=== PATIENT | male | born 1955 | race Caucasian/White ===

== ENCOUNTER 2020-05-05 07:15 | Outpatient (REF) | payer BC, SELFPAY | END 2020-05-05 07:16 | disposition home or self-care (01) | LOC: HO.LAB 07:15 | PROVIDERS: PCP Internal Medicine Medical Oncology; Visit Provider Internal Medicine | DX: Z20.828 Contact with and (suspected) exposure to other viral communicable diseases (principal) | CPT/HCPCS: C9803; U0003 ==

== ENCOUNTER 2020-05-25 10:23 | Outpatient (REF) | payer BC, SELFPAY | END 2020-05-25 10:24 | disposition home or self-care (01) | LOC: HO.LAB 10:23 | PROVIDERS: Visit Provider Internal Medicine | DX: Z20.828 Contact with and (suspected) exposure to other viral communicable diseases (principal) | CPT/HCPCS: C9803; U0003 ==

== ENCOUNTER 2020-08-26 08:15 | Day surgery (SDC) | payer BC, SELFPAY ==
[2020-08-19 14:25] VITALS: BMI 37.1
--- NOTE | 2020-08-25 07:52 | P.CONAN_ITS ---
Documented by User: Salome Bell 08/25/20 07:53 HPI - Anesthesia Eval Consult details Narrative: 65yo M for Colonoscopy [facility] Past Medical History Medical History Lab test negative for COVID-19 virus Personal history of COVID-19 Surgical History Surgical History H/O colonoscopy Hx of eye surgery Hx of oral surgery Hx of vasectomy Social History Social History Alcohol intake: current Alcohol intake frequency: 0-2 drinks per day Smoking Status: Never smoker Use of substances other than those prescribed or required for medical reasons: No Advance Directives Information Provided: No Meds Allergies Allergy/AdvReac Type Severity Reaction Status Date / Time No Known Allergies Allergy Verified 08/26/20 09:07 Home Medications Medication Instructions Recorded Confirmed Last Taken Type No Known Home Meds 08/19/20 08/19/20 Unknown History Exam Exam Date and Time: August 25, 2020 0752 Height,Weight and Vital Signs: Height 5 ft 4.25 in Weight 98.883 kg Assessment and Plan Assessment Anesthesia Assessment: Chart Reviewed Documented by User: Ramya Haro 08/26/20 09:23 [facility] Past Medical History Medical History Lab test negative for COVID-19 virus Personal history of COVID-19 Family History Family history of problems with anesthesia: No Surgical History Surgical History H/O colonoscopy Hx of eye surgery Hx of oral surgery Hx of vasectomy History of Problems with Anesthesia: No Social History Social History Alcohol intake: current Alcohol intake frequency: 0-2 drinks per day Smoking Status: Never smoker Use of substances other than those prescribed or required for medical reasons: No Advance Directives Information Provided: No Meds Allergies Allergy/AdvReac Type Severity Reaction Status Date / Time No Known Allergies Allergy Verified 08/26/20 09:07 Home Medications Medication Instructions Recorded Confirmed Last Taken Type No Known Home Meds 08/19/20 08/19/20 Unknown History Exam Height,Weight and Vital Signs: Vital Signs Temp Pulse Resp BP Pulse Ox 08/26/20 09:13 97.8 F 65 18 146/68 H 97 Narrative Narrative: Scab top lip Airway Mallampati Class: II TM Dist: >3cm Neck ROM: Full Partial: Lower Heart: RRR Lungs: CTAB Assessment and Plan Assessment Anesthesia Assessment: Anesthesia Plan Discussed and Chart Reviewed Final Anesthetic Review NPO: Yes ASA Class: II Final Preanesthetic Review: No Changes in Pt Med Stat, Meds/Allgs Chart Reviewed, Consent Obtained/Reviewed and Anes Risks/Benef Reviewed Patient Risk: Low Procedure Risk: Low Assessment/Block/Sedation in SS: Assess/Block/Sedation-SS Anesthetic Plan Anesthetic Plan: MAC: Disposition: Standard PACU
[2020-08-26 09:13] VITALS: BP 146/68; PULSE 65; RESP 18; TEMP 36.6; O2SAT 97
[2020-08-26] MEDS: Lactated Ringers 1,000 ML 100 ML IVCONT (09:24)
[2020-08-26 10:26] VITALS: BP 105/54; PULSE 56; RESP 20; TEMP 36.9; O2SAT 98
--- NOTE | 2020-08-26 10:28 | PM.OP ---
Brief Operative Note Date of Service: 08/26/20 Pre-op diagnosis: Screening Post-op diagnosis: other (Colon polyp) Procedure: Colonoscopy to the cecum and TI with biopsy and removal of polyp Surgeon: Kevin Curry Anesthesia: MAC Estimated blood loss (mL): 3.0 Pathology: other (A. Ascending colon polyp) Condition: stable Disposition: PACU
[2020-08-26 10:41] VITALS: BP 114/55; PULSE 60; RESP 20; TEMP 37; O2SAT 96
--- NOTE | 2020-08-26 11:57 | OP_ITS ---
SURGEON: Kevin Curry MD INDICATIONS: The patient presents for evaluation of a personal history of tubular adenoma of the colon. Full consent has been obtained from him for this, including risks of bleeding and perforation. PREOPERATIVE DIAGNOSIS: POSTOPERATIVE DIAGNOSIS: PROCEDURE PERFORMED: Colonoscopy to cecum and terminal ileum with biopsy and removal of polyp. ESTIMATED BLOOD LOSS: COMPLICATIONS: ANESTHESIA: Monitored anesthesia care. ASSISTANTS: SPECIMENS: PREOPERATIVE DIAGNOSES: Colorectal cancer screening and personal history of tubular adenoma of the colon. POSTOPERATIVE DIAGNOSES: Colorectal cancer screening and personal history of tubular adenoma of the colon, small colon polyp, sigmoid diverticulosis, and small internal hemorrhoids. DESCRIPTION OF PROCEDURE: The patient was placed in the left lateral decubitus position. The digital rectal exam revealed no abnormalities. The Olympus video pediatric colonoscope was entered into the rectum and advanced easily to the cecum. Once in the cecum, I did identify normal-appearing cecal pouch with appendiceal orifice and a normal-appearing ileocecal valve. The terminal ileum was cannulated and appeared normal. The scope was withdrawn back in the colon. The entire cecum and ileocecal valve appeared normal. The scope was slowly withdrawn assessing all mucosal surfaces carefully. Preparation was excellent. In the ascending colon, was a flat approximately 4 mm polyp, which was biopsied and completely removed with cold biopsy forceps. I did not visualize any other polyps, colitis, nor angiodysplasia. There was a mild amount of sigmoid diverticulosis. In the rectum, scope was retroflexed visualizing small internal hemorrhoids, but no other pathology. The rectal mucosa appeared normal. The scope was straightened out and withdrawn from the patient. He tolerated the procedure well and was returned to the recovery area in stable condition. IMPRESSION: 1. Small colon polyp, status post biopsy and removal. 2. Mild sigmoid diverticulosis. 3. Small internal hemorrhoids. PLAN: The results of the biopsies will be checked. I would recommend a repeat colonoscopy in 5 years for further screening. MD LINDY Mendoza/MABELL / [id number]
== END 2020-08-26 11:36 | disposition home or self-care (01) ==
PROVIDERS: PCP Internal Medicine Medical Oncology; Visit Provider Internal Medicine
PROC: 0DJD8ZZ Inspection of Lower Intestinal Tract, Via Natural or Artificial Opening Endoscopic (ICD-10-PCS; CPT 45378; principal; 2020-08-26 09:40)
DX: Z12.11 Encounter for screening for malignant neoplasm of colon (principal); Z86.010 Personal history of colon polyps; D12.2 Benign neoplasm of ascending colon; K57.30 Diverticulosis of large intestine without perforation or abscess without bleeding; K64.8 Other hemorrhoids; Z86.16 Personal history of COVID-19
CPT/HCPCS: 45380; 88305

== ENCOUNTER 2020-08-30 10:51 | Outpatient (REF) | payer BC, SELFPAY ==
[2020-08-30 14:14] LABS: MANUAL DIFF FLAG NO
[2020-08-30 14:34] LABS: Basophils Percent Auto 0.4 % (0-2); Eosinophils Absolute Auto 0.1 X10*3/uL (0.0-0.4); Eosinophils Percent Auto 1.6 % (0-4); Hematocrit 43.4 % (42-52); Hemoglobin 14.9 g/dl (14.0-18.0); Imm Gran Abs Auto 0.01 X10*3/uL (0.00-0.03); Imm Gran Pct Auto 0.1 % (0.0-0.4); Lymphocytes Absolute Auto 2.7 X10*3/uL (1.2-4.9); Lymphocytes Percent Auto 31.5 % (20-40); Mean Corpuscular HGB Conc 34.3 g/dl (31.0-36.0); Mean Corpuscular Hemoglobin 29.8 pg (27.0-33.0); Mean Corpuscular Volume 86.8 fL (80-98); Mean Platelet Volume 9.4 fL (9.4-12.4); Monocytes Absolute Auto 0.6 X10*3/uL (0.1-1.2); Neutrophils Absolute Auto 5.1 X10*3/uL (2.0-8.3); Neutrophils Percent Auto 59.4 % (45-73); Platelet Count 369 X10*3/uL (160-400); Red Cell Distribution Width 14.1 % (11.0-16.0); White Blood Count 8.6 X10*3/uL (4.8-10.8)
[2020-08-30 14:42] LABS: Estimated Average Glucose 111 mg/dL; Hemoglobin A1c % 5.5 %
[2020-08-30 14:45] LABS: Alanine Aminotransferase 31 U/L (0-40); Albumin Level 4.4 g/dL (3.5-5.0); Alkaline Phosphatase 100 U/L (39-117); Anion Gap 13 (12-20); Aspartate Amino Transferase 29 U/L (5-37); Bilirubin Total 0.8 mg/dL (0.0-1.0); Blood Urea Nitrogen 14 mg/dL (9-16); Carbon Dioxide 30 mmol/L (22-29); Chloride 104 mmol/L (96-108); Cholesterol 178 mg/dL; Estimated Glomerular Filt Rate > 60; Glucose Fasting 91 mg/dL (60-99); HDL Cholesterol 48 mg/dL; LDL Cholesterol Calculated 115 mg/dl; Potassium 4.5 mmol/L (3.3-5.1); Sodium 142 mmol/L (135-145); Total Protein 7.5 g/dL (6.5-8.0); Triglycerides 75 mg/dL
== END 2020-08-30 10:52 | disposition home or self-care (01) ==
LOC: HO.10HDL 10:51
PROVIDERS: Visit Provider Internal Medicine Medical Oncology
DX: M17.0 Bilateral primary osteoarthritis of knee (principal); E66.9 Obesity, unspecified
CPT/HCPCS: 36415; 80053; 80061; 83036; 85025

== ENCOUNTER 2021-06-06 11:40 | Outpatient (REF) | payer MEDICARE, SELFPAY ==
--- NOTE | ~2021-06-06 | XR_ITS ---
EXAMINATION: XR ELBOW, RIGHT CLINICAL INFORMATION: Elbow pain COMPARISON: None TECHNIQUE: AP, lateral, and oblique views of the right elbow. FINDINGS: The bones and soft tissues are normal. No fracture or joint effusion. Alignment is anatomic. Joint spaces are maintained. Mild calcific tendinopathy. XR/XR elbow RT 2V IMPRESSION: Mild calcific tendinopathy.
--- NOTE | ~2021-06-06 | XR_ITS ---
EXAMINATION: XR SHOULDER, RIGHT CLINICAL INFORMATION: Right shoulder pain COMPARISON: None TECHNIQUE: AP external rotation, Grashey, scapular Y, and axillary views of the right shoulder. FINDINGS: There is mild acromioclavicular osteoarthritis. Glenohumeral joint is well preserved. No fracture. Alignment is anatomic. Soft tissues are normal with no abnormal calcifications. XR/XR shoulder RT min 2V IMPRESSION: Mild acromioclavicular joint arthritis.
--- NOTE | ~2021-06-06 | XR_ITS ---
EXAMINATION: XR WRIST, RIGHT CLINICAL INFORMATION: Right wrist pain COMPARISON: None TECHNIQUE: PA, lateral, and oblique views of the right wrist. FINDINGS: The bones and soft tissues are normal. No fracture. Alignment is anatomic with normal joint spaces. No erosions or abnormal soft tissue calcifications. XR/XR wrist RT min 3V IMPRESSION: Normal right wrist.
== END 2021-06-06 11:41 | disposition home or self-care (01) ==
LOC: HO.XRAY 11:40
PROVIDERS: Visit Provider Internal Medicine Medical Oncology
DX: M79.601 Pain in right arm (principal); M25.511 Pain in right shoulder; M25.531 Pain in right wrist; M25.521 Pain in right elbow
CPT/HCPCS: 73030; 73070; 73110

== ENCOUNTER 2022-01-31 08:41 | Outpatient (REF) | payer MEDICARE, SELFPAY ==
[2022-01-31 10:19] LABS: MANUAL DIFF FLAG NO
[2022-01-31 10:26] LABS: Basophils Absolute Auto 0.1 X10*3/uL (0.0-0.2); Basophils Percent Auto 0.5 % (0-2); Eosinophils Absolute Auto 0.3 X10*3/uL (0.0-0.4); Eosinophils Percent Auto 2.9 % (0-4); Hematocrit 41.7 % (42.0-52.0); Hemoglobin 14.2 g/dl (14.0-18.0); Imm Gran Abs Auto 0.04 X10*3/uL (0.00-0.03); Imm Gran Pct Auto 0.4 % (0.0-0.4); Lymphocytes Absolute Auto 3.1 X10*3/uL (1.2-4.9); Lymphocytes Percent Auto 31.1 % (20-40); Mean Corpuscular HGB Conc 34.1 g/dl (31.0-36.0); Mean Corpuscular Hemoglobin 29.3 pg (27.0-33.0); Monocytes Absolute Auto 0.7 X10*3/uL (0.1-1.2); Monocytes Percent Auto 6.6 % (2-11); Neutrophils Absolute Auto 5.8 x10*3/uL (2.0-8.3); Neutrophils Percent Auto 58.5 % (45-73); Platelet Count 326 X10*3/uL (160-400); Red Blood Count 4.85 X10*6/uL (4.60-5.80); Red Cell Distribution Width 13.4 % (11.0-16.0); White Blood Count 9.9 X10*3/uL (4.8-10.8)
[2022-01-31 10:40] LABS: Alanine Aminotransferase 37 U/L (0-40); Albumin Level 4.1 g/dL (3.5-5.0); Alkaline Phosphatase 107 U/L (39-117); Anion Gap 13 (12-20); Aspartate Amino Transferase 41 U/L (5-37); Bilirubin Total 0.6 mg/dL (0.0-1.0); Blood Urea Nitrogen 11 mg/dL (9-16); Carbon Dioxide 31 mmol/L (22-29); Chloride 101 mmol/L (96-108); Cholesterol 167 mg/dL; Estimated Glomerular Filt Rate > 60; Glucose Fasting 103 mg/dL (60-99); HDL Cholesterol 40 mg/dL; LDL Cholesterol Calculated 106 mg/dl; Potassium 4.2 mmol/L (3.3-5.1); Sodium 141 mmol/L (135-145); Total Protein 6.9 g/dL (6.5-8.0); Triglycerides 105 mg/dL
[2022-01-31 11:01] LABS: Prostate Specific Antigen 0.49 ng/mL (<0.05-4.0)
== END 2022-01-31 08:42 | disposition home or self-care (01) ==
LOC: HO.10HDL 08:41
PROVIDERS: Visit Provider Internal Medicine Medical Oncology
DX: Z12.5 Encounter for screening for malignant neoplasm of prostate (principal); E66.9 Obesity, unspecified; M17.0 Bilateral primary osteoarthritis of knee
CPT/HCPCS: 36415; 80053; 80061; 84153; 85025

== ENCOUNTER 2022-02-08 09:09 | Outpatient (REF) | payer MEDICARE, SELFPAY ==
[2022-02-13 17:06] LABS: Testosterone, Total 239 ng/dL (250-1100)
== END 2022-02-08 09:10 | disposition home or self-care (01) ==
LOC: HO.10HDL 09:09
PROVIDERS: Visit Provider Internal Medicine Medical Oncology
DX: Z00.00 Encounter for general adult medical examination without abnormal findings (principal)
CPT/HCPCS: 36415; 84403

== ENCOUNTER 2022-03-30 16:26 | Outpatient (REF) | payer MEDICARE, SELFPAY ==
--- NOTE | ~2022-03-30 | XR_ITS ---
EXAMINATION: XR CHEST CLINICAL INFORMATION: Cough COMPARISON: None TECHNIQUE: 2 views of the chest were obtained. FINDINGS: No significant abnormality is noted involving the heart, lungs, mediastinum, bony thorax or soft tissues. Degenerative changes of the spine. XR/XR chest 2V IMPRESSION: Unremarkable examination.
== END 2022-03-30 16:27 | disposition home or self-care (01) ==
LOC: HO.XRAY 16:26
PROVIDERS: PCP Internal Medicine Medical Oncology; Visit Provider Internal Medicine Medical Oncology
DX: R05.9 Cough, unspecified (principal)
CPT/HCPCS: 71046

== ENCOUNTER 2022-07-20 07:33 | Outpatient (REF) | payer MEDICARE, SELFPAY ==
[2022-07-20 10:34] LABS: MANUAL DIFF FLAG NO
[2022-07-20 10:45] LABS: Basophils Absolute Auto 0.1 X10*3/uL (0.0-0.2); Basophils Percent Auto 0.7 % (0-2); Eosinophils Absolute Auto 0.3 X10*3/uL (0.0-0.4); Eosinophils Percent Auto 3.6 % (0-4); Hematocrit 43.9 % (42.0-52.0); Hemoglobin 14.4 g/dl (14.0-18.0); Imm Gran Abs Auto 0.03 X10*3/uL (0.00-0.03); Imm Gran Pct Auto 0.3 % (0.0-0.4); Lymphocytes Absolute Auto 2.9 X10*3/uL (1.2-4.9); Lymphocytes Percent Auto 32.4 % (20-40); Mean Corpuscular HGB Conc 32.8 g/dl (31.0-36.0); Mean Corpuscular Volume 88.3 fL (80.0-98.0); Mean Platelet Volume 9.6 fL (9.4-12.4); Monocytes Absolute Auto 0.6 X10*3/uL (0.1-1.2); Monocytes Percent Auto 6.6 % (2-11); Neutrophils Percent Auto 56.4 % (45-73); Platelet Count 300 X10*3/uL (160-400); Red Blood Count 4.97 X10*6/uL (4.60-5.80); Red Cell Distribution Width 13.8 % (11.0-16.0); White Blood Count 8.9 X10*3/uL (4.8-10.8)
[2022-07-20 11:11] LABS: Alanine Aminotransferase 37 U/L (0-40); Albumin Level 3.8 g/dL (3.5-5.0); Alkaline Phosphatase 120 U/L (39-117); Anion Gap 10 (12-20); Aspartate Amino Transferase 41 U/L (5-37); Bilirubin Total 0.8 mg/dL (0.0-1.0); Blood Urea Nitrogen 17 mg/dL (9-16); Calcium 8.8 mg/dL (8.4-10.2); Carbon Dioxide 31 mmol/L (22-29); Chloride 106 mmol/L (96-108); Estimated Glomerular Filt Rate > 60; Glucose Random 109 mg/dL (60-115); Potassium 4.2 mmol/L (3.3-5.1); Sodium 143 mmol/L (135-145); Total Protein 6.6 g/dL (6.5-8.0)
[2022-07-26 16:29] LABS: Testosterone, Total 234 ng/dL (250-1100)
== END 2022-07-20 07:34 | disposition home or self-care (01) ==
LOC: HO.10HDL 07:33
PROVIDERS: Visit Provider Internal Medicine Medical Oncology
DX: M17.0 Bilateral primary osteoarthritis of knee (principal); R79.89 Other specified abnormal findings of blood chemistry
CPT/HCPCS: 36415; 80053; 84403; 85025

== ENCOUNTER → 2022-09-19 13:57 | Outpatient (BNVA) | payer MEDICARE, SELFPAY | PROVIDERS: PCP Internal Medicine Medical Oncology; Visit Provider Nurse Practitioner Family | DX: E29.1 Testicular hypofunction (principal); N52.9 Male erectile dysfunction, unspecified | CPT/HCPCS: 99202 ==

== ENCOUNTER 2022-09-21 08:13 | Outpatient (REF) | payer MEDICARE, SELFPAY ==
[2022-09-29 15:18] LABS: Testosterone, Total 218 ng/dL (250-1100)
== END 2022-09-21 08:14 | disposition home or self-care (01) ==
LOC: HO.10HDL 08:13
PROVIDERS: Visit Provider Nurse Practitioner Family
DX: E29.1 Testicular hypofunction (principal); N52.9 Male erectile dysfunction, unspecified
CPT/HCPCS: 36415; 84402; 84403

== ENCOUNTER 2022-12-27 08:00 | Outpatient (REF) | payer MEDICARE, SELFPAY ==
[2023-01-03 16:48] LABS: Testosterone, Free 63.2 pg/mL (35.0-155.0); Testosterone, Total 363 ng/dL (250-1100)
== END 2022-12-27 08:01 | disposition home or self-care (01) ==
LOC: HO.10HDL 08:00
PROVIDERS: Visit Provider Nurse Practitioner Family
DX: E29.1 Testicular hypofunction (principal); N52.9 Male erectile dysfunction, unspecified
CPT/HCPCS: 36415; 84402; 84403

== ENCOUNTER 2023-01-02 08:34 | Outpatient (AMB) | payer MEDICARE, SELFPAY ==
--- NOTE | 2023-01-02 08:35 | MHC.OFFVIS ---
Intake Intake Visit Reasons: follow up/labs(set) Intake Note: Patient presents for follow up visit low testosterone/labs (total testosterone 218) Urology Medications: tadalafil Blood Thinner: none Sales Trainer Required: No Accompanied by: Self / Same As Patient Allergies No Known Allergies Allergy (Verified 01/02/23 10:07) Medication List - Last Reconciled 01/02/23 by HOLLY Radford tadalafil (Cialis) 5 mg PO DAILY 90 days HPI HPI Comments History of Present Illness Details Silvio is a pleasant 67-year-old male patient of Dr. Goel. He has a past medical history of obesity, osteoarthritis, and tubular adenoma. He presents to the office today for a follow up of his hypogonadism. Recent testosterone results reviewed with the patient today. When asked patient reports noting increase in mood and energy. He also reports feeling low-dose 5 mg Cialis daily to be working for his erections. Testosterone lab values are as follows. Patient otherwise denies any urinary issues or concerns at this time. When asked he denies any issues with urination. He denies urinary urgency, urinary frequency, incontinence, nocturia, hematuria, dysuria, foul smelling urine, changes to urinary stream, flank pain, fever, and or chills. He is happy with his current voiding parameters. Discussed at length importance of lifestyle modifications with diet, exercise, an adequate sleep. He otherwise denies any issues or concerns at this time. In office urinalysis results reviewed with the patient today. He discusses his recent road trip with his girlfriend to the [facility]. He discusses being able to visit his mother and son. Total Testosterone: 02/15--239 07/19-- 234 09/16--218 01/16--pending PSA: 02/15--0.5 At this time labs are pending. Patient will continue with low-dose Cialis as he reports this to be working well for him. Discussed calling patient with lab values once resulted. Patient otherwise offers no issues or concerns at this time. [facility] Medical History Decreased vision Diminished libido Lab test negative for COVID-19 virus Left medial tibial plateau fracture Morbid obesity Osteoarthritis Otitis Personal history of COVID-19 Tubular adenoma Surgical History H/O colonoscopy Hx of eye surgery Hx of oral surgery Hx of vasectomy Social History Alcohol intake: current Alcohol intake frequency: 0-2 drinks per day Review of Systems Const All systems reviewed & are unremarkable except as noted in HPI and below Reports no additional complaints Eyes Reports no additional complaints ENT Reports no additional complaints Card Reports no additional complaints Resp Reports no additional complaints GI Reports no additional complaints Reports as per HPI Musc Details: Patient reports torn left calf muscle while hiking few years ago, torn right bicep tendon, and right ulnar compression. He also reports arthritis of both knees. Neuro Reports no additional complaints Psych Reports no additional complaints Endo Reports no additional complaints Reymundo/Lymph Reports no additional complaints Aller/Immun Reports no additional complaints Physical Exam Const General: cooperative, comfortable, no acute distress, well developed, alert and awake Nutritional Appearance: overweight Orientation/consciousness: patient oriented x3 Limitations: no limitations HEENT Head: Yes normal to inspection, Yes normocephalic and Yes atraumatic Ears: hearing grossly normal bilaterally Eyes General: appearance normal, both eyes and all related structures Neck Neck: Yes normal visual inspection and Yes trachea midline Chest Chest palpation & inspection: normal inspection of the chest Resp Effort & Inspection: normal respiratory effort and able to speak in complete sentences Cardio Rate: regular rate GI Inspection: Yes normal to inspection General: Yes no CVA tenderness Back/Spine/Pelvis Back: no CVA tenderness Skin General skin exam: no rashes or lesions noted Neuro General: patient oriented x3 Extrem General: Yes normal to inspection Psych Appearance: grossly normal and well kempt Mental Status: mental status grossly normal Speech and movement: Normal speech and movement present and Clear speech present Affect: normal affect Attitude: cooperative Thought process: Normal thought process present Thought content: Normal thought content present Insight: Fair insight present (Psych) Judgement: Fair judgement present (Psych) Results AMB Urinalysis, Automated UA Leukoctes 0 Bola/uL Last Edit by Montse Sharma on 01/02/23 09:02 UA Nitrite Last Edit by Montse Sharma on 01/02/23 09:02 UA Urobilinogen 0.2 mg/dL Last Edit by Montse Sharma on 01/02/23 09:02 UA Protein 15 mg/dL Last Edit by Montse Naidudenisa on 01/02/23 09:02 UA pH 6.0 Last Edit by Montse Elysiadenisa on 01/02/23 09:02 UA Blood 10 Samuel/uL Last Edit by Montse Elysiadenisa on 01/02/23 09:02 UA Specific [place] 1.025 Last Edit by Anandalorena Elysiadenisa on 01/02/23 09:02 UA Ketone Negative Last Edit by Anandalorena Elysiadenisa on 01/02/23 09:02 UA Bilirubin 0 mg/dL Last Edit by Montse Elysiadenisa on 01/02/23 09:02 UA Glucose 0 mg/dL Last Edit by Montse Elysiadenisa on 01/02/23 09:02 Results Reviewed Results Reviewed: Laboratory Last Values Urine pH (Auto) 6.0 01/02/23 08:36 Specific [place] (Auto) 1.025 01/02/23 08:36 Urine Protein (Auto) 15 mg/dL 01/02/23 08:36 Glucose (UA)(Auto) 0 mg/dL 01/02/23 08:36 Urine Ketones (Auto) Negative 01/02/23 08:36 Urine Blood (Auto) 10 Samuel/uL 01/02/23 08:36 Urine Bilirubin (Auto) 0 mg/dL 01/02/23 08:36 Urine Urobilinogen (Auto) 0.2 mg/dL 01/02/23 08:36 Leukocyte Esterase (Auto) 0 Bola/uL 01/02/23 08:36 Assessment & Plan Assessment & Plan (1) Erectile dysfunction: Code(s): N52.9 - Male erectile dysfunction, unspecified (2) Hypogonadism in male: Code(s): E29.1 - Testicular hypofunction Plan In office urinalysis results reviewed with the patient today Testosterone lab values reviewed most recent continues to be pending. Will continue with low-dose 5 mg of Cialis daily as discussed and prescribed; refill provided Will call patient once labs are resulted However, at this time patient reporting significant improvement in mood and libido with 5 mg of low-dose Cialis and would like to continue Patient reports to be happy with current voiding parameters. Follow up in 6 months with labs if not sooner with any issues, concerns, and or questions. Orders: Orders Testosterone, Free/Total 6 Months E29.1 - Testicular hypofunction, N52.9 - Male erectile dysfunction, unspecified AMB Urinalysis Automated Today Z13.9 - Encounter for screening, unspecified Prostate Specific Antigen 6 Months Z12.5 - Encounter for screening for malignant neoplasm of prostate Medications: Refilled tadalafil (Cialis) [facility] DR33 [id number] 5 mg PO DAILY 90 tabs 0RF 90 days Patient Instructions: The patient had an opportunity to ask questions regarding the treatment plan. All questions were answered. Physical exam, labs, and imaging were discussed and reviewed in detail. As well as risks, benefits, and discussion of treatment choices. No major barriers to understanding were identified. The patient expressed understanding and agreement with the above treatment plan. The patient was made aware they should contact our office by phone for worsening of their current condition, the appearance of new symptoms, or with any questions or concerns. Compliance is encouraged with any medications and follow up testing that is ordered. It is a privilege to be allowed the opportunity to participate in? your urological care.? Again, if you have any questions or concerns If you have any questions or concerns please do not hesitate to contact me. The office is [phone]. This note is constructed using voice recognition software. While every effort has been made to ensure accuracy protective services case worker errors may have been included. Yours sincerely, HOLLY Radford Coding Level of Care Code Est Pt Level 3 (34154) Diagnoses Erectile dysfunction N52.9 Hypogonadism in male E29.1
== END 2023-01-02 09:15 | disposition home or self-care (01) ==
PROVIDERS: Visit Provider Nurse Practitioner Family
DX: N52.9 Male erectile dysfunction, unspecified (principal); E29.1 Testicular hypofunction
CPT/HCPCS: 99213

== ENCOUNTER 2023-01-02 08:34 | Outpatient (REF) | payer MEDICARE, SELFPAY ==
[2023-01-02 16:53] LABS: Urine Cytology See Pathology rpt
== END 2023-01-02 08:35 | disposition home or self-care (01) ==
LOC: HO.LNP 08:34
PROVIDERS: Visit Provider Nurse Practitioner Family
DX: E29.1 Testicular hypofunction (principal); N52.9 Male erectile dysfunction, unspecified; Z79.899 Other long term (current) drug therapy
CPT/HCPCS: 88112; 99212

== ENCOUNTER 2023-05-03 08:35 | Outpatient (REF) | payer MEDICARE, SELFPAY ==
[2023-05-03 10:33] LABS: MANUAL DIFF FLAG NO
[2023-05-03 10:50] LABS: Basophils Percent Auto 0.3 % (0-2); Eosinophils Percent Auto 0.2 % (0-4); Hematocrit 42.3 % (42.0-52.0); Imm Gran Abs Auto 0.33 X10*3/uL (0.00-0.03); Imm Gran Pct Auto 2.2 % (0.0-0.4); Lymphocytes Absolute Auto 3.7 X10*3/uL (1.2-4.9); Lymphocytes Percent Auto 25.2 % (20-40); Mean Corpuscular HGB Conc 33.1 g/dl (31.0-36.0); Mean Corpuscular Hemoglobin 29.6 pg (27.0-33.0); Mean Corpuscular Volume 89.4 fL (80.0-98.0); Mean Platelet Volume 8.9 fL (9.4-12.4); Monocytes Absolute Auto 0.9 X10*3/uL (0.1-1.2); Monocytes Percent Auto 5.8 % (2-11); Neutrophils Absolute Auto 9.8 x10*3/uL (2.0-8.3); Neutrophils Percent Auto 66.3 % (45-73); Platelet Count 359 X10*3/uL (160-400); Red Blood Count 4.73 X10*6/uL (4.60-5.80); Red Cell Distribution Width 14.2 % (11.0-16.0); White Blood Count 14.8 X10*3/uL (4.8-10.8)
[2023-05-03 11:03] LABS: Alanine Aminotransferase 27 U/L (0-40); Albumin Level 3.7 g/dL (3.5-5.0); Alkaline Phosphatase 103 U/L (39-117); Anion Gap 11 (12-20); Aspartate Amino Transferase 25 U/L (5-37); Bilirubin Total 0.6 mg/dL (0.0-1.0); Blood Urea Nitrogen 15 mg/dL (9-16); Calcium 8.8 mg/dL (8.4-10.2); Carbon Dioxide 31 mmol/L (22-29); Chloride 105 mmol/L (96-108); Cholesterol 169 mg/dL (<200); Estimated Glomerular Filt Rate > 60; Glucose Fasting 91 mg/dL (60-99); HDL Cholesterol 63 mg/dL (>40); LDL Cholesterol Calculated 94 mg/dL (<100); Potassium 3.8 mmol/L (3.3-5.1); Sodium 143 mmol/L (135-145); Total Protein 6.6 g/dL (6.5-8.0); Triglycerides 61 mg/dL (<150)
[2023-05-03 11:19] LABS: Prostate Specific Antigen 0.43 ng/mL (<0.05-4.0)
[2023-05-07 18:35] LABS: Testosterone, Total 242 ng/dL (250-1100)
== END 2023-05-03 08:36 | disposition home or self-care (01) ==
LOC: HO.10HDL 08:35
PROVIDERS: Visit Provider Internal Medicine Medical Oncology
DX: Z12.5 Encounter for screening for malignant neoplasm of prostate (principal); E66.01 Morbid (severe) obesity due to excess calories; E34.9 Endocrine disorder, unspecified
CPT/HCPCS: 36415; 80053; 80061; 84153; 84403; 85025

== ENCOUNTER 2023-07-03 09:06 | Outpatient (REF) | payer MEDICARE, SELFPAY ==
[2023-07-03 10:40] LABS: Prostate Specific Antigen 0.58 ng/mL (<0.05-4.0)
[2023-07-07 16:43] LABS: Testosterone, Total 223 ng/dL (250-1100)
== END 2023-07-03 09:07 | disposition home or self-care (01) ==
LOC: HO.LAB 09:06
PROVIDERS: PCP Internal Medicine Medical Oncology; Visit Provider Nurse Practitioner Family
DX: Z12.5 Encounter for screening for malignant neoplasm of prostate (principal); N52.9 Male erectile dysfunction, unspecified; E29.1 Testicular hypofunction
CPT/HCPCS: 36415; 84153; 84402; 84403

== ENCOUNTER 2023-07-05 09:26 | Outpatient (AMB) | payer MEDICARE, SELFPAY ==
--- NOTE | 2023-07-05 09:31 | MHC.OFFVIS ---
Intake Intake Visit Reasons: 6 mo follow up/ Labs Intake Note: Patient is Present for Follow Up labs/Med Review Urology Medication: Tadalafil Antibiotic Allergies: None Blood Thinners: None Patient is requesting refill on Tadalafil Allergies No Known Allergies Allergy (Verified 07/05/23 10:11) Medication List - Last Reconciled 07/05/23 by TRACY Radford-JAMES tadalafil (Cialis) 5 mg PO DAILY 90 days HPI HPI Comments History of Present Illness Details Silvio is a pleasant 68-year-old male patient of Dr. Goel. He has a past medical history of obesity, osteoarthritis, and tubular adenoma. He presents to the office today for a follow up of his hypogonadism. It appears testosterone lab values are pending as these were just drawn 2 days ago. Discussed importance of having labs done approximately 2 weeks prior to appointment. Previous testosterone labs reviewed and trended as noted below. In discussion with the patient today he reports he had been feeling increase in mood and energy however ran out of medication approximately 1 month ago and feels he has also been under a lot of stress. He also reports feeling low-dose 5 mg Cialis daily to be working for his erections. He reports noting to be getting more sleep and feels this has been helpful as well. Patient otherwise denies any urinary issues or concerns at this time. When asked he denies any issues with urination. He denies urinary urgency, urinary frequency, incontinence, nocturia, hematuria, dysuria, foul smelling urine, changes to urinary stream, flank pain, fever, and or chills. He is happy with his current voiding parameters. Discussed at length importance of lifestyle modifications with diet, exercise, an adequate sleep. He otherwise denies any issues or concerns at this time. In office urinalysis results reviewed with the patient today. Total Testosterone: 02/15--239 07/19-- 234 09/16--218 01/16--363 05/18--242 07/20--pending PSA: 02/15--0.5, 05/18--0.4 At this time labs are pending. Patient will continue with low-dose Cialis as he reports this to be working well for him. Discussed calling patient with lab values once resulted. Patient otherwise offers no issues or concerns at this time. PFSH Medical History Diminished libido Left medial tibial plateau fracture Osteoarthritis Otitis Tubular adenoma Decreased vision Morbid obesity Lab test negative for COVID-19 virus Personal history of COVID-19 Surgical History Hx of vasectomy Hx of eye surgery Hx of oral surgery H/O colonoscopy Social History Alcohol intake: current Alcohol intake frequency: 0-2 drinks per day Review of Systems Const All systems reviewed & are unremarkable except as noted in HPI and below Reports no additional complaints Eyes Reports no additional complaints ENT Reports no additional complaints Card Reports no additional complaints Resp Reports no additional complaints GI Reports no additional complaints Reports as per HPI Musc Details: Patient reports torn left calf muscle while hiking few years ago, torn right bicep tendon, and right ulnar compression. He also reports arthritis of both knees. Neuro Reports no additional complaints Psych Reports no additional complaints Endo Reports no additional complaints Reymundo/Lymph Reports no additional complaints Aller/Immun Reports no additional complaints Physical Exam Const General: cooperative, healthy appearing, comfortable, no acute distress, well developed, alert and awake Nutritional Appearance: overweight Orientation/consciousness: patient oriented x3 Limitations: no limitations HEENT Head: Yes normal to inspection, Yes normocephalic and Yes atraumatic Ears: hearing grossly normal bilaterally Eyes General: appearance normal, both eyes and all related structures Neck Neck: Yes normal visual inspection and Yes trachea midline Chest Chest palpation & inspection: normal inspection of the chest Resp Effort & Inspection: normal respiratory effort and able to speak in complete sentences Cardio Rate: regular rate GI Inspection: Yes normal to inspection General: Yes no CVA tenderness Back/Spine/Pelvis Back: no CVA tenderness Skin General skin exam: no rashes or lesions noted Neuro General: patient oriented x3 Extrem General: Yes normal to inspection Psych Appearance: grossly normal and well kempt Mental Status: mental status grossly normal Speech and movement: Normal speech and movement present and Clear speech present Affect: normal affect Attitude: cooperative Thought process: Normal thought process present Thought content: Normal thought content present Insight: Fair insight present (Psych) Judgement: Fair judgement present (Psych) Results AMB Urinalysis, Automated UA Leukoctes 0 Bola/uL Last Edit by Tracy Sandoval, RMA on 07/05/23 09:42 UA Nitrite Negative Last Edit by Tracy Sandoval, RMA on 07/05/23 09:42 UA Urobilinogen 0.2 mg/dL Last Edit by Tracy Sandoval, RMA on 07/05/23 09:42 UA Protein 0 mg/dL Last Edit by Tracy Sandoval, RMA on 07/05/23 09:42 UA pH 5.5 Last Edit by Tracy Sandoval, RMA on 07/05/23 09:42 UA Blood 0 Samuel/uL Last Edit by Tracy Sandoval, RMA on 07/05/23 09:42 UA Specific [place] 1.020 Last Edit by Tracy Sandoval, A on 07/05/23 09:42 UA Ketone Negative Last Edit by Tracy Sandoval, RMA on 07/05/23 09:42 UA Bilirubin 0 mg/dL Last Edit by Tracy Sandoval, RMA on 07/05/23 09:42 UA Glucose 0 mg/dL Last Edit by Tracy Sandoval, RMA on 07/05/23 09:42 Results Reviewed Results Reviewed: Laboratory Last Values Urine pH (Auto) 5.5 07/05/23 09:39 Specific [place] (Auto) 1.020 07/05/23 09:39 Urine Protein (Auto) 0 mg/dL 07/05/23 09:39 Glucose (UA)(Auto) 0 mg/dL 07/05/23 09:39 Urine Ketones (Auto) Negative 07/05/23 09:39 Urine Blood (Auto) 0 Samuel/uL 07/05/23 09:39 Urine Nitrite (Auto) Negative 07/05/23 09:39 Urine Bilirubin (Auto) 0 mg/dL 07/05/23 09:39 Urine Urobilinogen (Auto) 0.2 mg/dL 07/05/23 09:39 Leukocyte Esterase (Auto) 0 Bola/uL 07/05/23 09:39 Assessment & Plan Assessment & Plan (1) Erectile dysfunction: Code(s): N52.9 - Male erectile dysfunction, unspecified (2) Hypogonadism in male: Code(s): E29.1 - Testicular hypofunction Plan In office urinalysis results reviewed with the patient today Testosterone lab values reviewed most recent continues to be pending. Will continue with low-dose 5 mg of Cialis daily as discussed and prescribed; refill provided Will call patient once labs are resulted. However, at this time patient reporting improvement in mood and libido with 5 mg of low-dose Cialis and would like to continue Patient reports to be happy with current voiding parameters. Follow up in 3 months with labs if not sooner with any issues, concerns, and or questions. Orders: Orders AMB Urinalysis Automated Today Z13.9 - Encounter for screening, unspecified Medications: Refilled tadalafil (Cialis) [facility] DR33 [id number] 5 mg PO DAILY 90 days 90 tabs 1RF Patient Instructions: The patient had an opportunity to ask questions regarding the treatment plan. All questions were answered. Physical exam, labs, and imaging were discussed and reviewed in detail. As well as risks, benefits, and discussion of treatment choices. No major barriers to understanding were identified. The patient expressed understanding and agreement with the above treatment plan. The patient was made aware they should contact our office by phone for worsening of their current condition, the appearance of new symptoms, or with any questions or concerns. Compliance is encouraged with any medications and follow up testing that is ordered. It is a privilege to be allowed the opportunity to participate in? your urological care.? Again, if you have any questions or concerns If you have any questions or concerns please do not hesitate to contact me. The office is [phone]. This note is constructed using voice recognition software. While every effort has been made to ensure accuracy pneumatic system conveyor operator errors may have been included. Yours sincerely, HOLLY Radford Coding Level of Care Code Est Pt Level 3 (01607) Diagnoses Erectile dysfunction N52.9 Hypogonadism in male E29.1
== END 2023-07-05 10:00 | disposition home or self-care (01) ==
PROVIDERS: PCP Internal Medicine Medical Oncology; Visit Provider Nurse Practitioner Family
DX: N52.9 Male erectile dysfunction, unspecified (principal); E29.1 Testicular hypofunction; Z13.9 Encounter for screening, unspecified
CPT/HCPCS: 99213

== ENCOUNTER → 2023-07-05 09:26 | Outpatient (BNVA) | payer MEDICARE, SELFPAY | PROVIDERS: PCP Internal Medicine Medical Oncology; Visit Provider Nurse Practitioner Family | DX: N52.9 Male erectile dysfunction, unspecified (principal); E29.1 Testicular hypofunction | CPT/HCPCS: 81003; 99212 ==

== ENCOUNTER 2023-08-01 10:15 | Outpatient (REF) | payer MEDICARE, SELFPAY ==
[2023-08-01 11:38] LABS: MANUAL DIFF FLAG NO
[2023-08-01 11:46] LABS: Basophils Absolute Auto 0.1 X10*3/uL (0.0-0.2); Basophils Percent Auto 0.5 % (0-2); Eosinophils Absolute Auto 0.2 X10*3/uL (0.0-0.4); Eosinophils Percent Auto 1.9 % (0-4); Hematocrit 43.7 % (42.0-52.0); Hemoglobin 14.3 g/dl (14.0-18.0); Imm Gran Abs Auto 0.08 X10*3/uL (0.00-0.03); Imm Gran Pct Auto 0.8 % (0.0-0.4); Lymphocytes Absolute Auto 2.6 X10*3/uL (1.2-4.9); Lymphocytes Percent Auto 25.4 % (20-40); Mean Corpuscular HGB Conc 32.7 g/dl (31.0-36.0); Mean Corpuscular Hemoglobin 29.9 pg (27.0-33.0); Mean Corpuscular Volume 91.4 fL (80.0-98.0); Mean Platelet Volume 9.1 fL (9.4-12.4); Monocytes Absolute Auto 0.6 X10*3/uL (0.1-1.2); Monocytes Percent Auto 5.9 % (2-11); Neutrophils Absolute Auto 6.7 x10*3/uL (2.0-8.3); Neutrophils Percent Auto 65.5 % (45-73); Platelet Count 297 X10*3/uL (160-400); Red Blood Count 4.78 X10*6/uL (4.60-5.80); Red Cell Distribution Width 13.9 % (11.0-16.0); White Blood Count 10.3 X10*3/uL (4.8-10.8)
[2023-08-01 11:57] LABS: Alanine Aminotransferase 29 U/L (0-40); Alkaline Phosphatase 104 U/L (39-117); Anion Gap 8 (12-20); Aspartate Amino Transferase 30 U/L (5-37); Bilirubin Total 0.6 mg/dL (0.0-1.0); Blood Urea Nitrogen 14 mg/dL (9-16); Calcium 9.3 mg/dL (8.4-10.2); Carbon Dioxide 34 mmol/L (22-29); Chloride 103 mmol/L (96-108); Cholesterol 169 mg/dL (<200); Estimated Glomerular Filt Rate > 60; Glucose Fasting 100 mg/dL (60-99); HDL Cholesterol 51 mg/dL (>40); LDL Cholesterol Calculated 104 mg/dL (<100); Potassium 4.3 mmol/L (3.3-5.1); Sodium 141 mmol/L (135-145); Triglycerides 70 mg/dL (<150)
[2023-08-07 13:03] LABS: Testosterone, Total 306 ng/dL (250-1100)
== END 2023-08-01 10:16 | disposition home or self-care (01) ==
LOC: HO.10HDL 10:15
PROVIDERS: Visit Provider Internal Medicine Medical Oncology
DX: E66.01 Morbid (severe) obesity due to excess calories (principal); E34.9 Endocrine disorder, unspecified
CPT/HCPCS: 36415; 80053; 80061; 84403; 85025

== ENCOUNTER → 2023-08-29 08:58 | Outpatient (REF) | payer MEDICARE, SELFPAY ==
--- NOTE | 2023-08-29 09:02 | CA_ITS ---
Acquisition Time: 2023-08-29 09:11:46 Total Exercise Time: 00:09:14 Test Indications: SOB Medications: ALBUTEROL Protocol: LINK Max HR: 131 BPM 86% of Pred: 152 BPM Max BP: 160/080 mmHG Max Work Load: 10.4 METS Exercise stress test exercise 9 min 14 sec of Link protocol achieving 86% MPHR, with moderate SOB without chest discomfort, with isolated PVC and ventricular cuplet, with normotensive response to exericse, without EKG chnages, Test reviewed with Dr Seaman Referred By: Kevin Goel Overread By: Anitha Wolf
== END ==
LOC: HO.CARD 08:58
PROVIDERS: PCP Internal Medicine Medical Oncology; Visit Provider Internal Medicine Medical Oncology
DX: R06.02 Shortness of breath (principal); I10 Essential (primary) hypertension; M17.0 Bilateral primary osteoarthritis of knee
CPT/HCPCS: 93017

== ENCOUNTER → 2023-08-29 09:02 | Outpatient (BNV) | payer MEDICARE, SELFPAY | PROVIDERS: PCP Internal Medicine Medical Oncology; Visit Provider Nurse Practitioner | DX: R06.02 Shortness of breath (principal); I49.3 Ventricular premature depolarization | CPT/HCPCS: 93016; 93018 ==

== ENCOUNTER 2023-10-04 09:49 | Outpatient (AMB) | payer MEDICARE, SELFPAY ==
--- NOTE | 2023-10-04 09:58 | A.OFFVIS_ITS ---
Intake Visit Reasons: 3m/testo Intake Note: Patient is Present for Follow Up labs Urology Medication: Tadalafil Antibiotic Allergies: None Blood Thinners: None Screw Machine Tender Required: No Accompanied by: Self / Same As Patient Allergies No Known Allergies Allergy (Verified 07/05/23 10:11) Medication List - Last Reconciled 10/05/23 by HOLLY Radford tadalafil (Cialis) 5 mg PO DAILY 90 days HPI Comments Details: Silvio is a pleasant 68-year-old male patient of Dr. Goel. He has a past medical history of obesity, osteoarthritis, and tubular adenoma. He presents to the office today for a follow up of his hypogonadism and erectile dysfunction. In discussion with the patient today reports to be doing and feeling well. He reports noting morning erections over the last 2 months. He reports compliance with 5 mg of Cialis daily. Recent testosterone results reviewed with the patient today as noted and trended below. He reports erections are adequate for penetration. He currently denies any bothersome urinary issues or concerns. He reports feeling increase in mood and energy. Patient otherwise denies any urinary issues or concerns at this time. When asked he denies any issues with urination. He denies urinary urgency, urinary frequency, incontinence, nocturia, hematuria, dysuria, foul smelling urine, changes to urinary stream, flank pain, fever, and or chills. He is happy with his current voiding parameters. Discussed at length importance of lifestyle modifications with diet, exercise, an adequate sleep. He otherwise denies any issues or concerns at this time. In office urinalysis results reviewed with the patient today. Patient otherwise offers no issues or concerns at this time. Total Testosterone: 02/15 239, 07/19 234, 09/16 218, 01/16 363, 05/18 242 07/20 223, 08/17 306 Free testosterone: 07/20 41.0 PSA: 02/15 0.5, 05/18 0.4, 07/20 0.6 PFSH Medical History Diminished libido Left medial tibial plateau fracture Osteoarthritis Otitis Tubular adenoma Decreased vision Morbid obesity Lab test negative for COVID-19 virus Personal history of COVID-19 Surgical History Hx of vasectomy Hx of eye surgery Hx of oral surgery H/O colonoscopy Social History Alcohol intake: current Alcohol intake frequency: 0-2 drinks per day Review of Systems Const All systems reviewed & are unremarkable except as noted in HPI and below Reports no additional complaints Eyes Reports no additional complaints ENT Reports no additional complaints Card Reports no additional complaints Resp Reports no additional complaints GI Reports no additional complaints Reports as per HPI Musc Details: Patient reports torn left calf muscle while hiking few years ago, torn right bicep tendon, and right ulnar compression. He also reports arthritis of both knees. Neuro Reports no additional complaints Psych Reports no additional complaints Endo Reports no additional complaints Reymundo/Lymph Reports no additional complaints Aller/Immun Reports no additional complaints Physical Exam Const General: cooperative, healthy appearing, comfortable, no acute distress, well developed, alert and awake Nutritional Appearance: overweight Orientation/consciousness: patient oriented x3 Limitations: no limitations HEENT Head: Yes normal to inspection, Yes normocephalic and Yes atraumatic Ears: hearing grossly normal bilaterally Eyes General: appearance normal, both eyes and all related structures Neck Neck: Yes normal visual inspection and Yes trachea midline Chest Chest palpation & inspection: normal inspection of the chest Resp Effort & Inspection: normal respiratory effort and able to speak in complete sentences Cardio Rate: regular rate GI Inspection: Yes normal to inspection General: Yes no CVA tenderness Back/Spine/Pelvis Back: no CVA tenderness Skin General skin exam: no rashes or lesions noted Neuro General: patient oriented x3 Extrem General: Yes normal to inspection Psych Appearance: grossly normal and well kempt Mental Status: mental status grossly normal Speech and movement: Normal speech and movement present and Clear speech present Affect: normal affect Attitude: cooperative Thought process: Normal thought process present Thought content: Normal thought content present Insight: Fair insight present (Psych) Judgement: Fair judgement present (Psych) Results AMB Urinalysis, Automated UA Leukoctes 0 Bola/uL Last Edit by Montse Sharma on 10/04/23 10:10 UA Nitrite Negative Last Edit by Montse hSarma on 10/04/23 10:10 UA Urobilinogen 0.2 mg/dL Last Edit by Montse Sharma on 10/04/23 10:10 UA Protein 15 mg/dL Last Edit by Montse Sharma on 10/04/23 10:10 UA pH 6.0 Last Edit by Montse Naidudenisa on 10/04/23 10:10 UA Blood 10 Samuel/uL Last Edit by Anandaholliebetzaida Naidudenisa on 10/04/23 10:10 UA Specific [place] 1.030 Last Edit by Anandalorena Elysiadenisa on 10/04/23 10:10 UA Ketone Negative Last Edit by Montse Naidudenisa on 10/04/23 10:10 UA Bilirubin 0 mg/dL Last Edit by Montse Naidudenisa on 10/04/23 10:10 UA Glucose 0 mg/dL Last Edit by Montse Elysiadenisa on 10/04/23 10:10 Results Reviewed Results Reviewed: Laboratory Last Values Urine pH (Auto) 6.0 10/04/23 10:02 Specific [place] (Auto) 1.030 10/04/23 10:02 Urine Protein (Auto) 15 mg/dL 10/04/23 10:02 Glucose (UA)(Auto) 0 mg/dL 10/04/23 10:02 Urine Ketones (Auto) Negative 10/04/23 10:02 Urine Blood (Auto) 10 Samuel/uL 10/04/23 10:02 Urine Nitrite (Auto) Negative 10/04/23 10:02 Urine Bilirubin (Auto) 0 mg/dL 10/04/23 10:02 Urine Urobilinogen (Auto) 0.2 mg/dL 10/04/23 10:02 Leukocyte Esterase (Auto) 0 Bola/uL 10/04/23 10:02 Assessment & Plan Assessment & Plan (1) Hypogonadism in male: Code(s): E29.1 - Testicular hypofunction Category: Medical (2) Erectile dysfunction: Code(s): N52.9 - Male erectile dysfunction, unspecified Category: Medical Plan In office urinalysis results reviewed with the patient today. Recent labs reviewed with the patient today; as noted and trended above. Will continue with low-dose 5 mg of Cialis daily as discussed and prescribed; refill provided Patient reports to be happy with current voiding parameters. He currently denies any bothersome urinary issues or concerns. Follow up in 4 months with labs if not sooner with any issues, concerns, and or questions. Orders: Orders AMB Urinalysis Automated 10/04/23 Z13.9 - Encounter for screening, unspecified Testosterone, Free/Total 4 Months E29.1 - Testicular hypofunction, N52.9 - Male erectile dysfunction, unspecified Medications: Refilled tadalafil (Cialis) [facility] DR33 [id number] 5 mg PO DAILY 90 tabs 3RF 90 days Patient Instructions: The patient had an opportunity to ask questions regarding the treatment plan. All questions were answered. Physical exam, labs, and imaging were discussed and reviewed in detail. As well as risks, benefits, and discussion of treatment choices. No major barriers to understanding were identified. The patient expressed understanding and agreement with the above treatment plan. The patient was made aware they should contact our office by phone for worsening of their current condition, the appearance of new symptoms, or with any questions or concerns. Compliance is encouraged with any medications and follow up testing that is ordered. It is a privilege to be allowed the opportunity to participate in? your urological care.? Again, if you have any questions or concerns If you have any questions or concerns please do not hesitate to contact me. The office is [phone]. This note is constructed using voice recognition software. While every effort has been made to ensure accuracy machining department supervisor errors may have been included. Yours sincerely, HOLLY Radford Coding Level of Care Code Est Pt Level 3 (36800) Diagnoses Hypogonadism in male E29.1 Erectile dysfunction N52.9
== END 2023-10-04 10:29 | disposition home or self-care (01) ==
PROVIDERS: PCP Internal Medicine Medical Oncology; Visit Provider Nurse Practitioner Family
DX: E29.1 Testicular hypofunction (principal); N52.9 Male erectile dysfunction, unspecified
CPT/HCPCS: 99213

== ENCOUNTER → 2023-10-04 09:49 | Outpatient (BNVA) | payer MEDICARE, SELFPAY | PROVIDERS: PCP Internal Medicine Medical Oncology; Visit Provider Nurse Practitioner Family | DX: E29.1 Testicular hypofunction (principal); N52.9 Male erectile dysfunction, unspecified; Z79.899 Other long term (current) drug therapy | CPT/HCPCS: 81003; 99212 ==

== ENCOUNTER 2023-11-07 11:26 | Outpatient (REF) | payer MEDICARE, SELFPAY ==
--- NOTE | ~2023-11-07 | XR_ITS ---
EXAMINATION: XR CHEST CLINICAL INFORMATION: Chronic cough. COMPARISON: Chest radiograph dated 03/30/2022. TECHNIQUE: 2 views of the chest were obtained. FINDINGS: The cardiac silhouette is normal in size. There is no consolidation within either lung. The pleural spaces are clear. There is no pneumothorax. No acute osseous abnormality. XR/XR chest 2V IMPRESSION: No acute cardiopulmonary disease. Stable appearance of the heart and lungs.
== END 2023-11-07 11:27 | disposition home or self-care (01) ==
LOC: HO.XRAY 11:26
PROVIDERS: PCP Internal Medicine Medical Oncology; Visit Provider Internal Medicine Medical Oncology
DX: R05.3 Chronic cough (principal)
CPT/HCPCS: 71046

== ENCOUNTER 2023-11-19 09:19 | Outpatient (AMB) | payer MEDICARE, SELFPAY ==
--- NOTE | 2023-11-19 08:14 | A.OFFVIS_ITS ---
Vital Signs 11/19/23 09:23 Height 5 ft 4.25 in Weight 245 lb BMI 41.7 BP 132/56 L Blood Pressure Location Lt brachial Position Sitting Pulse 55 Pulse Source Pulse Oximeter Pulse Oximetry (%) 95 Oxygen Delivery Method Room Air Intake Visit Reasons: chronic cough Allergies No Known Allergies Allergy (Verified 11/19/23 09:26) HPI HPI chronic cough: Details: Silvio is a pleasant 68 year old male, never smoker, with underlying HTN. He was referred by PCP for pulmonary evaluation for chronic cough. He reports dry cough developed in March as well as dyspnea on moderate exertion. He denies chest tightness or wheezing. He was trialed on albuterol and cough suppressants with minimal effect. CXR 11/07/23 unremarkable. He denies any prior history of asthma. He denies any occupational exposures. He denies any symptoms of GERD. He denies any seasonal allergies. He denies any pets at home. He does note some post nasal drip, however mild. He denies any pertinent family history, however referral notes grandmother dx with lung cancer. [facility] [place] Medical History Diminished libido Left medial tibial plateau fracture Osteoarthritis Otitis Tubular adenoma Decreased vision Morbid obesity Lab test negative for COVID-19 virus Personal history of COVID-19 Surgical History Hx of vasectomy Hx of eye surgery Hx of oral surgery H/O colonoscopy Social History (Updated 11/19/23 @ 09:26 by Mary Polk [facility]) Alcohol intake: current Alcohol intake frequency: 0-2 drinks per day Patient Tobacco Use Status: Never used Tobacco Review of Systems Const Denies chills, Denies excessive sweating, Denies fever(s), Denies headache(s) and Denies night sweats Eyes Denies dry eyes, Denies irritation and Denies itchy eyes ENT Reports Normal hearing present, Denies headache(s), Denies nasal congestion, Denies nasal discharge, Denies post nasal drip and Denies sore throat Card Denies chest pain, Denies chest pain at rest, Denies chest pain with activity, Denies claudication, Denies leg edema, Denies dyspnea, Reports dyspnea on exertion, Denies orthopnea and Denies paroxysmal nocturnal dyspnea Resp Denies chest congestion, Reports cough, Denies excessive phlegm production, Denies pain on inspiration, Denies pain with cough, Denies dyspnea, Reports dyspnea on exertion, Denies stridor and Denies wheezing Musc Denies myalgias Neuro Reports Normal hearing present and Denies headache(s) Endo Denies excessive sweating Reymundo/Lymph Denies lymphadenopathy Aller/Immun Denies itchy eyes, Denies seasonal rhinorrhea and Denies wheezing Physical Exam Vital Signs: Last Vital Signs Pulse 55 11/19/23 09:23 BP 132/56 L 11/19/23 09:23 Pulse Ox 95 11/19/23 09:23 Oxygen Delivery Method Room Air 11/19/23 09:23 BMI result Body Mass Index 41.7 Const General: cooperative, healthy appearing, comfortable, no acute distress, well developed and alert Orientation/consciousness: patient oriented x3 Limitations: no limitations HEENT Head: Yes normal to inspection, Yes normocephalic and Yes atraumatic Ears: hearing grossly normal bilaterally and external ears normal Eyes General: appearance normal, both eyes and all related structures Eyelids: Yes eyelids normal Sclerae: sclerae normal EOM: EOMs intact bilaterally Neck Neck: Yes normal visual inspection and Yes no lymphadenopathy Lymphatic: no lymphadenopathy noted Chest Chest palpation & inspection: normal inspection of the chest Resp Effort & Inspection: normal respiratory effort, able to speak in complete sentences, no audible wheezes, no cough, no stridor, not tachypneic, no tripod positioning and no use of accessory muscles Auscultation: clear to auscultation bilaterally Cardio Jugular venous distension: no JVD Rate: regular rate Rhythm: regular rhythm Skin Other: warm, dry General skin exam: no rashes or lesions noted Neuro General: patient oriented x3 Cranial nerves: Yes Normal hearing present Cognition (Neuro): normal cognition Gait exam (Neuro): Normal gait present Extrem General: Yes normal to inspection, Yes capillary refill normal, Yes no clubbing, cyanosis or edema and Yes no pedal edema Psych Appearance: grossly normal and well kempt Speech and movement: Normal speech and movement present and Clear speech present Affect: normal affect Attitude: cooperative Thought process: Normal thought process present Thought content: Normal thought content present Insight: Good insight present (Psych) Judgement: Good judgement present (Psych) Assessment & Plan Assessment & Plan (1) Chronic cough: Code(s): R05.3 - Chronic cough Category: Medical Plan Silvio presents for pulmonary evaluation for chronic cough and dyspnea on exertion. Recent CXR unremarkable. Denies any symptoms of GERD at this time and reports PND minimal. Will send for PFT and chest CT to thoroughly evaluate. Will also empirically trial ICS. All questions were answered and patient is in agre ement of plan. Will follow up to review results and response to inhaler. Orders: Orders CT chest wo IV con Today R05.3 - Chronic cough PFT pulmonary function test Today R05.3 - Chronic cough Medications: New fluticasone propionate 110 mcg/actuation administer with spacer 2 puffs inhalation BID 12 grams 3RF Coding Level of Care Code New Pt Level 3 (59937) Diagnoses Chronic cough R05.3
[2023-11-19 09:23] VITALS: BP 132/56; PULSE 55; O2SAT 95; BMI 41.7
== END 2023-11-19 09:46 | disposition home or self-care (01) ==
PROVIDERS: PCP Internal Medicine Medical Oncology; Referring Provider Internal Medicine Medical Oncology; Visit Provider Nurse Practitioner Family
DX: R05.3 Chronic cough (principal)
CPT/HCPCS: 99203

== ENCOUNTER → 2023-11-19 09:19 | Outpatient (BNVA) | payer MEDICARE, SELFPAY | PROVIDERS: PCP Internal Medicine Medical Oncology; Referring Provider Internal Medicine Medical Oncology; Visit Provider Nurse Practitioner Family | DX: R05.3 Chronic cough (principal) | CPT/HCPCS: 99202 ==

== ENCOUNTER 2024-01-15 09:52 | Outpatient (REF) | payer MEDICARE, SELFPAY ==
[2024-01-20 22:09] LABS: Testosterone, Free 24.2 pg/mL (35.0-155.0); Testosterone, Total 205 ng/dL (250-1100)
== END 2024-01-15 09:53 | disposition home or self-care (01) ==
LOC: HO.10HDL 09:52
PROVIDERS: Visit Provider Nurse Practitioner Family
DX: E29.1 Testicular hypofunction (principal); N52.9 Male erectile dysfunction, unspecified
CPT/HCPCS: 36415; 84402; 84403

== ENCOUNTER 2024-01-17 07:24 | Outpatient (REF) | payer MEDICARE, SELFPAY ==
--- NOTE | ~2024-01-17 | CT_ITS ---
EXAMINATION: CT CHEST WITHOUT CONTRAST CLINICAL INFORMATION: Chronic cough. COMPARISON: Chest film dated 11/07/2023. TECHNIQUE: Multidetector volumetric CT imaging of the chest was done. Axial MIP volume rendering provided. Sagittal and coronal reformatted images were obtained. This CT examination was performed using dose optimization techniques as appropriate, variously including the following: *Automated exposure control *Adjustment of mA and/or kV according to patient size (this includes techniques or standardized protocols for targeted exams where dose is matched to indication/reason for exam; i.e. extremities or head) *Use of iterative reconstruction technique DLP: 291 mGy-cm FINDINGS: The thoracic inlet within normal limits. The axillary regions are unremarkable. Partially visualized upper abdominal structures within normal limits. Mild coronary calcium is noted. Centrally there is no evidence for bulky adenopathy. This is a noncontrast study but the hilar regions do not appear pathologically enlarged. Imaging of the lung herring. Right lung: No significant infiltrate or effusion. 5 mm nodule on image 391 of series 7. 2 mm nodule on image 164. 3 mm nodule on image 381. Left lung: No significant infiltrate or effusion. Mild atelectasis or scarring in the lingula. Some mild bronchial thickening throughout the lungs. Review of the bone windows does not demonstrate suspicion for bony lesion. CT/CT chest wo IV con IMPRESSION: No infiltrate or effusion. Some mild scarring or atelectasis in the lingula. Underlying lung parenchymal architecture is showing some mild bronchial thickening but otherwise within normal limits. Some scattered nodularity noted largest of which measures 5 mm which may be associated with the major fissure on the right. Attention at follow-up. Fleischner criteria provides guidelines for follow-up Electronically signed by: Carson Cade MD 02/06/2024 01:15 PM EDT
== END 2024-01-17 07:25 | disposition home or self-care (01) ==
LOC: HO.CT 07:24
PROVIDERS: PCP Internal Medicine Medical Oncology; Visit Provider Nurse Practitioner Family
DX: R05.3 Chronic cough (principal)
CPT/HCPCS: 71250

== ENCOUNTER 2024-02-04 10:40 | Outpatient (AMB) | payer MEDICARE, SELFPAY ==
--- NOTE | 2024-02-04 11:14 | MHC.OFFVIS ---
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 Goel. He has a past medical history of obesity, osteoarthritis, and tubular adenoma. He presents to the office today for a follow up of his hypogonadism and erectile dysfunction. In discussion with the patient today reports to be doing and feeling well. He reports noting morning erections over the last 2 months. He reports compliance with 5 mg of Cialis daily Recent testosterone results reviewed with the patient today as noted and trended below. He reports erections are adequate for penetration. He currently denies any bothersome urinary issues or concerns. He reports feeling increase in mood and energy. Patient otherwise denies any urinary issues or concerns at this time. When asked he denies any issues with urination. He denies urinary urgency, urinary frequency, incontinence, nocturia, hematuria, dysuria, foul smelling urine, changes to urinary stream, flank pain, fever, and or chills. He is happy with his current voiding parameters. Discussed at length importance of lifestyle modifications with diet, exercise, an adequate sleep. He otherwise denies any issues or concerns at this time. In office urinalysis results reviewed with the patient today. Discussed decrease in testosterone levels. In further treatment options of hypogonadism. He would like to continue with low-dose Cialis as he does feel this has been helpful. Patient otherwise offers no issues or concerns at this time. Total Testosterone: 02/15 239, 07/19 234, 09/16 218, 01/16 363, 05/18 242 07/20 223, 08/17 306, 01/17 205 Free testosterone: 07/20 41.0, 01/17 24.2 PSA: 02/15 0.5, 05/18 0.4, 07/20 0.6 PFSH Medical History Diminished libido Left medial tibial plateau fracture Osteoarthritis Otitis Tubular adenoma Decreased vision Morbid obesity Lab test negative for COVID-19 virus Personal history of COVID-19 Surgical History Hx of vasectomy Hx of eye surgery Hx of oral surgery H/O colonoscopy Social History Alcohol intake: current Alcohol intake frequency: 0-2 drinks per day Patient Tobacco Use Status: Never used Tobacco Review of Systems Const All systems reviewed & are unremarkable except as noted in HPI and below Reports no additional complaints Eyes Reports no additional complaints ENT Reports no additional complaints Card Reports no additional complaints Resp Reports no additional complaints GI Reports no additional complaints Reports as per HPI Musc Details: Patient reports torn left calf muscle while hiking few years ago, torn right bicep tendon, and right ulnar compression. He also reports arthritis of both knees. Neuro Reports no additional complaints Psych Reports no additional complaints Endo Reports no additional complaints Reymundo/Lymph Reports no additional complaints Aller/Immun Reports no additional complaints Physical Exam Const General: cooperative, healthy appearing, comfortable, no acute distress, well developed, alert and awake Nutritional Appearance: overweight Orientation/consciousness: patient oriented x3 Limitations: no limitations HEENT Head: Yes normal to inspection, Yes normocephalic and Yes atraumatic Ears: hearing grossly normal bilaterally Eyes General: appearance normal, both eyes and all related structures Neck Neck: Yes normal visual inspection and Yes trachea midline Chest Chest palpation & inspection: normal inspection of the chest Resp Effort & Inspection: normal respiratory effort and able to speak in complete sentences Cardio Rate: regular rate GI Inspection: Yes normal to inspection General: Yes no CVA tenderness Back/Spine/Pelvis Back: no CVA tenderness Skin General skin exam: no rashes or lesions noted Neuro General: patient oriented x3 Extrem General: Yes normal to inspection Psych Appearance: grossly normal and well kempt Mental Status: mental status grossly normal Speech and movement: Normal speech and movement present and Clear speech present Affect: normal affect Attitude: cooperative Thought process: Normal thought process present Thought content: Normal thought content present Insight: Fair insight present (Psych) Judgement: Fair judgement present (Psych) Results AMB Urinalysis, Automated UA Leukoctes 0 Bola/uL Last Edit by Montse Sharma on 02/04/24 12:05 UA Nitrite Last Edit by Montse Sharma on 02/04/24 12:05 UA Urobilinogen 0.2 mg/dL Last Edit by Montse Sharma on 02/04/24 12:05 UA Protein 0 mg/dL Last Edit by YouEyebetzaida [facility] on 02/04/24 12:05 UA pH 5.5 Last Edit by LyfeSystemslorena Sharma on 02/04/24 12:05 UA Blood 25 Samuel/uL Last Edit by Alere Analyticsdenisa on 02/04/24 12:05 UA Specific [place] 1.025 Last Edit by YouEyebetzaida [facility] on 02/04/24 12:05 UA Ketone Last Edit by YouEyebetzaida [facility] on 02/04/24 12:05 UA Bilirubin 0 mg/dL Last Edit by Alere Analyticsdenisa on 02/04/24 12:05 UA Glucose 0 mg/dL Last Edit by YouEyebetzaida [facility] on 02/04/24 12:05 Results Reviewed Results Reviewed: Laboratory Last Values Urine pH (Auto) 5.5 02/04/24 12:04 Specific [place] (Auto) 1.025 02/04/24 12:04 Urine Protein (Auto) 0 mg/dL 02/04/24 12:04 Glucose (UA)(Auto) 0 mg/dL 02/04/24 12:04 Urine Blood (Auto) 25 Samuel/uL 02/04/24 12:04 Urine Bilirubin (Auto) 0 mg/dL 02/04/24 12:04 Urine Urobilinogen (Auto) 0.2 mg/dL 02/04/24 12:04 Leukocyte Esterase (Auto) 0 Bola/uL 02/04/24 12:04 Assessment & Plan Assessment & Plan (1) Hypogonadism in male: Code(s): E29.1 - Testicular hypofunction Category: Medical (2) Erectile dysfunction: Code(s): N52.9 - Male erectile dysfunction, unspecified Category: Medical Plan In office urinalysis results reviewed with the patient today. Recent labs reviewed with the patient today; as noted and trended above. Discussed decreased in testosterone levels despite compliance with 5 mg of Cialis. We discussed at length further treatment options for hypogonadism; risks and benefits of these interventions. Will continue with low-dose 5 mg of Cialis daily as discussed Patient reports to be happy with current voiding parameters. He currently denies any bothersome urinary issues or concerns. Will obtain testosterone free and total in 3 months Follow up in 3 months with labs if not sooner with any issues, concerns, and or questions. Orders: Orders AMB Urinalysis Automated Today Z13.9 - Encounter for screening, unspecified Testosterone, Free/Total 3 Months E29.1 - Testicular hypofunction Patient Instructions: The patient had an opportunity to ask questions regarding the treatment plan. All questions were answered. Physical exam, labs, and imaging were discussed and reviewed in detail. As well as risks, benefits, and discussion of treatment choices. No major barriers to understanding were identified. The patient expressed understanding and agreement with the above treatment plan. The patient was made aware they should contact our office by phone for worsening of their current condition, the appearance of new symptoms, or with any questions or concerns. Compliance is encouraged with any medications and follow up testing that is ordered. It is a privilege to be allowed the opportunity to participate in? your urological care.? Again, if you have any questions or concerns If you have any questions or concerns please do not hesitate to contact me. The office is [phone]. This note is constructed using voice recognition software. While every effort has been made to ensure accuracy drill setup operator errors may have been included. Yours sincerely, HOLLY Radford Coding Level of Care Code Est Pt Level 3 (22606) Complex EM visit Add On G2211 Diagnoses Hypogonadism in male E29.1 Erectile dysfunction N52.9
== END 2024-02-04 11:33 | disposition home or self-care (01) ==
PROVIDERS: PCP Internal Medicine Medical Oncology; Visit Provider Nurse Practitioner Family
DX: E29.1 Testicular hypofunction (principal); N52.9 Male erectile dysfunction, unspecified; Z13.9 Encounter for screening, unspecified
CPT/HCPCS: 99213; G2211

== ENCOUNTER → 2024-02-04 10:40 | Outpatient (BNVA) | payer MEDICARE, SELFPAY | PROVIDERS: PCP Internal Medicine Medical Oncology; Visit Provider Nurse Practitioner Family | DX: E29.1 Testicular hypofunction (principal); N52.9 Male erectile dysfunction, unspecified | CPT/HCPCS: 81003; 99212 ==

== ENCOUNTER 2024-02-05 10:13 | Outpatient (AMB) | payer MEDICARE, SELFPAY ==
--- NOTE | 2024-02-05 10:15 | MHC.OFFVIS ---
Vital Signs 02/05/24 10:20 Height 5 ft 4.25 in Weight 244 lb 2 oz BMI 41.6 BP 140/52 H Blood Pressure Location Rt brachial Position Sitting Pulse 47 L Pulse Source Pulse Oximeter Pulse Oximetry (%) 96 Oxygen Delivery Method Room Air Intake Visit Reasons: Cough/CT Follow Up Allergies No Known Allergies Allergy (Verified 02/05/24 10:23) HPI HPI Cough/CT Follow Up: Details: Silvio is a pleasant 68 year old male, never smoker, with underlying HTN. He reports dry cough developed in March as well as dyspnea on moderate exertion. At the last visit, he was trialed on Flovent however symptoms persist. CXR 11/07/23 unremarkable. Today presents to review chest CT results. [facility], [facility] Medical History Diminished libido Left medial tibial plateau fracture Osteoarthritis Otitis Tubular adenoma Decreased vision Morbid obesity Lab test negative for COVID-19 virus Personal history of COVID-19 Surgical History Hx of vasectomy Hx of eye surgery Hx of oral surgery H/O colonoscopy Social History Alcohol intake: current Alcohol intake frequency: 0-2 drinks per day Patient Tobacco Use Status: Never used Tobacco Review of Systems Const Denies chills, Denies excessive sweating, Denies fever(s), Denies headache(s) and Denies night sweats Eyes Denies dry eyes, Denies irritation and Denies itchy eyes ENT Reports Normal hearing present, Denies headache(s), Denies nasal congestion, Denies nasal discharge, Denies post nasal drip and Denies sore throat Card Denies chest pain, Denies chest pain at rest, Denies chest pain with activity, Denies claudication, Denies leg edema, Denies dyspnea, Reports dyspnea on exertion, Denies orthopnea and Denies paroxysmal nocturnal dyspnea Resp Denies chest congestion, Reports cough, Denies excessive phlegm production, Denies pain on inspiration, Denies pain with cough, Denies dyspnea, Reports dyspnea on exertion, Denies stridor and Denies wheezing Musc Denies myalgias Neuro Reports Normal hearing present and Denies headache(s) Endo Denies excessive sweating Reymundo/Lymph Denies lymphadenopathy Aller/Immun Denies itchy eyes, Denies seasonal rhinorrhea and Denies wheezing Physical Exam Vital Signs: Last Vital Signs Pulse 47 L 02/05/24 10:20 BP 140/52 H 02/05/24 10:20 Pulse Ox 96 02/05/24 10:20 Oxygen Delivery Method Room Air 02/05/24 10:20 BMI result Body Mass Index 41.6 Const General: cooperative, healthy appearing, comfortable, no acute distress, well developed and alert Orientation/consciousness: patient oriented x3 Limitations: no limitations HEENT Head: Yes normal to inspection, Yes normocephalic and Yes atraumatic Ears: hearing grossly normal bilaterally and external ears normal Eyes General: appearance normal, both eyes and all related structures Eyelids: Yes eyelids normal Sclerae: sclerae normal EOM: EOMs intact bilaterally Neck Neck: Yes normal visual inspection and Yes no lymphadenopathy Lymphatic: no lymphadenopathy noted Chest Chest palpation & inspection: normal inspection of the chest Resp Effort & Inspection: normal respiratory effort, able to speak in complete sentences, no audible wheezes, no cough, no stridor, not tachypneic, no tripod positioning and no use of accessory muscles Auscultation: clear to auscultation bilaterally Cardio Jugular venous distension: no JVD Rate: regular rate Rhythm: regular rhythm Skin Other: warm, dry General skin exam: no rashes or lesions noted Neuro General: patient oriented x3 Cranial nerves: Yes Normal hearing present Cognition (Neuro): normal cognition Gait exam (Neuro): Normal gait present Extrem General: Yes normal to inspection, Yes capillary refill normal, Yes no clubbing, cyanosis or edema and Yes no pedal edema Psych Appearance: grossly normal and well kempt Speech and movement: Normal speech and movement present and Clear speech present Affect: normal affect Attitude: cooperative Thought process: Normal thought process present Thought content: Normal thought content present Insight: Good insight present (Psych) Judgement: Good judgement present (Psych) Results Reviewed Results Reviewed: Silvio Vasquez??He/Him/His??68??M??1955 ? Allergy/Adv: No Known Allergies (More??) Close Chest CT (Signed) Carson Cade - 01/17/24 Chest X-Ray (Signed) Brian Onofre Jr - 11/07/23 Chest X-Ray (Signed) Rebecca Juarez - 03/30/22 Wrist X-Ray (Signed) Juli Beyer - 06/06/21 Shoulder X-Ray (Signed) Juli Beyer - 06/06/21 Elbow X-Ray (Signed) Juli Beyer - 06/06/21 Launch?Image [address] [address] [address] Scan Report Signed Patient: Silvio Vasquez MR#: [id number] : 1955 Acct:[id number] Age/Sex: 68 / M ADM Date: 01/17/24 Loc: HO.CT Attending Dr: Vicky Charlton NP Ordering Physician: Vicky Charlton NP Date of Service: 01/17/24 Procedure(s): CT chest wo IV con Accession Number(s): [id number] cc: Kevin Goel MD; Vicky Charlton NP~ EXAMINATION: CT CHEST WITHOUT CONTRAST CLINICAL INFORMATION: Chronic cough. COMPARISON: Chest film dated 11/07/2023. TECHNIQUE: Multidetector volumetric CT imaging of the chest was done. Axial MIP volume rendering provided. Sagittal and coronal reformatted images were obtained. This CT examination was performed using dose optimization techniques as appropriate, variously including the following: *Automated exposure control *Adjustment of mA and/or kV according to patient size (this includes techniques or standardized protocols for targeted exams where dose is matched to indication/reason for exam; i.e. extremities or head) *Use of iterative reconstruction technique DLP: 291 mGy-cm FINDINGS: The thoracic inlet within normal limits. The axillary regions are unremarkable. Partially visualized upper abdominal structures within normal limits. Mild coronary calcium is noted. Centrally there is no evidence for bulky adenopathy. This is a noncontrast study but the hilar regions do not appear pathologically enlarged. Imaging of the lung herring. Right lung: No significant infiltrate or effusion. 5 mm nodule on image 391 of series 7. 2 mm nodule on image 164. 3 mm nodule on image 381. Left lung: No significant infiltrate or effusion. Mild atelectasis or scarring in the lingula. Some mild bronchial thickening throughout the lungs. Review of the bone windows does not demonstrate suspicion for bony lesion. CT/CT chest wo IV con IMPRESSION: No infiltrate or effusion. Some mild scarring or atelectasis in the lingula. Underlying lung parenchymal architecture is showing some mild bronchial thickening but otherwise within normal limits. Some scattered nodularity noted largest of which measures 5 mm which may be associated with the major fissure on the right. Attention at follow-up. Fleischner criteria provides guidelines for follow-up Electronically signed by: Carson Cade MD 02/06/2024 01:15 PM EDT RP Dictated By: Carson Cade MD Signed By: <Electronically signed by Carson Cade MD in OV> 02/06/24 1315 DD/ 0732 TD/TT: 01/17/24 0750 Manager Intensive Care: ROSAMARIA Assessment & Plan Assessment & Plan (1) Chronic cough: Code(s): R05.3 - Chronic cough Category: Medical (2) Multiple pulmonary nodules: Code(s): R91.8 - Other nonspecific abnormal finding of lung field Category: Medical Plan Chest CT revealed multiple pulmonary nodules <5 mm. Will send for repeat chest CT in one year to assess stability. He continues to report chronic cough and dyspnea on exertion. Will switch to Arnuity to ensure compliance. Discussed importance of good oral hygiene to prevent thrush. PFT scheduled, awaiting to be performed. All questions were answered and patient is in agreement of plan. Will follow up to review results and response to inhaler. Medications: New fluticasone furoate 100 mcg/actuation (Arnuity Ellipta) 1 inh inhalation DAILY 30 ea 3RF Coding Level of Care Code Est Pt Level 3 (46807) Diagnoses Chronic cough R05.3 Multiple pulmonary nodules R91.8
[2024-02-05 10:20] VITALS: BP 140/52; PULSE 47; O2SAT 96; BMI 41.6
== END 2024-02-05 10:54 | disposition home or self-care (01) ==
PROVIDERS: PCP Internal Medicine Medical Oncology; Visit Provider Nurse Practitioner Family
DX: R05.3 Chronic cough (principal); R91.8 Other nonspecific abnormal finding of lung field
CPT/HCPCS: 99213

== ENCOUNTER → 2024-02-05 10:13 | Outpatient (BNVA) | payer MEDICARE, SELFPAY | PROVIDERS: PCP Internal Medicine Medical Oncology; Visit Provider Nurse Practitioner Family | DX: R05.3 Chronic cough (principal); R91.8 Other nonspecific abnormal finding of lung field; I10 Essential (primary) hypertension | CPT/HCPCS: 99212 ==

== ENCOUNTER 2024-03-19 10:56 | Outpatient (REF) | payer MEDICARE, SELFPAY ==
[2024-03-19 10:49] VITALS: PULSE 55; RESP 16; O2SAT 96
--- NOTE | 2024-03-19 11:04 | PFT_ITS ---
Flows: FEV1: 74 % of predicted at 1.98 L FVC: 79 % of predicted at 2.71 L FEV1/FVC: 73 % Bronchodilator response: Absent Volumes: Total lung capacity: 75 % of predicted at 4.38 L Residual volume: 81 % of predicted at 1.67 L Slow vital capacity: 72 % of predicted at 2.71 L Expiratory reserve volume: 37 % of predicted at 0.34 L Diffusion capacity: Normal Impression: Mild restrictive ventilatory defect with no bronchodilator response. Decreased expiratory reserve volume suggests extrathoracic restriction likely secondary to abdominal obesity. MTDD
== END 2024-03-19 10:57 | disposition home or self-care (01) ==
LOC: HO.RESP 10:56
PROVIDERS: PCP Internal Medicine Medical Oncology; Visit Provider Nurse Practitioner Family
DX: R05.3 Chronic cough (principal)
CPT/HCPCS: 94010; 94640; 94727; 94729

== ENCOUNTER → 2024-03-19 11:04 | Outpatient (BNV) | payer MEDICARE, SELFPAY | PROVIDERS: PCP Internal Medicine Medical Oncology; Visit Provider Internal Medicine Pulmonary Disease | DX: R05.3 Chronic cough (principal) | CPT/HCPCS: 94060; 94727; 94729 ==

== ENCOUNTER 2024-04-03 10:00 | Outpatient (AMB) | payer MEDICARE, SELFPAY ==
[2024-04-03 10:08] VITALS: BP 144/58; PULSE 52; O2SAT 96; BMI 42.3
--- NOTE | 2024-04-03 10:08 | MHC.OFFVIS ---
Vital Signs 04/03/24 10:08 Height 5 ft 4.25 in Weight 248 lb 6 oz BMI 42.3 BP 144/58 H Blood Pressure Location Lt brachial Position Sitting Pulse 52 Pulse Source Pulse Oximeter Pulse Oximetry (%) 96 Oxygen Delivery Method Room Air Intake Visit Reasons: Cough/CT Follow Up Allergies No Known Allergies Allergy (Verified 04/03/24 10:10) HPI HPI Cough/CT Follow Up: Details: Silvio is a pleasant 68 year old male, never smoker, with underlying HTN. He reports dry cough developed in March as well as dyspnea on moderate exertion. He had been doing well on Arnuity with improvements in cough and dyspnea. However over the last week he reports recurrent symptoms which he attributes to the weather changes. Today he presents to review PFT. He denies any visits to urgent care or hospitalizations related to respiratory distress since the last visit. [facility] Medical History Diminished libido Left medial tibial plateau fracture Osteoarthritis Otitis Tubular adenoma Decreased vision Morbid obesity Lab test negative for COVID-19 virus Personal history of COVID-19 Surgical History Hx of vasectomy Hx of eye surgery Hx of oral surgery H/O colonoscopy Social History Alcohol intake: current Alcohol intake frequency: 0-2 drinks per day Patient Tobacco Use Status: Never used Tobacco Review of Systems Const Denies chills, Denies excessive sweating, Denies fever(s), Denies headache(s) and Denies night sweats Eyes Denies dry eyes, Denies irritation and Denies itchy eyes ENT Reports Normal hearing present, Denies headache(s), Denies nasal congestion, Denies nasal discharge, Denies post nasal drip and Denies sore throat Card Denies chest pain, Denies chest pain at rest, Denies chest pain with activity, Denies claudication, Denies leg edema, Denies dyspnea, Reports dyspnea on exertion, Denies orthopnea and Denies paroxysmal nocturnal dyspnea Resp Denies chest congestion, Reports cough, Denies excessive phlegm production, Denies pain on inspiration, Denies pain with cough, Denies dyspnea, Reports dyspnea on exertion, Denies stridor and Denies wheezing Musc Denies myalgias Neuro Reports Normal hearing present and Denies headache(s) Endo Denies excessive sweating Reymundo/Lymph Denies lymphadenopathy Aller/Immun Denies itchy eyes, Denies seasonal rhinorrhea and Denies wheezing Physical Exam Vital Signs: Last Vital Signs Pulse 52 04/03/24 10:08 BP 144/58 H 04/03/24 10:08 Pulse Ox 96 04/03/24 10:08 Oxygen Delivery Method Room Air 04/03/24 10:08 BMI result Body Mass Index 42.3 Const General: cooperative, healthy appearing, comfortable, no acute distress, well developed and alert Orientation/consciousness: patient oriented x3 Limitations: no limitations HEENT Head: Yes normal to inspection, Yes normocephalic and Yes atraumatic Ears: hearing grossly normal bilaterally and external ears normal Eyes General: appearance normal, both eyes and all related structures Eyelids: Yes eyelids normal Sclerae: sclerae normal EOM: EOMs intact bilaterally Neck Neck: Yes normal visual inspection and Yes no lymphadenopathy Lymphatic: no lymphadenopathy noted Chest Chest palpation & inspection: normal inspection of the chest Resp Effort & Inspection: normal respiratory effort, able to speak in complete sentences, no audible wheezes, no cough, no stridor, not tachypneic, no tripod positioning and no use of accessory muscles Auscultation: clear to auscultation bilaterally Cardio Jugular venous distension: no JVD Rate: regular rate Rhythm: regular rhythm Skin Other: warm, dry General skin exam: no rashes or lesions noted Neuro General: patient oriented x3 Cranial nerves: Yes Normal hearing present Cognition (Neuro): normal cognition Gait exam (Neuro): Normal gait present Extrem General: Yes normal to inspection, Yes capillary refill normal, Yes no clubbing, cyanosis or edema and Yes no pedal edema Psych Appearance: grossly normal and well kempt Speech and movement: Normal speech and movement present and Clear speech present Affect: normal affect Attitude: cooperative Thought process: Normal thought process present Thought content: Normal thought content present Insight: Good insight present (Psych) Judgement: Good judgement present (Psych) Assessment & Plan Assessment & Plan (1) Chronic cough: Code(s): R05.3 - Chronic cough Category: Medical (2) Multiple pulmonary nodules: Code(s): R91.8 - Other nonspecific abnormal finding of lung field Category: Medical Plan Reviewed PFT which revealed mild restrictive ventilatory defect with no bronchodilator response. Decreased expiratory reserve volume suggests extrathoracic restriction likely secondary to abdominal obesity. Discussed importance of weight loss. He reports good effect with Arnuity advised to continue at this time. He reported worsening symptoms related to allergies however declined allergy testing. Recommended trialing Flonase and antihistamine. Prior Chest CT revealed multiple pulmonary nodules <5 mm. Order placed for repeat chest CT in one year to assess stability, 12/2024. All questions were answered and patient is in agreement of plan. Will follow up to review results and response to inhaler. Orders: Orders CT chest wo IV con 9 Months R91.8 - Other nonspecific abnormal finding of lung field Coding Level of Care Code Est Pt Level 4 (10233) Diagnoses Chronic cough R05.3 Multiple pulmonary nodules R91.8
== END 2024-04-03 10:30 | disposition home or self-care (01) ==
PROVIDERS: PCP Internal Medicine Medical Oncology; Visit Provider Nurse Practitioner Family
DX: R05.3 Chronic cough (principal); R91.8 Other nonspecific abnormal finding of lung field
CPT/HCPCS: 99214

== ENCOUNTER → 2024-04-03 10:00 | Outpatient (BNVA) | payer MEDICARE, SELFPAY | PROVIDERS: PCP Internal Medicine Medical Oncology; Visit Provider Nurse Practitioner Family | DX: R05.3 Chronic cough (principal); R91.8 Other nonspecific abnormal finding of lung field | CPT/HCPCS: 99212 ==

== ENCOUNTER 2024-04-15 09:22 | Outpatient (REF) | payer MEDICARE, SELFPAY ==
[2024-04-21 15:23] LABS: Testosterone, Free 35.1 pg/mL (35.0-155.0); Testosterone, Total 237 ng/dL (250-1100)
== END 2024-04-15 09:23 | disposition home or self-care (01) ==
LOC: HO.LAB 09:22
PROVIDERS: PCP Internal Medicine Medical Oncology; Visit Provider Nurse Practitioner Family
DX: E29.1 Testicular hypofunction (principal)
CPT/HCPCS: 36415; 84402; 84403

== ENCOUNTER 2024-05-01 08:43 | Outpatient (REF) | payer MEDICARE, SELFPAY ==
[2024-05-01 08:58] LABS: MANUAL DIFF FLAG NO
[2024-05-01 09:37] LABS: Basophils Percent Auto 0.3 % (0-2); Eosinophils Absolute Auto 0.2 X10*3/uL (0.0-0.4); Eosinophils Percent Auto 1.6 % (0-4); Hematocrit 44.2 % (42.0-52.0); Hemoglobin 14.6 g/dl (14.0-18.0); Imm Gran Abs Auto 0.08 X10*3/uL (0.00-0.03); Imm Gran Pct Auto 0.7 % (0.0-0.4); Lymphocytes Absolute Auto 2.5 X10*3/uL (1.2-4.9); Mean Corpuscular Hemoglobin 29.9 pg (27.0-33.0); Mean Corpuscular Volume 90.4 fL (80.0-98.0); Mean Platelet Volume 9.1 fL (9.4-12.4); Monocytes Absolute Auto 0.7 X10*3/uL (0.1-1.2); Monocytes Percent Auto 6.2 % (2-11); Neutrophils Absolute Auto 7.4 x10*3/uL (2.0-8.3); Neutrophils Percent Auto 68.2 % (45-73); Platelet Count 274 X10*3/uL (160-400); Red Blood Count 4.89 X10*6/uL (4.60-5.80); Red Cell Distribution Width 13.9 % (11.0-16.0); White Blood Count 10.9 X10*3/uL (4.8-10.8)
[2024-05-01 10:03] LABS: Alanine Aminotransferase 28 U/L (0-40); Alkaline Phosphatase 116 U/L (39-117); Anion Gap 12 (12-20); Aspartate Amino Transferase 28 U/L (5-37); Bilirubin Total 0.6 mg/dL (0.0-1.0); Blood Urea Nitrogen 16 mg/dL (9-16); Calcium 9.8 mg/dL (8.4-10.2); Carbon Dioxide 34 mmol/L (22-29); Chloride 102 mmol/L (96-108); Cholesterol 160 mg/dL (<200); Estimated Glomerular Filt Rate > 60; Glucose Fasting 101 mg/dL (60-99); HDL Cholesterol 49 mg/dL (>40); LDL Cholesterol Calculated 100 mg/dL (<100); Potassium 4.2 mmol/L (3.3-5.1); Sodium 144 mmol/L (135-145); Total Protein 7.1 g/dL (6.5-8.0); Triglycerides 57 mg/dL (<150)
[2024-05-01 10:25] LABS: Prostate Specific Antigen 0.61 ng/mL (<0.05-4.0)
[2024-05-05 12:49] LABS: Testosterone, Total 292 ng/dL (250-1100)
--- OUTSIDE RECORDS SUMMARY | 2024-05-06 05:51 | XMS_ITS ---
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 Name Role Phone Kevin Goel Primary Care Provider [phone] Allergies Allergen (clinical drug ingredient) Drug/Non Drug Allergy documented on EMR Reaction Allergy Type Onset Date Status Shellfish (FN) Shellfish-derived Products Unknown Drug Allergy Active REASON FOR VISIT Osteoarthritis both knees, Morbid obesity, Hypogonadism, Benign prostatic hypertrophy, Hypertension Medications Medication SIG (Take, Route, Frequency, Duration) Notes Start Date End Date Status Albuterol Sulfate HFA 108 (90 Base) MCG/ACT 2 puffs as needed Inhalation by inhaler every 4 hrs as needed 03/30/2022 Active Tadalafil 5 MG 1 tablet Orally Once a day Active prednisoLONE Acetate 1 % Ophthalmic Active Albuterol Sulfate HFA 108 (90 Base) MCG/ACT 2 puffs Inhalation QID prn wheezing 04/25/2023 Active Advil 200 MG 1 tablet with food o r milk as needed Orally Three times a day as needed Active tylenol 1 tab Oral as needed Active Social History Tobacco Use: Social History Observation Description Date Details (start date - stop date) Never Smoker NA - NA Sex Assigned At : Social History Observation Description Sex Assigned At Male Tobacco Use/Smoking Question Answer Notes Patient is a nonsmoker Additional Findings: Tobacco Non-User Aggressive non-smoker Vital Signs Temperature 98.6 degrees Fahrenheit 09/03/19 24 Blood pressure systolic 142 mm Hg 09/03/19 24 Blood pressure diastolic 78 mm Hg 024 Heart Rate 59 /min 09/03/2023 Height 63 in 09/03/2023 Weight 237 lbs 09/03/2023 BMI 41.98 kg/m2 09/03/2023 Encounters Encounter Location Date Provider Diagnosis Kevin Goel III, MD [address] [place] [address] [place] [address] 09/03/2023 Kevin Goel Primary osteoarthrit is of both knees M17.0 ; Morbid obesity E66.01 ; Rupture of right triceps tendon, initial encounter S46.311A ; Testosterone deficiency E34.9 ; BPH (benign prostatic hyperplasia) N40.0 ; Hypertension I10 and Chest tightness R07.89 Assessments Encounter Date Diagnosis (ICD Code) Assessment Notes Treat ment Notes Treatment Clinical Notes 09/03/2023 Primary osteoarthritis of both knees (ICD-10 - M17.0) The left knee is giving him the most trouble. He was referred to [facility] for treatment and advice .He continues to hike in the [place] daily. 09/03/2023 Morbid obesity (ICD-10 - E66.01) In the recent year. He has gaiins in weight. We have discussed diet and nutrition. We have discussed a referral to the weight loss clinic [facility], which would include bariatric surgery consultation. He is willing to do so and this referral was made. We discussed lifestyle modification in different ways of dealing with stress and illness. We made a plan to lose weight at a rate of one half of a pound per week tto a diet restricted in fat calories and sodium combined with regular activity. 09/03/2023 Rupture of right triceps tendon, initial encounter (ICD-10 - S46.311A) This injury has healed very well and is no longer painful. He reports adequate use of the right arm and good strength. 09/03/2023 Testosterone deficiency (ICD-10 - E34.9) His testosterone level is 223. No change in his therapy as needed.He will continue with urology in the injections. 09/03/2023 BPH (benign prostati c hyperplasia) (ICD-10 - N40.0) He arises from sleep once or twice a night. We have discussed lifestyle modification as a way to control nocturia. 09/03/2023 Hypertension (ICD-10 - I10) His blood pressure is slightly elevated. He is going to try to lose 1 or 2 pounds in the next 2 weeks. He may need tAdditional medication. 09/03/2023 Chest tightness (ICD-10 - R07.89) A treadmill test is negative for ischemia. He has not experienced chest tightness recently. Plan Of Treatment Medication Medication Name Sig Start Date Stop Date Notes Albuterol Sulfate HFA 108 (90 Base) MCG/ACT 2 puffs as needed Inhalation by inhaler every 4 hrs 03/30/2022 as needed Tadalafil 5 MG 1 tablet Orally Once a day prednisoLONE Acetate 1 % Ophthalmic Albuterol Sulfate HFA 108 (90 Base) MCG/ACT 2 puffs Inhalation QID prn wheezing 04/25/2023 Advil 200 MG 1 tablet with food o r milk as needed Orally Three times a day as needed tylenol 1 tab Oral as needed Next Appt Details Follow Up: 2 Months, Reason: OV Provider Name:Kevin Goel, 05/07/2024 09:15:00 AM, [address] [place] [address] [address], [place], [id number], Provider Name:Kevin Goel, 02/15/2025 02:30:00 PM, [address] [place] [address] DWA[address] MARTINEZ, [place], [id number], Progress Notes * Silvio VASQUEZ LDOB: [birth year] (68 yo M)Acc No.[id number]:09/03/2023 Progress Notes Patient:?Silvio Vasquez Roberta Provider:?Kevin Goel MD :1955???Age:68 Y???Sex:Male Kai e:09/03/2023 Address:[address] [place], [place] [id number] Subjective: * Chief Complaints: * ???Osteoarthritis both knees Morbid obesityHypogonadismBenign prostatic hypertrophyHypertension * HPI: ???COVID-19 Screening:? He returns for review of his issues. His recent treadmill stress test was negative for ischeemia. He has been walking 5 miles every day. He continues to have bilateral knee pain at the end of walking. His blood work was reviewed and it was unremarkable. He feels healthy aand well. ?Questions?Have you experienced fever, chills, cough, sore throat, shortness of breath, difficulty breathing, muscle aches, loss of taste or smell??No ?Have you been exposed to the virus within the last 10 days??No ?Have you travelled internationally in the last 10 days??No ?Have you been exposed to COVID-19 in the past??Yes * ROS:?General/Constitutional:?pain?Bilateral knee pain.?Chills?denies.?Fatigue?admits.?Fever?denies.?ENT:?Decreased hearing?denies.?Respiratory:?Cough?denies.?Cardiovascular:?Chest pain with exertion?None recently.?Dyspnea on exertion?denies.?Shortness of breath?denies.?Gastrointestinal:?Constipation?occasional.?Decreased appetite?denies.?Diarrhea?denies.?Heartburn?denies.?Nausea?denies.?Rectal bleeding?denies.?Vomiting?denies.?Hematology:?bruising?denies.?petechiae?denies.?Swollen glands?none have been noted.?Genitourinary:?Frequent urination?once a night.?Musculoskeletal:?Muscle aches?denies.?Painful joints?Both knees.?Sciatica?denies.?Weakness?denies.?Skin:?Itching?denies.?Rash?denies.?Skin lesion(s)?denies.?Neurologic:?Difficulty speaking?denies.?Dizziness?denies.?Headache?denies.?Low back pain?denies.?Psychiatric:?Depressed mood?denies.? * Medical History:? * Surgical History:?vasectomy 1993colonoscopy, [facility], Dr. Kevin Curry, tubular adenoma 2008colonoscopy, [facility], Dr. Kevin Curry, tubular adenoma 2014cataract surgery right eye 2017Colonscopy Dr. Curry 1Right triceps tendon reattachment 07/2021Ulnar nerve decompression, repair and rerouting ataract Surgery, Left eye 01/2023 * Hospitalization/Major Diagno stic Procedure:?Denies Past Hospitalization * Family History:?Father: dece ased 73 yrs, liver cancer, Alzheimer's, stroke age 52, massive ministrokes caused , diagnosed with Cancer.?Mother: alive 95 yrs, arthritis, hypertension, polio as achile. Siblings: alive, 4th brother alzheimer's dementia, prostate cancer. 3rd brother had Brain cancer..?Maternal aunt: , diagnosed with DM.?4 brother(s) . .? He has 4 living brothers, one of whom has from central nervous system lymphoma. He has a colonoscopy every 5 years. He is not aware of any family history of mental illness or substance use disorder or addiction. one brother DX alzhemiers and prostate cancer. Grandmother had lung cancer. Mother's sister had liver cancer. A b rother has diabetes, obesity and hypertension. A brother from brain cancer. A brother has early onset alzheimers and prostate cancer. * Social History:?Tobacco Use:?Tobacco Use/Smoking?Patient is a?nonsmoker ?Additional Findings: Tobacco Non-User?Aggressive non-smoker ???He was born at [place], [place]. He came to [place] at the age of 40. 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 He has 2 sons who are alive and well and one stepdaughter. One son is in the [employer] at [place], [place]. * Medications:?Takingtylenol 1 tab Oral , Notes: as neededAdvil 200 MG Tablet 1 tablet with food or milk as needed Orally Three times a day, Notes: as neededAlbuterol Sulfate HFA 108 (90 Base) MCG/ACT Aerosol Solution 2 puffs as needed Inhalation by inhaler every 4 hrs, Notes: as neededTadalafil 5 MG Tablet 1 tablet Orally Once a dayprednisoLONE Acetate 1 % Suspension Ophthalmic Albuterol Sulfate HFA 108 (90 Base) MCG/ACT Aerosol Solution 2 puffs Inhalation QID prn wheezingMedication List reviewed and reconciled with the patientTaking tylenol 1 tab Oral , Notes: as neededTaking Advil 200 MG Tablet 1 tablet with food or milk as needed Orally Three times a day, Notes: as neededTaking Albuterol Sulfate HFA 108 (90 Base) MCG/ACT Aerosol Solution 2 puffs as needed Inhalation by inhaler every 4 hrs, Notes: as neededTaking Tadalafil 5 MG Tablet 1 tablet Orally Once a dayTaking prednisoLONE Acetate 1 % Suspension Ophthalmic Taking Albuterol Sulfate HFA 108 (90 Base) MCG/ACT Aerosol Solution 2 puffs Inhalation QID prn wheezingMedication List reviewed and reconciled with the patient * Allergies:?Shellfish-derived Productsno[Allergies Verified] Objective: * Vitals:?Ht: 63, Wt:237, BMI: 41.98, BP:142/78, HR:59, Temp:98.6, Wt-k.5. * ???Past Orders: ???Lab:Testosterone, Free/To obdulio (Order Date - 07/03/2023) (Collection Date - 07/03/2023) ? Value Reference Range ?Testosterone, Total 223 A 250-1100 - ng/dL ?Testosterone, Free 41.0 3 5.0-155.0 - pg/mL Lab:Prostate Specific Antige n * Order Date 07/03/2023 05/03/2023 01/31/2022 Prostate Specific Antigen 0.58 (Ref Range: <0.05-4.0 ng/mL) 0.43 (Ref Range: <0.05-4.0 ng/mL) 0.49 (Ref Range: <0.05-4.0 ng/mL) * Lab:Complete Blood Count Aut o Diff * Order Date 08/01/2023 05/03/2023 07/20/2022 White Blood Count 10.3 (Ref Range: 4.8-10.8 X10*3/uL) 14.8?H (Ref Range: 4.8-10.8 X10*3/uL) 8.9 (Ref Range: 4.8-10.8 X10*3/uL) Red Blood Count 4.78 (Ref Range: 4.60-5.80 X10*6/uL) 4.73 (Ref Range: 4.60-5.80 X10*6/uL) 4.97 (Ref Range: 4.60-5.80 X10*6/uL) Hemoglobin 14.3 (Ref Range: 14.0-18.0 g/dl) 14.0 (Ref Range: 14.0-18.0 g/dl) 14.4 (Ref Range: 14.0-18.0 g/dl) Hematocrit 43.7 (Ref Range: 42.0-52.0 %) 42.3 (Ref Range: 42.0-52.0 %) 43.9 (Ref Range: 42.0-52.0 %) Mean Corpuscular Volume 91.4 (Ref Range: 80.0-98.0 fL) 89.4 (Ref Range: 80.0-98.0 fL) 88.3 (Ref Range: 80.0-98.0 fL) Mean Corpuscular Hemoglobin 29.9 (Ref Range: 27.0-33.0 pg) 29.6 (Ref Range: 27.0-33.0 pg) 29.0 (Ref Range: 27.0-33.0 pg) Mean Corpuscular HGB Conc 32.7 (Ref Range: 31.0-36.0 g/dl) 33.1 (Ref Range: 31.0-36.0 g/dl) 32.8 (Ref Range: 31.0-36.0 g/dl) Red Cell Distribution Width 13.9 (Ref Range: 11.0-16.0 %) 14.2 (Ref Range: 11.0-16.0 %) 13.8 (Ref Range: 11.0-16.0 %) Platelet Count 297 (Ref Range: 160-400 X10*3/uL) 359 (Ref Range: 160-400 X10*3/uL) 300 (Ref Range: 160-400 X10*3/uL) Mean Platelet Volume 9.1?L (Ref Range: 9.4-12.4 fL) 8.9?L (Ref Range: 9.4-12.4 fL) 9.6 (Ref Range: 9.4-12.4 fL) Neutrophils Percent Auto 65.5 (Ref Range: 45-73 %) 66.3 (Ref Range: 45-73 %) 56.4 (Ref Range: 45-73 %) Imm Gran Pct Auto 0.8?H (Ref Range: 0.0-0.4 %) 2.2?H (Ref Range: 0.0-0.4 %) 0.3 (Ref Range: 0.0-0.4 %) Lymphocytes Percent Auto 25.4 (Ref Range: 20-40 %) 25.2 (Ref Range: 20-40 %) 32.4 (Ref Range: 20-40 %) Monocytes Percent Auto 5.9 (Ref Range: 2-11 %) 5.8 (Ref Range: 2-11 %) 6.6 (Ref Range: 2-11 %) Eosinophils Percent Auto 1.9 (Ref Range: 0-4 %) 0.2 (Ref Range: 0-4 %) 3.6 (Ref Range: 0-4 %) Basophils Percent Auto 0.5 (Ref Range: 0-2 %) 0.3 (Ref Range: 0-2 %) 0.7 (Ref Range: 0-2 %) NRBC Pct Auto 0.0 (Ref Range: 0.0-0.2 /100WBC) 0.0 (Ref Range: 0.0-0.2 /100WBC) 0.0 (Ref Range: 0.0-0.2 /100WBC) Neutrophils Absolute Auto 6.7 (Ref Range: 2.0-8.3 x10*3/uL) 9.8?H (Ref Range: 2.0-8.3 x10*3/uL) 5.0 (Ref Range: 2.0-8.3 x10*3/uL) Imm Gran Abs Auto 0.08?H (Ref Range: 0.00-0.03 X10*3/uL) 0.33?H (Ref Range: 0.00-0.03 X10*3/uL) 0.03 (Ref Range: 0.00-0.03 X10*3/uL) Lymphocytes Absolute Auto 2.6 (Ref Range: 1.2-4.9 X10*3/uL) 3.7 (Ref Range: 1.2-4.9 X10*3/uL) 2.9 (Ref Range: 1.2-4.9 X10*3/uL) Monocytes Absolute Auto 0.6 (Ref Range: 0.1-1.2 X10*3/uL) 0.9 (Ref Range: 0.1-1.2 X10*3/uL) 0.6 (Ref Range: 0.1-1.2 X10*3/uL) Eosinophils Absolute Auto 0.2 (Ref Range: 0.0-0.4 X10*3/uL) 0.0 (Ref Range: 0.0-0.4 X10*3/uL) 0.3 (Ref Range: 0.0-0.4 X10*3/uL) Basophils Absolute Auto 0.1 (Ref Range: 0.0-0.2 X10*3/uL) 0.0 (Ref Range: 0.0-0.2 X10*3/uL) 0.1 (Ref Range: 0.0-0.2 X10*3/uL) NRBC Abs Auto 0.000 (Ref Range: 0.0-0.012 X10*3/uL) 0.000 (Ref Range: 0.0-0.012 X10*3/uL) 0.000 (Ref Range: 0.0-0.012 X10*3/uL) * Lab:Lipid Panel * Order Date 08/01/2023 05/03/2023 01/31/2022 Triglycerides 70 (Ref Range: <150 mg/dL) 61 (Ref Range: <150 mg/dL) 105 (Ref Range: mg/dL) Cholesterol 169 (Ref Range: <200 mg/dL) 169 (Ref Range: <200 mg/dL) 167 (Ref Range: mg/dL) LDL Cholesterol Calculated 104?H (Ref Range: <100 mg/dL) 94 (Ref Range: <100 mg/dL) 106 (Ref Range: mg/dl) HDL Cholesterol 51 (Ref Range: >40 mg/dL) 63 (Ref Range: >40 mg/dL) 40 (Ref Range: mg/dL) * Lab:[facility] Fast * Order Date 08/01/2023 05/03/2023 01/31/2022 Sodium 141 (Ref Range: 135-145 mmol/L) 143 (Ref Range: 135-145 mmol/L) 141 (Ref Range: 135-145 mmol/L) Bilirubin Total 0.6 (Ref Range: 0.0-1.0 mg/dL) 0.6 (Ref Range: 0.0-1.0 mg/dL) 0.6 (Ref Range: 0.0-1.0 mg/dL) Aspartate Amino Transferase 30 (Ref Range: 5-37 U/L) 25 (Ref Range: 5-37 U/L) 41?H (Ref Range: 5-37 U/L) Alanine Aminotransferase 29 (Ref Range: 0-40 U/L) 27 (Ref Range: 0-40 U/L) 37 (Ref Range: 0-40 U/L) Total Protein 7.0 (Ref Range: 6.5-8.0 g/dL) 6.6 (Ref Range: 6.5-8.0 g/dL) 6.9 (Ref Range: 6.5-8.0 g/dL) Albumin Level 4.0 (Ref Range: 3.5-5.0 g/dL) 3.7 (Ref Range: 3.5-5.0 g/dL) 4.1 (Ref Range: 3.5-5.0 g/dL) Alkaline Phosphatase 104 (Ref Range: 39-117 U/L) 103 (Ref Range: 39-117 U/L) 107 (Ref Range: 39-117 U/L) Potassium 4.3 (Ref Range: 3.3-5.1 mmol/L) 3.8 (Ref Range: 3.3-5.1 mmol/L) 4.2 (Ref Range: 3.3-5.1 mmol/L) Chloride 103 (Ref Range: 96-108 mmol/L) 105 (Ref Range: 96-108 mmol/L) 101 (Ref Range: 96-108 mmol/L) Carbon Dioxide 34?H (Ref Range: 22-29 mmol/L) 31?H (Ref Range: 22-29 mmol/L) 31?H (Ref Range: 22-29 mmol/L) Anion Gap 8?L (Ref Range: 12-20) 11?L (Ref Range: 12-20) 13 (Ref Range: 12-20) Blood Urea Nitrogen 14 (Ref Range: 9-16 mg/dL) 15 (Ref Range: 9-16 mg/dL) 11 (Ref Range: 9-16 mg/dL) Creatinine 0.86 (Ref Range: 0.5-1.4 mg/dL) 0.80 (Ref Range: 0.5-1.4 mg/dL) 1.08 (Ref Range: 0.5-1.4 mg/dL) Estimated Glomerular Filt Rate > 60 > 60 > 60 Glucose Fasting 100?H (Ref Range: 60-99 mg/dL) 91 (Ref Range: 60-99 mg/dL) 103?H (Ref Range: 60-99 mg/dL) Calcium 9.3 (Ref Range: 8.4-10.2 mg/dL) 8.8 (Ref Range: 8.4-10.2 mg/dL) 9.0 (Ref Range: 8.4-10.2 mg/dL) * Examination: ???General Examination: ?GENERAL APPEARANCE:?pleasant, well nourished, well developed, in no acute distress, calm and relaxed , morbidly obese , man.?HEAD:?atraumatic, normocephalic.?EYES:?eomi, perrla, anicteric, conjugate.?EARS:?normal.?NOSE:?septum intact.?ORAL CAVITY:?normal, unremarkable.?NECK/THYROID:?no jugular venous distention, no carotid bruit, thyroid normal.?LYMPH NODES:?no enlarged lymph nodes,spleen normal.?SKIN:?no suspicious lesions, anicteric.?HEART:?no clicks, gallops, murmurs, or rubs, regular rhythm, S1, S2 normal, no s3, or vascular bruits.?LUNGS:?clear to auscultation .?BREASTS:??no masses palpable bilaterally.?ABDOMEN:?bowel sounds normal, no ascites, no organomegaly, no mass , morbid obesity.?RECTAL EXAM:?not examined.?MUSCULOSKELETAL:?Crepitus both knees, no clubbing, cyanosis or edema.?PERIPHERAL PULSES:?normal.?NEUROLOGIC:?alert and oriented, cranial nerves 2-12 grossly intact, deep tendon reflexes 2+ symmetrical, motor strength normal upper and lower extremities, sensory exam intact.?PSYCH:?alert, oriented , cooperative with exam , cognitive function intact , speech clear , thought process logical, goal directed.? Assessment: * Assessment: 1.?Primary osteoarthritis of both knees - M17.0 (Primary), The left knee is giving him the most trouble. He was referred to [facility] for treatment and advice .He continues to hike [place] the [place] daily.?2.?Morbid obesity - E66.01, In the recent year. He has gaiins in weight. We have discussed diet and nutrition. We have discussed a referral to the weight loss clinic [facility], which would include bariatric surgery consultation. He is willing to do so and this referral was made. We discussed lifestyle modification in different ways of dealing with stress and illness. We made a plan to lose weight at a rate of one half of a pound per week tto a diet restricted in fat calories and sodium combined with regular activity.?3.?Rupture of right triceps tendon, initial encounter - S46.311A, This injury has healed very well and is no longer painful. He reports adequate use of the right arm and good strength.?4.?Testosterone deficiency - E34.9, His testosterone level is 223. No change in his therapy as needed.He will continue with urology in the injections.?5.?BPH (benign prostatic hyperplasia) - N40.0, He arises from sleep once or twice a night. We have discussed lifestyle modification as a way to control nocturia.?6.?Hypertension - I10, His blood pressure is slightly elevated. He is going to try to lose 1 or 2 pounds in the next 2 weeks. He may need tAdditional medication.?7.?Chest tightness - R07.89, A treadmill test is negative for ischemia. He has not experienced chest tightness recently.? Plan: * Treatment: 2.?Others? Continue Tadalafil Tablet, 5 MG, 1 tablet, Orally, Once a day;?Continue prednisoLONE Acetate Suspension, 1 %, Ophthalmic;?Continue Albuterol Sulfate HFA Aerosol Solution, 108 (90 Base) MCG/ACT, 2 puffs, Inhalation, QID prn wheezing.?? * Procedure Codes:? * Preventive Medicine:? ??Counseling:?Care goal follow-up plan:?Counseling for abnormal BMI given?Yes ?Above Normal BMI Follow-up?Dietary management education, guidance, and counseling, Dietary needs education, Exercise promotion: strength training, Exercise promotion: stretching, Feeding regime, Giving encouragement to exercise, Lifestyle education regarding diet, Nutrition / feeding management, Nutrition therapy, Prescribed activity/exercise education, Prescribed diet education, Prescribed dietary intake, Special diet education, Weight monitoring , Intervention, Order not done: Medical or Other reason not done * Follow Up:?2 Months (Reason: OV) * Images: * Sign off status: Completed true * Provider:?Kevin Goel MD Date:?01/2024 Generated for Ricky reis/Luis/Kristineitting on:?05/06/2024 05:51 AM EST History and Physical Notes * HPI (History of Present Illness) Category Sub-Category Detail Notes COVID-19 Screening Questions Have you expe rienced fever, chills, cough, sore throat, shortness of breath, difficulty breathing, muscle aches, loss of taste or smell?: No Have you been exposed to the virus with n the last 10 days?: No Have you travelled internationally in [facility] last 10 days?: No Have you been exposed to COVID-19 in the past?: Yes Examination Category Sub-Category Detail Notes General Examination GENERAL APPEARANCE: pleasant , well nourished, well developed, in no acute distress, calm and relaxed , morbidly obese , man HEAD: atraumatic, normocep halic EYES: eomi, perrla, anicte dora, conjugate EARS: normal NOSE: septum intact NECK/THYROID: no jugular venous di stention, no carotid bruit, thyroid normal HEART: no clicks, gallops, murmurs, or rubs, regular rhythm, S1, S2 normal, no s3, or vascular bruits LUNGS: clear to auscultatio n ABDOMEN: bowel sounds normal, no ascites, no organomegaly, no mass , morbid obesity NEUROLOGIC: alert and oriented, cranial nerves 2-12 grossly intact, deep tendon reflexes 2+ symmetrical, motor strength normal upper and lower extremities, sensory exam intact SKIN: no suspicious lesion s, anicteric PERIPHERAL PULSES: normal BREASTS: no masses palpable b ilaterally MUSCULOSKELETAL: Crepitus both knees, no clubbing, cyanosis or edema LYMPH NODES: no enlarged lymph no alessia,spleen normal RECTAL EXAM: not examined PSYCH: alert, oriented , co operative with exam , cognitive function intact , speech clear , thought process logical, goal directed ORAL CAVITY: normal, unremarkable
--- OUTSIDE RECORDS SUMMARY | 2024-05-06 05:51 | XMS_ITS ---
Author Organization Kevin Goel III, MD Address [address] [place] [address] Care Team Providers Care Ready To Wear Department Manager Name Role Phone Kevin Goel Primary Care Provider Allergies Allergen (clinical drug ingredient) Drug/Non Drug Allergy documented on EMR Reaction Allergy Type Onset Date Status Shellfish (FN) Shellfish-derived Products Unknown Drug Allergy Active Reason For Referral Reason chronic cough Diagnosis 1 Chronic cough (R05.3 ) Referral Organization Kevin Goel III, MD Referring Provider First Name Kevin Referring Provider Last Name Amando Referring Provider Speciality Internal M edicine Referred Provider THERESE HERNANDEZ Referred Provider Specialty Pulmonary [facility] General Notes Sarah Serna CMA 10/25 11:37:26 AM EDT > ref/progress note/cxr report faxed to Dr Hernandez office asking them to contact patient with appt Referral Priority Routine Referral Appointment Date 11/19/2023 REASON FOR VISIT Arthritis of both knees, Morbid obesity, Hypogonadism, Benign prosthetic hypertrophy, Hypertension,Chronic cough Medications Medication SIG (Take, Route, Frequency, Duration) Notes Start Date End Date Status Albuterol Sulfate HFA 108 (90 Base) MCG/ACT 2 puffs as needed Inhalation by inhaler every 4 hrs as needed 03/30/2022 Active prednisoLONE Acetate 1 % Ophthalmic Active Advil 200 MG 1 tablet with food o r milk as needed Orally Three times a day as needed Active tylenol 1 tab Oral as needed Active Albuterol Sulfate HFA 108 (90 Base) MCG/ACT 2 puffs Inhalation QID prn wheezing 04/25/2023 Active Tadalafil 5 MG 1 tablet Orally Once a day Active Social History Tobacco Use: Social History Observation Description Date Details (start date - stop date) Never Smoker NA - NA Sex Assigned At : Social History Observation Description Sex Assigned At Male Tobacco Use/Smoking Question Answer Notes Patient is a nonsmoker Additional Findings: Tobacco Non-User Aggressive non-smoker Problems Problem Type SNOMED Code ICD Code Onset Dates Problem Status W/U Status Risk Notes Problem [id number] Chronic cough (R05.3) Active confirmed His cough continues despite suppressive medication. His chest x-ray shows no abnormality. Current therapy was continued. If he does not improve Emanuel agreed with sending him to pulmonary. Vital Signs Temperature 98.1 degrees Fahrenheit 11/07/19 24 Blood pressure systolic 140 mm Hg 11/07/19 24 Blood pressure diastolic 75 mm Hg 024 Heart Rate 49 /min 11/07/2023 Height 63 in 11/07/2023 Weight 243 lbs 11/07/2023 BMI 43.04 kg/m2 11/07/2023 Encounters Encounter Location Date Provider Diagnosis Kevin Goel III, MD [address] [place] [address] [place] [address] 11/07/2023 Kevin Goel Primary osteoarthrit is of both knees M17.0 ; Chronic cough R05.3 ; Morbid obesity E66.01 and Hypertension I10 Assessments Encounter Date Diagnosis (ICD Code) Assessment Notes Treat ment Notes Treatment Clinical Notes 11/07/2023 Primary osteoarthritis of both knees (ICD-10 - M17.0) He was referred to [place] [facility] surgeons for treatment and advice. Arthroplasty of both knees has been recommended. The first fall take place next March. 11/07/2023 Chronic cough (ICD-1 0 - R05.3) His cough continues despite suppressive medication. His chest x-ray shows no abnormality. Current therapy was continued. If he does not improve Emanuel agreed with sending him to pulmonary. 11/07/2023 Morbid obesity (ICD-10 - E66.01) In the recent year. He has gaiins in weight. We have discussed diet and nutrition. We have discussed a referral to the weight loss clinic [facility], which would include bariatric surgery consultation. He is willing to do so and this referral was made. We discussed lifestyle modification in different ways of dealing with stress and illness. We made a plan to lose weight at a rate of one half of a pound per week tto a diet restricted in fat calories and sodium combined with regular activity. 11/07/2023 Hypertension (ICD-10 - I10) His blood pressure is slightly elevated. He is going to try to lose 1 or 2 pounds in the next 2 weeks. He may need tAdditional medication. Plan Of Treatment Medication Medication Name Sig Start Date Stop Date Notes Albuterol Sulfate HFA 108 (90 Base) MCG/ACT 2 puffs as needed Inhalation by inhaler every 4 hrs 03/30/2022 as needed prednisoLONE Acetate 1 % Ophthalmic Advil 200 MG 1 tablet with food o r milk as needed Orally Three times a day as needed tylenol 1 tab Oral as needed Albuterol Sulfate HFA 108 (90 Base) MCG/ACT 2 puffs Inhalation QID prn wheezing 04/25/2023 Tadalafil 5 MG 1 tablet Orally Once a day Pending Test Test Name Order Date XR CHEST 2 VIEW PA & LAT 11/07/2023 Referrals Referral Date Details 11/07/2023 11/07/2023, chronic cough , THERESE HERNANDEZ Next Appt Details Follow Up: 3 Months as sched uled , Reason: annual exam no tests Provider Name:Kevin Goel, 05/07/2024 09:15:00 AM, [address] [place] [address] [address], [place], [phone], Provider Name:Kevin Goel, 02/15/2025 02:30:00 PM, [address] [place] [address] [address], [place], [phone], Progress Notes * Silvio VASQUEZ LDOB: [birth year] (68 yo M)Acc No.[id number]:11/07/2023 Progress Notes Patient:?Silvio Vasquez Provider:?Kevin Goel MD :1955???Age:68 Y???Sex:Male Kai e:11/07/2023 Address:[address] [place] [address] [id number] Subjective: * Chief Complaints: * ???Arthritis of both kneesMo rbid obesityHypogonadismBenign prosthetic hypertrophyHypertensionChronic cough * HPI: ???COVID-19 Screening:?Questions?Have you experienced fever, chills, cough, sore throat, shortness of breath, difficulty breathing, muscle aches, loss of taste or smell??No ?Have you been exposed to the virus within the last 10 days??No ?Have you travelled internationally in the last 10 days??No ?Have you been exposed to COVID-19 in the past??Yes ? He returns for management of medical issues. He has been to orthopedic surgery. A total knee replacement on the right was recommended. He is going to have this done next March. Last Saturday he had a dull aching pain in the upper right thorax which lasted all day but which has resolved and not returned. No abnormality was found on today's examination. Observation will be done. He rises from sleep once or twice a night to urinate. We have discussed lifestyle modification as a way to reduce nocturia. His blood pressure was controlled today. He continues to complain of a chronic dry cough. X-rays of his chest show no abnormality. He may be referred to pulmonary if this does not resolve. * ROS:?General/Constitutional:?pain?knees, otherwise only normal aches and pains.?Chills?denies.?Fatigue?admits.?Fever?denies.?ENT:?Decreased hearing?mild.?Respiratory:?Cough?denies.?Cardiovascular:?Chest pain with exertion?denies.?Dyspnea on exertion?denies.?Shortness of breath?denies.?Gastrointestinal:?Constipation?occasional.?Decreased appetite?denies.?Diarrhea?denies.?Heartburn?denies.?Nausea?denies.?Rectal bleeding?denies.?Vomiting?denies.?Hematology:?bruising?denies.?petechiae?denies.?Swollen glands?none have been noted.?Genitourinary:?Frequent urination?once a night.?Musculoskeletal:?Muscle aches?denies.?Painful joints?Both knees right worse than left.?Sciatica?denies.?Weakness?denies.?Skin:?Itching?denies.?Rash?denies.?Skin lesion(s)?denies.?Neurologic:?Difficulty speaking?denies.?Dizziness?denies.?Headache?denies.?Low back pain?denies.?Psychiatric:?Depressed mood?denies.? * Medical History:? * Surgical History:?vasectomy 1993colonoscopy, [facility], Dr. Kevin Curry, tubular adenoma 2008colonoscopy, [facility], Dr. Kevin Curry, tubular adenoma 2015cataract surgery right eye 2018Colonscopy Dr. Curry ight triceps tendon reattachment 07/2021Ulnar nerve decompression, repair [...] Tobacco Non-User?Aggressive non-smoker ???He was born at [place], [place]. He came to [place] at the age of 40. 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 He has 2 sons who are alive and well and one stepdaughter. One son is in the [employer] at [place], [place]. * Medications:?Takingtylenol 1 tab Oral [...] Allergies:?Shellfish-derived Productsno[Allergies Verified] Objective: * Vitals:?Ht: 63, Wt:243, BMI: 43.04, BP:140/75, HR:49, Temp:98.1, Wt-k.22. * Examination: ???General Examination: ?GENERAL APPEARANCE:?pleasant, well [...] organomegaly, no mass , morbid obesity.?RECTAL EXAM:?not examined.?MUSCULOSKELETAL:?Pain and crepitus both knees to range of motion.?PERIPHERAL PULSES:?normal.?NEUROLOGIC:?alert and oriented, cranial nerves 2-12 grossly intact, deep tendon reflexes 2+ symmetrical, motor strength normal upper and lower extremities, sensory exam intact.?PSYCH:?alert, oriented , cognitive function intact , thought process logical, goal directed , speech clear.? Assessment: * Assessment: 1.?Primary osteoarthritis of both knees - M17.0 (Primary), He was referred to [place] [facility] surgeons for treatment and advice. Arthroplasty of both knees has been recommended. The first fall take place next March.?2.?Chronic cough - R05.3, His cough continues despite suppressive medication. His chest x-ray shows no abnormality. Current therapy was continued. If he does not improve Emanuel agreed with sending him to pulmonary.?3.?Morbid obesity - E66.01, In the recent year. He has gaiins in weight. We have discussed diet and nutrition. We have discussed a referral to the weight loss clinic [facility], which would include bariatric surgery consultation. He is willing to do so and this referral was made. We discussed lifestyle modification in different ways of dealing with stress and illness. We made a plan to lose weight at a rate of one half of a pound per week tto a diet restricted in fat calories and sodium combined with regular activity.?4.?Hypertension - I10, His blood pressure is slightly elevated. He is going to try to lose 1 or 2 pounds in the next 2 weeks. He may need tAdditional medication.? Plan: * Treatment: 2.?Chronic cough?Imaging: XR CHEST 2 VIEW PA & LAT? Referral To:THERESE HERNANDEZ??Pulmonary Diseases ?Reason:chronic cough 3.?Others? Continue Tadalafil Tablet, 5 MG, 1 tablet, [...] or Other reason not done * Follow Up:?3 Months as thaddeus massey (Reason: annual exam no tests ) * Images: * Sign off status: Completed true * Provider:?Kevin Gole MD Date:?10/25 Generated for Printi ng/Fagenesisg/eTransmitting on:?05/06/2024 05:51 AM EST History and Physical Notes * HPI (History of Present Illness) Category Sub-Category Detail Notes COVID-19 Screening Questions Have you expe rienced fever, chills, cough, sore throat, shortness of breath, difficulty breathing, muscle aches, loss of taste or smell?: No Have you been exposed to the virus withi n the last 10 days?: No Have you travelled internationally in e last 10 days?: No Have you been [...] BREASTS: no masses palpable b ilaterally MUSCULOSKELETAL: Pain and crepitus winston knees to range of motion LYMPH NODES: no enlarged lymph no alessia,spleen normal RECTAL EXAM: not examined PSYCH: alert, oriented , co gnitive function intact , thought process logical, goal directed , speech clear ORAL CAVITY: normal, unremarkable Consultation Request Notes Referral Date Referring Provider Referred Provider Not 11/07/2023 Kevin Goel MIGUEL chronic c ough
--- OUTSIDE RECORDS SUMMARY | 2024-05-06 05:51 | XMS_ITS | Patient Health Record ---
Author Organization Kevin Goel III, MD Address [address] [place] [address] Care Team Providers Care Senior Geologist Name Role Phone Kevin Goel Primary Care Provider Allergies Allergen (clinical drug ingredient) Drug/Non Drug Allergy documented on EMR Reaction Allergy Type Onset Date Status Shellfish (FN) Shellfish-derived Products Unknown Drug Allergy Active Results Component Value Reference Range Notes URINE DIP STICK Reviewed date:02/14/2024 02:34:19 PM Interpretation: Performing Lab: Notes/Report: SG 1.030 1.005 - 1.025 pH 5.0 5.0 - 9.0 EDITA Negative Negative - NIT Negative Negative - PRO 30 Negative - Trace GLU Negative Negative - KET 5 Negative - UBG 0.2 0.1 - 1.8 JESSI 1 0.2 - 1.3 BLD Negative Negative - Prostate Specific Antigen Reviewed date:08/01/2023 08:53:02 PM Interpretation: Performing Lab:[facility], [address] [place] [phone] Notes/Report: Prostate Specific Antigen 0.58 <0.05-4.0 ng/mL PSA methodology: Gerardo Alinity i Chemiluminescent Microparticle Immunoassay (CMIA) Testosterone, Free/Total Reviewed date:08/01/2023 08:53:02 PM Interpretation: Performing Lab:[facility], [address] [place] [phone] Notes/Report: Testosterone, Total 344 897-7932 ng/dL Men with clinically significant hypogonadal symptoms and testosterone values repeatedly in the range of the 200-300 ng/dL or less, may benefit from testosterone treatment after adequate risk and benefits counseling. For additional information, please refer to http://education.[employer]/fa q/ TotalTestosteroneM [email or web address] (This link is being provided for informational/ educational purposes only.) This test was developed and its analytical performance characteristics have been determined by [facility] [place], [place]. It has not been cleared or approved by the U.S. Food and Drug Administration. This assay has been validated pursuant to the CLIA regulations and is used for clinical purposes. Testosterone, Free 41.0 35.0-155.0 pg/mL This test was developed and its analytical performance characteristics have been determined by [facility] [place], [place]. It has not been cleared or approved by the U.S. Food and Drug Administration. This assay has been validated pursuant to the CLIA regulations and is used for clinical purposes. THIS TEST WAS PERFORMED AT: [facility]/[address] [address] JAMAL AGUAYO MD,PHD Complete Blood Count Auto Di ff Reviewed date:08/01/2023 08:53:02 PM Interpretation: Performing Lab:[facility], [address] [place] [phone] Notes/Report: White Blood Count 10.3 4.8-10.8 X10*3/uL Red Blood Count 4.78 4.60-5.80 X10*6/uL Hemoglobin 14.3 14.0-18.0 g/dl Hematocrit 43.7 42.0-52.0 % Mean Corpuscular Volume 91.4 80.0-98.0 fL Mean Corpuscular Hemoglobin 29.9 27.0-33.0 pg Mean Corpuscular HGB Conc 32.7 31.0-36.0 g/dl Red Cell Distribution Width 13.9 11.0-16.0 % Platelet Count 297 160-400 X10*3/uL Mean Platelet Volume 9.1 9.4-12.4 fL Neutrophils Percent Auto 65.5 45-73 % Imm Gran Pct Auto 0.8 0.0-0.4 % Lymphocytes Percent Auto 25.4 20-40 % Monocytes Percent Auto 5.9 2-11 % Eosinophils Percent Auto 1.9 0-4 % Basophils Percent Auto 0.5 0-2 % NRBC Pct Auto 0.0 0.0-0.2 /100WBC Neutrophils Absolute Auto 6.7 2.0-8.3 x10*3/u L Imm Gran Abs Auto 0.08 0.00-0.03 X10*3/uL Lymphocytes Absolute Auto 2.6 1.2-4.9 X10*3/u L Monocytes Absolute Auto 0.6 0.1-1.2 X10*3/uL Eosinophils Absolute Auto 0.2 0.0-0.4 X10*3/u L Basophils Absolute Auto 0.1 0.0-0.2 X10*3/uL NRBC Abs Auto 0.000 0.0-0.012 X10*3/uL Comprehensive Devine. Panel Fa st Reviewed date:08/01/2023 08:53:02 PM Interpretation: Performing Lab:[facility], [address] [place] [phone] Notes/Report: Sodium 141 135-145 mmol/L Potassium 4.3 3.3-5.1 mmol/L Chloride 103 96-108 mmol/L Carbon Dioxide 34 22-29 mmol/L Anion Gap 8 12-20 Blood Urea Nitrogen 14 9-16 mg/dL Creatinine 0.86 0.5-1.4 mg/dL Estimated Glomerular Filt Rate > 60 NOTE: For -Russian individuals, multiply the result by 1.210. Chronic Kidney Disease: Estimated GFR < 60 mL/min/1.73m2 Severe Kidney Disease: Estimated GFR < 15 mL/min/1.73m2 Glucose Fasting 100 60-99 mg/dL A fasting glucose from 100-125 mg/dl is considered impaired (pre-diabetes). Calcium 9.3 8.4-10.2 mg/dL Bilirubin Total 0.6 0.0-1.0 mg/dL Aspartate Amino Transferase 30 5-37 U/L Alanine Aminotransferase 29 0-40 U/L Total Protein 7.0 6.5-8.0 g/dL Albumin Level 4.0 3.5-5.0 g/dL Alkaline Phosphatase 104 39-117 U/L Lipid Panel Reviewed date:08/01/2023 08:53:02 PM Interpretation: Performing Lab:[facility], [address] [place] [phone] Notes/Report: Triglycerides 70 <150 mg/dL Desirable Triglyceride: less than 150 mg/dL Borderline High Triglyceride 150-199 mg/dL High Triglyceride: 200-499 mg/dL Very High Triglyceride: greater than or equal to 5OO mg/dL Cholesterol 169 <200 mg/dL Desirable Cholesterol: less than 200 mg/dL Borderline High Cholesterol: 200-239 mg/dL High Cholesterol: greater than 239 mg/dL LDL Cholesterol Calculated 104 <100 mg/dL Desirable LDL: less than 100 mg/dL Near Optimal/Above Optimal LDL: 110-129 mg/dL Borderline High LDL: 130-159 mg/dL High LDL: 160-189 mg/dL Very High LDL: greater than or equal to 190 mg/dL HDL Cholesterol 51 >40 mg/dL Desirable HDL: greater than 40 mg/dL Note: This HDL assay may give artificially low results in patients with liver disease. Testosterone, Total Reviewed date:09/08/2023 07:39:57 AM Interpretation: Performing Lab:[facility], [address] [place] [phone] Notes/Report: Testosterone, Total 670 501-6388 ng/dL Men with clinically significant hypogonadal symptoms and testosterone values repeatedly in the range of the 200-300 ng/dL or less, may benefit from testosterone treatment after adequate risk and benefits counseling. For additional information, please refer to http://education.[employer].com/fa q/ TotalTestosteroneM [email or web address] (This link is being provided for informational/ educational purposes only.) This test was developed and its analytical performance characteristics have been determined by [facility] [place], [place]. It has not been cleared or approved by the U.S. Food and Drug Administration. This assay has been validated pursuant to the CLIA regulations and is used for clinical purposes. THIS TEST WAS PERFORMED AT: [facility]/[address] [address] JAMAL AGUAYO MD,PHD XR chest 2V Reviewed date:02/24/2024 08:25:07 AM Interpretation: Performing Lab: Notes/Report: [address] [address] XRay Report Signed Patient: Silvio Vasquez MR#: [id number] [birth year] : 1955 Acct:[id number] Age/Sex: 68 / M ADM Date: 11/07/23 Loc: HO.XRAY Attending Dr: Kevin Goel MD Ordering Physician: Kevin Goel MD Date of Service: 11/07/23 Procedure(s): XR chest 2V Accession Number(s): [id number] cc: Kevin Goel MD EXAMINATION: XR CHEST CLINICAL INFORMATION: Chronic cough. COMPARISON: Chest radiograph dated 03/30/2022. TECHNIQUE: 2 views of the chest were obtained. FINDINGS: The cardiac silhouette is normal in size. There is no consolidation within either lung. The pleural spaces are clear. There is no pneumothorax. No acute osseous abnormality. XR/XR chest 2V IMPRESSION: No acute cardiopulmonary disease. Stable appearance of the heart and lungs. Dictated By: Brian Onofre Jr, DO Signed By: <Electronically signed by Brian Onofre Jr, in OV> 11/07/23 1404 DD/ 1140 TD/TT: Silverlight Developer: DANIELE [address] [address] XRay Report Signed Patient: Piotr Vasquez MR#: [id number] 84 : 1955 Acct:[id number] Age/Sex: 68 / M ADM Date: 11/07/23 Loc: HO.XRAY Attending Dr: Kevin Goel MD Ordering Physician: Kevin Goel MD Date of Service: 11/07/23 Procedure(s): XR donny st 2V Accession Number(s): [id number] cc: Kevin Goel MD EXAMINATION: XR CHEST CLINICAL INFORMATION: Chronic cough. COMPARISON: Chest radiograph selma ed 03/30/2022. TECHNIQUE: 2 views of the chest were obtained. FINDINGS: The cardiac silhouet te is normal in size. There is no consolidation within either lung. The pleural spaces are clear. There is no pneumothorax. No acu te osseous abnormality. XR/XR chest 2V IMPRESSION: No acute cardiopulmonary disease. Stable appearance of the heart and lungs. Dictated By: Brian Onofre Jr, DO Signed By: <Electronically signed by Brian Onofre Jr, DO in OV> 11/07/23 1404 DD/ 1140 TD/TT: Silverlight Developer: DANIELE CT chest wo con Reviewed date:02/24/2024 08:25:07 AM Interpretation: Performing Lab: Notes/Report: [address] [address] [address] Scan Report Signed Patient: Silvio Vasquez MR#: [id number] 84 : 1955 Acct:[id number] Age/Sex: 68 / M ADM Date: 01/17/24 Loc: HO.CT Attending Dr: Vicky Charlton NP Ordering Physician: Vicky Charlton NP Date of Service: 01/17/24 Procedure(s): CT chest wo IV con Accession Number(s): [id number] cc: Kevin Goel MD; Vicky Charlton NP EXAMINATION: CT CHEST WITHOUT CONTRAST CLINICAL INFORMATION: Chronic cough. COMPARISON: Chest film dated 11/07/2023. TECHNIQUE: Multidetector volumetric CT imaging of the chest was done. Axial MIP volume rendering provided. Sagittal and coronal reformatted images were obtained. This CT examination was performed using dose optimization techniques as appropriate, variously including the following: *Automated exposure control *Adjustment of mA and/or kV according to patient size (this includes techniques or standardized protocols for targeted exams where dose is matched to indication/reason for exam; i.e. extremities or head) *Use of iterative reconstruction technique DLP: 291 mGy-cm FINDINGS: The thoracic inlet within normal limits. The axillary regions are unremarkable. Partially visualized upper abdominal structures within normal limits. Mild coronary calcium is noted. Centrally there is no evidence for bulky adenopathy. This is a noncontrast study but the hilar regions do not appear pathologically enlarged. Imaging of the lung herring. Right lung: No significant infiltrate or effusion. 5 mm nodule on image 391 of series 7. 2 mm nodule on image 164. 3 mm nodule on image 381. Left lung: No significant infiltrate or effusion. Mild atelectasis or scarring in the lingula. Some mild bronchial thickening throughout the lungs. Review of the bone windows does not demonstrate suspicion for bony lesion. CT/CT chest wo IV con IMPRESSION: No infiltrate or effusion. Some mild scarring or atelectasis in the lingula. Underlying lung parenchymal architecture is showing some mild bronchial thickening but otherwise within normal limits. Some scattered nodularity noted largest of which measures 5 mm which may be associated with the major fissure on the right. Attention at follow-up. Fleischner criteria provides guidelines for follow-up Electronically signed by: Carson Cade MD 02/06/2024 01:15 PM EDT RP Dictated By: Carson Cade MD Signed By: <Electronically signed by Carson Cade MD in OV> 02/06/24 1315 DD/ 0732 TD/TT: 01/17/24 0750 Silverlight Developer: [address] [address] [address] Scan Report Signed Patient: Piotr Vasquez MR#: [id number] 84 : 1955 Acct:[id number] Age/Sex: 68 / M ADM Date: 01/17/24 Loc: .CT Attending Dr: Jerilyn Charlton NP Ordering Physician: Vicky Charlton NP Date of Service: 01/17/24 Procedure(s): CT donny st wo IV con Accession Number(s): [id number] cc: Kevin Goel MD; Vicky Charlton NP EXAMINATION: CT CHEST WITHOUT CONTRAST CLINICAL INFORMATION: Chronic cough. COMPARISON: Chest film dated 11/07/2023. TECHNIQUE: Multidetector volumetric CT imaging of the chest was done. Axial MIP volume rendering provided. Sagittal and coronal reformatted images were obtained. This CT examination was performed using dose optimization techniques as appropriate, various ly including the following: *Automated exposure control *Adjustment of mA and/or kV according to patient size (this includes techniques or standardized protocols for targeted exams where dose is matched to indication/reason for exam; i.e. extremities or head) *Use of iterative reconstruction technique DLP: 291 mGy-cm FINDINGS: The thoracic inlet within normal limits. The axillary regions are unremarkable. Partially visualized upper abdominal structures within normal limits. Mild coronary calciu m is noted. Centrally there is n o evidence for bulky adenopathy. This is a noncontras t study but the hilar regions do not appear pathologically enlarged. Imaging of the lung herring. Right lung: No significant infiltrate or effusion. 5 mm nodule on image 391 of series 7. 2 mm nodule on image 164. 3 mm nodule on image 381. Left lung: No significant infiltrate or effusion. Mild atelectasis or scarring in the lingula. Some mild bronchial thickening throughout the lungs. Review of the bone windows does not demonstrate suspicion for bony lesion. CT/CT chest wo IV con IMPRESSION: No infiltrate or effusion. Some mild scarring o r atelectasis in the lingula. Underlying lung parenchymal architecture is showing some mild bronchial thickening but otherwise within nor mal limits. Some scattered nodularity noted largest of which measures 5 mm which may be associated wi th the major fissure on the right. Attention at follow-up. Fleischne r criteria provides guidelines for follow-up Electronically anne d by: Carson Cade MD 02/06/2024 01:15 PM EDT Dictated By: Carson Cade MD Signed By: <Electronically signed by Carson Cade MD in OV> 02/06/24 1315 DD/ 0732 TD/TT: 01/17/24 0750 Silverlight Developer: ROSAMARIA Testosterone, Free/Total Reviewed date:04/23/2024 07:44:01 AM Interpretation: Performing Lab:[facility], [address] [place] [phone] Notes/Report: Testosterone, Total 939 372-2683 ng/dL Men with clinically significant hypogonadal symptoms and testosterone values repeatedly in the range of the 200-300 ng/dL or less, may benefit from testosterone treatment after adequate risk and benefits counseling. For additional information, please refer to http://education.[employer].com/fa q/ TotalTestosteroneM [email or web address] (This link is being provided for informational/ educational purposes only.) This test was developed and its analytical performance characteristics have been determined by [facility] [place], [place]. It has not been cleared or approved by the U.S. Food and Drug Administration. This assay has been validated pursuant to the CLIA regulations and is used for clinical purposes. Testosterone, Free 35.1 35.0-155.0 pg/mL This test was developed and its analytical performance characteristics have been determined by [facility] [place], [place]. It has not been cleared or approved by the U.S. Food and Drug Administration. This assay has been validated pursuant to the CLIA regulations and is used for clinical purposes. THIS TEST WAS PERFORMED AT: [facility] [address] JAMAL AGUAYO MD,PHD Testosterone, Total (Not yet reviewed by provider) Interpretation: Performing Lab:[address] [address] Notes/Report: Testosterone, Total 477 [address]-6674 ng/dL Men with clinically significant hypogonadal symptoms and testosterone values repeatedly in the range of the 200-300 ng/dL or less, may benefit from testosterone treatment after adequate risk and benefits counseling. For additional information, please refer to http://education.[employer]/fa q/ TotalTestosteroneM [id number] (This link is being provided for informational/ educational purposes only.) This test was developed and its analytical performance characteristics have been determined by [facility] [place], [place]. It has not been cleared or approved by the U.S. Food and Drug Administration. This assay has been validated pursuant to the CLIA regulations and is used for clinical purposes. THIS TEST WAS PERFORMED AT: [facility] [address] JAMAL AGUAYO MD,PHD Complete Blood Count Auto Di ff Reviewed date:05/04/2024 04:59:17 AM Interpretation: Performing Lab:[facility], [address] [place] [phone] Notes/Report: White Blood Count 10.9 4.8-10.8 X10*3/uL Red Blood Count 4.89 4.60-5.80 X10*6/uL Hemoglobin 14.6 14.0-18.0 g/dl Hematocrit 44.2 42.0-52.0 % Mean Corpuscular Volume 90.4 80.0-98.0 fL Mean Corpuscular Hemoglobin 29.9 27.0-33.0 pg Mean Corpuscular HGB Conc 33.0 31.0-36.0 g/dl Red Cell Distribution Width 13.9 11.0-16.0 % Platelet Count 274 160-400 X10*3/uL Mean Platelet Volume 9.1 9.4-12.4 fL Neutrophils Percent Auto 68.2 45-73 % Imm Gran Pct Auto 0.7 0.0-0.4 % Lymphocytes Percent Auto 23.0 20-40 % Monocytes Percent Auto 6.2 2-11 % Eosinophils Percent Auto 1.6 0-4 % Basophils Percent Auto 0.3 0-2 % NRBC Pct Auto 0.0 0.0-0.2 /100WBC Neutrophils Absolute Auto 7.4 2.0-8.3 x10*3/u L Imm Gran Abs Auto 0.08 0.00-0.03 X10*3/uL Lymphocytes Absolute Auto 2.5 1.2-4.9 X10*3/u L Monocytes Absolute Auto 0.7 0.1-1.2 X10*3/uL Eosinophils Absolute Auto 0.2 0.0-0.4 X10*3/u L Basophils Absolute Auto 0.0 0.0-0.2 X10*3/uL NRBC Abs Auto 0.000 0.0-0.012 X10*3/uL Comprehensive Devine. Panel Fa st Reviewed date:05/04/2024 04:59:17 AM Interpretation: Performing Lab:[facility], [address] [place] [phone] Notes/Report: Sodium 144 135-145 mmol/L Potassium 4.2 3.3-5.1 mmol/L Chloride 102 96-108 mmol/L Carbon Dioxide 34 22-29 mmol/L Anion Gap 12 12-20 Blood Urea Nitrogen 16 9-16 mg/dL Creatinine 0.89 0.5-1.4 mg/dL Estimated Glomerular Filt Rate > 60 Chronic Kidney Disease: Estimated GFR < 60 mL/min/1.73m2 Severe Kidney Disease: Estimated GFR < 15 mL/min/1.73m2 Glucose Fasting 101 60-99 mg/dL A fasting glucose from 100-125 mg/dl is considered impaired (pre-diabetes). Calcium 9.8 8.4-10.2 mg/dL Bilirubin Total 0.6 0.0-1.0 mg/dL Aspartate Amino Transferase 28 5-37 U/L Alanine Aminotransferase 28 0-40 U/L Total Protein 7.1 6.5-8.0 g/dL Albumin Level 4.0 3.5-5.0 g/dL Alkaline Phosphatase 116 39-117 U/L Lipid Panel Reviewed date:05/04/2024 04:59:17 AM Interpretation: Performing Lab:[facility], [address] [place] [phone] Notes/Report: Triglycerides 57 <150 mg/dL Desirable Triglyceride: less than 150 mg/dL Borderline High Triglyceride 150-199 mg/dL High Triglyceride: 200-499 mg/dL Very High Triglyceride: greater than or equal to 5OO mg/dL Cholesterol 160 <200 mg/dL Desirable Cholesterol: less than 200 mg/dL Borderline High Cholesterol: 200-239 mg/dL High Cholesterol: greater than 239 mg/dL LDL Cholesterol Calculated 100 <100 mg/dL Desirable LDL: less than 100 mg/dL Near Optimal/Above Optimal LDL: 110-129 mg/dL Borderline High LDL: 130-159 mg/dL High LDL: 160-189 mg/dL Very High LDL: greater than or equal to 190 mg/dL HDL Cholesterol 49 >40 mg/dL Desirable HDL: greater than 40 mg/dL Note: This HDL assay may give artificially low results in patients with liver disease. Prostate Specific Antigen Reviewed date:05/04/2024 04:59:17 AM Interpretation: Performing Lab:[facility], [address] [place] [phone] Notes/Report: Prostate Specific Antigen 0.61 <0.05-4.0 ng/mL PSA methodology: Gerardo Alinity i Chemiluminescent Microparticle Immunoassay (CMIA) Reason For Referral Reason chronic cough Diagnosis 1 Chronic cough (R05.3 ) Referral Organization Kevin Goel III, MD Referring Provider First Name Kevin Referring Provider Last Name Amando Referring Provider Speciality Internal M edicine Referred Provider THERESE HERNANDEZ Referred Provider Specialty Pulmonary Di seases General Notes Sarah Serna CMA 10/25 11:37:26 AM EDT > ref/progress note/cxr report faxed to Dr Hernandez office asking them to contact patient with appt Referral Priority Routine Referral Appointment Date 11/19/2023 Medications Medication SIG (Take, Route, Frequency, Duration) Notes Start Date End Date Status Albuterol Sulfate HFA 108 (90 Base) MCG/ACT 2 puffs as needed Inhalation by inhaler every 4 hrs as needed 03/30/2022 Active Albuterol Sulfate HFA 108 (90 Base) MCG/ACT 2 puffs Inhalation QID prn wheezing 04/25/2023 Active Advil 200 MG 1 tablet with food o r milk as needed Orally Three times a day as needed Active tylenol 1 tab Oral as needed Active Tadalafil 5 MG 1 tablet Orally Once a day Active Immunizations Vaccine Route Administration Date Status Comme nts COVID- 19 Vaccine Unknown 09/06/2020 Administered 2nd D ose Moderna COVID- 19 Vaccine Unknown 04/10/2021 Administered BOOST ER Influenza Vaccine Afluria IM Intramuscular 02/14/2024 Administered Social History Tobacco Use: Social History Observation Description Date Details (start date - stop date) Never Smoker NA - NA Sex Assigned At : Social History Observation Description Sex Assigned At Male Tobacco Use/Smoking Question Answer Notes Patient is a nonsmoker Additional Findings: Tobacco Non-User Aggressive non-smoker Alcohol Screen Question Answer Notes Did you have a drink contain ing alcohol in the past year? Yes How often did you have a dri nk containing alcohol in the past year? Monthly or less (1 point) How many drinks did you have on a typical day when you were drinking in the past year? 1 or 2 drinks (0 point) How often did you have 6 or more drinks on one occasion in the past year? Never (0 point) Points 1 Interpretation Negative Problems Problem Type SNOMED Code ICD Code Onset Dates Problem Status W/U Status Risk Notes Problem Hypertension (66126855) Hypertension (I10) Active confirmed His blood pressure is slightly elevated. He is going to try to lose 1 or 2 pounds in the next 2 weeks. He may need tAdditional medication. Problem Benign prostatic hyperplasia (615131117) BPH (benign prostatic hyperplasia) (N40.0) Active confirmed He rises from sleep once or twice a night to urinate. We discussed modifications to his lifestyle that could reduce nocturia. Problem 568411469 Primary osteoarthritis of both knees (M17.0) Active confirmed He was referred to [place] [facility] surgeons for treatment and advice. Arthroplasty of both knees has been recommended. The first will take place next March. Problem 143387989 Morbid obesity (E66.01) Active confirmed He has lost 2 pounds. His body mass index is 43. We made a plan to lose weight at a rate of 1 pound per week through diet restricted in fat calories and sodium. We have begun to discuss the use of injectable semaglutide Problem 629533721 Adenomatous polyp (D36.9) Active confirmed He will continue with Dr. Curry having colonoscopies every 5 years. He is doing 2019. 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 Problem 27444700 Chronic cough (R05.3) Active confirmed His cough continues despite suppressive medication. His chest x-ray shows no abnormality. Current therapy was continued. If he does not improve Emanuel agreed with sending him to pulmonary. Problem 838768036 Rupture of right triceps tendon, initial encounter (S46.311A) Active confirmed This injury has healed very well and is no longer painful. He reports adequate use of the right arm and good strength. Problem [id number] Testosterone deficiency (E34.9) Active confirmed He was continued on current therapy. Vital Signs Heart Rate 58 /min 02/14/2024 Temperature 97.8 degrees Fahrenheit 02/14/2024 Blood pressure diastolic 70 mm Hg 02/14/2024 Height 63 in 02/14/2024 Blood pressure systolic 128 mm Hg 02/14/2024 Weight 241 lbs 02/14/2024 BMI 42.69 kg/m2 02/14/2024 Encounters Encounter Location Date Provider Diagnosis Kevin Goel III, MD [address] [place] [address] [place] [phone] 05/10/2023 Kevin Goel Primary osteoarthrit is of both knees M17.0 ; Morbid obesity E66.01 ; Testosterone deficiency E34.9 ; Rupture of right triceps tendon, initial encounter S46.311A and BPH (benign prostatic hyperplasia) N40.0 Kevin Goel III, MD [address] [place] [address] [place] [phone] 08/09/2023 Kevin Goel Primary osteoarthrit is of both knees M17.0 ; Hypertension I10 ; BPH (benign prostatic hyperplasia) N40.0 ; Morbid obesity E66.01 and Chest tightness R07.89 Kevin Goel III, MD [address] [place] [address] DR [place] [id number] 09/03/2023 Kevin Garciane Primary osteoarthrit is of both knees M17.0 ; Morbid obesity E66.01 ; Rupture of right triceps tendon, initial encounter S46.311A ; Testosterone deficiency E34.9 ; BPH (benign prostatic hyperplasia) N40.0 ; Hypertension I10 and Chest tightness R07.89 Kevin Goel III, MD [address] [place] [address] [place] [id number] 11/07/2023 Kevin Garciane Primary osteoarthrit is of both knees M17.0 ; Chronic cough R05.3 ; Morbid obesity E66.01 and Hypertension I10 Kevin Goel III, MD [address] [place] [address] [address] [place] [id number] 02/14/2024 Kevin Garciane Primary osteoarthrit is of both knees M17.0 ; Morbid obesity E66.01 ; Testosterone deficiency E34.9 ; BPH (benign prostatic hyperplasia) N40.0 ; Encounter for immunization Z23 and Rupture of right triceps tendon, initial encounter S46.311A Assessments Encounter Date Diagnosis (ICD Code) Assessment Notes Treat ment Notes Treatment Clinical Notes 05/10/2023 Primary osteoarthritis of both knees (ICD-10 - M17.0) The left knee is giving him the most trouble. He was referred to [facility] for treatment and advice. 05/10/2023 Morbid obesity (ICD-10 - E66.01) In the recent year. He has gaiins in weight. We have discussed diet and nutrition. We have discussed a referral to the weight loss clinic [facility], which would include bariatric surgery consultation. He is willing to do so and this referral was made. We discussed lifestyle modification in different ways of dealing with stress and illness. We made a plan to lose weight at a rate of one half of a pound per week tto a diet restricted in fat calories and sodium combined with regular activity. 08/09/2023 Hypertension (ICD-10 - I10) His blood pressure is slightly elevated. He is going to try to lose 1 or 2 pounds in the next 2 weeks. He may need tAdditional medication. 08/09/2023 Primary osteoarthritis of both knees (ICD-10 - M17.0) The left knee is giving him the most trouble. He was referred to [facility] for treatment and advice .He [place]. 09/03/2023 Primary osteoarthritis of both knees (ICD-10 - M17.0) The left knee is giving him the most trouble. He was referred to [facility] for treatment and advice .He [place]. 09/03/2023 Morbid obesity (ICD-10 - E66.01) In the recent year. He has gaiins in weight. We have discussed diet and nutrition. We have discussed a referral to the weight loss clinic [facility], which would include bariatric surgery consultation. He is willing to do so and this referral was made. We discussed lifestyle modification in different ways of dealing with stress and illness. We made a plan to lose weight at a rate of one half of a pound per week tto a diet restricted in fat calories and sodium combined with regular activity. 11/07/2023 Primary osteoarthritis of both knees (ICD-10 - M17.0) He was referred to [facility] for treatment and advice. Arthroplasty of both knees has been recommended. The first fall take place next March. 11/07/2023 Chronic cough (ICD-1 0 - R05.3) His cough continues despite suppressive medication. His chest x-ray shows no abnormality. Current therapy was continued. If he does not improve Emanuel agreed with sending him to pulmonary. 02/14/2024 Primary osteoarthritis of both knees (ICD-10 - M17.0) He was referred to [facility] for treatment and advice. Arthroplasty of both knees has been recommended. The first will take place next March. 02/14/2024 Morbid obesity (ICD-10 - E66.01) He has lost 2 pounds. His body mass index is 43. We made a plan to lose weight at a rate of 1 pound per week through diet restricted in fat calories and sodium. We have begun to discuss the use of injectable semaglutide 05/10/2023 Testosterone deficiency (ICD-10 - E34.9) His testosterone level is now in the normal range. No change in his therapy as needed. 08/09/2023 BPH (benign prostati c hyperplasia) (ICD-10 - N40.0) He arises from sleep once or twice a night. We have discussed lifestyle modification as a way to control nocturia. 09/03/2023 Rupture of right triceps tendon, initial encounter (ICD-10 - S46.311A) This injury has healed very well and is no longer painful. He reports adequate use of the right arm and good strength. 11/07/2023 Morbid obesity (ICD-10 - E66.01) In the recent year. He has gaiins in weight. We have discussed diet and nutrition. We have discussed a referral to the weight loss clinic [facility], which would include bariatric surgery consultation. He is willing to do so and this referral was made. We discussed lifestyle modification in different ways of dealing with stress and illness. We made a plan to lose weight at a rate of one half of a pound per week tto a diet restricted in fat calories and sodium combined with regular activity. 02/14/2024 Testosterone deficiency (ICD-10 - E34.9) He was continued on current therapy. 05/10/2023 Rupture of right triceps tendon, initial encounter (ICD-10 - S46.311A) This injury has healed very well and is no longer painful. He reports adequate use of the right arm and good strength. 08/09/2023 Morbid obesity (ICD-10 - E66.01) In the recent year. He has gaiins in weight. We have discussed diet and nutrition. We have discussed a referral to the weight loss clinic [facility], which would include bariatric surgery consultation. He is willing to do so and this referral was made. We discussed lifestyle modification in different ways of dealing with stress and illness. We made a plan to lose weight at a rate of one half of a pound per week tto a diet restricted in fat calories and sodium combined with regular activity. 09/03/2023 Testosterone deficiency (ICD-10 - E34.9) His testosterone level is 223. No change in his therapy as needed.He will continue with urology in the injections. 11/07/2023 Hypertension (ICD-10 - I10) His blood pressure is slightly elevated. He is going to try to lose 1 or 2 pounds in the next 2 weeks. He may need tAdditional medication. 02/14/2024 BPH (benign prostati c hyperplasia) (ICD-10 - N40.0) He rises from sleep once or twice a night to urinate. We discussed modifications to his lifestyle that could reduce nocturia. 05/10/2023 BPH (benign prostati c hyperplasia) (ICD-10 - N40.0) He arises from sleep once or twice a night. We have discussed lifestyle modification as a way to control nocturia. 08/09/2023 Chest tightness (ICD-10 - R07.89) I referred him for a treadmill stress test. 09/03/2023 BPH (benign prostati c hyperplasia) (ICD-10 - N40.0) He arises from sleep once or twice a night. We have discussed lifestyle modification as a way to control nocturia. 02/14/2024 Encounter for immunization (ICD-10 - Z23) 09/03/2023 Hypertension (ICD-10 - I10) His blood pressure is slightly elevated. He is going to try to lose 1 or 2 pounds in the next 2 weeks. He may need tAdditional medication. 02/14/2024 Rupture of right triceps tendon, initial encounter (ICD-10 - S46.311A) This injury has healed very well and is no longer painful. He reports adequate use of the right arm and good strength. 09/03/2023 Chest tightness (ICD-10 - R07.89) A treadmill test is negative for ischemia. He has not experienced chest tightness recently. Plan Of Treatment Pending Test Test Name Order Date PROFILE, FASTING (COMPREHENSIVE METABOLI C) 08/28/2018 PROFILE, FASTING (COMPREHENSIVE METABOLI C) 05/10/2023 PROFILE, FASTING (COMPREHENSIVE METABOLI C) 03/18/2018 PROFILE, FASTING (COMPREHENSIVE METABOLI C) 02/11/2023 PROFILE, FASTING (COMPREHENSIVE METABOLI C) 02/14/2024 PROFILE, FASTING (COMPREHENSIVE METABOLI C) 11/29/2022 LIPID PANEL 11/29/2022 LIPID PANEL 08/28/2018 LIPID PANEL 03/18/2018 LIPID PANEL 02/11/2023 PSA, TOTAL 08/28/2018 PSA, TOTAL 02/14/2024 PSA, TOTAL 03/18/2018 PSA, TOTAL 02/11/2023 CBC w DIFF 02/11/2023 CBC w DIFF 11/29/2022 CBC w DIFF 08/28/2018 CBC w DIFF 03/18/2018 TESTOSTERONE, TOTAL 02/11/2023 XR CHEST 2 VIEW PA & LAT 11/07/2023 XR CHEST 2 VIEW PA & LAT 03/29/2022 XR SHOULDER RT 2 VIEWS 06/06/2021 XR WRIST RT 06/06/2021 CBC WITH AUTO DIFF 05/10/2023 CBC WITH AUTO DIFF 02/14/2024 Lipid Panel 02/14/2024 Lipid Panel 05/10/2023 Testosterone, Total 05/01/2024 Testosterone, Total 02/14/2024 Testosterone, Total 05/10/2023 Exercise Stress Test 08/09/2023 Next Appt Details Provider Name:Kevin Goel, 05/07/2024 09:15:00 AM, [address] [place] [address] [address], [place], [id number], Provider Name:Kevin Goel, 02/15/2025 02:30:00 PM, [address] [place] [address] [address], [place], [id number], Insurance Providers Payer Name Payer Address Payer Phone Subscriber Number Group Number Insured Name Patient Relationship to Insured Coverage Start Date Coverage End Date MEDICARE NGS [address] [place] [address] [id number] Silvio Vasquez Self - patient is the insured [facility] [address] [place], [place] [id number] [phone] [id number] Silvio Vasquez Self - patient is the insured Medical (General) History Medical History History ICD Code obesity decreased vision tubular adenoma, colonoscopy Q 5 years cerumenosis otitis torn left calf muscle, January 2018, h iking osteoarthritis knees left tibial plateau injury 2017 right ulnar compression 05/2021 torn right triceps tendon 05/2021 Diminished libido December 2021 Surgical History Surgery Date(Month/Year) Cataract Surgery, Left eye 01/2023 Ulnar nerve decompression, repair and re routing 11/2021 Right triceps tendon reattachment 03/[address] Curry 2020 cataract surgery right eye 2017 colonoscopy, [facility], Dr. Kevin Curry, tubular adenoma 2014 colonoscopy, [facility], Dr. Kevin Curry, tubular adenoma 2008 vasectomy 1993
--- OUTSIDE RECORDS SUMMARY | 2024-05-06 05:51 | XMS_ITS | Patient Health Record ---
Author Organization [facility] Address [address] [place] [address] Care Team Providers Care Support Services Specialist Name Role Phone Kevin Goel MD Primary Care Provider Unavailab Kevin Rose Unavailable [phone] REASON FOR REFERRAL No Information IMMUNIZATIONS Vaccine Route Administration Date Status Comme nts Influenza Unknown 03/27/2020 Administered SOCIAL HISTORY Sex Assigned At : Social History Observation Description Sex Assigned At Unknown PROBLEMS Problem Type ICD Code Onset Dates Problem Status W/U Status Risk SNOMED Code Notes Problem Encounter for other preprocedural examination (Z01.818) Active confirmed Pre-procedure evaluation check (120864820) Problem Personal history of colonic polyps (Z86.010) Active confirmed History of poly p of colon (situation) (850235083) Problem History of adenomatous polyp of colon (Z86.010) Active confirmed History of adenomatous polyp of colon (517997971) Problem Encounter for screening for malignant neoplasm of colon (Z12.11) Active confirmed Screening for malignant neoplasm of colon (862924664) Problem Preprocedural examination (Z01.818) Active confirmed Preprocedural examination (353364365840488 ) PLAN OF TREATMENT Pending Test Test Name Order Date Pathology 08/26/2020 Future Test Test Name Order Date COLONOSCOPY 02/25/2015 COLONOSCOPY 06/30/2020 Insurance Providers Payer Name Payer Address Payer Phone Subscriber Number Group Number Insured Name Patient Relationship to Insured Coverage Start Date Coverage End Date [facility] [employer] [facility] [address] [place] [address] [id number] Self - patient is the insured MEDICAL (GENERAL) HISTORY Medical History History ICD Code Screening colonoscopy 8-31-2 009-1 tubular adenoma removed--also noted to have mild sigmoid diverticulosis and small internal hemorrhoids Denies PR,DM,CVA,Lung disease,renal dise ase COVID infection 04/2020. Had neg. COVID test 05/28/2020 Colonoscopy 04/2015 with a small tubular adenoma Surgical History Surgery Date(Month/Year) oral surgery vasectomy eye surgery
--- OUTSIDE RECORDS SUMMARY | 2024-05-06 05:51 | XMS_ITS ---
Author Organization Kevin Goel III, MD Address [address] [place] [address] Care Team Providers Care Welding Foreman Name Role Phone Kevin Goel Primary Care [...] 0.2 - 1.3 BLD Negative Negative - REASON FOR VISIT annual exam Medications Medication SIG (Take, Route, Frequency, Duration) Notes Start Date End Date Status Advil 200 MG 1 tablet with food o r milk as needed Orally Three times a day as needed Active tylenol 1 tab Oral as needed Active Tadalafil 5 MG 1 tablet Orally Once a day Active Albuterol Sulfate HFA 108 (90 Base) MCG/ACT 2 puffs as needed Inhalation by inhaler every 4 hrs as needed 03/30/2022 Active Albuterol Sulfate HFA 108 (90 Base) MCG/ACT 2 puffs Inhalation QID prn wheezing 04/25/2023 Active Immunizations Vaccine Route Administration Date Status Comme nts Influenza Vaccine Afluria IM Intramuscular 02/14/2024 Admi nistered Social History Tobacco Use: Social History Observation [...] Never (0 point) Points 1 Interpretation Negative Vital Signs Temperature 97.8 degrees Fahrenheit 02/14/20 24 Blood pressure systolic 128 mm Hg 02/14/20 24 Blood pressure diastolic 70 mm Hg 024 Heart Rate 58 /min 02/14/2024 Height 63 in 02/14/2024 Weight 241 lbs 02/14/2024 BMI 42.69 kg/m2 02/14/2024 Encounters Encounter Location Date Provider Diagnosis Kevin Goel III, MD [address] [place] [address] [place] [address] 02/14/2024 Kevin Goel Primary osteoarthrit is of both knees M17.0 ; Morbid obesity E66.01 ; Testosterone deficiency E34.9 ; BPH (benign prostatic hyperplasia) N40.0 ; Encounter for immunization Z23 and Rupture of right triceps tendon, initial encounter S46.311A Assessments Encounter Date Diagnosis (ICD Code) Assessment Notes Treat ment Notes Treatment Clinical Notes 02/14/2024 Primary osteoarthritis of both knees (ICD-10 - M17.0) He was referred to [place] orthopedic surgeons for treatment and advice. Arthroplasty [...] to discuss the use of injectable semaglutide 02/14/2024 Testosterone deficiency (ICD-10 - E34.9) He was continued on current therapy. 02/14/2024 BPH (benign prostati c hyperplasia) (ICD-10 - N40.0) He rises from sleep once or twice a night to urinate. We discussed modifications to his lifestyle that could reduce nocturia. 02/14/2024 Encounter for immunization (ICD-10 - Z23) 02/14/2024 Rupture of right triceps tendon, initial encounter (ICD-10 - S46.311A) This injury has healed very well and is no longer painful. He reports adequate use of the right arm and good strength. Plan Of Treatment Medication Medication Name Sig Start Date Stop Date Notes Advil 200 MG 1 tablet with food o r milk as needed Orally Three times a day as needed tylenol 1 tab Oral as needed Tadalafil 5 MG 1 tablet Orally Once a day Albuterol Sulfate HFA 108 (90 Base) MCG/ACT 2 puffs as needed Inhalation by inhaler every 4 hrs 03/30/2022 as needed Albuterol Sulfate HFA 108 (90 Base) MCG/ACT 2 puffs Inhalation QID prn wheezing 04/25/2023 Pending Test Test Name Order Date PROFILE, FASTING (COMPREHENSIVE METABOLI C) 02/14/2024 PSA, TOTAL 02/14/2024 CBC WITH AUTO DIFF 02/14/2024 Lipid Panel 02/14/2024 Testosterone, Total 02/14/2024 Next Appt Details Follow Up: 3 Months, Reason: OV Provider Name:Kevin Goel, 05/07/2024 09:15:00 AM, [address] [place] [address] [address], [place], [address], Provider Name:Kevin Goel, 02/15/2025 02:30:00 PM, [address] [place] [address] [place], [address], Progress Notes * Silvio VASQUEZ LDOB: [birth year] (68 yo M)Acc No.[id number]:02/14/2024 Progress Notes Patient:?Silvio Vasquez Provider:?Kevin Goel MD :1955???Age:68 Y???Sex:Male Kai e:02/14/2024 Address:[address] [place] [address] [id number] Subjective: * Chief Complaints: * ???Annual exam * HPI: ???Depression Screening:?PHQ-9?Little interest or pleasure in doing things?Not at all ?Feeling down, depressed, or hopeless?Not at all ?Trouble falling or staying asleep, or sleeping too much?Several days ?Feeling tired or having little energy?Several days ?Poor appetite or overeating?Not at all ?Feeling bad about yourself or that you are a failure, or have let yourself or your family down?Not at all ?Trouble concentrating on things, such as reading the newspaper or watching television?Not at all ?Moving or speaking so slowly that other people could have noticed; or the opposite, being so fidgety or restless that you have been moving around a lot more than usual?Not at all ?Thoughts that you would be better off or of hurting yourself in some way?Not at all ?Total Score?2 ?Interpretation?Minimal Depression ? He returns to the office at the age of 68 for his annual physical examination. He has had no new problems since his last visit. He continues to have pain in his knees and sees orthopedics. He has no longer been hiking up mountains but is doing substantial walking for exercise. His weight is stable. He denies any chest pain or shortness of breath. He is up-to-date with colonoscopies. He has not had comprehensive blood work yet but will do so in the next few days. We will then review this by telephone. ???COVID-19 Screening:?Questions?Have you experienced fever, chills, cough, sore throat, shortness of breath, difficulty breathing, muscle aches, loss of taste or smell??No ?Have you been exposed to the virus within the last 10 days??No ?Have you travelled internationally in the last 10 days??No ?Have you been exposed to COVID-19 in the past??Yes ???SDOH Questions:?SDOH Questions?In the past year have you been worried about losing your housing??No ?In the past year have you or any family members you live with been unable to get any of the following when it was really needed? Check all that apply:?None * ROS:?General/Constitutional:?pain?knees, otherwise only normal aches and pains.?Chills?denies.?Fatigue?admits.?Fever?denies.?ENT:?Decreased hearing?denies.?Respiratory:?Cough?denies.?Cardiovascular:?Chest pain with exertion?denies.?Dyspnea on exertion?denies.?Shortness of breath?denies.?Gastrointestinal:?Constipation?occasional.?Decreased appetite?denies.?Diarrhea?denies.?Heartburn?denies.?Nausea?denies.?Rectal bleeding?denies.?Vomiting?denies.?Hematology:?bruising?denies.?petechiae?denies.?Swollen glands?none have been noted.?Genitourinary:?Frequent urination?once a night.?Musculoskeletal:?Muscle aches?denies.?Painful joints?knees.?Sciatica?denies.?Weakness?denies.?Skin:?Itching?denies.?Rash?denies.?Skin lesion(s)?denies.?Neurologic:?Difficulty speaking?denies.?Dizziness?denies.?Headache?denies.?Low back pain?denies.?Psychiatric:?Depressed mood?denies.? * Medical History:? * Surgical History:?vasectomy 1993colonoscopy, [facility], Dr. Kevin Curry, tubular adenoma 2008colonoscopy, [facility], Dr. Kevin Curry, tubular adenoma 2015cataract surgery right eye 2018Colonscopy Dr. Curry ight triceps tendon reattachment 07/2021Ulnar nerve decompression, repair and rerouting ataract Surgery, Left eye 01/2023 * Hospitalization/Major Diagno stic Procedure:?Denies Past Hospitalization * Family History:?Father: dece ased 73 yrs, liver cancer, Alzheimer's, stroke age 52, massive ministrokes caused , diagnosed with Cancer.?Mother: alive 96 yrs, arthritis, hypertension, polio as achile. Siblings: alive, 4th brother alzheimer's dementia, prostate cancer. 3rd brother had Brain cancer., diagnosed with HTN, DM, Cancer.?Maternal Grand Mother: , lung cancer.?Maternal aunt: , diagnosed with DM, Cancer, CVD.?4 brother(s) . .? He has 4 living [...] is a?nonsmoker ?Additional Findings: Tobacco Non-User?Aggressive non-smoker ???Drugs/Alcohol:?Drugs?Have you used drugs other than those for medical reasons in the past 12 months??No ?Alcohol Screen?Did you have a drink containing alcohol in the past year??Yes ?How often did you have a drink containing alcohol in the past year??Monthly or less (1 point) ?How many drinks did you have on a typical day when you were drinking in the past year??1 or 2 drinks (0 point) ?How often did you have 6 or more drinks on one occasion in the past year??Never (0 point) ?Points?1 ?Interpretation?Negative ???He was born at [place], [place]. He came to [place] at the age of 40. 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 He has 2 sons who are alive and well and one stepdaughter. One son is in the [employer] [facility] [facility] [place], [place]. * Medications:?Takingtylenol 1 tab Oral , Notes: as neededAdvil 200 MG Tablet 1 tablet with food or milk as needed Orally Three times a day, Notes: as neededTadalafil 5 MG Tablet 1 tablet Orally Once a dayAlbuterol Sulfate HFA 108 (90 Base) MCG/ACT Aerosol Solution 2 puffs Inhalation QID prn wheezingTaking tylenol 1 tab Oral , Notes: as neededTaking Advil 200 MG Tablet 1 tablet with food or milk as needed Orally Three times a day, Notes: as neededTaking Tadalafil 5 MG Tablet 1 tablet Orally Once a dayTaking Albuterol Sulfate HFA 108 (90 Base) MCG/ACT Aerosol Solution 2 puffs Inhalation QID prn wheezingDiscontinuedprednisoLONE Acetate 1 % Suspension Ophthalmic Albuterol Sulfate HFA 108 (90 Base) MCG/ACT Aerosol Solution 2 puffs as needed Inhalation by inhaler every 4 hrs, Notes: as neededMedication List reviewed and reconciled with the patientDiscontinued prednisoLONE Acetate 1 % Suspension Ophthalmic Discontinued Albuterol Sulfate HFA 108 (90 Base) MCG/ACT Aerosol Solution 2 puffs as needed Inhalation by inhaler every 4 hrs, Notes: as neededMedication List reviewed and reconciled with the patient * Allergies:?Shellfish-derived Productsno[Allergies Verified] Objective: * Vitals:?Ht: 63, Wt:241, BMI: 42.69, BP:128/70, HR:58, Temp:97.8, Wt-k.32. * ???Past Orders: Lab:URINE DIP STICK * Order Date 02/14/2024 02/11/2023 02/07/2022 SG 1.030 (Ref Range: 1.005 - 1.025) 1.010 (Ref Range: 1.005 - 1.025) 1.015 pH 5.0 (Ref Range: 5.0 - 9.0) 5.0 (Ref Range: 5.0 - 9.0) 5 EDITA Negative (Ref Range: Negative -) Negative (Ref Range: Negative -) neg NIT Negative (Ref Range: Negative -) Negative (Ref Range: Negative -) neg PRO 30 (Ref Range: Negative - Trace) 15 (Ref Range: Negative - Trace) trace GLU Negative (Ref Range: Negative -) Negative (Ref Range: Negative -) normal KET 5 (Ref Range: Negative -) Negative (Ref Range: Negative -) neg UBG 0.2 (Ref Range: 0.1 - 1.8) 0.2 (Ref Range: 0.1 - 1.8) normal JESSI 1 (Ref Range: 0.2 - 1.3) Negative (Ref Range: 0.2 - 1.3) neg BLD Negative (Ref Range: Negative -) Negative (Ref Range: Negative -) neg Menstrating NR N/A n/a * Examination: ???General Examination: ?GENERAL APPEARANCE:?pleasant, well nourished, well developed, in no acute distress, calm and relaxed , , morbidly obese , morbidly obese , man.?HEAD:?atraumatic, normocephalic.?EYES:?eomi, perrla, anicteric, conjugate.?EARS:?normal.?NOSE:?septum intact.?ORAL CAVITY:?normal, unremarkable.?NECK/THYROID:?no jugular venous distention, no carotid bruit, thyroid normal.?LYMPH NODES:?no enlarged lymph nodes,spleen normal.?SKIN:?no suspicious lesions, anicteric.?HEART:?no clicks, gallops, murmurs, or rubs, regular rhythm, S1, S2 normal, no s3, or vascular bruits.?LUNGS:?clear to auscultation .?BREASTS:??no masses palpable bilaterally.?ABDOMEN:?bowel sounds normal, no ascites, no organomegaly, no mass , morbid obesity , morbid obesity.?RECTAL EXAM:?, stool guaiac negative , prostate normal , no masses palpable.?MUSCULOSKELETAL:?extremities unremarkable, no clubbing, cyanosis or edema, Crepitus right knee, decreased range of motion shoulders.?PERIPHERAL PULSES:?normal.?NEUROLOGIC:?alert and oriented, cranial nerves 2-12 grossly intact, deep tendon reflexes 2+ symmetrical, motor strength normal upper and lower extremities, sensory exam intact.?PSYCH:?alert, oriented , thought process logical, goal directed , speech clear , mood/affect full range , good eye contact , cooperative with exam , cognitive function intact , alert, oriented.? Assessment: * Assessment: 1.?Primary osteoarthritis of both knees - M17.0 (Primary), He was referred to [place] orthopedic surgeons for treatment and advice. Arthroplasty of both knees has been recommended. The first will take place next March.?2.?Morbid obesity - E66.01, He has lost 2 pounds. His body mass index is 43. We made a plan to lose weight at a rate of 1 pound per week through diet restricted in fat calories and sodium. We have begun to discuss the use of injectable semaglutide?3.?Testosterone deficiency - E34.9, He was continued on current therapy.?4.?BPH (benign prostatic hyperplasia) - N40.0, He rises from sleep once or twice a night to urinate. We discussed modifications to his lifestyle that could reduce nocturia.?5.?Encounter for immunization - Z23?6.?Rupture of right triceps tendon, initial encounter - S46.311A, This injury has healed very well and is no longer painful. He reports adequate use of the right arm and good strength.? Plan: * Treatment: 2.?Morbid obesity?LAB: PROFILE, FASTING (COMPREHENSIVE METABOLIC) ?LAB: PSA, TOTAL ?LAB: CBC WITH AUTO DIFF ?LAB: Lipid Panel ?LAB: Testosterone, Total 3.?Testosterone deficiency?LAB: PROFILE, FASTING (COMPREHENSIVE METABOLIC) ?LAB: PSA, TOTAL ?LAB: CBC WITH AUTO DIFF ?LAB: Lipid Panel ?LAB: Testosterone, Total 4.?BPH (benign prostatic hyp erplasia)?LAB: PROFILE, FASTING (COMPREHENSIVE METABOLIC) ?LAB: PSA, TOTAL ?LAB: CBC WITH AUTO DIFF ?LAB: Lipid Panel ?LAB: Testosterone, Total 5.?Others? Continue Tadalafil Tablet, 5 MG, 1 tablet, Orally, Once a day;?Continue Albuterol Sulfate HFA Aerosol Solution, 108 (90 Base) MCG/ACT, 2 puffs, Inhalation, QID prn wheezing.?? * Immunizations:? Influenza Vaccine Afluria : 0.5 mL (Dose No:1) (Route: Intramuscular) given by Marty Cochran on Left Arm (Encounter for immunization) ???Immunization record has been reviewed and updated. * Labs:? * ?Lab: URINE DIP STICK ? Value Reference Range ?SG 1.030 1.005 - 1.025 * ?pH 5.0 5.0 - 9.0 * ?EDITA Negative Negative - * ?NIT Negative Negative - * ?PRO 30 Negative - Trac e * ?GLU Negative Negative - * ?KET 5 Negative - * ?UBG 0.2 0.1 - 1.8 * ?JESSI 1 0.2 - 1.3 * ?BLD Negative Negative - * Procedure Codes:?79157 URINE -NO [id number] CCIIV4 VAC NO PRSV 0.5 ML [id number] FLU VACC 4 KIM 3 YRS PLUS [id number] TEST FOR BLOOD, FECES * Preventive Medicine:? ??Counseling:?Care goal follow-up plan:?Counseling [...] reason not done * Follow Up:?3 Months (Reason: OV) * Images: * Sign off status: Completed true * Provider:?Kevin Goel MD Date:?01/26 Generated for Ricky reis/Luis/eTransmitting on:?05/06/2024 05:51 AM EST History and Physical Notes * HPI (History of Present Illness) Category Sub-Category Detail Notes Depression Screening PHQ-9 Little inte rest or pleasure in doing things: Not at all Feeling down, depressed, or hopeless: No t at all Trouble falling or staying asleep, or sl eeping too much: Several days Feeling tired or having little energy: S everal days Poor appetite or overeating: Not at all Feeling bad about yourself o r that you are a failure, or have let yourself or your family down: Not at all Trouble concentrating on thi ngs, such as reading the newspaper or watching television: Not at all Moving or speaking so slowly that other people could have noticed; or the opposite, being so fidgety or restless that you have been moving around a lot more than usual: Not at all Thoughts that you would be b eva off or of hurting yourself in some way: Not at all Total Score: 2 Interpretation: Minimal Depression COVID-19 Screening Questions Have you expe rienced fever, chills, cough, sore throat, shortness of breath, difficulty breathing, muscle aches, loss of taste or smell?: No Have you been exposed to the virus withi n the last 10 days?: No Have you travelled internationally in e last 10 days?: No Have you been exposed to COVID-19 in the past?: Yes SDOH Questions SDOH Questions In the past year have you been worried about losing your housing?: No In the past year have you or any family members you live with been unable to get any of the following when it was really needed? Check all that apply:: None Examination Category Sub-Category Detail Notes General Examination GENERAL APPEARANCE: pleasant , well nourished, well developed, in no acute distress, calm and relaxed , , morbidly obese , morbidly obese , man HEAD: atraumatic, [...] no organomegaly, no mass , morbid obesity , morbid obesity NEUROLOGIC: alert and oriented, cranial nerves 2-12 grossly intact, deep tendon reflexes 2+ symmetrical, motor strength normal upper and lower extremities, sensory exam intact SKIN: no suspicious lesion s, anicteric PERIPHERAL PULSES: normal BREASTS: no masses palpable b ilaterally MUSCULOSKELETAL: extremities unremark able, no clubbing, cyanosis or edema, Crepitus right knee, decreased range of motion shoulders LYMPH NODES: no enlarged lymph no alessia,spleen normal RECTAL EXAM: , stool guaiac negat christie , prostate normal , no masses palpable PSYCH: alert, oriented , ought process logical, goal directed , speech clear , mood/affect full range , good eye contact , cooperative with exam , cognitive function intact , alert, oriented ORAL CAVITY: normal, unremarkable
== END 2024-05-01 08:44 | disposition home or self-care (01) ==
LOC: HO.LAB 08:43
PROVIDERS: PCP Internal Medicine Medical Oncology; Visit Provider Internal Medicine Medical Oncology
DX: Z00.00 Encounter for general adult medical examination without abnormal findings (principal); E66.01 Morbid (severe) obesity due to excess calories; E34.9 Endocrine disorder, unspecified; N40.0 Benign prostatic hyperplasia without lower urinary tract symptoms; Z12.5 Encounter for screening for malignant neoplasm of prostate
CPT/HCPCS: 36415; 80053; 80061; 84153; 84403; 85025

== ENCOUNTER 2024-05-04 11:29 | Outpatient (AMB) | payer MEDICARE, SELFPAY ==
--- NOTE | 2024-05-04 11:41 | MHC.OFFVIS ---
Intake Visit Reasons: 3m/Testo(set) Intake Note: Patient is present for 3M/TESTO Urology Medication:TADALAFIL Antibiotic Allergy:NONE Blood Thinner:NONE Director Search Marketing Strategies Required: No Allergies No Known Allergies Allergy (Verified 05/04/24 12:06) Medication List - Last Reconciled 05/04/24 by HOLLY Radford albuterol sulfate 90 mcg/actuation inhalation fluticasone furoate 100 mcg/actuation (Arnuity Ellipta) 1 inh inhalation DAILY fluticasone propionate 110 mcg/actuation 2 puffs inhalation BID tadalafil (Cialis) 5 mg PO DAILY 90 days HPI Comments Details: Silvio is a pleasant 69-year-old male patient of Dr. Goel. He has a past medical history of obesity, osteoarthritis, and tubular adenoma. He presents to the office today for a follow up of his hypogonadism and erectile dysfunction. In discussion with the patient today reports to be doing and feeling well. He reports noting morning erections over the last 6 months. He reports compliance with 5 mg of Cialis daily. Recent testosterone results reviewed with the patient today as noted and trended below. He reports erections are adequate for penetration. He currently denies any bothersome urinary issues or concerns. He reports feeling increase in mood and energy. He denies urinary urgency, urinary frequency, incontinence, nocturia, hematuria, dysuria, foul smelling urine, changes to urinary stream, flank pain, fever, and or chills. He is happy with his current voiding parameters. Discussed at length importance of lifestyle modifications with diet, exercise, an adequate sleep. In office urinalysis results reviewed with the patient today. Discussed decrease in testosterone levels and further treatment options of hypogonadism. He would like to continue with low-dose Cialis as he does feel this has been helpful. Patient otherwise offers no issues or concerns at this time. Total Testosterone: 02/15 239, 07/19 234, 09/16 218, 01/16 363, 05/18 242 07/20 223, 08/17 306, 01/17 205, 04/19 237 Free testosterone: 07/20 41.0, 01/17 24.2, 04/19 35.1 PSA: 02/15 0.5, 05/18 0.4, 07/20 0.6, 05/19 0.6 PFSH Medical History Diminished libido Left medial tibial plateau fracture Osteoarthritis Otitis Tubular adenoma Decreased vision Morbid obesity Lab test negative for COVID-19 virus Personal history of COVID-19 Surgical History Hx of vasectomy Hx of eye surgery Hx of oral surgery H/O colonoscopy Social History Alcohol intake: current Alcohol intake frequency: 0-2 drinks per day Patient Tobacco Use Status: Never used Tobacco Review of Systems Const All systems reviewed & are unremarkable except as noted in HPI and below Reports no additional complaints Eyes Reports no additional complaints ENT Reports no additional complaints Card Reports no additional complaints Resp Reports no additional complaints GI Reports no additional complaints Reports as per HPI Musc Details: Patient reports torn left calf muscle while hiking few years ago, torn right bicep tendon, and right ulnar compression. He also reports arthritis of both knees. Neuro Reports no additional complaints Psych Reports no additional complaints Endo Reports no additional complaints Reymundo/Lymph Reports no additional complaints Aller/Immun Reports no additional complaints Physical Exam Const General: cooperative, healthy appearing, comfortable, no acute distress, well developed, alert and awake Nutritional Appearance: overweight Orientation/consciousness: patient oriented x3 Limitations: no limitations HEENT Head: Yes normal to inspection, Yes normocephalic and Yes atraumatic Ears: hearing grossly normal bilaterally Eyes General: appearance normal, both eyes and all related structures Neck Neck: Yes normal visual inspection and Yes trachea midline Chest Chest palpation & inspection: normal inspection of the chest Resp Effort & Inspection: normal respiratory effort and able to speak in complete sentences Cardio Rate: regular rate GI Inspection: Yes normal to inspection General: Yes no CVA tenderness Back/Spine/Pelvis Back: no CVA tenderness Skin General skin exam: no rashes or lesions noted Neuro General: patient oriented x3 Extrem General: Yes normal to inspection Psych Appearance: grossly normal and well kempt Mental Status: mental status grossly normal Speech and movement: Normal speech and movement present and Clear speech present Affect: normal affect Attitude: cooperative Thought process: Normal thought process present Thought content: Normal thought content present Insight: Fair insight present (Psych) Judgement: Fair judgement present (Psych) Results AMB Urinalysis, Automated UA Leukoctes 0 Bola/uL Last Edit by Juancarlos Bejarano [facility] on 05/04/24 11:57 UA Nitrite Negative Last Edit by Juancarlos Bejarano [facility] on 05/04/24 11:57 UA Urobilinogen 0.2 mg/dL Last Edit by Juancarlos Bejarano [facility] on 05/04/24 11:57 UA Protein 0 mg/dL Last Edit by Juancarlos Bejarano [facility] on 05/04/24 11:57 UA pH 6.0 Last Edit by Juancarlos Bejarano [facility] on 05/04/24 11:57 UA Blood 0 Samuel/uL Last Edit by Juancarlos Bejarano [facility] on 05/04/24 11:57 UA Specific [place] 1.025 Last Edit by Juancarlos Bejarano [facility] on 05/04/24 11:57 UA Ketone Negative Last Edit by Juancarlos Bejarano [facility] on 05/04/24 11:57 UA Bilirubin 0 mg/dL Last Edit by Juancarlos Bejarano [facility] on 05/04/24 11:57 UA Glucose 0 mg/dL Last Edit by Juancarlos Bejarano [facility] on 05/04/24 11:57 Results Reviewed Results Reviewed: Laboratory Last Values Urine pH (Auto) 6.0 05/04/24 11:56 Specific [place] (Auto) 1.025 05/04/24 11:56 Urine Protein (Auto) 0 mg/dL 05/04/24 11:56 Glucose (UA)(Auto) 0 mg/dL 05/04/24 11:56 Urine Ketones (Auto) Negative 05/04/24 11:56 Urine Blood (Auto) 0 Samuel/uL 05/04/24 11:56 Urine Nitrite (Auto) Negative 05/04/24 11:56 Urine Bilirubin (Auto) 0 mg/dL 05/04/24 11:56 Urine Urobilinogen (Auto) 0.2 mg/dL 05/04/24 11:56 Leukocyte Esterase (Auto) 0 Bola/uL 05/04/24 11:56 Assessment & Plan Assessment & Plan (1) Hypogonadism in male: Code(s): E29.1 - Testicular hypofunction Category: Medical (2) Erectile dysfunction: Code(s): N52.9 - Male erectile dysfunction, unspecified Category: Medical Plan In office urinalysis results reviewed with the patient today. Recent labs reviewed with the patient today; as noted and trended above. Discussed decreased in testosterone levels despite compliance with 5 mg of Cialis. We discussed at length further treatment options for hypogonadism; risks and benefits of these interventions. Will continue with low-dose 5 mg of Cialis daily as discussed; refill provided Patient reports to be happy with current voiding parameters. He currently denies any bothersome urinary issues or concerns. Will obtain testosterone free and total in 3 months Follow up in 3 months with labs if not sooner with any issues, concerns, and or questions. Orders: Orders Testosterone, Free/Total Today E29.1 - Testicular hypofunction, N52.9 - Male erectile dysfunction, unspecified AMB Urinalysis Automated Today Z13.9 - Encounter for screening, unspecified Medications: Refilled tadalafil (Cialis) [facility] [id number] [id number] 5 mg PO DAILY 90 days 90 tabs 3RF Patient Instructions: The patient had an opportunity to ask questions regarding the treatment plan. All questions were answered. Physical exam, labs, and imaging were discussed and reviewed in detail. As well as risks, benefits, and discussion of treatment choices. No major barriers to understanding were identified. The patient expressed understanding and agreement with the above treatment plan. The patient was made aware they should contact our office by phone for worsening of their current condition, the appearance of new symptoms, or with any questions or concerns. Compliance is encouraged with any medications and follow up testing that is ordered. It is a privilege to be allowed the opportunity to participate in? your urological care.? Again, if you have any questions or concerns If you have any questions or concerns please do not hesitate to contact me. The office is [phone]. This note is constructed using voice recognition software. While every effort has been made to ensure accuracy director of strategic sourcing errors may have been included. Yours sincerely, HOLLY Radford Coding Level of Care Code Est Pt Level 3 (40990) Complex EM visit Add On G2211 Diagnoses Hypogonadism in male E29.1 Erectile dysfunction N52.9
== END 2024-05-04 12:09 | disposition home or self-care (01) ==
PROVIDERS: PCP Internal Medicine Medical Oncology; Visit Provider Nurse Practitioner Family
DX: E29.1 Testicular hypofunction (principal); N52.9 Male erectile dysfunction, unspecified; Z13.9 Encounter for screening, unspecified
CPT/HCPCS: 99213; G2211

== ENCOUNTER → 2024-05-04 11:29 | Outpatient (BNVA) | payer MEDICARE, SELFPAY | PROVIDERS: PCP Internal Medicine Medical Oncology; Visit Provider Nurse Practitioner Family | DX: E29.1 Testicular hypofunction (principal); N52.9 Male erectile dysfunction, unspecified | CPT/HCPCS: 81003; 99212 ==

== ENCOUNTER 2024-07-27 13:37 | Outpatient (REF) | payer MEDICARE, SELFPAY ==
--- NOTE | ~2024-07-27 | XR_ITS ---
.EXAMINATION: XR SACRUM AND COCCYX CLINICAL INFORMATION: UNSPECIFIED BACK PAIN COMPARISON: None available. TECHNIQUE: 2 views of the sacrum and 2 views of the coccyx were obtained. FINDINGS: There is a retrolisthesis at the sacrococcyx joint. There is a prominent right transverse process of L5 into S1 without gross pseudoarthrosis. Spondylosis L4-5 and L5-S1 and to a lesser extent L3-4. XR/XR sacrum coccyx min 2V IMPRESSION: Fracture, sacrococcyx. Acute versus old. Electronically signed by: Corby Hernandez MD 07/27/2024 02:06 PM [facility]
--- NOTE | ~2024-07-27 | XR_ITS ---
.EXAMINATION: XR LUMBOSACRAL SPINE CLINICAL INFORMATION: ACUTE LOW BACK PAIN COMPARISON: None available. TECHNIQUE: Three views of the lumbosacral spine. FINDINGS: Multilevel syndesmophyte formation and marginal osteophyte formation and the lower thoracic and lower lumbar spine. There is vacuum phenomenon at L3-4 and L5-S1. Facet joint hypertrophy at L5-S1. No acute cortical disruption. No gross malalignment. No lytic or blastic lesions. There is a prominent right transverse process of L5 without discrete pseudoarthrosis with S1. XR/XR lumbar spine 2-3V IMPRESSION: Multilevel thoracolumbar spondylosis without acute fracture or listhesis. Electronically signed by: Corby Hernandez MD 07/27/2024 02:04 PM [facility]
--- OUTSIDE RECORDS SUMMARY | 2024-07-27 16:06 | XMS_ITS ---
Author Organization Kevin Goel III, MD Address [address] [place] [address] Care Team Providers Care Physical Medicine Teacher Name Role Phone Kevin Goel Primary Care Provider REASON FOR VISIT Knee Surgery Social History Sex Assigned At : Social History Observation Description Sex Assigned At Male Encounters Encounter Location Date Provider Diagnosis Kevin Goel III, MD [address] [place] [address] [place] [address] 06/18/2024 Kevin Goel Plan Of Treatment Next Appt Details Provider Name:Kevin Goel, 07/29/2024 01:30:00 PM, [address] [place] [address] [place], [address], Provider Name:Kevin Goel, 09/18/2024 09:30:00 AM, [address] [place] [address] [place], [address], Provider Name:Kevin Goel, 02/15/2025 02:30:00 PM, [address] [place] [address] [place], [address], Progress Notes * Silvio VASQUEZ LDOB: [birth year] (69 yo M)Acc No.[id number]:06/18/2024 Patient:?VASQUEZ Silvio Granados :1955???Age:69 Y???Sex:Male Address:[address] [place] [address] [place], [address] * true * Date:? Generated for Ricky reis/Luis/eTransmitting on:?07/27/2024 04:05 PM EST
--- OUTSIDE RECORDS SUMMARY | 2024-07-27 16:06 | XMS_ITS | Patient Health Record ---
Author Organization [facility] Address [address] [place] [address] Care Team Providers Care Ladies Underwear Operator Name Role Phone Kevin Goel MD Primary Care Provider Unavailab Kevin Rose Unavailable [phone] REASON FOR REFERRAL No Information IMMUNIZATIONS Vaccine Route Administration Date Status Comme nts Influenza Unknown 03/27/2020 Administered SOCIAL HISTORY Sex Assigned At : Social History Observation Description Sex Assigned At Unknown PROBLEMS Problem Type ICD Code Onset Dates Problem Status W/U Status Risk SNOMED Code Notes Problem Encounter for screening for malignant neoplasm of colon (Z12.11) Active confirmed Screening for malignant neoplasm of colon (308454103) Problem History of adenomatous polyp of colon (Z86.010) Active confirmed History of adenomatous polyp of colon (747394962) Problem Personal history of colonic polyps (Z86.010) Active confirmed History of poly p of colon (situation) (298326839) Problem Encounter for other preprocedural examination (Z01.818) Active confirmed Pre-procedure evaluation check (700716074) Problem Preprocedural examination (Z01.818) Active confirmed Preprocedural examination (086938636772685 ) PLAN OF TREATMENT Pending Test Test Name Order Date Pathology 08/26/2020 Future Test Test Name Order Date COLONOSCOPY 02/25/2015 COLONOSCOPY 06/30/2020 Insurance Providers Payer Name Payer Address Payer Phone Subscriber Number Group Number Insured Name Patient Relationship to Insured Coverage Start Date Coverage End Date [facility]AL CLAIMS [address] [place] [address] [id number] Self - patient is the insured MEDICAL (GENERAL) HISTORY Medical History History ICD Code Screening colonoscopy 8-31-2 009-1 tubular adenoma removed--also noted to have mild sigmoid diverticulosis and small internal hemorrhoids Denies ID,DM,CVA,Lung disease,renal dise ase COVID infection 04/2020. Had neg. COVID test 05/28/2020 Colonoscopy 04/2015 with a small tubular adenoma Surgical History Surgery Date(Month/Year) oral surgery vasectomy eye surgery
--- OUTSIDE RECORDS SUMMARY | 2024-07-27 16:06 | XMS_ITS ---
Author Organization Kevin Goel III, MD Address [address] [place] [address] Care Team Providers Care Edger Operator Name Role Phone Kevin Goel Primary Care Provider [phone] Allergies Allergen (clinical drug ingredient) Drug/Non Drug Allergy documented on EMR Reaction Allergy Type Onset Date Status Shellfish (FN) Shellfish-derived Products Unknown Drug Allergy Active REASON FOR VISIT Low back pain, Left hip pain Medications Medication SIG (Take, Route, Frequency, Duration) Notes Start Date End Date Status Gabapentin 100 MG 1 capsule Orally thr ee times a day for 10 days 07/27/2024 Active dexAMETHasone 2 MG 1 tablet Orally ever y 12 hrs for 10 days 07/27/2024 Active Advil 200 MG 1 tablet with food o r milk as needed Orally Three times a day as needed Active tylenol 1 tab Oral as needed Active Tadalafil 5 MG 1 tablet Orally Once a day Active Arnuity Ellipta 100 MCG/ACT Inhalation Active Albuterol Sulfate HFA 108 (90 Base) MCG/ACT 2 puffs Inhalation QID prn wheezing 04/25/2023 Active Social History Tobacco Use: Social History Observation Description Date Details (start date - stop date) Never Smoker NA - NA Sex Assigned At : Social History Observation Description Sex Assigned At Male Tobacco Use/Smoking Question Answer Notes Patient is a nonsmoker Additional Findings: Tobacco Non-User Aggressive non-smoker Vital Signs Temperature 99.1 degrees Fahrenheit 07/28/19 Heart Rate 63 /min 07/27/2024 Height 63 in 07/27/2024 Weight 256 lbs 07/27/2024 BMI 45.34 kg/m2 07/27/2024 Encounters Encounter Location Date Provider Diagnosis Kevin Goel III, MD [address] [place] [address] [address] [place] [id number] 07/27/2024 Kevin Goel Primary osteoarthrit is of both knees M17.0 and Acute low back pain, unspecified back pain laterality, unspecified whether sciatica present M54.50 Assessments Encounter Date Diagnosis (ICD Code) Assessment Notes Treat ment Notes Treatment Clinical Notes 07/27/2024 Primary osteoarthritis of both knees (ICD-10 - M17.0) He was referred to [place] [facility] for treatment and advice. Arthroplasty of both knees has been recommended. The first will take place next August 14, 2024. 07/27/2024 Acute low back pain, unspecified back pain laterality, unspecified whether sciatica present (ICD-10 - M54.50) Plan Of Treatment Medication Medication Name Sig Start Date Stop Date Notes Gabapentin 100 MG 1 capsule Orally thr ee times a day for 10 days 07/27/2024 dexAMETHasone 2 MG 1 tablet Orally ever y 12 hrs for 10 days 07/27/2024 Advil 200 MG 1 tablet with food o r milk as needed Orally Three times a day as needed tylenol 1 tab Oral as needed Tadalafil 5 MG 1 tablet Orally Once a day Arnuity Ellipta 100 MCG/ACT Inhalation Albuterol Sulfate HFA 108 (9 0 Base) MCG/ACT 2 puffs Inhalation QID prn wheezing 04/25/2023 Pending Test Test Name Order Date XR LUMBAR SPINE 07/27/2024 XR SACRUM &/OR COCCYX 07/27/2024 Next Appt Details Follow Up: TV sat/, Reason: TV Provider Name:Kevin Goel, 07/29/2024 01:30:00 PM, [address] [place] [address] [address], [place], [id number], Provider Name:Kevin Goel, 09/18/2024 09:30:00 AM, [address] [place] [address] [address], [place], [address], Provider Name:Kevin Goel, 02/15/2025 02:30:00 PM, [address] [place] [address] [address], [place], [address], Progress Notes * Silvio VASQUEZ LDOB: [birth year] (69 yo M)Acc No.[id number]:07/27/2024 Patient:?Silvio VASQUEZ Provider:?Kevin Goel MD :1955???Age:69 Y???Sex:Male Kai e:07/27/2024 Address:[address] [place] [address] [phone] Subjective: * Chief Complaints: * ???1. Low back pain. 2. Left hip pain. * HPI: ???COVID-19 Screening:?week ago sat, low back and left hip dull ache with walkig then shifted to left thigh then back to buttoke. ok with sitting, getting better. ?Questions?Have you had any new onset fever, chills, cough, congestion, sore throat, shortness of breath, muscle aches??No * ROS:?General/Constitutional:?pain?only normal aches and pains.?Chills?denies.?Fatigue?admits.?Fever?denies.?ENT:?Decreased hearing?denies.?Respiratory:?Cough?denies.?Cardiovascular:?Chest pain with exertion?denies.?Dyspnea on exertion?denies.?Shortness of breath?denies.?Gastrointestinal:?Constipation?denies.?Decreased appetite?denies.?Diarrhea?denies.?Heartburn?denies.?Nausea?denies.?Rectal bleeding?denies.?Vomiting?denies.?Hematology:?bruising?denies.?petechiae?denies.?Swollen glands?none have been noted.?Genitourinary:?Frequent urination?denies.?Musculoskeletal:?Muscle aches?denies.?Painful joints?denies.?Sciatica?denies.?Weakness?denies.?Skin:?Itching?denies.?Rash?denies.?Skin lesion(s)?denies.?Neurologic:?Difficulty speaking?denies.?Dizziness?denies.?Headache?denies.?Low back pain?denies.?Psychiatric:?Depressed mood?denies.? * Medical History:?Obesity, De creased vision, tubular adenoma, colonoscopy Q 5 years, Cerumenosis, Otitis, torn left calf muscle, January 2018, hiking , Osteoarthritis knees, Left tibial plateau injury 2017, Right ulnar compression 05/2021, Torn right triceps tendon 05/2021, Diminished libido December 2021. * Surgical History:?vasectomy 1993, colonoscopy, [facility], Dr. Kevin Curry, tubular adenoma 2008, colonoscopy, [facility], Dr. Kevin Curry, tubular adenoma 2014, cataract surgery right eye 2017, Colonscopy Dr. Curry 2020, Right triceps tendon reattachment 07/2021, Ulnar nerve decompression, repair and rerouting 11/2021, Cataract Surgery, Left eye 01/2023, No history , Knee surgery scheduled for august 1407/2024. * Hospitalization/Major Diagno stic Procedure:?No history . * Family History:?Father: dece ased 73 yrs, liver cancer, Alzheimer's, stroke age 52, massive ministrokes caused , diagnosed with Cancer.?Mother: alive 96 yrs, arthritis, hypertension, polio as achile. Siblings: , diagnosed with HTN, Cancer, DM.?Maternal Grand Mother: , lung cancer.?Maternal aunt: , diagnosed with Cancer, DM, CVD.?4 brother(s) . .? He has 4 [...] Tobacco Non-User?Aggressive non-smoker ???He was born at [place], [place]. He came to [place] at the age of 40. 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 He has 2 sons who are alive and well and one stepdaughter. One son is in the [email or web address] at [place], [place]. * Medications:?Taking tylenol 1 tab Oral , Notes to Pharmacist: as needed, Taking Advil 200 MG Tablet 1 tablet with food or milk as needed Orally Three times a day , Notes to Pharmacist: as needed, Taking Tadalafil 5 MG Tablet 1 tablet Orally Once a day , Taking Albuterol Sulfate HFA 108 (90 Base) MCG/ACT Aerosol Solution 2 puffs Inhalation QID prn wheezing , Taking Arnuity Ellipta 100 MCG/ACT Aerosol Powder Breath Activated Inhalation , Medication List reviewed and reconciled with the patient * Allergies:?Shellfish-derived Products. Objective: * Vitals:?Ht: 63, Wt:256, BMI: 45.34, HR:63, Temp:99.1, Wt-k.12. * Examination: ???General Examination: ?GENERAL APPEARANCE:?pleasant, well nourished, well developed, in no acute distress, calm and relaxed.?HEAD:?atraumatic, normocephalic.?EYES:?eomi, perrla, anicteric, conjugate.?EARS:?normal.?NOSE:?septum intact.?ORAL CAVITY:?normal, unremarkable.?NECK/THYROID:?no jugular venous distention, no carotid bruit, thyroid normal.?LYMPH NODES:?no enlarged lymph nodes,spleen normal.?SKIN:?no suspicious lesions, anicteric.?HEART:?no clicks, gallops, murmurs, or rubs, regular rhythm, S1, S2 normal, no s3, or vascular bruits.?LUNGS:?clear to auscultation .?BREASTS:??no masses palpable bilaterally.?ABDOMEN:?bowel sounds normal, no ascites, no organomegaly, no mass.?RECTAL EXAM:?not examined.?MUSCULOSKELETAL:?extremities unremarkable, no clubbing, cyanosis or edema.?PERIPHERAL PULSES:?normal.?NEUROLOGIC:?alert and oriented, cranial nerves 2-12 grossly intact, deep tendon reflexes 2+ symmetrical, motor strength normal upper and lower extremities, sensory exam intact.?PSYCH:?alert, oriented.? Assessment: * Assessment: 1.?Primary osteoarthritis of both knees - M17.0???Notes :He was referred to [place] [facility] surgeons for treatment and advice. Arthroplasty of both knees has been recommended. The first will take place next August 14, 2024.???2.?Acute low back pain, unspecified back pain laterality, unspecified whether sciatica present - M54.50??? Plan: * Treatment: 2.?Acute low back pain, unsp ecified back pain laterality, unspecified whether sciatica present?Imaging: XR LUMBAR SPINE ?Imaging: XR SACRUM &/OR COCCYX 3.?Others? Continue Tadalafil Tablet, 5 MG, 1 tablet, Orally, Once a day;?Continue Albuterol Sulfate HFA Aerosol Solution, 108 (90 Base) MCG/ACT, 2 puffs, Inhalation, QID prn wheezing.?? * Preventive Medicine:? ??Counseling:?Care goal follow-up plan:?Counseling [...] or Other reason not done * Follow Up:?TV sat/ ( Reason: TV) * Images: * The named appointment provid er may or may not be the originator of this progress note, and it is not deemed complete until electronically signed by the appointment provider. Sign off status: Pending * Provider:?Kevin Goel MD Date:?07/2024 Generated for Ricky reis/Luis/eTkennasmitting on:?07/27/2024 04:05 PM EST History and Physical Notes * HPI (History of Present Illness) Category Sub-Category Detail Notes COVID-19 Screening Questions Have you had any new onset fever, chills, cough, congestion, sore throat, shortness of breath, muscle aches?: No Examination Category Sub-Category Detail Notes General Examination GENERAL APPEARANCE: pleasant , well nourished, well developed, in no acute distress, calm and relaxed HEAD: atraumatic, normocep halic EYES: eomi, perrla, anicte dora, conjugate EARS: normal NOSE: septum intact NECK/THYROID: no jugular venous di stention, no carotid bruit, thyroid normal HEART: no clicks, gallops, murmurs, or rubs, regular rhythm, S1, S2 normal, no s3, or vascular bruits LUNGS: clear to auscultatio n ABDOMEN: bowel sounds normal, no ascites, no organomegaly, no mass NEUROLOGIC: alert and oriented, cranial nerves 2-12 grossly intact, deep tendon reflexes 2+ symmetrical, motor strength normal upper and lower extremities, sensory exam intact SKIN: no suspicious lesion s, anicteric PERIPHERAL PULSES: normal BREASTS: no masses palpable b ilaterally MUSCULOSKELETAL: extremities unremark able, no clubbing, cyanosis or edema LYMPH NODES: no enlarged lymph no alessia,spleen normal RECTAL EXAM: not examined PSYCH: alert, oriented ORAL CAVITY: normal, unremarkable
--- OUTSIDE RECORDS SUMMARY | 2024-07-27 16:06 | XMS_ITS | Patient Health Record ---
Author Organization Kevin Goel III, MD Address [address] [place] [address] Care Team Providers Care Log Buncher Name Role Phone Kevin Goel Primary Care [...] 0.2 - 1.3 BLD Negative Negative - Complete Blood Count Auto Di ff Reviewed date:08/01/2023 08:53:02 PM Interpretation: Performing Lab:[facility], [address] [place] [phone] Notes/Report: White Blood Count 10.3 4.8-10.8 X10*3/uL [...] NRBC Abs Auto 0.000 0.0-0.012 X10*3/uL Comprehensive [place]. Panel Fa st Reviewed date:08/01/2023 08:53:02 PM Interpretation: Performing Lab:[facility], [address] [place] [phone] Notes/Report: Sodium 141 135-145 mmol/L Potassium 4.3 3.3-5.1 mmol/L Chloride 103 96-108 mmol/L Carbon Dioxide 34 22-29 mmol/L Anion Gap 8 12-20 Blood Urea Nitrogen 14 9-16 mg/dL Creatinine 0.86 0.5-1.4 mg/dL Estimated Glomerular Filt Rate > 60 NOTE: For -[place] individuals, multiply the result by 1.210. Chronic [...] Panel Reviewed date:08/01/2023 08:53:02 PM Interpretation: Performing Lab:[address] [phone] Notes/Report: Triglycerides 70 <150 mg/dL Desirable Triglyceride: [...] Total Reviewed date:09/08/2023 07:39:57 AM Interpretation: Performing Lab:[address] [address] Notes/Report: Testosterone, Total 554 145-9912 ng/dL Men with clinically significant hypogonadal symptoms and testosterone values repeatedly in the range of the 200-300 ng/dL or less, may benefit from testosterone treatment after adequate risk and benefits counseling. For additional information, please refer to http://education.VIEO.com/fa q/ TotalTestosteroneM [email or web address] (This link is being provided for informational/ educational purposes only.) This test was developed and its analytical performance characteristics have been determined by [employer] [employer] [facility] [place], [place]. It has not been cleared or approved by the U.S. Food and Drug Administration. This assay has been validated pursuant to the CLIA regulations and is used for clinical purposes. THIS TEST WAS PERFORMED AT: [facility] [address] [place], [place] JAMAL AGUAYO MD,PHD XR chest 2V Reviewed date:02/24/2024 08:25:07 AM Interpretation: Performing Lab: Notes/Report: [address] [address] XRay Report Signed Patient: Silvio Vasquez MR#: [id number] 84 : 1955 Acct:[id number] Age/Sex: 68 / M ADM Date: 11/07/23 Loc: SCOTT Attending Dr: Kevin Goel MD Ordering Physician: Kevin Goel MD Date of Service: 11/07/23 Procedure(s): XR chest 2V Accession Number(s): [id number] cc: Kevin Goel MD EXAMINATION: XR CHEST [...] in OV> 11/07/23 1404 DD/ 1140 TD/TT: Roving Department Supervisor: DANIELE [address] [address] XRay Report Signed Patient: Piotr Vasquez MR#: [id number] 84 : 1955 Acct:[id number] Age/Sex: 68 / M ADM Date: 11/07/23 Loc: HO.XRAY Attending Dr: Kevin Goel MD Ordering Physician: Kevin Goel MD Date of Service: 11/07/23 Procedure(s): XR donny st 2V Accession Number(s): [id number] cc: Kevin Goel MD EXAMINATION: XR CHEST [...] in OV> 11/07/23 1404 DD/ 1140 TD/TT: Roving Department Supervisor: DANIELE CT chest wo con Reviewed date:02/24/2024 08:25:07 AM Interpretation: Performing Lab: Notes/Report: [address] [address] [address] Scan Report Signed Patient: Silvio Vasquez MR#: [id number] 84 : 1955 Acct:[id number] Age/Sex: 68 / M ADM Date: 01/17/24 Loc: HO.CT Attending Dr: Vikcy Charlton NP Ordering Physician: Vicky Charlton NP Date of Service: 01/17/24 Procedure(s): CT chest wo IV con Accession Number(s): [id number] cc: Kevin Goel MD; Vicky Charlton NP [...] 02/06/24 1315 DD/ 0732 TD/TT: 01/17/24 0750 Roving Department Supervisor: [place] [address] CT Scan Report Signed Patient: Piotr Vasquez MR#: [id number] 84 : 1955 Acct:[id number] Age/Sex: 68 / M ADM Date: 01/17/24 Loc: HO.CT Attending Dr: Jerilyn Charlton NP Ordering Physician: Vicky Charlton NP Date of Service: 01/17/24 Procedure(s): CT donny st wo IV con Accession Number(s): [id number] cc: Kevin Goel MD; Vicky Charlton NP [...] 02/06/24 1315 DD/ 0732 TD/TT: 01/17/24 0750 Roving Department Supervisor: ROSAMARIA Testosterone, Free/Total Reviewed date:04/23/2024 07:44:01 AM Interpretation: Performing Lab:[facility], [address] [place] [phone] Notes/Report: Testosterone, Total 685 159-2209 ng/dL Men with clinically significant hypogonadal symptoms and testosterone values repeatedly in the range of the 200-300 ng/dL or less, may benefit from testosterone treatment after adequate risk and benefits counseling. For additional information, please refer to http://education.Newspepper/fa q/ TotalTestosteroneM [id number] (This link is being provided for informational/ educational purposes only.) This test was developed and its analytical performance characteristics have been determined by [facility] [place], [place]. It has not been cleared or approved by the U.S. Food and Drug Administration. This assay has been validated pursuant to the CLIA regulations and is used for clinical purposes. Testosterone, Free 35.1 35.0-155.0 pg/mL This test was developed and its analytical performance characteristics have been determined by [facility] [employer] [facility] [place], [place]. It has not been cleared or approved by the U.S. Food and Drug Administration. This assay has been validated pursuant to the CLIA regulations and is used for clinical purposes. THIS TEST WAS PERFORMED AT: [facility]/[address] JAMAL AGUAYO MD,PHD Complete Blood Count Auto Di ff Reviewed date:05/04/2024 04:59:17 AM Interpretation: Performing Lab:[facility], [address] [place] [phone] Notes/Report: White Blood Count 10.9 4.8-10.8 X10*3/uL [...] NRBC Abs Auto 0.000 0.0-0.012 X10*3/uL Comprehensive [place]. Panel Fa st Reviewed date:05/04/2024 04:59:17 AM Interpretation: Performing Lab:[facility], [address] [place] [phone] Notes/Report: Sodium 144 135-145 mmol/L Potassium 4.2 [...] Panel Reviewed date:05/04/2024 04:59:17 AM Interpretation: Performing Lab:[facility], [address] [place] [phone] Notes/Report: Triglycerides 57 <150 mg/dL Desirable Triglyceride: [...] Antigen Reviewed date:05/04/2024 04:59:17 AM Interpretation: Performing Lab:[facility], [address] [place] [phone] Notes/Report: Prostate Specific Antigen 0.61 <0.05-4.0 ng/mL PSA methodology: Gerardo Alinity i Chemiluminescent Microparticle Immunoassay (CMIA) Testosterone, Total Reviewed date:05/08/2024 08:38:08 AM Interpretation: Performing Lab:[facility], [address] [place] [phone] Notes/Report: Testosterone, Total 644 690-7938 ng/dL Men with clinically significant hypogonadal symptoms and testosterone values repeatedly in the range of the 200-300 ng/dL or less, may benefit from testosterone treatment after adequate risk and benefits counseling. For additional information, please refer to http://education.[employer].com/fa q/ TotalTestosteroneM [email or web address] (This link is being provided for informational/ educational purposes only.) This test was developed and its analytical performance characteristics have been determined by [employer], [place]. It has not been cleared or approved by the U.S. Food and Drug Administration. This assay has been validated pursuant to the CLIA regulations and is used for clinical purposes. THIS TEST WAS PERFORMED AT: [facility] [address] [place] [address] JAMAL AGUAYO MD,PHD XR lumbar spine 2-3V (Not ye t reviewed by provider) Interpretation: Performing Lab: Notes/Report: [address] [address] XRay Report Signed Patient: Silvio Vasquez MR#: [id number] [birth year] : 1955 Acct:[id number] Age/Sex: 69 / M ADM Date: 07/27/24 Loc: HO.XRAY Attending Dr: Kevin Goel MD Ordering Physician: Kevin Goel MD Date of Service: 07/27/24 Procedure(s): XR lumbar spine 2-3V Accession Number(s): [id number] cc: Kevin Goel MD .EXAMINATION: XR LUMBOSACRAL SPINE CLINICAL INFORMATION: ACUTE LOW BACK PAIN COMPARISON: None available. TECHNIQUE: Three views of the lumbosacral spine. FINDINGS: Multilevel syndesmophyte formation and marginal osteophyte formation and the lower thoracic and lower lumbar spine. There is vacuum phenomenon at L3-4 and L5-S1. Facet joint hypertrophy at L5-S1. No acute cortical disruption. No gross malalignment. No lytic or blastic lesions. There is a prominent right transverse process of L5 without discrete pseudoarthrosis with S1. XR/XR lumbar spine 2-3V IMPRESSION: Multilevel thoracolumbar spondylosis without acute fracture or listhesis. Electronically signed by: Corby Hernandez MD 07/27/2024 02:04 PM [facility] Dictated By: Corby Uriarte MD Signed By: <Electronically signed by Corby Martinez MD in OV> 07/27/24 1404 DD/ 1342 TD/TT: 07/27/24 1357 Roving Department Supervisor: [address] [address] XRay Report Signed Patient: Piotr Vasquez MR#: [id number] [birth year] : 1955 Acct:[id number] Age/Sex: 69 / M ADM Date: 07/27/24 Loc: HO.XRAY Attending Dr: Kevin Goel MD Ordering Physician: Kevin Goel MD Date of Service: 07/27/24 Procedure(s): XR lum bar spine 2-3V Accession Number(s): [id number] cc: Kevin Goel MD .EXAMINATION: XR LUMBOSACRAL SPINE CLINICAL INFORMATION: ACUTE LOW BACK PAIN COMPARISON: None available. TECHNIQUE: Three views of the lumbosacral spine. FINDINGS: Multilevel syndesmophyte formation and marginal osteophyte formation and the lower thorac ic and lower lumbar spine. There is vacuum phenomenon at L3-4 a nd L5-S1. Facet joint hypertro phy at L5-S1. No acute cortical disruption. No gross malalignment. No lytic or blastic lesions. There is a prominent right transverse process of L5 without discrete pseudoarthrosis with S1. XR/XR lumbar spine 2-3V IMPRESSION: Multilevel thoracolumbar spondylosis without acute fracture or listhesis. Electronically anne d by: Corby Hernandez MD 07/27/2024 02:04 PM [facility] Dictated By: Corby Taylor MD Signed By: <Electronically signed by Corby Martinez MD in OV> 07/27/24 1404 DD/ 1342 TD/TT: 07/27/24 1357 Roving Department Supervisor: XR sacrum coccyx min 2V (Not yet reviewed by provider) Interpretation: Performing Lab: Notes/Report: [address] [address] XRay Report Signed Patient: Silvio Vasquez MR#: [id number] 84 : 1955 Acct:[id number] Age/Sex: 69 / M ADM Date: 07/27/24 Loc: HO.XRAY Attending Dr: Kevin Goel MD Ordering Physician: Kevin Goel MD Date of Service: 07/27/24 Procedure(s): XR sacrum coccyx min 2V Accession Number(s): [id number] cc: Kevin Goel MD .EXAMINATION: XR SACRUM AND COCCYX CLINICAL INFORMATION: UNSPECIFIED BACK PAIN COMPARISON: None available. TECHNIQUE: 2 views of the sacrum and 2 views of the coccyx were obtained. FINDINGS: There is a retrolisthesis at the sacrococcyx joint. There is a prominent right transverse process of L5 into S1 without gross pseudoarthrosis. Spondylosis L4-5 and L5-S1 and to a lesser extent L3-4. XR/XR sacrum coccyx min 2V IMPRESSION: Fracture, sacrococcyx. Acute versus old. Electronically signed by: Corby Hernandez MD 07/27/2024 02:06 PM EST RP Dictated By: Corby Uriarte MD Signed By: <Electronically signed by Corby Martinez MD in OV> 07/27/24 1406 DD/ 1343 TD/TT: 07/27/24 1357 Roving Department Supervisor: [place] [address] XRay Report Signed Patient: Piotr Vasquez MR#: [id number] 84 : 1955 Acct:[id number] Age/Sex: 69 / M ADM Date: 07/27/24 Loc: HO.XRAY Attending Dr: Kevin Goel MD Ordering Physician: Kevin Goel MD Date of Service: 07/27/24 Procedure(s): XR sac rum coccyx min 2V Accession Number(s): [id number] cc: Kevin Goel MD .EXAMINATION: XR SACRUM AND COCCYX CLINICAL INFORMATION: UNSPECIFIED BACK PAIN COMPARISON: None available. TECHNIQUE: 2 views of the sacru m and 2 views of the coccyx were obtained. FINDINGS: There is a retrolisthesis at the sacrococcyx joint. There is a prominent right transverse process of L5 into S1 without gross pseudoarthrosi s. Spondylosis L4-5 and L5-S1 and to a lesser extent L3-4. XR/XR sacrum coccyx min 2V IMPRESSION: Fracture, sacrococcy x. Acute versus old. Electronically anen d by: Corby Hernandez MD 07/27/2024 02:06 PM EST RP Dictated By: Corby Taylor MD Signed By: <Electronically signed by Corby Martinez MD in OV> 07/27/24 1406 DD/ 1343 TD/TT: 07/27/24 1357 Roving Department Supervisor: Reason For Referral Reason chronic cough Diagnosis 1 Chronic cough (R05.3 ) Referral Organization Kevin Goel III, MD Referring Provider First Name Kevin Referring Provider Last Name Amando Referring Provider Speciality Internal M edicine Referred Provider THERESE HERNANDEZ Referred Provider Specialty Pulmonary Di seases General Notes Sarah Serna LIQUOR CLERK 10/25 11:37:26 AM EDT > ref/progress note/cxr report faxed to Dr Hernandez office asking them to contact patient with appt Referral Priority Routine Referral Appointment Date 11/19/2023 Medications Medication SIG (Take, Route, Frequency, Duration) Notes Start Date End Date Status Arnuity Ellipta 100 MCG/ACT Inhalation Active Albuterol Sulfate HFA 108 (90 Base) MCG/ACT 2 puffs Inhalation QID prn wheezing 04/25/2023 Active Gabapentin 100 MG 1 capsule Orally thr [...] Status W/U Status Risk Notes Problem Hypertension (42838990) Hypertension (I10) Active confirmed His blood pressure is slightly elevated. He is going to try to lose 1 or 2 pounds in the next 2 weeks. He may need tAdditional medication. Problem Benign prostatic hyperplasia (446413771) BPH (benign prostatic hyperplasia) (N40.0) Active confirmed He rises from sleep once or twice a night to urinate. We discussed modifications to his lifestyle that could reduce nocturia. Problem 556122506 Primary osteoarthritis of both knees (M17.0) Active confirmed He was referred to [facility] for treatment and advice. Arthroplasty of both knees has been recommended. The first will take place next August 14, 2024. Problem 261160921 Morbid obesity (E66.01) Active confirmed He has gained 4 pounds. His body mass index is 44. We made a plan to lose weight at a rate of 1 pound per week through diet restricted in fat calories and sodium. We have begun to discuss the use of injectable semaglutide. We discussed the use of injected as well as oral loss meddications. We discussed bariatric surgery. We discussed Weight Watchers and other weight loss programs. He is going to consider them but did not agreed when he has them at this time. He wants to wait until after his knee surgery. Problem 603267395 Adenomatous polyp (D36.9) Active confirmed He will continue with Dr. Curry having colonoscopies every 5 years. He is doing 2019. Problem 123967125 Age-related incipient cataract of left eye (H25.092) Active confirmed He is medically cleared for cataract extraction left eye next week. Problem 71654129 Chronic cough (R05.3) Active confirmed His cough continues despite suppressive medication. His chest x-ray shows no abnormality. Current therapy was continued. If he does not improve Emanuel agreed with sending him to pulmonary. Problem 227297744 Rupture of right triceps tendon, initial encounter (S46.311A) Active confirmed This injury has healed very well and is no longer painful. He reports adequate use of the right arm and good strength. Problem 8759241785240 Testosterone deficiency (E34.9) Active confirmed He was continued on current therapy.His testosterone levels have been slightly low. He was encouraged to speak with urology about the ideal testosterone level. He reports a normal libido. Vital Signs Heart Rate 63 /min 07/27/2024 Temperature 99.1 degrees Fahrenheit 07/27/2024 Blood pressure diastolic 70 mm Hg 06/18/2024 Height 63 in 07/27/2024 Blood pressure systolic 130 mm Hg 06/18/2024 Weight 256 lbs 07/27/2024 BMI 45.34 kg/m2 07/27/2024 Encounters Encounter Location Date Provider Diagnosis Kevin Goel III, MD [address] [place] [address] [place] [address] 07/27/2024 Kevin Goel Primary osteoarthrit is of both knees M17.0 and Acute low back pain, unspecified back pain laterality, unspecified whether sciatica present M54.50 Kevin Goel III, MD [address] [place] [address] [place] [address] 08/09/2023 Kevin Goel Primary osteoarthrit is of both knees M17.0 ; Hypertension I10 ; BPH (benign prostatic hyperplasia) N40.0 ; Morbid obesity E66.01 and Chest tightness R07.89 Kevin Goel III, MD [address] [place] [address] [place] [address] 09/03/2023 Kevin Goel Primary osteoarthrit is of both knees M17.0 ; Morbid obesity E66.01 ; Rupture of right triceps tendon, initial encounter S46.311A ; Testosterone deficiency E34.9 ; BPH (benign prostatic hyperplasia) N40.0 ; Hypertension I10 and Chest tightness R07.89 Kevin Goel III, MD [address] [place] [address] [place] [address] 11/07/2023 Kevin Goel Primary osteoarthrit is of both knees M17.0 ; Chronic cough R05.3 ; Morbid obesity E66.01 and Hypertension I10 Kevin Goel III, MD [address] [place] [address] [place] [address] 02/14/2024 Kevin Goel Primary osteoarthrit is of both knees M17.0 ; Morbid obesity E66.01 ; Testosterone deficiency E34.9 ; BPH (benign prostatic hyperplasia) N40.0 ; Encounter for immunization Z23 and Rupture of right triceps tendon, initial encounter S46.311A Kevin Goel III, MD [address] [place] [address] [address] [place] [address] 05/07/2024 Kevin Goel Primary osteoarthrit is of both knees M17.0 ; Morbid obesity E66.01 ; Testosterone deficiency E34.9 ; BPH (benign prostatic hyperplasia) N40.0 and Rupture of right triceps tendon, initial encounter S46.311A Kevin Goel III, MD [address] [place] [address] [address] [place] [address] 06/18/2024 Kevin Goel Primary osteoarthrit is of both knees M17.0 ; Morbid obesity E66.01 ; Testosterone deficiency E34.9 ; BPH (benign prostatic hyperplasia) N40.0 and Hypertension I10 Kevin Goel III, MD [address] [place] [address] [address] [place] [address] 06/18/2024 Kevin Goel Assessments Encounter Date Diagnosis (ICD Code) Assessment Notes Treat ment Notes Treatment Clinical Notes 07/27/2024 Primary osteoarthritis of both knees (ICD-10 - M17.0) He was referred to [facility] for treatment and advice. Arthroplasty of both knees has been recommended. The first will take place next August 14, 2024. 08/09/2023 Hypertension (ICD-10 - I10) His blood pressure is slightly elevated. He is going to try to lose 1 or 2 pounds in the next 2 weeks. He may need tAdditional medication. 08/09/2023 Primary osteoarthritis of both knees (ICD-10 - M17.0) The left knee is giving him the most trouble. He was referred to [facility] for treatment and advice .He continues to hike in the [employer] daily. 09/03/2023 Primary osteoarthritis of both knees (ICD-10 - M17.0) The left knee is giving him the most trouble. He was referred to [facility] for treatment and advice .He continues to hike in the [employer] daily. 09/03/2023 Morbid obesity (ICD-10 - E66.01) In the recent year. He has gaiins in weight. We have discussed diet and nutrition. We have discussed a referral to the weight loss clinic [facility], which would include bariatric surgery consultation. He [...] (ICD-10 - M17.0) He was referred to [facility] for treatment and advice. Arthroplasty [...] (ICD-10 - M17.0) He was referred to [facility] for treatment and advice. Arthroplasty [...] to discuss the use of injectable semaglutide 05/07/2024 Primary osteoarthritis of both knees (ICD-10 - M17.0) He was referred to [facility] for treatment and advice. Arthroplasty of both knees has been recommended. The first will take place next March. 05/07/2024 Morbid obesity (ICD-10 - E66.01) He has lost 5 pounds. His body mass index is 43. We made a plan to lose weight at a rate of 1 pound per week through diet restricted in fat calories and sodium. We have begun to discuss the use of injectable semaglutide. We discussed the use of injected as well as oral loss meddications. We discussed bariatric surgery. We discussed Weight Watchers and other weight loss programs. He is going to consider them but did not agreed when he has them at this time. He wants to wait until after his knee surgery. 06/18/2024 Primary osteoarthritis of both knees (ICD-10 - M17.0) He was referred to [facility] for treatment and advice. Arthroplasty of both knees has been recommended. The first will take place next August 14, 2024. 06/18/2024 Morbid obesity (ICD-10 - E66.01) He has gained 4 pounds. His body mass index is 44. We made a plan to lose weight at a rate of 1 pound per week through diet restricted in fat calories and sodium. We have begun to discuss the use of injectable semaglutide. We discussed the use of injected as well as oral loss meddications. We discussed bariatric surgery. We discussed Weight Watchers and other weight loss programs. He is going to consider them but did not agreed when he has them at this time. He wants to wait until after his knee surgery. 07/27/2024 Acute low back pain, unspecified back pain laterality, unspecified whether sciatica present (ICD-10 - M54.50) 08/09/2023 BPH (benign prostati c hyperplasia) (ICD-10 [...] a referral to the weight loss clinic [facility], which would include bariatric surgery consultation. He [...] E34.9) He was continued on current therapy. 05/07/2024 Testosterone deficiency (ICD-10 - E34.9) He was continued on current therapy.His testosterone levels have been slightly low. He was encouraged to speak with urology about the ideal testosterone level. He reports a normal libido. 06/18/2024 Testosterone deficiency (ICD-10 - E34.9) He was continued on current therapy.His testosterone levels have been slightly low. He was encouraged to speak with urology about the ideal testosterone level. He reports a normal libido. 08/09/2023 Morbid obesity (ICD-10 - E66.01) In the recent year. He has gaiins in weight. We have discussed diet and nutrition. We have discussed a referral to the weight loss clinic [facility], which would include bariatric surgery consultation. He [...] to his lifestyle that could reduce nocturia. 05/07/2024 BPH (benign prostati c hyperplasia) (ICD-10 - N40.0) He rises from sleep once or twice a night to urinate. We discussed modifications to his lifestyle that could reduce nocturia. 06/18/2024 BPH (benign prostati c hyperplasia) (ICD-10 - N40.0) He rises from sleep once or twice a night to urinate. We discussed modifications to his lifestyle that could reduce nocturia. 08/09/2023 Chest tightness (ICD-10 - R07.89) I referred him for a treadmill stress test. 09/03/2023 BPH (benign prostati c hyperplasia) (ICD-10 - N40.0) He arises from sleep once or twice a night. We have discussed lifestyle modification as a way to control nocturia. 02/14/2024 Encounter for immunization (ICD-10 - Z23) 05/07/2024 Rupture of right triceps tendon, initial encounter (ICD-10 - S46.311A) This injury has healed very well and is no longer painful. He reports adequate use of the right arm and good strength. 06/18/2024 Hypertension (ICD-10 - I10) His blood pressure is slightly elevated. He is going to try to lose 1 or 2 pounds in the next 2 weeks. He may need tAdditional medication. 09/03/2023 Hypertension (ICD-10 - I10) His blood [...] Order Date PROFILE, FASTING (COMPREHENSIVE METABOLI C) 11/29/2022 PROFILE, FASTING (COMPREHENSIVE METABOLI C) 08/28/2018 PROFILE, FASTING (COMPREHENSIVE METABOLI C) 02/14/2024 PROFILE, FASTING (COMPREHENSIVE METABOLI C) 03/18/2018 PROFILE, FASTING (COMPREHENSIVE METABOLI C) 05/10/2023 PROFILE, FASTING (COMPREHENSIVE METABOLI C) 02/11/2023 LIPID PANEL 03/18/2018 LIPID PANEL 02/11/2023 LIPID PANEL 11/29/2022 LIPID PANEL 08/28/2018 PSA, TOTAL 03/18/2018 PSA, TOTAL 02/11/2023 PSA, TOTAL 02/14/2024 PSA, TOTAL 08/28/2018 CBC w DIFF 08/28/2018 CBC w DIFF 03/18/2018 CBC w DIFF 02/11/2023 CBC w DIFF 11/29/2022 TESTOSTERONE, TOTAL 02/11/2023 XR LUMBAR SPINE 07/27/2024 XR SACRUM &/OR COCCYX 07/27/2024 CBC WITH AUTO DIFF 05/10/2023 CBC WITH AUTO DIFF 02/14/2024 Lipid Panel 02/14/2024 Lipid Panel 05/10/2023 Testosterone, Total 02/14/2024 Testosterone, Total 05/10/2023 XR lumbar spine 2-3V 07/27/2024 XR sacrum coccyx min 2V 07/27/2024 Next Appt Details Provider Name:Kevin Goel, 07/29/2024 01:30:00 PM, [address] [facility] [place]WA[place]Z, [place], [address], Provider Name:Kevin Amando, 09/18/2024 09:30:00 AM, [address] [place] [address] DWA[place] M[place]Z, [place], [address], Provider Name:Kevin Amando, 02/15/2025 02:30:00 PM, [address] [place] [address] DWA[place] MARTINEZ, [place], [address], Insurance Providers Payer Name Payer Address Payer Phone Subscriber Number Group Number Insured Name Patient Relationship to Insured Coverage Start Date Coverage End Date MEDICARE NGS [address] [place] [address] [id number] Silvio Vasquez Self - patient is the insured [facility] [address] [place], [place] [id number] [phone] [id number] Silvio Vasquez Self - patient is the insured Medical (General) History Medical History History ICD Code obesity decreased vision tubular adenoma, colonoscopy Q 5 years cerumenosis otitis torn left calf muscle, January 2018, h iking osteoarthritis knees left tibial plateau injury 2017 right ulnar compression 05/2021 torn right triceps tendon 05/2021 Diminished libido December 2021 Surgical History Surgery Date(Month/Year) Knee surgery scheduled for august 14 No history Cataract Surgery, Left eye 01/2023 Ulnar nerve decompression, repair and re routing 11/2021 Right triceps tendon reattachment Colonscopy Dr. Curry 2020 cataract surgery right eye 2017 colonoscopy, [facility], Dr. Kevin Curry, tubular adenoma 2014 colonoscopy, [facility], Dr. Kevin Curry, tubular adenoma 2008 vasectomy 1993 Hospitalization History Reason Date(Month/Year) No history
--- OUTSIDE RECORDS SUMMARY | 2024-07-27 16:06 | XMS_ITS ---
Author Organization Kevin Goel III, MD Address [address] [place] [address] Care Team Providers Care Hall Porter Name Role Phone Kevin Goel Primary Care Provider Allergies Allergen (clinical drug ingredient) Drug/Non Drug Allergy documented on EMR Reaction Allergy Type Onset Date Status Shellfish (FN) Shellfish-derived Products Unknown Drug Allergy Active REASON FOR VISIT Osteoarthritis right knee, Morbid obesity, Benign prostatic hypertrophy, Hypertension Medications Medication SIG (Take, Route, Frequency, Duration) Notes Start Date End Date Status Arnuity Ellipta 100 MCG/ACT Inhalation Active Albuterol Sulfate HFA 108 (90 Base) MCG/ACT 2 puffs Inhalation QID prn wheezing 04/25/2023 Active Tadalafil 5 MG 1 tablet Orally Once a day Active Advil 200 MG 1 tablet with [...] Tobacco Non-User Aggressive non-smoker Vital Signs Temperature 97.2 degrees Fahrenheit 06/18/19 25 Blood pressure systolic 130 mm Hg 06/18/19 25 Blood pressure diastolic 70 mm Hg 025 Heart Rate 54 /min 06/18/2024 Height 63 in 06/18/2024 Weight 250 lbs 06/18/2024 BMI 44.28 kg/m2 06/18/2024 Encounters Encounter Location Date Provider Diagnosis Kevin Goel III, MD [address] [place] [address] [place] [address] 06/18/2024 Kevin Goel Primary osteoarthrit is of both knees M17.0 ; Morbid obesity E66.01 ; Testosterone deficiency E34.9 ; BPH (benign prostatic hyperplasia) N40.0 and Hypertension I10 Assessments Encounter Date Diagnosis (ICD Code) Assessment Notes Treat ment Notes Treatment Clinical Notes 06/18/2024 Primary osteoarthritis of both knees (ICD-10 - M17.0) He was referred to [place] [facility] surgeons for treatment and advice. Arthroplasty [...] wait until after his knee surgery. 06/18/2024 Testosterone deficiency (ICD-10 - E34.9) He was continued on current therapy.His testosterone levels have been slightly low. He was encouraged to speak with urology about the ideal testosterone level. He reports a normal libido. 06/18/2024 BPH (benign prostati c hyperplasia) (ICD-10 - N40.0) He rises from sleep once or twice a night to urinate. We discussed modifications to his lifestyle that could reduce nocturia. 06/18/2024 Hypertension (ICD-10 - I10) His blood pressure is slightly elevated. He is going to try to lose 1 or 2 pounds in the next 2 weeks. He may need tAdditional medication. Plan Of Treatment Medication Medication Name Sig Start Date Stop Date Notes Arnuity Ellipta 100 MCG/ACT Inhalation Albuterol Sulfate HFA 108 (90 Base) MCG/ACT 2 puffs Inhalation QID prn wheezing 04/25/2023 Tadalafil 5 MG 1 tablet Orally Once a day Advil 200 MG 1 tablet with food o r milk as needed Orally Three times a day as needed tylenol 1 tab Oral as needed Next Appt Details Follow Up: In August, Reason: Post-surgery checkup Provider Name:Kevin Goel, 07/29/2024 01:30:00 PM, [address] [place] [address] DWA[place] MARTINEZ, [place], [phone], Provider Name:Kevin Goel, 09/18/2024 09:30:00 AM, [address] [place] [address] DWA[place] MARTINEZ, [place], [phone], Provider Name:Kevin Goel, 02/15/2025 02:30:00 PM, [address] [place] [address] D[place] MART[place]Z, [place], [address], Progress Notes * Silvio VASQUEZ LDOB: [birth year] (69 yo M)Acc No.[id number]:06/18/2024 Progress Notes Patient:?Silvio VASQUEZ Provider:?Kevin Goel MD :1955???Age:69 Y???Sex:Male Kai e:06/18/2024 Address:[address] [place] [address] [id number] Subjective: * Chief Complaints: * ???Osteoarthritis right knee Morbid obesityBenign prostatic hypertrophyHypertension * HPI: ???COVID-19 Screening:?Questions?Have you had any new onset fever, chills, cough, congestion, sore throat, shortness of breath, muscle aches??No ???:?The patient, a 69-year-old male, has been experiencing issues with weight and has been considering weight loss programs. He has also been dealing with heartburn, which is healing slowly, and has good blood pressure. The patient has been having issues with frequent urination at night, usually once, as he tries to hold it in to avoid getting up. He has also been on testosterone medication, which he reported was a bit low. The patient is scheduled for knee surgery on August 14. He is scheduled to have a right knee arthroplasty by knowing then orthopedic surgeons on that date.? No contraindication to surgery was noted today. It is scheduled to be done by Dr. Francisco Morocho.? He was offered a referral to the weight loss program at [facility] to explore bariatric surgery but he declined saying he did not wish to undergo procedures of that type. * ROS:?General/Constitutional:?pain?Right knee with ambulation.?Chills?denies.?Fatigue?admits.?Fever?denies.?ENT:?Decreased hearing?denies.?Respiratory:?Cough?denies.?Cardiovascular:?Chest pain with exertion?denies.?Dyspnea on exertion?denies.?Shortness of breath?denies.?Gastrointestinal:?Constipation?occasional.?Decreased appetite?denies.?Diarrhea?denies.?Heartburn?denies.?Nausea?denies.?Rectal bleeding?denies.?Vomiting?denies.?Hematology:?bruising?denies.?petechiae?denies.?Swollen glands?none have been noted.?Genitourinary:?Frequent urination?once a night.?Musculoskeletal:?Muscle aches?denies.?Painful joints?denies.?Sciatica?denies.?Weakness?denies.?Skin:?Itching?denies.?Rash?denies.?Skin lesion(s)?denies.?Neurologic:?Difficulty speaking?denies.?Dizziness?denies.?Headache?denies.?Low back pain?denies.?Psychiatric:?Depressed mood?which is mild.? * Medical History:? * Surgical History:?vasectomy 1993colonoscopy, [facility], Dr. Kevin Curry, tubular adenoma 2008colonoscopy, [facility], Dr. Kevin Curry, tubular adenoma 2015cataract surgery right eye 2018Colonscopy Dr. Curry 2021Right triceps tendon reattachment 07/2021Ulnar nerve decompression, repair and rerouting ataract Surgery, Left eye 01/2023No history Knee surgery scheduled for august 1407/2024 * Hospitalization/Major Diagno stic Procedure:?No history * Family History:?Father: dece ased 73 yrs, liver cancer, Alzheimer's, stroke age 52, massive ministrokes caused , diagnosed with Cancer.?Mother: alive 96 yrs, arthritis, hypertension, polio as achile. Siblings: , diagnosed with Cancer, DM, HTN.?Maternal Grand Mother: , lung cancer.?Maternal aunt: , diagnosed with DM, CVD, Cancer.?4 brother(s) . .? He has 4 living [...] Tobacco Non-User?Aggressive non-smoker ???He was born at [place], [place]. He came to [place] at the age of 40. 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 He has 2 sons who are alive and well and one stepdaughter. One son is in the [employer] at [place], [place]. * Medications:?Takingtylenol 1 tab Oral , Notes to Pharmacist: as neededAdvil 200 MG Tablet 1 tablet with food or milk as needed Orally Three times a day , Notes to Pharmacist: as neededTadalafil 5 MG Tablet 1 tablet Orally Once a day Albuterol Sulfate HFA 108 (90 Base) MCG/ACT Aerosol Solution 2 puffs Inhalation QID prn wheezing Arnuity Ellipta 100 MCG/ACT Aerosol Powder Breath Activated Inhalation Medication List reviewed and reconciled with the patientTaking tylenol 1 tab Oral , Notes to Pharmacist: as neededTaking Advil 200 MG Tablet 1 tablet with food or milk as needed Orally Three times a day , Notes to Pharmacist: as neededTaking Tadalafil 5 MG Tablet 1 tablet Orally Once a day Taking Albuterol Sulfate HFA 108 (90 Base) MCG/ACT Aerosol Solution 2 puffs Inhalation QID prn wheezing Taking Arnuity Ellipta 100 MCG/ACT Aerosol Powder Breath Activated Inhalation Medication List reviewed and reconciled with the patient * Allergies:?Shellfish-derived Productsno[Allergies Verified] Objective: * Vitals:?Ht: 63, Wt:250, BMI: 44.28, BP:130/70, HR:54, Temp:97.2, Wt-k.4. * Examination: ???General Examination: ?GENERAL APPEARANCE:?pleasant, well nourished, well developed, in no acute distress, calm and relaxed, morbidly obese, man.?HEAD:?atraumatic, normocephalic.?EYES:?eomi, perrla, anicteric, conjugate.?EARS:?normal.?NOSE:?septum intact.?ORAL CAVITY:?normal, unremarkable.?NECK/THYROID:?no jugular venous distention, no carotid bruit, thyroid normal.?LYMPH NODES:?no enlarged lymph nodes,spleen normal.?SKIN:?no suspicious lesions, anicteric.?HEART:?no clicks, gallops, murmurs, or rubs, regular rhythm, S1, S2 normal, no s3, or vascular bruits.?LUNGS:?clear to auscultation .?BREASTS:??no masses palpable bilaterally.?ABDOMEN:?bowel sounds normal, no ascites, no organomegaly, no mass, morbid obesity.?RECTAL EXAM:?not examined.?MUSCULOSKELETAL:?Crepitus to range of motion right knee no clubbing, cyanosis or edema.?PERIPHERAL PULSES:?normal.?NEUROLOGIC:?alert and oriented, cranial nerves 2-12 grossly intact, deep tendon reflexes 2+ symmetrical, motor strength normal upper and lower extremities, sensory exam intact.?PSYCH:?alert, oriented, Discouraged her weight gain.? Assessment: * Assessment: 1.?Primary osteoarthritis of both knees - M17.0 (Primary)???Notes :He was referred to [place] [facility] surgeons for treatment and advice. Arthroplasty of both knees has been recommended. The first will take place next August 14, 2024.???2.?Morbid obesity - E66.01???Notes :He has gained 4 pounds. His body mass [...] wants to wait until after his knee surgery.???3.?Testosterone deficiency - E34.9???Notes :He was continued on current therapy.His testosterone levels have been slightly low. He was encouraged to speak with urology about the ideal testosterone level. He reports a normal libido.???4.?BPH (benign prostatic hyperplasia) - N40.0???Notes :He rises from sleep once or twice a night to urinate. We discussed modifications to his lifestyle that could reduce nocturia.???5.?Hypertension - I10???Notes :His blood pressure is slightly elevated. He is going to try to lose 1 or 2 pounds in the next 2 weeks. He may need tAdditional medication.??? Plan: * Treatment: 2.?Others? Continue Tadalafil Tablet, [...] or Other reason not done * Follow Up:?In August (Reason: Post-surgery checkup) * Images: * Sign off status: Completed true * Provider:?Kevin Goel MD Date:?05/28 Generated for Ricky reis/Luis/eTdaríoitting on:?07/27/2024 04:06 PM EST History and Physical Notes * HPI (History of Present Illness) Category Sub-Category Detail Notes COVID-19 Screening Questions Have you had any new onset fever, chills, cough, congestion, sore throat, shortness of breath, muscle aches?: No Examination Category Sub-Category Detail Notes General Examination GENERAL APPEARANCE: pleasant , well nourished, well developed, in no acute distress, calm and relaxed, morbidly obese, man HEAD: atraumatic, normocep halic EYES: eomi, perrla, anicte dora, conjugate EARS: normal NOSE: septum intact NECK/THYROID: no jugular venous di stention, no carotid bruit, thyroid normal HEART: no clicks, gallops, murmurs, or rubs, regular rhythm, S1, S2 normal, no s3, or vascular bruits LUNGS: clear to auscultatio n ABDOMEN: bowel sounds normal, no ascites, no organomegaly, no mass, morbid obesity NEUROLOGIC: alert and oriented, cranial nerves 2-12 grossly intact, deep tendon reflexes 2+ symmetrical, motor strength normal upper and lower extremities, sensory exam intact SKIN: no suspicious lesion s, anicteric PERIPHERAL PULSES: normal BREASTS: no masses palpable b ilaterally MUSCULOSKELETAL: Crepitus to range of motion right knee no clubbing, cyanosis or edema LYMPH NODES: no enlarged lymph no alessia,spleen normal RECTAL EXAM: not examined PSYCH: alert, oriented, Dis couraged her weight gain ORAL CAVITY: normal, unremarkable
== END 2024-07-27 13:38 | disposition home or self-care (01) ==
LOC: HO.XRAY 13:37
PROVIDERS: PCP Internal Medicine Medical Oncology; Visit Provider Internal Medicine Medical Oncology
DX: M54.50 Low back pain, unspecified (principal)
CPT/HCPCS: 72100; 72220

== ENCOUNTER → 2024-07-27 13:42 | Outpatient (BNV) | payer MEDICARE, SELFPAY | PROVIDERS: PCP Internal Medicine Medical Oncology; Visit Provider Radiology Diagnostic Radiology | DX: M47.815 Spondylosis without myelopathy or radiculopathy, thoracolumbar region (principal); S32.2XXA Fracture of coccyx, initial encounter for closed fracture | CPT/HCPCS: 72100; 72220 ==

== ENCOUNTER 2024-07-29 09:16 | Outpatient (REF) | payer MEDICARE, SELFPAY ==
--- OUTSIDE RECORDS SUMMARY | 2024-07-29 10:17 | XMS_ITS ---
Author Organization Kevin Goel III, MD Address [address] [place] [address] Care Team Providers Care Alignment Mechanic Name Role Phone Kevin Goel Primary Care Provider [phone] REASON FOR VISIT Knee Surgery Social History Sex Assigned At : Social History Observation Description Sex Assigned At Male Encounters Encounter Location Date Provider Diagnosis Kevin Goel III, MD [address] [place] [address] [place] [address] 06/18/2024 Kevin Goel Plan Of Treatment Next Appt Details Provider Name:Kevin Goel, 07/29/2024 01:30:00 PM, [address] [place] [address] [place], [address], Provider Name:Kevin Goel, 09/18/2024 09:30:00 AM, [address] [place] [address] [place], [address], Provider Name:Kevin Goel, 02/15/2025 02:30:00 PM, [address] [place] [address] [place], [address], Progress Notes * Silvio VASQUEZ LDOB: [birth year] (69 yo M)Acc No.[id number]:06/18/2024 Patient:?AUSTIN Silvio Granados :1955???Age:69 Y???Sex:Male Address:[address] [place] [address] [place], [address] * true * Date:? Generated for Ricky reis/Luis/eTransmitting on:?07/29/2024 10:17 AM EST
--- OUTSIDE RECORDS SUMMARY | 2024-07-29 10:17 | XMS_ITS ---
Author Organization Kevin Goel III, MD Address [address] [place] [address] Care Team Providers Care Program Assistant Name Role Phone Kevin Goel Primary Care Provider Allergies Allergen (clinical drug ingredient) Drug/Non Drug Allergy documented on EMR Reaction Allergy Type Onset Date Status Shellfish (FN) Shellfish-derived Products Unknown Drug Allergy Active REASON FOR VISIT Low back pain, Left hip pain, Bilateral knee pain, Morbid obesity, BPH, Hypogonadism Medications Medication SIG (Take, Route, Frequency, Duration) [...] Vital Signs Temperature 99.1 degrees Fahrenheit 07/28/19 25 Blood pressure systolic 139 mm Hg 07/28/19 25 Blood pressure diastolic 86 mm Hg 025 Heart Rate 63 /min 07/27/2024 Height 63 in 07/27/2024 Weight 256 lbs 07/27/2024 BMI 45.34 kg/m2 07/27/2024 Encounters Encounter Location Date Provider Diagnosis Kevin Goel III, MD [address] [place] [address] DR ALANIZ, [place] [phone] 07/27/2024 Kevin Goel Primary osteoarthrit is of both knees M17.0 ; Acute low back pain, unspecified back pain laterality, unspecified whether sciatica present M54.50 ; Morbid obesity E66.01 ; Testosterone deficiency E34.9 ; BPH (benign prostatic hyperplasia) N40.0 and Chest tightness R07.89 Assessments Encounter Date Diagnosis (ICD Code) Assessment Notes Treat ment Notes Treatment Clinical Notes 07/27/2024 Primary osteoarthritis of both knees (ICD-10 - M17.0) He was referred to [facility] for treatment and advice. Arthroplasty of both knees has been recommended. The first will take place next August 14, 2024. 07/27/2024 Acute low back pain, unspecified back pain laterality, unspecified whether sciatica present (ICD-10 - M54.50) He has been treated with dexamethasone and gabapentin heat and rest. Images will be obtained. Followup will be in 3 days. 07/27/2024 Morbid obesity (ICD-10 - E66.01) He has [...] wait until after his knee surgery. 07/27/2024 Testosterone deficiency (ICD-10 - E34.9) He was continued on current therapy.His testosterone levels have been slightly low. He was encouraged to speak with urology about the ideal testosterone level. He reports a normal libido. 07/27/2024 BPH (benign prostati c hyperplasia) (ICD-10 - N40.0) He rises from sleep once or twice a night to urinate. We discussed modifications to his lifestyle that could reduce nocturia. 07/27/2024 Chest tightness (ICD-10 - R07.89) A treadmill [...] Next Appt Details Follow Up: TV sat/, In a week, Reason: TV, To monitor the patient's progress Provider Name:Kevin Goel, 07/29/2024 01:30:00 PM, [address] [place] [address] DWA[address] MART[address]Z, [place], [phone], Provider Name:Kevin Goel, 09/18/2024 09:30:00 AM, [address] [place] [address] DWAIN MARTINEZ, [place], [phone], Provider Name:Kevin Goel, 02/15/2025 02:30:00 PM, [address] [place] [address] DWAIN MARTINEZ, [place], [phone], Progress Notes * Silvio VASQUEZ LDOB: [birth year] (69 yo M)Acc No.[id number]:07/27/2024 Patient:?Silvio VASQUEZ Provider:?Kevin Goel MD :1955???Age:69 Y???Sex:Male Kai e:07/27/2024 Address:[address] [place] [address] arsh [place]ji [id number] Subjective: * Chief Complaints: * ???Low back painLeft hip deep nBilateral knee painMorbid obesityBPHHypogonadism * HPI: ???COVID-19 Screening:?week ago sat, low back and left hip dull ache with walkig then shifted to left thigh then back to buttoke. ok with sitting, getting better. ?Questions?Have you had any new onset fever, chills, cough, congestion, sore throat, shortness of breath, muscle aches??No ???:? The patient, Silvio, a 69-year-old male, presented with a complaint of back pain that started a week ago. The pain was initially located in the upper back and both hips, particularly the left hip. The pain was described as aching and was exacerbated by standing and walking. The pain later shifted to the side of his leg, causing sharp pain for about three days, which made it difficult for him to lay on that side at night. The sharp pain then subsided and returned to the upper part of his hip and lower back. The patient reported no pain when sitting down. The pain was also reported to be worse when going up and down stairs. The patient reported a slight improvement in his symptoms over time. The patient also reported having a knee replacement surgery scheduled in 19 days. * ROS:?General/Constitutional:?Denies?pain,?Hips knees and low back.?Chills?denies.?Fatigue?admits.?Fever?denies.?ENT:?Decreased hearing?denies.?Respiratory:?Cough?denies.?Cardiovascular:?Chest pain with exertion?denies.?Dyspnea on exertion?denies.?Shortness of breath?denies.?Gastrointestinal:?Constipation?occasional.?Decreased appetite?denies.?Diarrhea?denies.?Heartburn?denies.?Nausea?denies.?Rectal bleeding?denies.?Vomiting?denies.?Hematology:?bruising?denies.?petechiae?denies.?Swollen glands?none have been noted.?Genitourinary:?Frequent urination?once a night.?Musculoskeletal:?Muscle aches?denies.?Painful joints?Hips knees and low back.?Sciatica?denies.?Weakness?denies.?Skin:?Itching?denies.?Rash?denies.?Skin lesion(s)?denies.?Neurologic:?Difficulty speaking?denies.?Dizziness?denies.?Headache?denies.?Low back pain?denies.?Psychiatric:?Depressed mood?denies.? * Medical History:? * Surgical History:?vasectomy 1993colonoscopy, [facility], Dr. Kevin Curry, tubular adenoma 2008colonoscopy, [facility], Dr. Kevin Curry, tubular adenoma 2015cataract surgery right eye 2017Colonscopy Dr. Curry ight triceps tendon reattachment 07/2021Ulnar nerve decompression, repair and rerouting ataract Surgery, Left eye 01/2023No history Knee surgery scheduled for august 1407/2024 * Hospitalization/Major Diagno stic Procedure:?No history * Family History:?Father: dece ased 73 yrs, liver cancer, Alzheimer's, stroke age 52, massive ministrokes caused , diagnosed with Cancer.?Mother: alive 96 yrs, arthritis, hypertension, polio as achile. Siblings: , diagnosed with DM, HTN, Cancer.?Maternal Grand Mother: , lung cancer.?Maternal aunt: , diagnosed with CVD, Cancer, DM.?4 brother(s) . .? He has 4 [...] Tobacco Non-User?Aggressive non-smoker ???He was born at [place], [place]. He came to [place] at the age of 40. 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 He has 2 sons who are alive and well and one stepdaughter. One son is in the [employer] at [place], [place]. * Medications:?Takingtylenol 1 tab Oral [...] Allergies:?Shellfish-derived Productsno[Allergies Verified] Objective: * Vitals:?Ht: 63, Wt:256, BMI: 45.34, BP:139/86, HR:63, Temp:99.1, Wt-k.12. * Examination: ???General Examination: [...] no organomegaly, no mass, morbid obesity.?RECTAL EXAM:?not examined.?MUSCULOSKELETAL:?extremities unremarkable, no clubbing, cyanosis or edema, No crepitus to range of motion of knees, decreased range of motion of the hips and shoulders, mild pain to rotation of lumbar spine.?PERIPHERAL PULSES:?normal.?NEUROLOGIC:?alert and oriented, cranial nerves 2-12 grossly intact, deep tendon reflexes 2+ symmetrical, motor strength normal upper and lower extremities, sensory exam intact.?PSYCH:?alert, oriented.? Assessment: * Assessment: 1.?Primary osteoarthritis of both knees - M17.0 (Primary)???Notes :He was referred to [facility] surgeons for treatment and advice. Arthroplasty of both knees has been recommended. The first will take place next August 14, 2024.???2.?Acute low back pain, unspecified back pain laterality, unspecified whether sciatica present - M54.50???Notes :He has been treated with dexamethasone and gabapentin heat and rest.? Images will be obtained.? Followup will be in 3 days.???3.?Morbid obesity - E66.01???Notes :He has gained 4 [...] wants to wait until after his knee surgery.???4.?Testosterone deficiency - E34.9???Notes :He was continued on current therapy.His testosterone levels have been slightly low. He was encouraged to speak with urology about the ideal testosterone level. He reports a normal libido.???5.?BPH (benign prostatic hyperplasia) - N40.0???Notes :He rises from sleep once or twice a night to urinate. We discussed modifications to his lifestyle that could reduce nocturia.???6.?Chest tightness - R07.89???Notes :A treadmill test is negative for ischemia. He has not experienced chest tightness recently.??? Plan: * Treatment: 2.?Acute low back pain, [...] Other reason not done * Follow Up:?TV sat/, In a week (Reason: TV, To monitor the patient's progress) * Images: * Sign off status: Completed true * Provider:?Kevin Goel MD Date:?07/2024 Generated for Ricky reis/Luis/eTransmitting on:?07/29/2024 10:17 AM EST History and Physical Notes * [...] unremark able, no clubbing, cyanosis or edema, No crepitus to range of motion of knees, decreased range of motion of the hips and shoulders, mild pain to rotation of lumbar spine LYMPH NODES: no enlarged lymph no alessia,spleen normal RECTAL EXAM: not examined PSYCH: alert, oriented ORAL CAVITY: normal, unremarkable
--- OUTSIDE RECORDS SUMMARY | 2024-07-29 10:18 | XMS_ITS | Patient Health Record ---
Author Organization [facility] Address [address] [place] [address] Care Team Providers Care Home Health Billing Specialist Name Role Phone Kevin Goel MD Primary Care Provider Unavailab Kevin Rose Unavailable [phone] Reason For Referral No Information Immunizations Vaccine Route Administration Date Status Comme nts Influenza Unknown 03/27/2020 Administered Problems Problem Type SNOMED Code ICD Code Onset Dates Problem Status W/U Status Risk Notes Problem Screening for malignant neoplasm of colon (197163265) Encounter for screening for malignant neoplasm of colon (Z12.11) Active confirmed Problem History of adenomatous polyp of colon (072334458) History of adenomatous polyp of colon (Z86.010) Active confirmed Problem History of polyp of colon (situation) (397060573) Personal history of colonic polyps (Z86.010) Active confirmed Problem Pre-procedure evaluation check (761529950) Encounter for other preprocedural examination (Z01.818) Active confirmed Problem Preprocedural examination (149619585636868) Preprocedural examination (Z01.818) Active confirmed Plan Of Treatment Pending Test Test Name Order Date Pathology 08/26/2020 Future Test Test Name Order Date COLONOSCOPY 02/25/2015 COLONOSCOPY 06/30/2020 Insurance Providers Payer Name Payer Address Payer Phone Subscriber Number Group Number Insured Name Patient Relationship to Insured Coverage Start Date Coverage End Date [facility] [address] [place] [address] [phone] [id number] Self - patient is the insured Medical (General) History Medical History History ICD Code Screening colonoscopy 8-31-2 009-1 tubular adenoma removed--also noted to have mild sigmoid diverticulosis and small internal hemorrhoids Denies [place],DM,CVA,Lung disease,renal dise ase COVID infection 04/2020. Had neg. COVID test 05/28/2020 Colonoscopy 04/2015 with a small tubular adenoma Surgical History Surgery Date(Month/Year) oral surgery vasectomy eye surgery
--- OUTSIDE RECORDS SUMMARY | 2024-07-29 10:18 | XMS_ITS | Patient Health Record ---
Author Organization Kevin Goel III, MD Address [address] [address] Care Team Providers Care Compliance Analyst Name Role Phone Kevin Goel Primary Care Provider [phone] Allergies Allergen (clinical drug ingredient) Drug/Non [...] ff Reviewed date:08/01/2023 08:53:02 PM Interpretation: Performing Lab:[facility], [address] [place] [address] Notes/Report: White Blood Count 10.3 4.8-10.8 X10*3/uL [...] NRBC Abs Auto 0.000 0.0-0.012 X10*3/uL Comprehensive [place]. Panel Fa st Reviewed date:08/01/2023 08:53:02 PM Interpretation: Performing Lab:[facility], [address] [place] [address] Notes/Report: Sodium 141 135-145 mmol/L Potassium 4.3 3.3-5.1 mmol/L Chloride 103 96-108 mmol/L Carbon Dioxide 34 22-29 mmol/L Anion Gap 8 12-20 Blood Urea Nitrogen 14 9-16 mg/dL Creatinine 0.86 0.5-1.4 mg/dL Estimated Glomerular Filt Rate > 60 NOTE: For -[place] individuals, multiply the result by 1.210. Chronic [...] Panel Reviewed date:08/01/2023 08:53:02 PM Interpretation: Performing Lab:[address] [address] Notes/Report: Triglycerides 70 <150 mg/dL Desirable Triglyceride: [...] Total Reviewed date:09/08/2023 07:39:57 AM Interpretation: Performing Lab:[address] [address] Notes/Report: Testosterone, Total 368 725-4323 ng/dL Men with clinically significant hypogonadal symptoms and testosterone values repeatedly in the range of the 200-300 ng/dL or less, may benefit from testosterone treatment after adequate risk and benefits counseling. For additional information, please refer to http://education.Coty.com/fa q/ TotalTestosteroneM [email or web address] (This link is being provided for informational/ educational purposes only.) This test was developed and its analytical performance characteristics have been determined by [facility] [place], [place]. It has not been cleared or approved by the U.S. Food and Drug Administration. This assay has been validated pursuant to the CLIA regulations and is used for clinical purposes. THIS TEST WAS PERFORMED AT: [facility] [address] [place], [place] JAMAL AGUAYO MD,PHD XR chest 2V Reviewed date:02/24/2024 08:25:07 AM Interpretation: Performing Lab: Notes/Report: [address] [address] XRay Report Signed Patient: Silvio Vasquez MR#: [id number] 84 : 1955 Acct:[id number] Age/Sex: 68 / M ADM Date: 11/07/23 Loc: SCOTT Attending Dr: Kevin Goel MD Ordering Physician: Kevin Goel MD Date of Service: 11/07/23 Procedure(s): XR chest 2V Accession Number(s): [id number] cc: Kevin Goel MD EXAMINATION: XR CHEST [...] in OV> 11/07/23 1404 DD/ 1140 TD/TT: Medical Management Specialist: DANIELE [address] [address] XRay Report Signed Patient: Piotr Vasquez MR#: [id number] 84 : 1955 Acct:[id number] Age/Sex: 68 / M ADM Date: 11/07/23 Loc: HO.XRAY Attending Dr: Kevin Goel MD Ordering Physician: Kevin Goel MD Date of Service: 11/07/23 Procedure(s): XR donny st 2V Accession Number(s): [id number] cc: Kevin Goel MD EXAMINATION: XR CHEST [...] in OV> 11/07/23 1404 DD/ 1140 TD/TT: Medical Management Specialist: DANIELE CT chest wo con Reviewed date:02/24/2024 08:25:07 AM Interpretation: Performing Lab: Notes/Report: [address] [address] [address] Scan Report Signed Patient: Silvio Vasquez MR#: [id number] 84 : 1955 Acct:[id number] Age/Sex: 68 / M ADM Date: 01/17/24 Loc: HO.CT Attending Dr: Vicky Charlton NP Ordering Physician: Vicky Charlton NP Date of Service: 01/17/24 Procedure(s): CT chest wo IV con Accession Number(s): [id number] cc: Kevin Goel MD; Vicky Charlton NP [...] 02/06/24 1315 DD/ 0732 TD/TT: 01/17/24 0750 Medical Management Specialist: [place] [address] [address] Scan Report Signed Patient: Piotr Vasquez MR#: [id number] 84 : 1955 Acct:[id number] Age/Sex: 68 / M ADM Date: 01/17/24 Loc: HO.CT Attending Dr: Jerilyn Charlton NP Ordering Physician: Vicky Charlton NP Date of Service: 01/17/24 Procedure(s): CT donny st wo IV con Accession Number(s): [id number] cc: Kevin Goel MD; Vicky Charlton NP [...] 02/06/24 1315 DD/ 0732 TD/TT: 01/17/24 0750 Medical Management Specialist: ROSAMARIA Testosterone, Free/Total Reviewed date:04/23/2024 07:44:01 AM Interpretation: Performing Lab:[facility], [address] [place] [address] Notes/Report: Testosterone, Total 610 932-6746 ng/dL Men with clinically significant hypogonadal symptoms and testosterone values repeatedly in the range of the 200-300 ng/dL or less, may benefit from testosterone treatment after adequate risk and benefits counseling. For additional information, please refer to http://education.Boundless [employer]/fa q/ TotalTestosteroneM [email or web address] (This link is being provided for informational/ educational purposes only.) This test was developed and its analytical performance characteristics have been determined by [facility] [place], [place]. It has not been cleared or approved by the U.S. Food and Drug Administration. This assay has been validated pursuant to the CLIA regulations and is used for clinical purposes. Testosterone, Free 35.1 35.0-155.0 pg/mL This test was developed and its analytical performance characteristics have been determined by [facility] [place], [place]. It has not been cleared or approved by the U.S. Food and Drug Administration. This assay has been validated pursuant to the CLIA regulations and is used for clinical purposes. THIS TEST WAS PERFORMED AT: [facility]/[address] JAMAL AGUAYO MD,PHD Complete Blood Count Auto Di ff Reviewed date:05/04/2024 04:59:17 AM Interpretation: Performing Lab:[facility], [address] [place] [address] Notes/Report: White Blood Count 10.9 4.8-10.8 X10*3/uL [...] NRBC Abs Auto 0.000 0.0-0.012 X10*3/uL Comprehensive [place]. Panel Fa st Reviewed date:05/04/2024 04:59:17 AM Interpretation: Performing Lab:[facility], [address] [place] [address] Notes/Report: Sodium 144 135-145 mmol/L Potassium 4.2 [...] Panel Reviewed date:05/04/2024 04:59:17 AM Interpretation: Performing Lab:[facility], [address] [place] [phone] Notes/Report: Triglycerides 57 <150 mg/dL Desirable Triglyceride: [...] Antigen Reviewed date:05/04/2024 04:59:17 AM Interpretation: Performing Lab:[facility], [address] [place] [address] Notes/Report: Prostate Specific Antigen 0.61 <0.05-4.0 ng/mL PSA methodology: Gerardo Alinity i Chemiluminescent Microparticle Immunoassay (CMIA) Testosterone, Total Reviewed date:05/08/2024 08:38:08 AM Interpretation: Performing Lab:[facility], [address] [place] [address] Notes/Report: Testosterone, Total 400 211-6400 ng/dL Men with clinically significant hypogonadal symptoms and testosterone values repeatedly in the range of the 200-300 ng/dL or less, may benefit from testosterone treatment after adequate risk and benefits counseling. For additional information, please refer to http://education.[employer].com/fa q/ TotalTestosteroneM PSNMDK366 (This link is being provided for informational/ educational purposes only.) This test was developed and its analytical performance characteristics have been determined by [facility], [place]. It has not been cleared or approved by the U.S. Food and Drug Administration. This assay has been validated pursuant to the CLIA regulations and is used for clinical purposes. THIS TEST WAS PERFORMED AT: [facility] [address] [place] [address] JAMAL AGUAYO MD,PHD XR lumbar spine 2-3V (Not ye t reviewed by provider) Interpretation: Performing Lab: Notes/Report: [address] [address] XRay Report Signed Patient: Silvio Vasquez MR#: [id number] 84 : 1955 Acct:[id number] Age/Sex: 69 / M ADM Date: 07/27/24 Loc: HO.XRAY Attending Dr: Kevin Goel MD Ordering Physician: Kevin Goel MD Date of Service: 07/27/24 Procedure(s): XR lumbar spine 2-3V Accession Number(s): [id number] cc: Kevin Goel MD .EXAMINATION: XR LUMBOSACRAL [...] by: Corby Hernandez MD 07/27/2024 02:04 PM [facility] Dictated By: Corby Uriarte MD Signed By: <Electronically signed by Corby Martinez MD in OV> 07/27/24 1404 DD/ 1342 TD/TT: 07/27/24 1357 Medical Management Specialist: [address] [address] XRay Report Signed Patient: Piotr Vasquez MR#: [id number] 84 : 1955 Acct:[id number] Age/Sex: 69 / M ADM Date: 07/27/24 Loc: HO.XRAY Attending Dr: Kevin Goel MD Ordering Physician: Kevin Goel MD Date of Service: 07/27/24 Procedure(s): XR lum bar spine 2-3V Accession Number(s): [id number] cc: Kevin Goel MD .EXAMINATION: XR LUMBOSACRAL [...] by: Corby Hernandez MD 07/27/2024 02:04 PM [facility] Dictated By: Corby Taylor MD Signed By: <Electronically signed by Corby Martinez MD in OV> 07/27/24 1404 DD/ 1342 TD/TT: 07/27/24 1357 Medical Management Specialist: XR sacrum coccyx min 2V (Not yet reviewed by provider) Interpretation: Performing Lab: Notes/Report: [address] [address] XRay Report Signed Patient: Silvio Vasquez MR#: [id number] 84 : 1955 Acct:[id number] Age/Sex: 69 / M ADM Date: 07/27/24 Loc: HO.XRAY Attending Dr: Kevin Goel MD Ordering Physician: Kevin Goel MD Date of Service: 07/27/24 Procedure(s): XR sacrum coccyx min 2V Accession Number(s): [id number] cc: Kevin Goel MD .EXAMINATION: XR SACRUM [...] 07/27/24 1406 DD/ 1343 TD/TT: 07/27/24 1357 Medical Management Specialist: [place] [address] XRay Report Signed Patient: Piotr Vasquez MR#: [id number] 84 : 1955 Acct:[id number] Age/Sex: 69 / M ADM Date: 07/27/24 Loc: HO.XRAY Attending Dr: Kevin Goel MD Ordering Physician: Kevin Goel MD Date of Service: 07/27/24 Procedure(s): XR sac rum coccyx min 2V Accession Number(s): [id number] cc: Kevin Goel MD .EXAMINATION: XR SACRUM [...] Fracture, sacrococcy x. Acute versus old. Electronically anne d by: Corby Hernandez MD 07/27/2024 02:06 PM EST RP Dictated By: Corby Taylor MD Signed By: <Electronically signed by Corby Martinez MD in OV> 07/27/24 1406 DD/ 1343 TD/TT: 07/27/24 1357 Medical Management Specialist: Reason For Referral Reason chronic cough Diagnosis 1 Chronic cough (R05.3 ) Referral Organization Kevin Goel III, MD Referring Provider First Name Kevin Referring Provider Last Name Amando Referring Provider Speciality Internal M edicine Referred Provider THERESE HERNANDEZ Referred Provider Specialty Pulmonary Di seases General Notes Sarah Serna CLINIC DIRECTOR 10/25 11:37:26 AM EDT > ref/progress note/cxr report faxed to Dr Hernandez office asking them to contact patient with appt Referral Priority Routine Referral Appointment Date 11/19/2023 Medications Medication SIG (Take, Route, Frequency, Duration) Notes Start Date End Date Status tylenol 1 tab Oral as needed Active Gabapentin 100 MG 1 capsule Orally thr ee times a day 07/27/2024 Active dexAMETHasone 2 MG 1 tablet Orally ever y 12 hrs 07/27/2024 Active Tadalafil 5 MG 1 tablet Orally Once a day Active Advil 200 MG 1 tablet with food o r milk as needed Orally Three times a day as needed Active Arnuity Ellipta 100 MCG/ACT Inhalation Active [...] Status W/U Status Risk Notes Problem Hypertension (72183204) Hypertension (I10) Active confirmed His blood pressure is slightly elevated. He is going to try to lose 1 or 2 pounds in the next 2 weeks. He may need tAdditional medication. Problem Benign prostatic hyperplasia (073748583) BPH (benign prostatic hyperplasia) (N40.0) Active confirmed He rises from sleep once or twice a night to urinate. We discussed modifications to his lifestyle that could reduce nocturia. Problem 328809187 Primary osteoarthritis of both knees (M17.0) Active confirmed He was referred to [place] [facility] for treatment and advice. Arthroplasty of both knees has been recommended. The first will take place next August 14, 2024. Problem 376096704 Morbid obesity (E66.01) Active confirmed He has [...] wait until after his knee surgery. Problem 872510331 Adenomatous polyp (D36.9) Active confirmed He will continue with Dr. Curry having colonoscopies every 5 years. He is doing 2019. Problem 159407811 Age-related incipient cataract of left eye (H25.092) Active confirmed He is medically cleared for cataract extraction left eye next week. Problem 35440600 Chronic cough (R05.3) Active confirmed His cough continues despite suppressive medication. His chest x-ray shows no abnormality. Current therapy was continued. If he does not improve Emanuel agreed with sending him to pulmonary. Problem 610139003 Rupture of right triceps tendon, initial encounter (S46.311A) Active confirmed This injury has healed very well and is no longer painful. He reports adequate use of the right arm and good strength. Problem 0810975724443 Testosterone deficiency (E34.9) Active confirmed He was continued on current therapy.His testosterone levels have been slightly low. He was encouraged to speak with urology about the ideal testosterone level. He reports a normal libido. Vital Signs Heart Rate 63 /min 07/27/2024 Temperature 99.1 degrees Fahrenheit 07/27/2024 Blood pressure diastolic 86 mm Hg 07/27/2024 Height 63 in 07/27/2024 Blood pressure systolic 139 mm Hg 07/27/2024 Weight 256 lbs 07/27/2024 BMI 45.34 kg/m2 07/27/2024 Encounters Encounter Location Date Provider Diagnosis Kevin Goel III, MD [address] [place] [address] [place] [address] 08/09/2023 Kevin Goel Primary osteoarthrit is of both knees M17.0 ; Hypertension I10 ; BPH (benign prostatic hyperplasia) N40.0 ; Morbid obesity E66.01 and Chest tightness R07.89 Kevin Goel III, MD [address] [place] [address] [place] [address] 09/03/2023 Kevin Goel Primary osteoarthrit is of both knees M17.0 ; Morbid obesity E66.01 ; Rupture of right triceps tendon, initial encounter S46.311A ; Testosterone deficiency E34.9 ; BPH (benign prostatic hyperplasia) N40.0 ; Hypertension I10 and Chest tightness R07.89 Kevin Goel III, MD [address] [place] [address] [place] [address] 11/07/2023 Kevin Goel Primary osteoarthrit is of both knees M17.0 ; Chronic cough R05.3 ; Morbid obesity E66.01 and Hypertension I10 Kevin Goel III, MD [address] [place] [address] [place] [address] 02/14/2024 Kevin Goel Primary osteoarthrit is of both knees M17.0 ; Morbid obesity E66.01 ; Testosterone deficiency E34.9 ; BPH (benign prostatic hyperplasia) N40.0 ; Encounter for immunization Z23 and Rupture of right triceps tendon, initial encounter S46.311A Kevin Goel III, MD [address] [place] [address] [place] [address] 05/07/2024 Kevin Goel Primary osteoarthrit is of both knees M17.0 ; Morbid obesity E66.01 ; Testosterone deficiency E34.9 ; BPH (benign prostatic hyperplasia) N40.0 and Rupture of right triceps tendon, initial encounter S46.311A Kevin Goel III, MD [address] [place] [address] [place] [address] 06/18/2024 Kevin Goel Primary osteoarthrit is of both knees M17.0 ; Morbid obesity E66.01 ; Testosterone deficiency E34.9 ; BPH (benign prostatic hyperplasia) N40.0 and Hypertension I10 Kevin Goel III, MD [address] [place] [address] [place] [address] 07/27/2024 Kevin Goel Primary osteoarthrit is of both knees M17.0 ; Acute low back pain, unspecified back pain laterality, unspecified whether sciatica present M54.50 ; Morbid obesity E66.01 ; Testosterone deficiency E34.9 ; BPH (benign prostatic hyperplasia) N40.0 and Chest tightness R07.89 Kevin Goel III, MD [address] [place] [address] [place] [address] 06/18/2024 Kevin Goel Assessments Encounter Date Diagnosis (ICD Code) Assessment Notes Treat ment Notes Treatment Clinical Notes 08/09/2023 Hypertension (ICD-10 - I10) His blood pressure is slightly elevated. He is going to try to lose 1 or 2 pounds in the next 2 weeks. He may need tAdditional medication. 08/09/2023 Primary osteoarthritis of both knees (ICD-10 - M17.0) The left knee is giving him the most trouble. He was referred to [place] [facility] for treatment and advice .He continues to hike in the [place] daily. 09/03/2023 Primary osteoarthritis of both knees (ICD-10 - M17.0) The left knee is giving him the most trouble. He was referred to [place] [facility] for treatment and advice .He continues to hike [place] the [place] daily. 09/03/2023 Morbid obesity (ICD-10 - E66.01) In the recent year. He has gaiins in weight. We have discussed diet and nutrition. We have discussed a referral to the weight loss clinic [facility], which would include bariatric surgery consultation. He [...] (ICD-10 - M17.0) He was referred to [place] [facility] for treatment and advice. Arthroplasty of both knees has been recommended. The first fall take place next March. 11/07/2023 Chronic cough (ICD-1 0 - R05.3) His cough continues despite suppressive medication. His chest x-ray shows no abnormality. Current therapy was continued. If he does not improve Alfredojosefina agreed with sending him to pulmonary. 02/14/2024 Primary osteoarthritis of both knees (ICD-10 - M17.0) He was referred to [place] [facility] for treatment and advice. Arthroplasty [...] (ICD-10 - M17.0) He was referred to [place] [facility] for treatment and advice. Arthroplasty [...] (ICD-10 - M17.0) He was referred to [place] [facility] for treatment and advice. Arthroplasty [...] wait until after his knee surgery. 07/27/2024 Primary osteoarthritis of both knees (ICD-10 - M17.0) He was referred to [place] [facility] for treatment and advice. Arthroplasty of both knees has been recommended. The first will take place next August 14, 2024. 07/27/2024 Acute low back pain, unspecified back pain laterality, unspecified whether sciatica present (ICD-10 - M54.50) He has been treated with dexamethasone and gabapentin heat and rest. Images will be obtained. Followup will be in 3 days. 08/09/2023 BPH (benign prostati c hyperplasia) (ICD-10 [...] a referral to the weight loss clinic [facility], which would include bariatric surgery consultation. He [...] level. He reports a normal libido. 07/27/2024 Morbid obesity (ICD-10 - E66.01) He [...] to wait until after his knee surgery. 08/09/2023 Morbid obesity (ICD-10 - E66.01) In the recent year. He has gaiins in weight. We have discussed diet and nutrition. We have discussed a referral to the weight loss clinic [facility], which would include bariatric surgery consultation. He [...] his lifestyle that could reduce nocturia. 07/27/2024 Testosterone deficiency (ICD-10 - E34.9) He was continued on current therapy.His testosterone levels have been slightly low. He was encouraged to speak with urology about the ideal testosterone level. He reports a normal libido. 08/09/2023 Chest tightness (ICD-10 - R07.89) I [...] 2 weeks. He may need tAdditional medication. 07/27/2024 BPH (benign prostati c hyperplasia) (ICD-10 - N40.0) He rises from sleep once or twice a night to urinate. We discussed modifications to his lifestyle that could reduce nocturia. 09/03/2023 Hypertension (ICD-10 - I10) His [...] of the right arm and good strength. 07/27/2024 Chest tightness (ICD-10 - R07.89) A treadmill test is negative for ischemia. He has not experienced chest tightness recently. 09/03/2023 Chest tightness (ICD-10 - R07.89) A treadmill test is negative for ischemia. He has not experienced chest tightness recently. Plan Of Treatment Pending Test Test Name Order Date PROFILE, FASTING (COMPREHENSIVE METABOLI C) 11/29/2022 PROFILE, FASTING (COMPREHENSIVE METABOLI C) 02/14/2024 PROFILE, FASTING (COMPREHENSIVE METABOLI C) 08/28/2018 PROFILE, FASTING (COMPREHENSIVE METABOLI C) 03/18/2018 PROFILE, [...] Provider Name:Kevin Goel, 07/29/2024 01:30:00 PM, [address] [facility] [address], [place], [address], Provider Name:Kevin Goel, 09/18/2024 09:30:00 AM, [address] [place] [address] [address], [place], [address], Provider Name:Kevin Goel, 02/15/2025 02:30:00 PM, [address] [facility] [address], [place], [address], Insurance Providers Payer Name Payer Address Payer Phone Subscriber Number Group Number Insured Name Patient Relationship to Insured Coverage Start Date Coverage End Date MEDICARE NGS [address] [place] [address] [phone] [id number] Silvio Vasquez Self - patient is the insured [employer] [facility] [address] [place], [place] [id number] [phone] [id number] Silvio Vasquez Self - patient is the insured Medical (General) History Medical History History ICD Code obesity decreased vision tubular adenoma, colonoscopy Q 5 years cerumenosis otitis torn left calf muscle, January 2018, h iking osteoarthritis knees left tibial plateau injury 2017 right ulnar compression 05/2021 torn right triceps tendon 05/2021 Diminished libido December 2021 Surgical History Surgery Date(Month/Year) vasectomy 1993 colonoscopy, [facility], Dr. Kevin Curry, tubular adenoma 2008 colonoscopy, [facility], Dr. Kevin Curry, tubular adenoma 2014 cataract surgery right eye [address] Curry 2020 Right triceps tendon reattachment Ulnar nerve decompression, repair and re routing 11/2021 Cataract Surgery, Left eye 01/2023 No history Knee surgery scheduled for august 14 Hospitalization History Reason Date(Month/Year) No history
--- OUTSIDE RECORDS SUMMARY | 2024-07-29 10:18 | XMS_ITS ---
Author Organization Kevin Goel III, MD Address [address] [place] [address] Care Team Providers Care [employer] Laboratory Technician Name Role Phone Kevin Goel Primary Care Provider [phone] Allergies Allergen (clinical drug ingredient) Drug/Non Drug Allergy documented on EMR Reaction Allergy Type Onset Date Status Shellfish (FN) Shellfish-derived Products Unknown Drug Allergy Active REASON FOR VISIT Telehealth Medications Medication SIG (Take, Route, Frequency, Duration) Notes Start Date End Date Status tylenol 1 tab Oral as needed Active Gabapentin 100 MG 1 capsule Orally thr ee times a day 07/27/2024 Active Tadalafil 5 MG 1 tablet Orally Once a day Active Advil 200 MG 1 tablet with food o r milk as needed Orally Three times a day as needed Active Albuterol Sulfate HFA 108 (90 Base) MCG/ACT 2 puffs Inhalation QID prn wheezing 04/25/2023 Active dexAMETHasone 2 MG 1 tablet Orally ever y 12 hrs 07/27/2024 Active Arnuity Ellipta 100 MCG/ACT Inhalation Active Social History Tobacco Use: Social History Observation Description Date Details (start date - stop date) Never Smoker NA - NA Sex Assigned At : Social History Observation Description Sex Assigned At Male Tobacco Use/Smoking Question Answer Notes Patient is a nonsmoker Additional Findings: Tobacco Non-User Aggressive non-smoker Vital Signs Height 63 in 07/29/2024 Weight 256 lbs 07/29/2024 BMI 45.34 kg/m2 07/29/2024 Encounters Encounter Location Date Provider Diagnosis Kevin Goel III, MD [address] [place] [address] [place] [address] 07/29/2024 Kevin Goel Primary osteoarthrit is of both knees M17.0 Assessments Encounter Date Diagnosis (ICD Code) Assessment Notes Treat ment Notes Treatment Clinical Notes 07/29/2024 Primary osteoarthritis of both knees (ICD-10 - M17.0) He was referred to [place] [facility] for treatment and advice. Arthroplasty of both knees has been recommended. The first will take place next August 14, 2024. Plan Of Treatment Medication Medication Name Sig Start Date Stop Date Notes tylenol 1 tab Oral as needed Gabapentin 100 MG 1 capsule Orally thr ee times a day 07/27/2024 Tadalafil 5 MG 1 tablet Orally Once a day Advil 200 MG 1 tablet with food o r milk as needed Orally Three times a day as needed Albuterol Sulfate HFA 108 (9 0 Base) MCG/ACT 2 puffs Inhalation QID prn wheezing 04/25/2023 dexAMETHasone 2 MG 1 tablet Orally ever y 12 hrs 07/27/2024 Arnuity Ellipta 100 MCG/ACT Inhalation Next Appt Details Provider Name:Kevin Goel, 07/29/2024 01:30:00 PM, [address] [place] [address] [place], [address], Provider Name:Kevin Goel, 09/18/2024 09:30:00 AM, [address] [place] [address] [place], [address], Provider Name:Kevin Goel, 02/15/2025 02:30:00 PM, [address] [place] [address] [place], [address], Progress Notes * Silvio VASQUEZ LDOB: [birth year] (69 yo M)Acc No.[id number]:07/29/2024 Patient:?Silvio VASQUEZ Provider:?Kevin Goel MD :1955???Age:69 Y???Sex:Male Kai e:07/29/2024 Address:[id number] Subjective: * Chief Complaints: * ???1. Telehealth. * HPI: ???:?Telehealth?Location of provider rendering services:?{...} [address] [facility] [address] ?Location of patient:?address listed in demographics for today's visit ?Patient identification confirmed using:?Name, ?Telehealth method:?Telephone only. Patient not visible to care provider. ?Consent:?Patient verbally consented to treatment, Patient verbally consented to billing insurance company, Patient informed of any privacy concerns related to method of visit ?Total time spent with patient (mins)?15 * ROS:?General/Constitutional:?pain?only normal aches and pains.?Chills?denies.?Fatigue?admits.?Fever?denies.?ENT:?Decreased hearing?denies.?Respiratory:?Cough?denies.?Cardiovascular:?Chest [...] December 2021. * Surgical History:?vasectomy 1993, colonoscopy, , Dr. Kevin Curry, tubular adenoma 2008, colonoscopy, , Dr. Kevin Curry, tubular adenoma 2014, cataract [...] Tobacco Non-User?Aggressive non-smoker ???He was born at [place], [place]. He came to [place] at the age of 40. 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 He has 2 sons who are alive and well and one stepdaughter. One son is in the [employer] at [place], [place]. * Medications:?Taking tylenol 1 tab [...] MCG/ACT Aerosol Powder Breath Activated Inhalation , Taking dexAMETHasone 2 MG Tablet 1 tablet Orally every 12 hrs , Taking Gabapentin 100 MG Capsule 1 capsule Orally three times a day , Medication List reviewed and reconciled with the patient * Allergies:?Shellfish-derived Products. Objective: * Vitals:?Ht: 63, Wt:256, BMI: 45.34, Ht-cm: 160.02, Wt-k.12. Assessment: * Assessment: 1.?Primary osteoarthritis of both knees - M17.0???Notes :He was referred to [place] [facility] surgeons for treatment and advice. Arthroplasty of both knees has been recommended. The first will take place next August 14, 2024.??? Plan: * Treatment: 2.?Others? Continue Tadalafil Tablet, [...] Medical or Other reason not done * Images: * The named appointment provid er may or may not be the originator of this progress note, and it is not deemed complete until electronically signed by the appointment provider. Sign off status: Pending * Provider:?Kevin Goel MD Date:?09/2024 Generated for Ricky reis/Luis/Aleisharansmitting on:?07/29/2024 10:17 AM EST History and Physical Notes * HPI (History of Present Illness) Category Sub-Category Detail Notes Telehealth Location of [facility] rendering services:: {...} [address] [place] [id number] Location of patient:: address listed in demographics for today's visit Patient identification confirmed using:: Name, Telehealth method:: Telephone only. [place] ent not visible to care provider. Consent:: Patient verbally c onsented to treatment, Patient verbally consented to billing insurance company, Patient informed of any privacy concerns related to method of visit Total time spent with patient (mins): 15
[2024-08-11 01:18] LABS: Testosterone, Total 122 ng/dL (250-1100)
== END 2024-07-29 09:17 | disposition home or self-care (01) ==
LOC: HO.10HDL 09:16
PROVIDERS: Visit Provider Nurse Practitioner Family
DX: E29.1 Testicular hypofunction (principal); N52.9 Male erectile dysfunction, unspecified
CPT/HCPCS: 36415; 84402; 84403

== ENCOUNTER 2024-08-13 09:47 | Outpatient (AMB) | payer MEDICARE, SELFPAY ==
--- NOTE | 2024-08-13 09:50 | A.OFFVIS_ITS ---
Intake Visit Reasons: 3m/Testo(testo pending) Intake Note: Patient presents today for follow up on testosterone labs Testosterone: 122; Free Testosterone: 16.0 Urology Medication:TADALAFIL Antibiotic Allergy:NONE Blood Thinner:NONE Associate Account Manager Required: No Accompanied by: Self / Same As Patient Allergies No Known Allergies Allergy (Verified 08/13/24 10:17) Medication List - Last Reconciled 08/13/24 by HOLLY Radford albuterol sulfate 90 mcg/actuation inhalation dexamethasone mg PO fluticasone furoate 100 mcg/actuation (Arnuity Ellipta) 1 inh inhalation DAILY fluticasone propionate 110 mcg/actuation 2 puffs inhalation BID gabapentin mg PO 3XD tadalafil (Cialis) 5 mg PO DAILY 90 days testosterone 2 pumps topical DAILY 30 days HPI Comments Details: Silvio is a pleasant 69-year-old male patient of Dr. Goel. He has a past medical history of obesity, osteoarthritis, and tubular adenoma. He presents to the office today for a follow up of his hypogonadism and erectile dysfunction. In discussion with the patient today reports to be doing and feeling well. He discusses having come off his Cialis earlier this week as he has his upcoming knee surgery with JAN Morocho tomorrow. We discussed drop in testosterone despite compliance with 5 mg of Cialis daily. We discussed further treatment options of hypogonadism and risks and benefits of these treatment options. All questions were answered he otherwise denies any bothersome urinary issues. He denies urinary urgency, urinary frequency, incontinence, nocturia, hematuria, dysuria, foul smelling urine, changes to urinary stream, flank pain, fever, and or chills. He is happy with his current voiding parameters. Discussed at length importance of lifestyle modifications with diet, exercise, an adequate sleep. In office urinalysis results reviewed with the patient today. Discussed decrease in testosterone levels and further treatment options of hypogonadism. He would like to continue with low-dose Cialis as he does feel this has been helpful. Patient otherwise offers no issues or concerns at this time. Total Testosterone: 02/15 239, 07/19 234, 09/16 218, 01/16 363, 05/18 242 07/20 223, 08/17 306, 01/17 205, 04/19 237, 08/18 122 Free testosterone: 07/20 41.0, 01/17 24.2, 04/19 35.1, 08/18 16.0 PSA: 02/15 0.5, 05/18 0.4, 07/20 0.6, 05/19 0.6 Plan Discussion centered around addressing the patient's low testosterone through a testosterone gel therapy post-operative discussion with the surgeon in light of impending knee replacement surgery. The therapy is planned to commence once surgical interactions have been clarified. The gel will be applied daily. The patient anticipates benefits in energy, cognition, and weight control. Follow-up blood tests to monitor testosterone, PSA, and CBC are planned three months post- therapy initiation. The approach allows flexibility based on surgical considerations, with an emphasis on the patient?s autonomy in commencing treatment. Patient was informed and verbally consented to the use of an ambient scribe for clinic note documentation during this visit. Discussion Notes I discussed with the patient the current testosterone level of 122, explaining it is the lowest observed. A comprehensive discussion on the impact of low testosterone on memory, physical energy, muscle mass, weight, and cardiovascular health was had. I recommended testosterone replacement therapy via gel based on the patient's preference against alternative methods like injections or testopel. The patient was informed about the benefits of this treatment, including potential improvements in energy and weight management. We also covered associated risks, such as hematological changes, and the necessity for ongoing monitoring after therapy initiation. Follow-up blood tests are scheduled within three months post-initiation. Consent for therapy initiation is pending further discussion with the surgeon to address any contraindications due to the upcoming knee replacement surgery. I emphasized the patient?s autonomy regarding therapy timing and instructed him to seek further surgical consent. [facility] Medical History Diminished libido Left medial tibial plateau fracture Osteoarthritis Otitis Tubular adenoma Decreased vision Morbid obesity Lab test negative for COVID-19 virus Personal history of COVID-19 Surgical History Hx of vasectomy Hx of eye surgery Hx of oral surgery H/O colonoscopy Social History Alcohol intake: current Alcohol intake frequency: 0-2 drinks per day Patient Tobacco Use Status: Never used Tobacco Review of Systems Const All systems reviewed & are unremarkable except as noted in HPI and below Reports no additional complaints Eyes Reports no additional complaints ENT Reports no additional complaints Card Reports no additional complaints Resp Reports no additional complaints GI Reports no additional complaints Reports as per HPI Musc Details: Patient reports torn left calf muscle while hiking few years ago, torn right bicep tendon, and right ulnar compression. He also reports arthritis of both knees. Neuro Reports no additional complaints Psych Reports no additional complaints Endo Reports no additional complaints Reymundo/Lymph Reports no additional complaints Aller/Immun Reports no additional complaints Physical Exam Const General: cooperative, healthy appearing, comfortable, no acute distress, well developed, alert and awake Nutritional Appearance: overweight Orientation/consciousness: patient oriented x3 Limitations: no limitations HEENT Head: Yes normal to inspection, Yes normocephalic and Yes atraumatic Ears: hearing grossly normal bilaterally Eyes General: appearance normal, both eyes and all related structures Neck Neck: Yes normal visual inspection and Yes trachea midline Chest Chest palpation & inspection: normal inspection of the chest Resp Effort & Inspection: normal respiratory effort and able to speak in complete sentences Cardio Rate: regular rate GI Inspection: Yes normal to inspection General: Yes no CVA tenderness Back/Spine/Pelvis Back: no CVA tenderness Skin General skin exam: no rashes or lesions noted Neuro General: patient oriented x3 Extrem General: Yes normal to inspection Psych Appearance: grossly normal and well kempt Mental Status: mental status grossly normal Speech and movement: Normal speech and movement present and Clear speech present Affect: normal affect Attitude: cooperative Thought process: Normal thought process present Thought content: Normal thought content present Insight: Fair insight present (Psych) Judgement: Fair judgement present (Psych) Results AMB Urinalysis, Automated UA Leukoctes 0 Bola/uL Last Edit by Montse Sharma on 08/13/24 10:37 UA Nitrite Last Edit by Montse Sharma on 08/13/24 10:37 UA Urobilinogen 0.2 mg/dL Last Edit by Montse Sharma on 08/13/24 10:37 UA Protein 15 mg/dL Last Edit by Montse Sharma on 08/13/24 10:37 UA pH 5.5 Last Edit by Montse Sharma on 08/13/24 10:37 UA Blood 0 Samuel/uL Last Edit by Montse Sharma on 08/13/24 10:37 UA Specific Snelling 1.025 Last Edit by Montse Sharma on 08/13/24 10:37 UA Ketone Negative Last Edit by Montse Sharma on 08/13/24 10:37 UA Bilirubin 0 mg/dL Last Edit by Montse Sharma on 08/13/24 10:37 UA Glucose 250 mg/dL Last Edit by Montse Sharma on 08/13/24 10:37 Assessment & Plan Assessment & Plan (1) Hypogonadism in male: Code(s): E29.1 - Testicular hypofunction Category: Medical Plan In office urinalysis results with the patient today; as noted above. Recent testosterone results were reviewed with the patient today; as noted above. We discussed at length potential causes of hypogonadism as well as further treatment options and risks and benefits of these treatment options. We discussed importance of lifestyle modifications to assist with hypogonadism Patient currently denies any bothersome urinary issues or concerns. He reports be happy with current voiding parameters. Start testosterone as discussed and prescribed. Will obtain testosterone free and total, CBC, and PSA in 3 months. Follow-up in 3 months with labs to be completed prior; or sooner with any issues, concerns, and or questions. Orders: Orders Testosterone, Free/Total 3 Months E29.1 - Testicular hypofunction AMB Urinalysis Automated Today Z13.9 - Encounter for screening, unspecified Complete Blood Count no Diff 3 Months E29.1 - Testicular hypofunction Prostate Specific Antigen 3 Months E29.1 - Testicular hypofunction Medications: New testosterone apply 2 pumps over max area - alternate shoulders on alternate days 2 pumps topical DAILY 30 days 75 grams 3RF E29.1 - Testicular hypofunction, R79.89 - Other specified abnormal findings of blood chemistry Patient Instructions: The patient had an opportunity to ask questions regarding the treatment plan. All questions were answered. Physical exam, labs, and imaging were discussed and reviewed in detail. As well as risks, benefits, and discussion of treatment choices. No major barriers to understanding were identified. The patient expressed understanding and agreement with the above treatment plan. The patient was made aware they should contact our office by phone for worsening of their current condition, the appearance of new symptoms, or with any questions or concerns. Compliance is encouraged with any medications and follow up testing that is ordered. It is a privilege to be allowed the opportunity to participate in? your urological care.? Again, if you have any questions or concerns If you have any questions or concerns please do not hesitate to contact me. The office is [phone]. This note is constructed using voice recognition software. While every effort has been made to ensure accuracy soldering machine feeder errors may have been included. Yours sincerely, HOLLY Radford Coding Level of Care Code Est Pt Level 4 (11775) Complex EM visit Add On G2211 Diagnoses Hypogonadism in male E29.1
--- OUTSIDE RECORDS SUMMARY | 2024-08-13 10:54 | XMS_ITS | Data Portability ---
Author Organization [facility], [facility] Address [address] [place] [address] Care Team Providers Care Barrel Painter Name Role Phone TOSHIA HOWE Referring Provider [phone] Assessment Encounter Date Assessment Date Assessment LastModified by Organization Details LastModified Time 01/16/2024 01/16/2024 I am seeing the patient today under the supervision of Dr. Martinez Who was available but who did not see the patient. HPI: Patient comes in for recheck of left knee pain. Has known osteoarthritis in the medial compartment of the knee(s). Been treated conservatively with cortisone injection to this point with 3 months relief of symptoms. No new injury or modalities. Past family, medical, social history and review of systems has been reviewed, updated and is located in the patient? s chart. Examination:The patient is well appearing and in no apparent distress. Alert and oriented x3. Vital signs per intake sheet. Examination of the left knee reveals no effusion erythema or warmth. Decreased range of motion. Varus deformity. Point tender over the medial joint line. Calf soft and nontender. 4+/5 strength of knee flexion extension.. X-rays were ordered, obtained and reviewed including 4 views of the left knee demonstrates severe medial compartment narrowing unchanged from previous. Small calcification noted in distal MCL distribution unchanged from previous. Patella tracking within the trochlea. No obvious fractures, loose bodies or dislocations. Impression: Osteoarthritis, left knee Plan: Nature of the diagnosis discussed with the patient today. Both surgical and nonsurgical options were reviewed. Conservative measures were discussed at length including but not limited to physical therapy, bracing, anti-inflammatorie s and injection therapies. Please see the procedure note for documentation about the injection performed today. Follow-up with us in 3 months for discussion of continued conservative management versus surgical management. [email or web address] Not available 01/16/2024 11:56:55 04/16/2024 04/16/2024 I am seeing the patient today under the supervision of Dr. Burrows Who was available but who did not see the patient. HPI: Patient comes in for recheck of left knee pain. Has known osteoarthritis in the medial compartment of the knee(s). Been treated conservatively with cortisone injection to this point with 1-2 months relief of symptoms. Patient has continued to have difficulty with hiking activities. He feels as if this has become worse over the past several months. No new injury or modalities. Past family, medical, social history and review of systems has been reviewed, updated and is located in the patient? s chart. Examination:The patient is well appearing and in no apparent distress. Alert and oriented x3. Vital signs per intake sheet. Examination of the left knee reveals no effusion erythema or warmth. Decreased range of motion. Varus deformity. Point tender over the medial joint line. Calf soft and nontender. 4+/5 strength of knee flexion extension.. X-rays were reviewed including 4 views of the left knee demonstrates severe medial compartment narrowing unchanged from previous. Small calcification noted in distal MCL distribution unchanged from previous. Patella tracking within the trochlea. No obvious fractures, loose bodies or dislocations. Impression: Osteoarthritis, left knee Plan: Nature of the diagnosis discussed with the patient today. Both surgical and nonsurgical options were reviewed. Conservative measures were discussed at length including but not limited to physical therapy, bracing, anti-inflammatorie s and injection therapies. Would like to meet with one of our total joint surgeons. Please see the procedure note for documentation about the injection performed today. Follow-up with us as scheduled for discussion of continued conservative management versus surgical management. [email or web address] Not available 04/16/2024 10:00:03 05/25/2024 05/25/2024 Chief complaint: Left knee pain. History of present illness: The patient is a 69-year-old male presenting with a chief complaint of left knee pain. He has had pain for 2 years. The patient currently has 1-10 out of 10 pain. Currently the patient uses a brace when walking. The patient has tried rest, NSAIDS, physical therapy, corticosteroid injection, exercise, and activity modification but continues to have pain. Past medical history: Past medical history reviewed from the patient's intake sheet. Pertinent positives: none Past surgical history: Past surgical history reviewed from the patient's intake sheet. Pertinent positives: none Allergies: Allergies reviewed from the patient's intake sheet. Pertinent positives: none Medications: Medications reviewed from the patient's intake sheet. Pertinent positives: none Social history: Social history reviewed from the patient's intake sheet. Pertinent positives: none Physical Examination: The patient is in no acute distress. He is alert and oriented x3. He has nonlabored breathing. His hearing is intact to spoken word. His extra-ocular motion is intact. His BMI is 42.1. Left lower extremity - Alignment: varus Effusion: moderate Knee range of motion: 0-110 Varus/valgus stress testing: moderate laxity Crepitus: slight Skin is intact without erythema, induration, or ecchymosis. The patient has full painless range of motion at the ipsilateral hip. Sensation is intact to light touch over the dorsum of the foot, in the first webspace, and over the plantar aspect of the foot. The patient has 5/5 strength with plantarflexion of the ankle, dorsiflexion of the ankle, plantarflexion of the great toe, and dorsiflexion of the great toe. The foot is warm and well-perfused with brisk capillary refill. There is a 2+ dorsalis pedis pulse. Radiographs: 4 views of the left knee including bilateral knee AP, bilateral knee Landers, left knee lateral, and bilateral knee merchant views were obtained and evaluated in the office previously and are available for review. X-rays demonstrate that the patient has end-stage osteoarthritis of the left knee with joint space narrowing, subchondral sclerosis, and osteophyte formation. There is no evidence of fracture. Assessment and plan: The patient is a 69-year-old male presenting with a chief complaint of left knee pain. He demonstrates end-stage osteoarthritis of the left knee on his radiographs. At this point, the patient has failed non-operative treatment of his left knee osteoarthritis. The patient has tried NSAIDs, rest, exercise, physical therapy, corticosteroid injection, and activity modification but continues to have worsening pain for greater than 3 months. A thorough discussion was had with the patient regarding both nonsurgical and surgical interventions for treatment of left knee osteoarthritis. Since the patient has experienced worsening pain despite conservative treatment, the patient wished to proceed with surgery. The nature of knee replacement surgery, the potential risks, benefits, complications, the magnitude of the surgery, the intensity of postoperative recovery, and the elective nature of a left total knee arthroplasty were discussed at length. Risks and complications discussed included postoperative stiffness, infection requiring further surgery or potential removal of implants, persistent infection requiring possible amputation, wound healing complications, instability, dislocation, need for additional surgery or revision arthroplasty, aseptic loosening, extensor mechanism disruption, implant failure, injury to nerve, foot drop, numbness, numbness over the lateral knee, injury to blood vessel, bleeding, hematoma, need for transfusion, fracture, heart attack, stroke, deep vein thrombosis, pulmonary embolism, and even intraoperative or postoperative . Despite these risks, the patient still wished to proceed with surgery. The patient was instructed that I am happy to meet again at any time in order to review any additional questions or concerns the patient might have. Since the patient wishes to proceed, we will schedule the patient for a left total knee arthroplasty. The patient will require clearance from a medical doctor prior to surgery. The next planned follow-up is at the preoperative history and physical appointment. [email or web address] Not available 06/01/2024 06:40:34 07/30/2024 07/30/2024 Assessment: Patient presents with symptoms that are consistent with knee OA. Demonstrates good understanding of home program, post-operative mechanics for gait and stairs, and expectations following surgery. Plan: Discharge patient to knee [facility]. Follow up with patient post-operatively. [email or web address] Not available 07/30/2024 12:41:26 08/10/2024 08/10/2024 PRIMARY DIAGNOSI S: Osteoarthritis of the left knee. REASON FOR ADMISSION: The patient is being admitted for a left total knee arthroplasty by Dr. Darryl Daly on 08/14/2024. HISTORY OF PRESENT ILLNESS: Mr. Vasquez is a pleasant 69-year-old gentleman who presents today for surgical history and physical prior to undergoing a left total knee arthroplasty by Dr. Darryl Daly on 08/14/2024. He has a known longstanding history of left knee osteoarthritis and has undergone a lengthy course of conservative management and generalized failure of nonsurgical options. His pain is severe and worsens with activity, has gotten to the point where it is significantly interfering with his ability to perform activities of daily living as well as daily social tasks. He is now interested in pursuing a left total knee arthroplasty by Dr. Daly on 08/14/2024. PAST MEDICAL HISTORY: 1. Osteoarthritis of the left knee. 2. Obesity with a BMI of 42.87. 3. History of a chronic cough. 4. Hip and back pain for which he is taking dexamethasone 2 mg twice a day which was given to him by his PCP. He states that he has this medication until 08/17/2024. PAST SURGICAL HISTORY: Right biceps tendon and ulnar nerve repair after a hiking accident. CURRENT MEDICATIONS: 1. Arnuity Ellipta inhaler 100 mcg powder every 24 hours. 2. Dexamethasone 2 mg tablet he takes 4 mg twice a day. 3. Gabapentin 100 mg capsule 3 times a day. 4. Ibuprofen 200 mg capsule he takes two every 6 hours, which he has stopped in preparation for surgery. 5. Naproxen 500 mg tablet twice a day, which he will stop in preparation for surgery. 6. Tadalafil 2.5 mg tablet as needed, which he will hold in preparation for surgery. 7. Tylenol 1300 mg every 8 hours. ALLERGIES: SHELLFISH CAUSES GI UPSET. SOCIAL HISTORY: He is engaged. He denies tobacco or illicit drug use. He states that he has occasional alcohol use. PHYSICIANS: The patient's primary care physician is Dr. Toshia Howe. REVIEW OF SYSTEMS: The patient's 12-point review of systems is negative unless mentioned in HPI. PHYSICAL EXAMINATION: VITAL SIGNS: Weight is 249 pounds. GENERAL: Alert and oriented. Normal insight, affect, and grooming. SKIN: Intact without rash or lesions. Nails without clubbing or cyanosis. HEENT: Normocephalic. Conjunctivae pink. Sclerae are anicteric. NECK: Supple. LUNGS: Per medicine clear to auscultation. HEART: Per medicine has regular rate and rhythm. ABDOMEN: Soft. EXTREMITIES: Orthopedic exam shows left knee range of motion is 0-110 degrees. There is moderate laxity with varus and valgus stress testing. There is slight crepitus. There is 2+ dorsalis pedis pulse. There is normal sensation bilateral lower extremities. There is 5/5 strength with ankle plantarflexion and ankle dorsiflexion. The patient ambulates with an antalgic gait pattern favoring the left side. PREOPERATIVE DIAGNOSTIC DATA: Orthopedic x-rays demonstrate left knee end-stage osteoarthritis with joint space narrowing, subchondral sclerosis and osteophyte formation. EKG which was done at the medicine preoperative clinic shows sinus bradycardia with a heart rate of 51. LABORATORY DATA: CBC, coags and chemistries were reviewed and are satisfactory for surgery. His white blood cell count was 18. His glucose level is 112 with a hemoglobin A1c of 6.6. GFR was 93. Medicine did review the elevated white blood cell count and felt it is most probably due to steroid exposure. ASSESSMENT AND PLAN: The patient has advanced osteoarthritis of the left knee and is now scheduled for a left total knee arthroplasty with Dr. Daly on 08/14/2024. He was seen by the medicine preoperative clinic, who deemed him to be a low cardiovascular and a low pulmonary risk. They did feel that as he is currently taking dexamethasone, he is at risk for secondary adrenal insufficiency and they recommended that he be evaluated by anesthesia the day of surgery for possible stress dose steroids. He will receive IV TXA and be placed on aspirin postoperatively for DVT prophylaxis. Due to his elevated hemoglobin A1c, we will monitor point of care and order sliding scale insulin. He will be on cefadroxil postop to prevent infection. Discharge plans will be to home with services. He would like to stay overnight after surgery. He has been counseled regarding risks, benefits of the proposed procedures. Questions have been answered and he acknowledges understanding. The patient wished to proceed with a left total knee arthroplasty by Dr. Darryl Daly on 08/14/2024. CONTACTS: His Minnie pope at [phone]. Prescriptions given at the time of history and physical today include Celebrex. He will require prescription for aspirin, pantoprazole, Colace, pain medication, Zofran and cefadroxil at the time of discharge. [email or web address] Not available 08/11/2024 14:58:42 Plan of Treatment Reminders Order Date Submit Date Provider Last Modified By Organization Details Last Modified Time Details Appointments [place] [facility] [place] 07:30A M Darryl oHu MD Not available Not available Not available PT INITIAL EVAL 2024 11:00A Samia Ortiz PT Not available Not available Not available PT FOLLOW-UP 2024 11:00A M Jaymie Ortiz, PT Not available Not available Not available RECHECK 15 2024 01:00P M True Hebert, PA-C Not available Not available Not available PT FOLLOW-UP 2024 11:00A M Jaymie Dickersond, PT Not available Not available Not available PT FOLLOW-UP 2024 10:00A M Dyan Katherin, CLAM PICKER Not available Not available Not available PT FOLLOW-UP 2024 01:00P M Jaymie Dickersond, PT Not available Not available Not available PT FOLLOW-UP 2024 11:00A M Dyan Katherin, CLAM PICKER Not available Not available Not available PT FOLLOW-UP 2024 11:00A M Jaymie Dickersond, PT Not available Not available Not available PT FOLLOW-UP 2024 11:00A M Jaymie Dickersond, PT Not available Not available Not available PT FOLLOW-UP 2024 11:00A M Dyan Katherin, CLAM PICKER Not available Not available Not available PT FOLLOW-UP 2024 11:30A M Dyan Katherin, CLAM PICKER Not available Not available Not available RECHECK 15 2024 10:45A M Darryl Hou MD Not available Not available Not available PT FOLLOW-UP 2024 10:30A M Dyan Katherin, CLAM PICKER Not available Not available Not available PT FOLLOW-UP 2024 11:00A M Jaymie Dickersond, PT Not available Not available Not available PT FOLLOW-UP 2024 11:00A M Dyan Katherin, CLAM PICKER Not available Not available Not available PT FOLLOW-UP 2024 11:00A M Dyan Katherin, CLAM PICKER Not available Not available Not available PT FOLLOW-UP 2024 11:00A M Dyan Katherin, CLAM PICKER Not available Not available Not available PT FOLLOW-UP 2024 11:00A M Dyan Katherin, CLAM PICKER Not available Not available Not available Lab None recorded. Referral None recorded. Procedures None recorded. Surgeries None recorded. Imaging XR, knee, 4 or more view - recheck left knee pain patient fell room 115 2023 024 [email or web address], [address], [place], [address], 02/08/2024 12:42:46 Medication Orders Celebrex 200 mg capsule 2024 025 [email or web address] [facility] [id number], [address] [place], [address], 08/11/2024 14:58:41 Patient TargetsNo targets recorded. Patient InstructionsNo instructions recorded. Reason for Referral None Reported. Results Created Date Observation Date Name Description Value Unit Range Abnormal Flag Note LastModifiedBy Organization Detail LastModifiedTime 01/16/20 24 01/16/2024 XR, knee, 4 or more view [email or web address] ?Encry pted=s hAaTro YD8dLq bEUv6g %2BXZw aYqtaq 0bqfl% 2Fg9IQ a4ajBk vP9nXo QUaueC m3YtLR FvZlgJ JJ8mAn HZtai3 4b2968 AC0Kra HmNVKP eUC8mr 84%3D [facility] [address], [place], [address], 01/16/2024 11:27:15 01/16/20 24 01/16/2024 XR, knee, 4 or more view [email or web address] ?Encry pted=s hAaTro YD8dLq bEUv6g %2BXZw aYqtaq 0bqfl% 2Fg9IQ a4ajBk vP9nXo QUaueC m3YtLR FvZl JJ8mAn HZtai3 9v6779 AC0Kra HmNVKP eUC8mr 84%3D [facility] [address], [place], [address], 01/16/2024 11:27:17 01/25/20 24 10/27/2021 imagi ng/di agnos tic resul t No observ ation record ed. [email or web address] Not Available 12/27 10:04:54 01/25/20 24 07/03/2021 imagi ng/di agnos tic resul t No observ ation record ed. [email or web address] Not Available 12/27 10:05:00 01/25/20 24 07/03/2021 imagi ng/di agnos tic resul t No observ ation record ed. [email or web address] Not Available 12/27 10:05:01 01/25/20 24 08/18/2021 imagi ng/di agnos tic resul t No observ ation record ed. [email or web address] Not Available 12/27 10:05:05 Result Notes None recorded. Procedures Surgical History Date Name Laterality Status Provider Name and Address Organization Details Recorded Time 5 90581: Low complexity PT Eval completed Jaymie Ortiz, PT [address], [place], [address], [facility] 07/30/2024 12:41:14 5 G8417 BMI Above Upper Parameters, F/U Documented completed Jaymie Ortiz, PT [address], [place], [address], [facility] 07/30/2024 12:41:51 5 G8427 Current Medication Documented completed Jaymie Ortiz, PT [address], [place], [address], [facility] 07/30/2024 12:41:48 4 Sports Knee 4&1 completed Brent Caballero PA-C [address], [place], [address], [facility] 04/16/2024 09:58:49 4 Sports Knee Asp & Inj completed Brent Caballero PA-C [address], [place], [address], [facility] 01/16/2024 11:38:37 4 Sports Knee 4&1 completed Brent Caballero PA-C [address], [place], [address], [facility] 10/14/2023 08:00:33 4 73023 Therapeutic Exercise (1:1) completed Tati Castillo, PT [address], [place], [address], [facility] 10/01/2023 13:37:50 4 76218 Therapeutic Exercise (1:1) completed Tati Castillo, PT [address], [place], [address], [facility] 09/24/2023 07:16:26 4 73085 Therapeutic Exercise (1:1) completed Tati Castillo, PT [address], [place], [address], [facility] 09/16/2023 10:21:29 4 22992 Therapeutic Exercise (1:1) completed Dyan Pandey, CLAM PICKER [address], [place], [address], [facility] 09/10/2023 11:50:45 4 90301 Therapeutic Exercise (1:1) completed Tati Castillo, PT [address], [place], [address], [facility] 09/03/2023 10:49:11 4 18342 Therapeutic Exercise (1:1) completed Tati Castillo, PT [address], [place], [address], [facility] 08/26/2023 23:38:08 4 10404 Therapeutic Exercise (1:1) completed Tati Castillo, PT [address], [place], [address], [facility] 08/19/2023 10:37:12 4 49139 Therapeutic Exercise (1:1) completed Tati Castillo, PT [address], [place], [address], [facility] 08/13/2023 09:50:35 4 99501 Therapeutic Exercise (1:1) completed Tati Castillo, PT [address], [place], [address], [facility] 08/09/2023 14:50:16 4 24699: Moderate complexity PT eval completed Tati Castillo, PT [address], [place], [address], [facility] 08/09/2023 14:50:23 4 G8417 BMI Above Upper Parameters, F/U Documented completed Tati Castillo, PT [address], [place], [address], [facility] 08/09/2023 08:29:09 4 G8427 Current Medication Documented completed Tati Castillo, PT [address], [place], [address], [facility] 08/09/2023 08:28:57 Imaging Results Imaging Date Name Status LastModified by Organiz ation Details LastModified Time 01/16/2024 XR, knee, 4 or more view completed [facility] [address], [place], [address], 01/16/2024 11:27:15 01/16/2024 XR, knee, 4 or more view completed [facility] [address], [place], [address], 01/16/2024 11:27:17 10/27/2021 imaging/diag nostic result completed Information not available 01/25/2024 10:04:54 07/03/2021 imaging/diag nostic result completed Information not available 01/25/2024 10:05:00 07/03/2021 imaging/diag nostic result completed Information not available 01/25/2024 10:05:01 08/18/2021 imaging/diag nostic result completed Information not available 01/25/2024 10:05:05 Procedure Notes None recorded. Medical Equipment None Reported. Allergies Allergen ID Allergen Name Allergen Category Reaction Reaction Severity Criticality Documentation Date Start Date Code Code System Note Provider Name and Address Organization Details Recorded Time 58959 Shellfish (substanc e) food,medi cation Not available Not available Not available 07/29/20232022 25753 9006 SNOMED Not Available [facility] 11:24:33 Medications Name Sig Start Date Stop Date Status Note LastModified by Organization Details LastModified Time prednisone 20 mg tablet 10/13 completed Not Available Not Available Not Available ketorolac 0.5 % eye drops 10/13 completed Not Available Not Available Not Available Celebrex 200 mg capsule Take 1 capsule every day by oral route as directed for 33 days, for START 3 DAYS BEFORE SURGERY. 2024 active Not Available Not Available Not Avai lable prednisolon e acetate 1 % eye drops,suspe nsion 10/13 completed Not Available Not Available Not Available dexamethaso ne 2 mg tablet active Not Available Not Available Not Available gabapentin 100 mg capsule active Not Available Not Available Not Available albuterol sulfate HFA 90 mcg/actuati on aerosol inhaler 04/16 completed Not Available Not Available Not Available fluticasone propionate 110 mcg/actuati on HFA aerosol inhaler 04/16 completed Not Available Not Available Not Available tadalafil 5 mg tablet Take 1 tablet every day by oral route. active Not Available Not Available No t Available oxycodone HCl-oxycodo ne-ASA as directed 1-2 TABLETS EVERY 4-[address] WHILE TAKING THIS MEDICATIO N 10/13 completed Statu s: 'Curr ent'; Not Available Not Available Not Available Arnuity Ellipta 100 mcg/actuati on powder for inhalation active Not Available Not Available N ot Available Vitals Date Recorded Body height Body mass index (BMI) Body weight Provider Name and Address Organization Details Last Updated DateTime 01/16/2024 162.56 cm 40 kg/m2 215597.02 g KAYLIA L'HEUREUX [facility] 01/16/2024 11:18:45 Date Recorded Body height Body mass index (BMI) Body weight Provider Name and Address Organization Details Last Updated DateTime 04/16/2024 162.56 cm 40 kg/m2 215523.02 g KAYLIA L'HEUREUX [facility] 04/16/2024 09:39:55 Date Recorded Body height Body mass index (BMI) Body weight Provider Name and Address Organization Details Last Updated DateTime 05/25/2024 162.56 cm 42.1 kg/m2 072297.13 g SILVA CAMPOVERDEA [facility] 05/25/2024 14:45:19 Date Recorded Body height Body mass index (BMI) Body weight Provider Name and Address Organization Details Last Updated DateTime 07/30/2024 162.56 cm 42.1 kg/m2 422631.13 g Jaymie Ortiz, PT [address], [place], [address], [facility] 07/30/2024 12:41:37 Date Recorded Body height Body mass index (BMI) Body weight Provider Name and Address Organization Details Last Updated DateTime 08/10/2024 162.56 cm 42.7 kg/m2 469304.5 g JULIAN VALIENTE [facility] 08/10/2024 11:31:40 Social History Question Answer Notes LastModified by Organizat ion Details LastModified Time Tobacco Smoking Status Never Smoker DEEJAY L'HEUREUX [place] [facility] 10/14/2023 14:10:46 What Is Your Level Of Alcohol Consumption? Occasional Information not available 10/14/2023 How Many Times Per Week Do You Consume Alcohol? Less Than 1 Time Per Week Information not available 10/14/2023 Have You Ever Been Counseled For Unhealthy Alcohol Use? No Information not available 10/14/2023 What Is Your Relationship Status? Information not available 10/14/2023 Do You Use Any Illicit Or Recreational Drugs? No Information not available 10/14/2023 Do You Or Have You Ever Used Any Other Forms Of Tobacco Or Nicotine? No Information not available 10/14/2023 Sex: Unknown Functional Status None recorded. Mental Status None recorded. Family History Nothing Reported. Medical History Condition Response Allergies/Hayfever N Coronary Artery Disease N Breathing or lung disorders N Anxiety/Depression N Emphysema N Nerve Disorders N Thyroid Problems N COPD N Pacemaker N Kidney/Bladder Problems N Anemia N Vascular Disease N Heart Trouble N Gastrointestinal Disease N Heart Attack ([place]) N Cholesterol N Diabetes N Autoimmune disease N Bleeding Disorder N Inflammatory Joint disease N Orthotics N Arthritis Y Seizures/Epilepsy N Blood Clot N AIDS/HIV N Congestive Heart Failure (CHF) N Acid Reflux (GERD) N Cancer N Stroke N Asthma N Circulation Problems N Peripheral Vascular Disease N Sleep Apnea N Hepatitis N Heart Disease N Rheumatoid Arthritis N Arrhythmia N Pulmonary Embolism N Headaches N Fibromyalgia N Hypertension N Osteoporosis N Past Encounters Encounter ID Performer Location Encounter Start Date Encounter Closed Date Diagnosis/Indication Diagnosis SNOMED-CT Code Diagnosis ICD10 Code Diagnosis Note [id number] Brent Caballero PA-C [facility] on PT [address] [place] [address] 08/09/2023 08:18:50 08/09/2023 13:35:00 Osteoarthritis of left knee joint 9467389896 27149 M17.12 [id number] Tati Castillo, [facility] on [address] [address] 08/13/2023 09:03:56 08/13/2023 10:35:14 Osteoarthritis of left knee joint 0485502095 45037 M17.12 [id number] Tati Castillo [facility] on PT [address] [place] [address] 0 08/20/2023 09:28:43 08/20/2023 13:35:46 Osteoarthritis of left knee joint [id number] 55966 M17.12 [id number] Tati Castillo [facility] on PT [address] [place] [address] 08/27/2023 09:07:04 08/27/2023 11:06:33 Osteoarthritis of left knee joint 1443713603 07819 M17.12 [id number] Tati Castillo PT [facility] PT [address] [place] [address] [place] [address] 09/03/2023 09:09:19 09/03/2023 10:51:44 Osteoarthritis of left knee joint 3697635482 10408 M17.12 [id number] Tati Castillo, PT [facility] [address] [place] [address] 09/10/2023 10:34:43 09/10/2023 12:25:56 Osteoarthritis of left knee joint 4612142340 17996 M17.12 [id number] Tati Castilol, PT [facility] [address] [place] [address] 09/17/2023 08:36:15 09/17/2023 11:31:07 Osteoarthritis of left knee joint 8422362306 12200 M17.12 [id number] Tati Castillo, PT [facility] [address] [place] [address] 09/24/2023 09:35:05 09/24/2023 10:36:44 Osteoarthritis of left knee joint 5205104160 31542 M17.12 [id number] Tati Castillo, PT [facility] [address] [place] [address] 10/01/2023 09:41:58 10/01/2023 11:27:39 Osteoarthritis of left knee joint 1288549006 53237 M17.12 [id number] HOMERO Veganie [address] [place] [place] [address] 10/14/2023 14:01:24 11/04/2023 12:00:11 Osteoarthritis of left knee joint 5280708409 44789 M17.12 [id number] Brent Caballero PA-C [facility] [address] [place] [address] 01/16/2024 11:11:52 02/08/2024 12:42:46 Osteoarthritis of left knee joint 6087492850 06235 M17.12 [id number] Brent Caballero PA-C [facility] [address] [place] [address] 04/16/2024 09:32:09 05/15/2024 21:39:05 Osteoarthritis of left knee joint 0140546779 37403 M17.12 [id number] MD Chet Rogers [address] [place] [address] 05/25/2024 14:37:19 06/09/2024 08:41:22 Osteoarthritis of left knee joint 0838488241 92094 M17.12 [id number] Darryl Hou MD [facility] [address] [place] [address] 07/30/2024 08:53:18 07/30/2024 10:05:00 Osteoarthritis of knee 112777098 M17.12 [id number] THERESE Connolly [address] [place] [address] 08/10/2024 11:23:42 08/11/2024 14:58:55 Osteoarthritis of left knee joint 6257697893 89222 M17.12 Health Concerns Section Related Observation LastModified by Organization Detai ls LastModified Time None Recorded Concern Status LastModified by Organization Details LastModified Time None Recorded Advance Directives Directive None Recorded Payers Encounter Date Sequence Insurance Name Policy Number Policy Paez Covered Member ID Paez Member ID Guarantor Name 01/16/2024 1 [place] [employer] [employer] Silvio Vasquez [id number] Silvio Granados Pedro 01/16/2024 2 [place] [id number] Silvio Vasquez [id number] Silvio Vasquez 04/16/2024 1 [place] Silvio Vasquez [id number] Silvio Vasquez 04/16/2024 2 [place] [id number] Silvio Vasquez [id number] Silvio Vasquez 05/25/2024 1 [place] [employer] [place] Silvio Vasquez [id number] Silvio Vasquez 05/25/2024 2 [place] [id number] Silvio Vasquez [id number] Silvio Vasquez 07/30/2024 1 [place] [employer] [place] Silvio Vasquez [id number] Silvio Vasquez 07/30/2024 2 [place] [id number] Silvio Vasquez [id number] Silvio Vasquez 08/10/2024 1 [place] [facility] Silvio Vasquez [id number] Silvio Vasquez 08/10/2024 2 [place] [id number] Silvio Vasquez [id number] Silvio Vasquez Notes Date Note Type Note Provider Name and Address Organization Details Recorded Time 07/30/2024 text/html Patient is a 69 year old male, with chronic history of knee pain and OA. Does have some lower back pain today as well. Presents today for prehab visit for scheduled left TKA on 08/14/24. Arrives today ambulating without AD. Reviewed post-operative mobility and mechanics with appropriate assistive device. Has 2 story home and lives alone. Has fiance who will be around. Demonstrates good understanding of post-operative expectations and HEP. 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 Functional limitations include restricted knee ROM, difficulty ambulating community distances, and pain navigating stairs. Jaymie Ortiz, PT [address], [place], [address], [facility] 07/30/2024 12:44:57
--- OUTSIDE RECORDS SUMMARY | 2024-08-13 10:55 | XMS_ITS ---
Author Organization Kevin Goel III, MD Address [address] [place] [address] Care Team Providers Care Product Planner Name Role Phone Kevin Goel Primary Care Provider [phone] Allergies Allergen (clinical drug ingredient) Drug/Non Drug [...] Date Provider Diagnosis Kevin Goel III, MD [address] [place] [address] DR ALANIZ, GREGORIO [address] 07/27/2024 Kevin Goel Primary osteoarthrit is of [...] (ICD-10 - M17.0) He was referred to [place] [facility] for treatment and advice. Arthroplasty [...] 2 puffs Inhalation QID prn wheezing 04/25/2023 Next Appt Details Follow Up: TV sat/, In a week, Reason: TV, To monitor the patient's progress Provider Name:Kevin Goel, 09/18/2024 09:30:00 AM, [address] [place] [address] DWAIN MARTINEZ, [place], [address], Provider Name:Kevin Goel, 02/15/2025 02:30:00 PM, [address] [place] [address] DWAIN MARTINEZ, [place]ON[place], [address], Progress Notes * Silvio VASQUEZ LDOB: [birth year] (69 yo M)Acc No.[id number]:07/27/2024 Patient:?Silvio VASQUEZ Provider:?Kevin Goel MD :1955???Age:69 Y???Sex:Male Kai e:07/27/2024 Address:[address] [place] [address] [place] Subjective: * Chief Complaints: * ???Low back [...] mood?denies.? * Medical History:? * Surgical History:?vasectomy 1994colonoscopy, [facility], Dr. Kevin Curry, tubular adenoma 2008colonoscopy, [facility], Dr. Kevin Curry, tubular adenoma 2015cataract surgery [...] Tobacco Non-User?Aggressive non-smoker ???He was born at [place], [place]. He came to [place] at the age of 40. 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 He has 2 sons who are alive and well and one stepdaughter. One son is in the [employer] [place], [place]. * Medications:?Takingtylenol 1 tab Oral [...] - M17.0 (Primary)???Notes :He was referred to [place] [facility] for treatment and advice. Arthroplasty [...] Goel MD Date:?07/2024 Generated for Ricky reis/Luis/eTransmitting on:?08/13/2024 10:54 AM EDT History and Physical Notes * HPI (History [...]
--- OUTSIDE RECORDS SUMMARY | 2024-08-13 10:55 | XMS_ITS | Patient Health Record ---
Author Organization Kevin Goel III, MD Address [address] [address] Care Team Providers Care Rehab Rn Name Role Phone Kevin Goel Primary Care Provider [phone] Allergies Allergen (clinical drug ingredient) Drug/Non Drug [...] 0.2 - 1.3 BLD Negative Negative - XR chest 2V Reviewed date:02/24/2024 08:25:07 AM Interpretation: Performing Lab: Notes/Report: [facility] [address] [place] [address] XRay Report Signed Patient: Silvio Vasquez MR#: [id number] 84 : 1955 Acct:[id number] Age/Sex: 68 / M ADM Date: 11/07/23 Loc: XRALEJANDRINA Attending Dr: Kevin Goel MD Ordering Physician: Kevin Goel MD Date of Service: 11/07/23 Procedure(s): XR chest 2V Accession Number(s): [id number] cc: Kevin Goel MD EXAMINATION: XR CHEST [...] heart and lungs. Dictated By: Brian Onofre Jr DO Signed By: <Electronically signed by Brian Onofre Jr, DO in OV> 11/07/23 1404 DD/ 1140 TD/TT: Electric Organ Inspector And Repairer: [place] [address] XRay Report Signed Patient: Piotr Vasquez MR#: [id number] 84 : 1955 Acct:[id number] Age/Sex: 68 / M ADM Date: 11/07/23 Loc: XRALEJANDRINA Attending Dr: Kevin Goel MD Ordering Physician: Kevin Goel MD Date of Service: 11/07/23 Procedure(s): XR donny st 2V Accession Number(s): [id number] cc: Kevin Goel MD EXAMINATION: XR CHEST [...] heart and lungs. Dictated By: Brian Onofre Jr DO Signed By: <Electronically signed by Brian Onofre Jr, DO in OV> 11/07/23 1404 DD/ 1140 TD/TT: Electric Organ Inspector And Repairer: DANIELE CT chest wo con Reviewed date:02/24/2024 08:25:07 AM Interpretation: Performing Lab: Notes/Report: [address] [address] [address] Scan Report Signed Patient: Silvio Vasquez MR#: [id number] 84 : 1955 Acct:[id number] Age/Sex: 68 / M ADM Date: 01/17/24 Loc: HO.CT Attending Dr: Vicky Charlton [employer] Ordering Physician: Vicky Charlton NP Date of Service: 01/17/24 Procedure(s): CT chest wo IV con Accession Number(s): [id number] cc: Kevin Goel MD; Vicky Charlton NP [...] 02/06/24 1315 DD/ 0732 TD/TT: 01/17/24 0750 Electric Organ Inspector And Repairer: [address] [address] [address] Scan Report Signed Patient: Piotr Vasquez MR#: [id number] 84 : 1955 Acct:[id number] Age/Sex: 68 / M ADM Date: 01/17/24 Loc: HO.CT Attending Dr: Jerilyn Charlton NP Ordering Physician: Vicky Charlton NP Date of Service: 01/17/24 Procedure(s): CT donny st wo IV con Accession Number(s): [id number] cc: Kevin Goel MD; Vicky Charlton NP [...] 02/06/24 1315 DD/ 0732 TD/TT: 01/17/24 0750 Electric Organ Inspector And Repairer: ROSAMARIA Testosterone, Free/Total Reviewed date:04/23/2024 07:44:01 AM Interpretation: Performing Lab:[facility], [address] [place] [phone] Notes/Report: Testosterone, Total 856 906-9911 ng/dL Men with clinically significant hypogonadal symptoms and testosterone values repeatedly in the range of the 200-300 ng/dL or less, may benefit from testosterone treatment after adequate risk and benefits counseling. For additional information, please refer to http://education.[employer].com/fa q/ TotalTestosteroneM [email or web address] (This link is being provided for informational/ educational purposes only.) This test was developed and its analytical performance characteristics have been determined by [place]. It has not been cleared or approved by the U.S. Food and Drug Administration. This assay has been validated pursuant to the CLIA regulations and is used for clinical purposes. Testosterone, Free 35.1 35.0-155.0 pg/mL This test was developed and its analytical performance characteristics have been determined by [facility] [place]. It has not been cleared or approved by the U.S. Food and Drug Administration. This assay has been validated pursuant to the CLIA regulations and is used for clinical purposes. THIS TEST WAS PERFORMED AT: [facility] [address] [place] [address] JAMAL AGUAYO MD,PHD Complete Blood Count Auto Di ff Reviewed date:05/04/2024 04:59:17 AM Interpretation: Performing Lab:[facility], [address] [place] [phone] Notes/Report: White Blood Count 10.9 4.8-10.8 X10*3/uL [...] NRBC Abs Auto 0.000 0.0-0.012 X10*3/uL Comprehensive [place]. Panel Fa st Reviewed date:05/04/2024 04:59:17 AM Interpretation: Performing Lab:[facility], [address] [place] [phone] Notes/Report: Sodium 144 135-145 mmol/L Potassium 4.2 [...] Panel Reviewed date:05/04/2024 04:59:17 AM Interpretation: Performing Lab:[facility], [address] [place] [phone] Notes/Report: Triglycerides 57 <150 mg/dL Desirable Triglyceride: [...] Antigen Reviewed date:05/04/2024 04:59:17 AM Interpretation: Performing Lab:[address] [address] Notes/Report: Prostate Specific Antigen 0.61 <0.05-4.0 ng/mL PSA methodology: Gerardo Alinity i Chemiluminescent Microparticle Immunoassay (CMIA) Testosterone, Total Reviewed date:05/08/2024 08:38:08 AM Interpretation: Performing Lab:[address] [address] Notes/Report: Testosterone, Total 336 030-5627 ng/dL Men with clinically significant hypogonadal symptoms and testosterone values repeatedly in the range of the 200-300 ng/dL or less, may benefit from testosterone treatment after adequate risk and benefits counseling. For additional information, please refer to http://education.[employer]/fa q/ TotalTestosteroneLCM [email or web address] (This link is being provided for informational/ educational purposes only.) This test was developed and its analytical performance characteristics have been determined by [facility] [place], [place]. It has not been cleared or approved by the U.S. Food and Drug Administration. This assay has been validated pursuant to the CLIA regulations and is used for clinical purposes. THIS TEST WAS PERFORMED AT: [facility]/[address] [address] JAMAL AGUAYO MD,PHD XR lumbar spine 2-3V Reviewed date:08/01/2024 04:59:50 AM Interpretation: Performing Lab: Notes/Report: [address] [address] XRay Report Signed Patient: Silvio Vasquez MR#: [id number] 84 : 1955 Acct:[id number] Age/Sex: 69 / M ADM Date: 07/27/24 Loc: HO.RAMA Attending Dr: Kevin Goel MD Ordering Physician: Kevin Goel MD Date of Service: 07/27/24 Procedure(s): XR lumbar spine 2-3V Accession Number(s): [id number] cc: Kevin Goel MD .EXAMINATION: XR LUMBOSACRAL [...] fracture or listhesis. Electronically signed by: Corby Hernadnez MD 07/27/2024 02:04 PM [facility] Dictated By: Corby Uriarte MD Signed By: <Electronically signed by Corby Martinez MD in OV> 07/27/24 1404 DD/ 1342 TD/TT: 07/27/24 1357 Electric Organ Inspector And Repairer: [place] [address] XRay Report Signed Patient: Piotr Vasquez MR#: [id number] 84 : 1955 Acct:[id number] Age/Sex: 69 / M ADM Date: 07/27/24 Loc: HO.XRAY Attending Dr: Kevin Goel MD Ordering Physician: Kevin Goel MD Date of Service: 07/27/24 Procedure(s): XR lum bar spine 2-3V Accession Number(s): [id number] cc: Kevin Goel MD .EXAMINATION: XR LUMBOSACRAL [...] by: Corby Hernandez MD 07/27/2024 02:04 PM EST RP Dictated By: Corby Taylor MD Signed By: <Electronically signed by Corby Martinez MD in OV> 07/27/24 1404 DD/ 1342 TD/TT: 07/27/24 1357 Electric Organ Inspector And Repairer: XR sacrum coccyx min 2V Reviewed date:08/01/2024 04:59:50 AM Interpretation: Performing Lab: Notes/Report: [address] [address] XRay Report Signed Patient: Silvio Vasquez MR#: [id number] 84 : 1955 Acct:[id number] Age/Sex: 69 / M ADM Date: 07/27/24 Loc: HO.XRAY Attending Dr: Kevin Goel MD Ordering Physician: Kevin Goel MD Date of Service: 07/27/24 Procedure(s): XR sacrum coccyx min 2V Accession Number(s): [id number] cc: Kevin Goel MD .EXAMINATION: XR SACRUM [...] 07/27/24 1406 DD/ 1343 TD/TT: 07/27/24 1357 Electric Organ Inspector And Repairer: [address] [address] XRay Report Signed Patient: Piotr Vasquez MR#: [id number] 84 : 1955 Acct:[id number] Age/Sex: 69 / M ADM Date: 07/27/24 Loc: HO.XRAY Attending Dr: Kevin Goel MD Ordering Physician: Kevin Goel MD Date of Service: 07/27/24 Procedure(s): XR sac rum coccyx min 2V Accession Number(s): [id number] cc: Kevin Goel MD .EXAMINATION: XR SACRUM [...] by: Corby Hernandez MD 07/27/2024 02:06 PM [facility] Dictated By: Corby Phillips MD Signed By: <Electronically signed by Corby Martinez MD in OV> 07/27/24 1406 DD/ 1343 TD/TT: 07/27/24 1357 Electric Organ Inspector And Repairer: Reason For Referral Reason chronic cough Diagnosis 1 Chronic cough (R05.3 ) Referral Organization Kevin Goel III, MD Referring Provider First Name Kevin Referring Provider Last Name Amando Referring Provider Speciality Internal M edicine Referred Provider THERESE HERNANDEZ Referred Provider Specialty Pulmonary Di seasman General Notes Sarah Serna CMA 10/25 11:37:26 AM EDT > ref/progress note/cxr report faxed to Dr Hernandez office asking them to contact patient with appt Referral Priority Routine Referral Appointment Date 11/19/2023 Medications Medication SIG (Take, Route, Frequency, Duration) Notes Start Date End Date Status Tadalafil 5 MG 1 tablet Orally Once a day Active Advil 200 MG 1 tablet with food o r milk as needed Orally Three times a day as needed Active Arnuity Ellipta 100 MCG/ACT Inhalation Active Albuterol Sulfate HFA 108 (90 Base) MCG/ACT 2 puffs Inhalation QID prn wheezing 04/25/2023 Active tylenol 1 tab Oral as needed Active Gabapentin 100 MG 1 capsule Orally thr ee times a day 07/27/2024 Active dexAMETHasone 2 MG 1 tablet Orally ever y 12 hrs 07/27/2024 Active Immunizations Vaccine Route Administration Date Status [...] Status W/U Status Risk Notes Problem Hypertension (59370483) Hypertension (I10) Active confirmed His blood pressure is slightly elevated. He is going to try to lose 1 or 2 pounds in the next 2 weeks. He may need tAdditional medication. Problem Benign prostatic hyperplasia (327572470) BPH (benign prostatic hyperplasia) (N40.0) Active confirmed He rises from sleep once or twice a night to urinate. We discussed modifications to his lifestyle that could reduce nocturia. Problem Primary osteoarthritis of both knees (M17.0) Active confirmed He was referred to [place] [facility] for treatment and advice. Arthroplasty of both knees has been recommended. The first will take place next August 14, 2024. Problem 320718396 Morbid obesity (E66.01) Active confirmed He has [...] wait until after his knee surgery. Problem 700471287 Adenomatous polyp (D36.9) Active confirmed He will continue with Dr. Curry having colonoscopies every 5 years. He is doing 2019. 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 Problem 81091960 Chronic cough (R05.3) Active confirmed His cough continues despite suppressive medication. His chest x-ray shows no abnormality. Current therapy was continued. If he does not improve Emanuel agreed with sending him to pulmonary. Problem 780576043 Rupture of right triceps tendon, initial encounter (S46.311A) Active confirmed This injury has healed very well and is no longer painful. He reports adequate use of the right arm and good strength. Problem 7293360417871 Testosterone deficiency (E34.9) Active confirmed He was continued on current therapy.His testosterone levels have been slightly low. He was encouraged to speak with urology about the ideal testosterone level. He reports a normal libido. Problem 717237171 Acute low back pain, unspecified back pain laterality, unspecified whether sciatica present (M54.50) Active confirmed He is stead lorna improving. He has begun walking is normal. He will continue slowly to return to normal life and call me if anything worsens. Vital Signs Heart Rate 63 /min 07/27/2024 Temperature 99.1 degrees Fahrenheit 07/27/2024 Blood pressure diastolic 86 mm Hg 07/27/2024 Height 63 in 08/03/2024 Blood pressure systolic 139 mm Hg 07/27/2024 Weight 256 lbs 08/03/2024 BMI 45.34 kg/m2 08/03/2024 Encounters Encounter Location Date Provider Diagnosis Kevin Goel III, MD [address] [place] [address] [place] [address] 09/03/2023 Kevin Goel Primary osteoarthrit is of both knees M17.0 ; Morbid obesity E66.01 ; Rupture of right triceps tendon, initial encounter S46.311A ; Testosterone deficiency E34.9 ; BPH (benign prostatic hyperplasia) N40.0 ; Hypertension I10 and Chest tightness R07.89 Kevin Goel III, MD [address] [place] [address] [place] [address] 11/07/2023 Kevin Goel Primary osteoarthrit is of both knees M17.0 ; Chronic cough R05.3 ; Morbid obesity E66.01 and Hypertension I10 Kevin Goel III, MD [address] [place] [address] [place] [address] 02/14/2024 Kevin Goel Primary osteoarthrit is of both knees M17.0 ; Morbid obesity E66.01 ; Testosterone deficiency E34.9 ; BPH (benign prostatic hyperplasia) N40.0 ; Encounter for immunization Z23 and Rupture of right triceps tendon, initial encounter S46.311A Kevin Goel III, MD [address] [place] [address] [place] [address] 05/07/2024 Kvein Goel Primary osteoarthrit is of both knees M17.0 ; Morbid obesity E66.01 ; Testosterone deficiency E34.9 ; BPH (benign prostatic hyperplasia) N40.0 and Rupture of right triceps tendon, initial encounter S46.311A Kevin Goel III, MD [address] [place] [address] [place] [address] 06/18/2024 Kevin Goel Primary osteoarthrit is of both knees M17.0 ; Morbid obesity E66.01 ; Testosterone deficiency E34.9 ; BPH (benign prostatic hyperplasia) N40.0 and Hypertension I10 Kevin Goel III, MD [address] [place] [address] [place] [address] 07/27/2024 Kevin Goel Primary osteoarthrit is of both knees M17.0 ; Acute low back pain, unspecified back pain laterality, unspecified whether sciatica present M54.50 ; Morbid obesity E66.01 ; Testosterone deficiency E34.9 ; BPH (benign prostatic hyperplasia) N40.0 and Chest tightness R07.89 Kevin Goel III, MD [address] [place] [address] [place] [address] 07/29/2024 Kevin Goel Primary osteoarthrit is of both knees M17.0 ; Acute low back pain, unspecified back pain laterality, unspecified whether sciatica present M54.50 ; Morbid obesity E66.01 ; Testosterone deficiency E34.9 and BPH (benign prostatic hyperplasia) N40.0 Kevin Goel III, MD [address] [place] [address] [place] [address] 08/03/2024 Kevin Goel Primary osteoarthrit is of both knees M17.0 ; Acute low back pain, unspecified back pain laterality, unspecified whether sciatica present M54.50 ; Morbid obesity E66.01 ; BPH (benign prostatic hyperplasia) N40.0 ; Testosterone deficiency E34.9 and Rupture of right triceps tendon, initial encounter S46.311A Kevin Goel III, MD [address] [place] [address] [place] [address] 06/18/2024 Kevin Goel Assessments Encounter Date Diagnosis (ICD Code) Assessment Notes Treat ment Notes Treatment Clinical Notes 09/03/2023 Primary osteoarthritis of both knees (ICD-10 - M17.0) The left knee is giving him the most trouble. He was referred to [place] [facility] for treatment and advice .He continues to hike in the [employer] daily. 09/03/2023 Morbid obesity (ICD-10 - E66.01) In the recent year. He has gaiins in weight. We have discussed diet and nutrition. We have discussed a referral to the weight loss clinic [facility], which would include bariatric surgery consultation. He [...] (ICD-10 - M17.0) He was referred to [place] [facility] for treatment and advice. Arthroplasty [...] (ICD-10 - M17.0) He was referred to [place] [facility] for treatment and advice. Arthroplasty [...] (ICD-10 - M17.0) He was referred to [place] [facility] for treatment and advice. Arthroplasty [...] (ICD-10 - M17.0) He was referred to [place] [facility] for treatment and advice. Arthroplasty [...] (ICD-10 - M17.0) He was referred to [place] [facility] for treatment and advice. Arthroplasty of both knees has been recommended. The first will take place next August 14, 2024. 07/27/2024 Acute low back pain, unspecified back pain laterality, unspecified whether sciatica present (ICD-10 - M54.50) He has been treated with dexamethasone and gabapentin heat and rest. Images will be obtained. Followup will be in 3 days. 07/29/2024 Primary osteoarthritis of both knees (ICD-10 - M17.0) He was referred to [place] [facility] for treatment and advice. Arthroplasty of both knees has been recommended. The first will take place next August 14, 2024. 07/29/2024 Acute low back pain, unspecified back pain laterality, unspecified whether sciatica present (ICD-10 - M54.50) His pain is beginning to improve. The images show no significant surgical problem. No change in his regimen was made. He was advised to rest as much as possible until the pain resolves. 08/03/2024 Primary osteoarthritis of both knees (ICD-10 - M17.0) He was referred to [place] [facility] for treatment and advice. Arthroplasty of both knees has been recommended. The first will take place next August 14, 2024. 08/03/2024 Acute low back pain, unspecified back pain laterality, unspecified whether sciatica present (ICD-10 - M54.50) He is steadily improving. He has begun walking is normal. He will continue slowly to return to normal life and call me if anything worsens. 09/03/2023 Rupture of right triceps tendon, initial [...] a referral to the weight loss clinic [facility], which would include bariatric surgery consultation. He [...] to wait until after his knee surgery. 07/29/2024 Morbid obesity (ICD-10 - E66.01) He has [...] to wait until after his knee surgery. 08/03/2024 Morbid obesity (ICD-10 - E66.01) He has [...] to wait until after his knee surgery. 09/03/2023 Testosterone deficiency (ICD-10 - E34.9) His [...] testosterone level. He reports a normal libido. 07/29/2024 Testosterone deficiency (ICD-10 - E34.9) He was continued on current therapy.His testosterone levels have been slightly low. He was encouraged to speak with urology about the ideal testosterone level. He reports a normal libido. 08/03/2024 BPH (benign prostati c hyperplasia) (ICD-10 - N40.0) He rises from sleep once or twice a night to urinate. We discussed modifications to his lifestyle that could reduce nocturia. 09/03/2023 BPH (benign prostati c hyperplasia) (ICD-10 [...] to his lifestyle that could reduce nocturia. 07/29/2024 BPH (benign prostati c hyperplasia) (ICD-10 - N40.0) He rises from sleep once or twice a night to urinate. We discussed modifications to his lifestyle that could reduce nocturia. 08/03/2024 Testosterone deficiency (ICD-10 - E34.9) He was continued on current therapy.His testosterone levels have been slightly low. He was encouraged to speak with urology about the ideal testosterone level. He reports a normal libido. 09/03/2023 Hypertension (ICD-10 - I10) His blood [...] He has not experienced chest tightness recently. 08/03/2024 Rupture of right triceps tendon, initial encounter [...] Order Date PROFILE, FASTING (COMPREHENSIVE METABOLI C) 03/18/2018 PROFILE, FASTING (COMPREHENSIVE METABOLI C) 05/10/2023 PROFILE, FASTING (COMPREHENSIVE METABOLI C) 02/11/2023 PROFILE, FASTING (COMPREHENSIVE METABOLI C) 11/29/2022 PROFILE, FASTING (COMPREHENSIVE METABOLI C) 08/28/2018 PROFILE, FASTING (COMPREHENSIVE METABOLI C) 02/14/2024 LIPID PANEL 08/28/2018 LIPID PANEL 03/18/2018 LIPID PANEL 02/11/2023 LIPID PANEL 11/29/2022 PSA, TOTAL 02/14/2024 PSA, TOTAL 08/28/2018 PSA, TOTAL 03/18/2018 PSA, TOTAL 02/11/2023 CBC w DIFF 11/29/2022 CBC w DIFF 08/28/2018 CBC w DIFF 03/18/2018 CBC w DIFF 02/11/2023 TESTOSTERONE, TOTAL 02/11/2023 CBC WITH AUTO DIFF 02/14/2024 CBC WITH AUTO DIFF 05/10/2023 Lipid Panel 02/14/2024 Lipid Panel 05/10/2023 Testosterone, Total 02/14/2024 Testosterone, Total 05/10/2023 Next Appt Details Provider Name:Kevin Goel, 09/18/2024 09:30:00 AM, [address] [place] [address] [address], [place], [address], Provider Name:Kevin Goel, 02/15/2025 02:30:00 PM, [address] [place] [address] [address], [facility] [place], [address], Insurance Providers Payer Name Payer Address Payer Phone Subscriber Number Group Number Insured Name Patient Relationship to Insured Coverage Start Date Coverage End Date MEDICARE NGS [address] [place] [address] [phone] [id number] Silvio Vasquez Self - patient is the insured [facility] [address] [place], [place] [phone] [id number] Silvio Vasquez Self - patient is the insured Medical (General) History Medical History History ICD Code obesity decreased vision tubular adenoma, colonoscopy Q 5 years cerumenosis otitis torn left calf muscle, January 2018, h iking osteoarthritis knees left tibial plateau injury 2018 right ulnar compression 05/2021 torn right triceps tendon 05/2021 Diminished libido December 2021 Surgical History Surgery Date(Month/Year) vasectomy 1993 colonoscopy, [facility], Dr. Kevin Curry, tubular adenoma 2008 colonoscopy, [facility], Dr. Kevin Curry, tubular adenoma 2014 cataract surgery right eye [address] Curry 2020 Right triceps tendon reattachment Ulnar nerve decompression, repair and re routing 11/2021 Cataract Surgery, Left eye 01/2023 No history Knee surgery scheduled for august 14 Hospitalization History Reason Date(Month/Year) No history
--- OUTSIDE RECORDS SUMMARY | 2024-08-13 10:55 | XMS_ITS ---
Author Organization Kevin Goel III, MD Address [address] [place] [address] Care Team Providers Care Children'S Librarian Name Role Phone Kevin Goel Primary Care Provider Allergies Allergen (clinical drug ingredient) Drug/Non Drug Allergy documented on EMR Reaction Allergy Type Onset Date Status Shellfish (FN) Shellfish-derived Products Unknown Drug Allergy Active REASON FOR VISIT Acute low back pain, Osteoarthritis of both knees Medications Medication SIG (Take, Route, Frequency, Duration) [...] Problem Status W/U Status Risk Notes Problem [id number] Acute low back pain, unspecified back pain laterality, unspecified whether sciatica present (M54.50) Active confirmed He is steadily improving. He has begun walking is normal. He will continue slowly to return to normal life and call me if anything worsens. Vital Signs Height 63 in 07/29/2024 Weight 256 lbs 07/29/2024 BMI 45.34 kg/m2 07/29/2024 Encounters Encounter Location Date Provider Diagnosis Kevni Goel III, MD [address] [place] [address] DR ALANIZ, GREGORIO [phone] 07/29/2024 Kevin Goel Primary osteoarthrit is of both knees M17.0 ; Acute low back pain, unspecified back pain laterality, unspecified whether sciatica present M54.50 ; Morbid obesity E66.01 ; Testosterone deficiency E34.9 and BPH (benign prostatic hyperplasia) N40.0 Assessments Encounter Date Diagnosis (ICD Code) Assessment Notes Treat ment Notes Treatment Clinical Notes 07/29/2024 Primary osteoarthritis of both knees (ICD-10 - M17.0) He was referred to [place] [facility] for treatment and advice. Arthroplasty [...] much as possible until the pain resolves. 07/29/2024 Morbid obesity (ICD-10 - E66.01) He [...] wait until after his knee surgery. 07/29/2024 Testosterone deficiency (ICD-10 - E34.9) He was continued on current therapy.His testosterone levels have been slightly low. He was encouraged to speak with urology about the ideal testosterone level. He reports a normal libido. 07/29/2024 BPH (benign prostati c hyperplasia) (ICD-10 - N40.0) He rises from sleep once or twice a night to urinate. We discussed modifications to his lifestyle that could reduce nocturia. Plan Of Treatment Medication Medication Name Sig [...] Ellipta 100 MCG/ACT Inhalation Next Appt Details Follow Up: Saturday, Reason: T o discuss the patient's progress and make decisions about imaging and medicines Provider Name:Kevin Goel, 09/18/2024 09:30:00 AM, [address] [place] [address] DWAIN MARTINEZ, [place], [phone], Provider Name:Kevin Goel, 02/15/2025 02:30:00 PM, [address] [place] [address] DWAIN MARTINEZ, [place]ON[place], [phone], Progress Notes * Silvio VASQUEZ LDOB: [birth year] (69 yo M)Acc No.[id number]:07/29/2024 Patient:?Silvio VASQUEZ Provider:?Kevin Goel MD :1955???Age:69 Y???Sex:Male Kai e:07/29/2024 Address:[address] [place] [address] Subjective: * Chief Complaints: * ???Acute low back painOsteoa rthritis of both knees * HPI: ???:?Telehealth?Location of provider rendering services:?{...} [address] [facility] [address] ?Location of patient:?address listed in demographics for today's visit ?Patient identification confirmed using:?Name, ?Telehealth method:?Telephone only. Patient not visible to care provider. ?Consent:?Patient verbally consented to treatment, Patient verbally consented to billing insurance company, Patient informed of any privacy concerns related to method of visit ?Total time spent with patient (mins)?15 ?The patient, a 69-year-old male, reported discomfort in his left side, which he described as minor and not painful. He also mentioned that he was able to sleep without any discomfort and was able to walk to his car station to the lab without any issues. The patient also reported pain in his left hip. The symptoms seem to have been constant for the past few days. The patient did not mention any specific triggers for the symptoms, but he did mention that he was planning a trip to [place], which could potentially exacerbate his symptoms. The patient did not report any other associated signs or symptoms.The x-rays that were recently done of his lumbosacral spine and sacrum show only spondylosis.? No surgical problem was identified.? He will continue with conservative therapy as he is beginning to improve. * ROS:?General/Constitutional:?Admits?pain,?left hip. back.?Chills?denies.?Fatigue?admits.?Fever?denies.?ENT:?Decreased hearing?denies.?Respiratory:?Cough?denies.?Cardiovascular:?Chest pain with exertion?denies.?Dyspnea on exertion?denies.?Shortness of breath?denies.?Gastrointestinal:?Constipation?occasional.?Decreased appetite?denies.?Diarrhea?denies.?Heartburn?denies.?Nausea?denies.?Rectal bleeding?denies.?Vomiting?denies.?Hematology:?bruising?denies.?petechiae?denies.?Swollen glands?none have been noted.?Genitourinary:?Frequent urination?once a night.?Musculoskeletal:?Muscle aches?denies.?Painful joints?Knees and lumbar spine.?Sciatica?denies.?Weakness?denies.?Skin:?Itching?denies.?Rash?denies.?Skin lesion(s)?denies.?Neurologic:?Difficulty speaking?denies.?Dizziness?denies.?Headache?denies.?Low back pain?that is new.?Psychiatric:?Depressed mood?denies.? * Medical History:? * Surgical History:?vasectomy 1993colonoscopy, [facility], Dr. Kevin Curry, tubular adenoma 2008colonoscopy, [facility], Dr. Kevin Curry, tubular adenoma 2015cataract [...] Tobacco Non-User?Aggressive non-smoker ???He was born at [place], [place]. He came to [place] at the age of 40. 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 He has 2 sons who are alive and well and one stepdaughter. One son is in the [employer] at [place], [place]. * Medications:?Takingtylenol 1 tab Oral [...] 100 MCG/ACT Aerosol Powder Breath Activated Inhalation dexAMETHasone 2 MG Tablet 1 tablet Orally every 12 hrs Gabapentin 100 MG Capsule 1 capsule Orally three times a day Medication List reviewed and reconciled with the [...] 100 MCG/ACT Aerosol Powder Breath Activated Inhalation Taking dexAMETHasone 2 MG Tablet 1 tablet Orally every 12 hrs Taking Gabapentin 100 MG Capsule 1 capsule Orally three times a day Medication List reviewed and reconciled with the patient * Allergies:?Shellfish-derived Productsno[Allergies Verified] Objective: * Vitals:?Ht: 63, Wt:256, BMI: 45.34, Ht-cm: 160.02, Wt-k.12. * ???Past Orders: Lab:Lipid Panel * Collection Date 05/01/2024 08/01/2023 05/03/2023 Collection Time 08:57 AM 10:20 AM 08:40 AM Order Date 05/01/2024 08/01/2023 05/03/2023 Triglycerides 57 (Ref Range: <150 mg/dL) 70 (Ref Range: <150 mg/dL) 61 (Ref Range: <150 mg/dL) Cholesterol 160 (Ref Range: <200 mg/dL) 169 (Ref Range: <200 mg/dL) 169 (Ref Range: <200 mg/dL) LDL Cholesterol Calculated 100?H (Ref Range: <100 mg/dL) 104?H (Ref Range: <100 mg/dL) 94 (Ref Range: <100 mg/dL) HDL Cholesterol 49 (Ref Range: >40 mg/dL) 51 (Ref Range: >40 mg/dL) 63 (Ref Range: >40 mg/dL) * Lab:Prostate Specific Antige n * Collection Date 05/01/2024 07/03/2023 05/03/2023 Collection Time 08:57 AM 09:21 AM 08:40 AM Order Date 05/01/2024 07/03/2023 05/03/2023 Prostate Specific Antigen 0.61 (Ref Range: <0.05-4.0 ng/mL) 0.58 (Ref Range: <0.05-4.0 ng/mL) 0.43 (Ref Range: <0.05-4.0 ng/mL) * Lab:Testosterone, Total * Collection Date 05/01/2024 08/01/2023 05/03/2023 Collection Time 08:57 AM 10:20 AM 08:40 AM Order Date 05/01/2024 08/01/2023 05/03/2023 Testosterone, Total 292 (Ref Range: 250-1100 ng/dL) 306 (Ref Range: 250-1100 ng/dL) 242?A (Ref Range: 250-1100 ng/dL) * Lab:Complete Blood Count Aut o Diff * Collection Date 05/01/2024 08/01/2023 05/03/2023 Collection Time 08:57 AM 10:20 AM 08:40 AM Order Date 05/01/2024 08/01/2023 05/03/2023 White Blood Count 10.9?H (Ref Range: 4.8-10.8 X10*3/uL) 10.3 (Ref Range: 4.8-10.8 X10*3/uL) 14.8?H (Ref Range: 4.8-10.8 X10*3/uL) Red Blood Count 4.89 (Ref Range: 4.60-5.80 X10*6/uL) 4.78 (Ref Range: 4.60-5.80 X10*6/uL) 4.73 (Ref Range: 4.60-5.80 X10*6/uL) Hemoglobin 14.6 (Ref Range: 14.0-18.0 g/dl) 14.3 (Ref Range: 14.0-18.0 g/dl) 14.0 (Ref Range: 14.0-18.0 g/dl) Hematocrit 44.2 (Ref Range: 42.0-52.0 %) 43.7 (Ref Range: 42.0-52.0 %) 42.3 (Ref Range: 42.0-52.0 %) Mean Corpuscular Volume 90.4 (Ref Range: 80.0-98.0 fL) 91.4 (Ref Range: 80.0-98.0 fL) 89.4 (Ref Range: 80.0-98.0 fL) Mean Corpuscular Hemoglobin 29.9 (Ref Range: 27.0-33.0 pg) 29.9 (Ref Range: 27.0-33.0 pg) 29.6 (Ref Range: 27.0-33.0 pg) Mean Corpuscular HGB Conc 33.0 (Ref Range: 31.0-36.0 g/dl) 32.7 (Ref Range: 31.0-36.0 g/dl) 33.1 (Ref Range: 31.0-36.0 g/dl) Red Cell Distribution Width 13.9 (Ref Range: 11.0-16.0 %) 13.9 (Ref Range: 11.0-16.0 %) 14.2 (Ref Range: 11.0-16.0 %) Platelet Count 274 (Ref Range: 160-400 X10*3/uL) 297 (Ref Range: 160-400 X10*3/uL) 359 (Ref Range: 160-400 X10*3/uL) Mean Platelet Volume 9.1?L (Ref Range: 9.4-12.4 fL) 9.1?L (Ref Range: 9.4-12.4 fL) 8.9?L (Ref Range: 9.4-12.4 fL) Neutrophils Percent Auto 68.2 (Ref Range: 45-73 %) 65.5 (Ref Range: 45-73 %) 66.3 (Ref Range: 45-73 %) Imm Gran Pct Auto 0.7?H (Ref Range: 0.0-0.4 %) 0.8?H (Ref Range: 0.0-0.4 %) 2.2?H (Ref Range: 0.0-0.4 %) Lymphocytes Percent Auto 23.0 (Ref Range: 20-40 %) 25.4 (Ref Range: 20-40 %) 25.2 (Ref Range: 20-40 %) Monocytes Percent Auto 6.2 (Ref Range: 2-11 %) 5.9 (Ref Range: 2-11 %) 5.8 (Ref Range: 2-11 %) Eosinophils Percent Auto 1.6 (Ref Range: 0-4 %) 1.9 (Ref Range: 0-4 %) 0.2 (Ref Range: 0-4 %) Basophils Percent Auto 0.3 (Ref Range: 0-2 %) 0.5 (Ref Range: 0-2 %) 0.3 (Ref Range: 0-2 %) NRBC Pct Auto 0.0 (Ref Range: 0.0-0.2 /100WBC) 0.0 (Ref Range: 0.0-0.2 /100WBC) 0.0 (Ref Range: 0.0-0.2 /100WBC) Neutrophils Absolute Auto 7.4 (Ref Range: 2.0-8.3 x10*3/uL) 6.7 (Ref Range: 2.0-8.3 x10*3/uL) 9.8?H (Ref Range: 2.0-8.3 x10*3/uL) Imm Gran Abs Auto 0.08?H (Ref Range: 0.00-0.03 X10*3/uL) 0.08?H (Ref Range: 0.00-0.03 X10*3/uL) 0.33?H (Ref Range: 0.00-0.03 X10*3/uL) Lymphocytes Absolute Auto 2.5 (Ref Range: 1.2-4.9 X10*3/uL) 2.6 (Ref Range: 1.2-4.9 X10*3/uL) 3.7 (Ref Range: 1.2-4.9 X10*3/uL) Monocytes Absolute Auto 0.7 (Ref Range: 0.1-1.2 X10*3/uL) 0.6 (Ref Range: 0.1-1.2 X10*3/uL) 0.9 (Ref Range: 0.1-1.2 X10*3/uL) Eosinophils Absolute Auto 0.2 (Ref Range: 0.0-0.4 X10*3/uL) 0.2 (Ref Range: 0.0-0.4 X10*3/uL) 0.0 (Ref Range: 0.0-0.4 X10*3/uL) Basophils Absolute Auto 0.0 (Ref Range: 0.0-0.2 X10*3/uL) 0.1 (Ref Range: 0.0-0.2 X10*3/uL) 0.0 (Ref Range: 0.0-0.2 X10*3/uL) NRBC Abs Auto 0.000 (Ref Range: 0.0-0.012 X10*3/uL) 0.000 (Ref Range: 0.0-0.012 X10*3/uL) 0.000 (Ref Range: 0.0-0.012 X10*3/uL) * Lab:[facility] * Collection Date 05/01/2024 08/01/2023 05/03/2023 Collection Time 08:57 AM 10:20 AM 08:40 AM Order Date 05/01/2024 08/01/2023 05/03/2023 Sodium 144 (Ref Range: 135-145 mmol/L) 141 (Ref Range: 135-145 mmol/L) 143 (Ref Range: 135-145 mmol/L) Bilirubin Total 0.6 (Ref Range: 0.0-1.0 mg/dL) 0.6 (Ref Range: 0.0-1.0 mg/dL) 0.6 (Ref Range: 0.0-1.0 mg/dL) Aspartate Amino Transferase 28 (Ref Range: 5-37 U/L) 30 (Ref Range: 5-37 U/L) 25 (Ref Range: 5-37 U/L) Alanine Aminotransferase 28 (Ref Range: 0-40 U/L) 29 (Ref Range: 0-40 U/L) 27 (Ref Range: 0-40 U/L) Total Protein 7.1 (Ref Range: 6.5-8.0 g/dL) 7.0 (Ref Range: 6.5-8.0 g/dL) 6.6 (Ref Range: 6.5-8.0 g/dL) Albumin Level 4.0 (Ref Range: 3.5-5.0 g/dL) 4.0 (Ref Range: 3.5-5.0 g/dL) 3.7 (Ref Range: 3.5-5.0 g/dL) Alkaline Phosphatase 116 (Ref Range: 39-117 U/L) 104 (Ref Range: 39-117 U/L) 103 (Ref Range: 39-117 U/L) Potassium 4.2 (Ref Range: 3.3-5.1 mmol/L) 4.3 (Ref Range: 3.3-5.1 mmol/L) 3.8 (Ref Range: 3.3-5.1 mmol/L) Chloride 102 (Ref Range: 96-108 mmol/L) 103 (Ref Range: 96-108 mmol/L) 105 (Ref Range: 96-108 mmol/L) Carbon Dioxide 34?H (Ref Range: 22-29 mmol/L) 34?H (Ref Range: 22-29 mmol/L) 31?H (Ref Range: 22-29 mmol/L) Anion Gap 12 (Ref Range: 12-20) 8?L (Ref Range: 12-20) 11?L (Ref Range: 12-20) Blood Urea Nitrogen 16 (Ref Range: 9-16 mg/dL) 14 (Ref Range: 9-16 mg/dL) 15 (Ref Range: 9-16 mg/dL) Creatinine 0.89 (Ref Range: 0.5-1.4 mg/dL) 0.86 (Ref Range: 0.5-1.4 mg/dL) 0.80 (Ref Range: 0.5-1.4 mg/dL) Estimated Glomerular Filt Rate > 60 > 60 > 60 Glucose Fasting 101?H (Ref Range: 60-99 mg/dL) 100?H (Ref Range: 60-99 mg/dL) 91 (Ref Range: 60-99 mg/dL) Calcium 9.8 (Ref Range: 8.4-10.2 mg/dL) 9.3 (Ref Range: 8.4-10.2 mg/dL) 8.8 (Ref Range: 8.4-10.2 mg/dL) ???Imaging:XR lumbar spine 2-3V (Order Date - 07/27/2024) (Performed Date - 07/27/2024) ???Imaging:XR sacrum coccyx min 2V (Order Date - 07/27/2024) (Performed Date - 07/27/2024) * Examination: ??? : ???{'Multilevel spondylitis formation':'Present', 'Marginal osteophyte formation': 'Present', 'Degenerative discs': 'Present between the 3rd and 4th lumbar vertebra and the 5th and the sacrum', 'Arthritis': 'Present'}. ??? Assessment: * Assessment: 1.?Acute low back pain, unsp ecified back pain laterality, unspecified whether sciatica present - M54.50 (Primary)???Notes :His pain is beginning to improve.? The images show no significant surgical problem.? No change in his regimen was made.? He was advised to rest as much as possible until the pain? resolves.???2.?Primary osteoarthritis of both knees - M17.0???Notes :He was referred to [place] [facility] surgeons for treatment and advice. Arthroplasty of both knees has been recommended. The first will take place next August 14, 2024.???3.?Morbid obesity - E66.01???Notes :He has gained 4 [...] modifications to his lifestyle that could reduce nocturia.??? Plan: * Treatment: 2.?Others? Continue Tadalafil Tablet, [...] or Other reason not done * Follow Up:?Saturday (Reason: T o discuss the patient's progress and make decisions about imaging and medicines) * Images: * Sign off status: Completed true * Provider:?Kevin Goel MD Date:?09/2024 Generated for Ricky reis/Luis/eTransmitting on:?08/13/2024 10:54 AM EDT History and Physical Notes * HPI (History of Present Illness) Category Sub-Category Detail Notes Telehealth Location of [facility] rendering services:: {...} [address] [facility] [address] Location of patient:: address listed in demographics [...]
--- OUTSIDE RECORDS SUMMARY | 2024-08-13 10:55 | XMS_ITS | Patient Health Record ---
Author Organization [facility] Address [address] [place] [address] Care Team Providers Care Hris Administrator Name Role Phone Kevin Goel MD Primary Care Provider Unavailab Kevin Rose Unavailable [phone] Reason For Referral No Information Immunizations Vaccine Route Administration Date Status Comme nts Influenza Unknown 03/27/2020 Administered Problems Problem Type SNOMED Code ICD Code Onset Dates Problem Status W/U Status Risk Notes Problem Screening for malignant neoplasm of colon (336582071) Encounter for screening for malignant neoplasm of colon (Z12.11) Active confirmed Problem History of adenomatous polyp of colon (718641742) History of adenomatous polyp of colon (Z86.010) Active confirmed Problem History of polyp of colon (situation) (642094805) Personal history of colonic polyps (Z86.010) Active confirmed Problem Pre-procedure evaluation check (117652537) Encounter for other preprocedural examination (Z01.818) Active confirmed Problem Preprocedural examination (088080292477305) Preprocedural examination (Z01.818) Active confirmed Plan Of Treatment Pending Test Test Name Order Date Pathology 08/26/2020 Future Test Test Name Order Date COLONOSCOPY 02/25/2015 COLONOSCOPY 06/30/2020 Insurance Providers Payer Name Payer Address Payer Phone Subscriber Number Group Number Insured Name Patient Relationship to Insured Coverage Start Date Coverage End Date [facility] [employer] [address] [place] [address] [id number] Self - patient is [...]
--- OUTSIDE RECORDS SUMMARY | 2024-08-13 10:55 | XMS_ITS ---
Author Organization Kevin Goel III, MD Address [address] [place] [address] Care Team Providers Care Personnel Counselor Name Role Phone Kevin Goel Primary Care Provider Allergies Allergen (clinical drug ingredient) Drug/Non Drug Allergy documented on EMR Reaction Allergy Type Onset Date Status Shellfish (FN) Shellfish-derived Products Unknown Drug Allergy Active REASON FOR VISIT Acute left sciatica, Resolved low back pain, Morbid obesity, Benign prostatic hypertrophy, Osteoarthritis both knees Medications Medication SIG (Take, Route, [...] Orally ever y 12 hrs 07/27/2024 Active Advil 200 MG 1 tablet [...] Aggressive non-smoker Vital Signs Height 63 in 08/03/2024 Weight 256 lbs 08/03/2024 BMI 45.34 kg/m2 08/03/2024 Encounters Encounter Location Date Provider Diagnosis Kevin Goel III, MD [address] [place] [address] [place] [address] 08/03/2024 Kevin Goel Primary osteoarthrit is of both knees M17.0 ; Acute low back pain, unspecified back pain laterality, unspecified whether sciatica present M54.50 ; Morbid obesity E66.01 ; BPH (benign prostatic hyperplasia) N40.0 ; Testosterone deficiency E34.9 and Rupture of right triceps tendon, initial encounter S46.311A Assessments Encounter Date Diagnosis (ICD Code) Assessment Notes Treat ment Notes Treatment Clinical Notes 08/03/2024 Primary osteoarthritis of both knees (ICD-10 - M17.0) He was referred to [facility] for treatment and advice. Arthroplasty of both knees has been recommended. The first will take place next August 14, 2024. 08/03/2024 Acute low back pain, unspecified back pain laterality, unspecified whether sciatica present (ICD-10 - M54.50) He is steadily improving. He has begun walking is normal. He will continue slowly to return to normal life and call me if anything worsens. 08/03/2024 Morbid obesity (ICD-10 - E66.01) He [...] wait until after his knee surgery. 08/03/2024 BPH (benign prostati c hyperplasia) (ICD-10 [...] level. He reports a normal libido. 08/03/2024 Rupture of right triceps tendon, initial encounter (ICD-10 - S46.311A) This injury has healed very well and is no longer painful. He reports adequate use of the right arm and good strength. Plan Of Treatment Medication Medication Name Sig Start Date Stop Date Notes Tadalafil 5 MG 1 tablet Orally Once a day Arnuity Ellipta 100 MCG/ACT Inhalation Albuterol Sulfate HFA 108 (9 0 Base) MCG/ACT 2 puffs Inhalation QID prn wheezing 04/25/2023 Gabapentin 100 MG 1 capsule Orally thr ee times a day 07/27/2024 dexAMETHasone 2 MG 1 tablet Orally ever y 12 hrs 07/27/2024 Advil 200 MG 1 tablet with food o r milk as needed Orally Three times a day as needed tylenol 1 tab Oral as needed Next Appt Details Follow Up: As Scheduled, Berenice son: OV Provider Name:Kevin Goel, 09/18/2024 09:30:00 AM, [address] [place] [address] [address], [place], [address], Provider Name:Kevin Goel, 02/15/2025 02:30:00 PM, [address] [place] [address] [address], [place], [address], Progress Notes * Silvio VASQUEZ LDOB: [birth year] (69 yo M)Acc No.[id number]:08/03/2024 Patient:?Silvio VASQUEZ Provider:?Kevin Goel MD :1955???Age:69 Y???Sex:Male Kai e:08/03/2024 Address:[address] [place] [address] [id number] Subjective: * Chief Complaints: * ???Acute left sciaticaResolv ed low back painMorbid obesityBenign prostatic hypertrophyOsteoarthritis both knees * HPI: ???:?The pain in his left hip and low back or better.? He continues to have mild sciatica down the left leg to the knee.? It is improving steadily.? He has begun walking electively now. He is feeling much better.? He is trying to lose weight.? He arises from sleep once or twice a night to urinate.? He was given an apppointment to come to the office to measure his blood pressure and be reexamined.? He will gradually returned to normal living. ?Telehealth?Location of provider rendering services:?{...} [address] [facility] [address] ?Location of patient:?address listed in demographics for today's visit ?Patient identification confirmed using:?Name, ?Telehealth method:?Telephone only. Patient not visible to care provider. ?Consent:?Patient verbally consented to treatment, Patient verbally consented to billing insurance company, Patient informed of any privacy concerns related to method of visit ?Total time spent with patient (mins)?15 * ROS:?General/Constitutional:?pain?Left hip, both knees, low back.?Chills?denies.?Fatigue?admits.?Fever?denies.?ENT:?Decreased hearing?denies.?Respiratory:?Cough?non-productive.?Cardiovascular:?Chest pain with exertion?denies.?Dyspnea on exertion?denies.?Shortness of breath?denies.?Gastrointestinal:?Constipation?occasional.?Decreased appetite?denies.?Diarrhea?denies.?Heartburn?denies.?Nausea?denies.?Rectal bleeding?denies.?Vomiting?denies.?Hematology:?bruising?denies.?petechiae?denies.?Swollen glands?none have been noted.?Genitourinary:?Frequent urination?once a night.?Musculoskeletal:?Muscle aches?denies.?Painful joints?denies.?Sciatica?denies.?Weakness?denies.?Skin:?Itching?denies.?Rash?denies.?Skin lesion(s)?denies.?Neurologic:?Difficulty speaking?denies.?Dizziness?denies.?Headache?denies.?Low back pain?denies.?Psychiatric:?Depressed mood?denies.? * Medical History:? * Surgical History:?vasectomy 1993colonoscopy, [facility], Dr. Kevin Curry, tubular adenoma 2008colonoscopy, [facility], Dr. Kevin Curry, tubular adenoma 2015cataract surgery [...] lung cancer. Mother's sister had liver cancer. Andry joey rojo has diabetes, obesity and hypertension. A brother from brain cancer. A brother has early onset alzheimers and prostate cancer. * Social History:?Tobacco Use:?Tobacco Use/Smoking?Patient is a?nonsmoker ?Additional Findings: Tobacco Non-User?Aggressive non-smoker ???He was born at [place], [place]. He came to [facility] at the age of 40. 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 He has 2 sons who are alive and well and one stepdaughter. One son is in the [employer] at [place], [place]. * Medications:?Takingtylenol 1 tab Oral [...] 45.34, Ht-cm: 160.02, Wt-k.12. Assessment: * Assessment: 1.?Acute low back pain, unsp ecified back pain laterality, unspecified whether sciatica present - M54.50 (Primary)???Notes :He is steadily improving.? He has begun walking is normal.? He will continue slowly to return to normal life and call me if anything worsens.???2.?Primary osteoarthritis of both knees - M17.0???Notes :He was referred to [facility] surgeons for treatment and advice. Arthroplasty [...] wants to wait until after his knee surgery.???4.?BPH (benign prostatic hyperplasia) - N40.0???Notes :He rises from sleep once or twice a night to urinate. We discussed modifications to his lifestyle that could reduce nocturia.???5.?Testosterone deficiency - E34.9???Notes :He was continued on current therapy.His testosterone levels have been slightly low. He was encouraged to speak with urology about the ideal testosterone level. He reports a normal libido.???6.?Rupture of right triceps tendon, initial encounter - S46.311A???Notes :This injury has healed very well and is no longer painful. He reports adequate use of the right arm and good strength.??? Plan: * Treatment: 2.?Others? Continue Tadalafil Tablet, 5 MG, 1 tablet, Orally, Once a day;?Continue Albuterol Sulfate HFA Aerosol Solution, 108 (90 Base) MCG/ACT, 2 puffs, Inhalation, QID prn wheezing.?? * Procedure Codes:? * Preventive Medicine:? ??Counseling:?Care goal follow-up plan:?Counseling for abnormal BMI given?Yes ?Above Normal BMI Follow-up?Dietary management education, guidance, and counseling, Dietary needs education * Follow Up:?As Scheduled (Berenice son: OV) * Images: * Sign off status: Completed true * Provider:?Kevin Goel MD Date:?07/25 Generated for Fransiscoi smiley/Luis/eTransmitting on:?08/13/2024 10:55 AM EDT History and Physical Notes * HPI (History of Present Illness) Category Sub-Category Detail Notes Telehealth Location of [facility] rendering services:: {...} [address] [place] [id number] Location of patient:: address listed in demographics [...]
--- OUTSIDE RECORDS SUMMARY | 2024-08-13 10:55 | XMS_ITS | Continuity of Care Document ---
Author Organization ID [facility] Address [address] [place] [address] Care Team Providers Care Manager Managing Name Role Phone TOSHIA HOWE Referring Provider Assessment Encounter Date Assessment Date Assessment LastModified by Organization Details LastModified Time 07/30/2024 07/30/2024 Assessment: Patient presents with symptoms that are consistent with knee OA. Demonstrates good understanding of home program, post-operative mechanics for gait and stairs, and expectations following surgery. Plan: Discharge patient to knee OA safe [facility]. Follow up with patient post-operatively . [email or web address] Not available 07/30/2024 12:41:26 Plan of Treatment Reminders Order Date Submit Date Provider Last Modified By Organization Details Last Modified Time Details Appointments SURGERY @ [facility] 2024 07:30A M Darryl Hou MD Not available Not available Not available PT INITIAL EVAL 2024 11:00A M Jaymie Ortiz, PT Not available Not available Not available PT FOLLOW-U P 2024 11:00A M Jaymie Ortiz, PT Not available Not available Not available RECHECK 15 2024 01:00P M True Hebert PA-C Not available Not available Not available PT FOLLOW-U P 2024 11:00A M Jaymie Ortiz, PT Not available Not available Not available PT FOLLOW-U P 2024 10:00A M Dyan Pandey, PLANT OPERATIONS COORDINATOR Not available Not available Not available PT FOLLOW-U P 2024 01:00P M Jaymie Ortiz, PT Not available Not available Not available PT FOLLOW-U P 2024 11:00A M Dyan Katherin, PLANT OPERATIONS COORDINATOR Not available Not available Not available PT FOLLOW-U P 2024 11:00A M Jaymie Ortiz, PT Not available Not available Not available PT FOLLOW-U P 2024 11:00A M Jaymie Ortiz, PT Not available Not available Not available PT FOLLOW-U P 2024 11:00A M Dyan Katherin, PLANT OPERATIONS COORDINATOR Not available Not available Not available PT FOLLOW-U P 2024 11:30A M Dyansilke Wuory, PLANT OPERATIONS COORDINATOR Not available Not available Not available RECHECK 15 2024 10:45A M Darryl Hou MD Not available Not available Not available PT FOLLOW-U P 2024 10:30A M Dyan Katherin, PLANT OPERATIONS COORDINATOR Not available Not available Not available PT FOLLOW-U P 2024 11:00A M Jaymie Dickersond, PT Not available Not available Not available PT FOLLOW-U P 2024 11:00A M Dyansilke Wuory, PLANT OPERATIONS COORDINATOR Not available Not available Not available PT FOLLOW-U P 2024 11:00A M Dyan Katherin, PLANT OPERATIONS COORDINATOR Not available Not available Not available PT FOLLOW-U P 2024 11:00A M Dyan Katherin, PLANT OPERATIONS COORDINATOR Not available Not available Not available PT FOLLOW-U P 2024 11:00A M Dyan Katherin, PLANT OPERATIONS COORDINATOR Not available Not available Not available Lab None recorded . Referral None recorded . Procedures None recorded . Surgeries None recorded . Imaging None recorded . Medication Orders None recorded . Patient TargetsNo targets recorded. Patient InstructionsNo instructions recorded. Reason for Referral None Reported. Procedures Surgical History Date Name Laterality Status Provider Name and Address Organization Details Recorded Time 5 55576: Low complexity PT Eval completed Jaymie Ortiz, PT [address], [place], [address], [facility] 07/30/2024 12:41:14 5 G8417 BMI Above Upper Parameters, F/U Documented completed Jaymie Ortiz, PT [address], [place], [address], [facility] 07/30/2024 12:41:51 5 G8427 Current Medication Documented completed Jaymie Ortiz, PT [address], [place], [address], [facility] 07/30/2024 12:41:48 4 Sports Knee 4&1 completed Brent Caballero PA-C [address], [place], [address], [facility] 04/16/2024 09:58:49 4 Sports Knee Asp & Inj completed Brent Caballero PA-C [address], [place], [address], [facility] 01/16/2024 11:38:37 4 Sports Knee 4&1 completed Brent Caballero PA-C [address], [place], [address], [facility] 10/14/2023 08:00:33 4 91449 Therapeutic Exercise (1:1) completed Tati Castillo, PT [address], [place], [address], [facility] 10/01/2023 13:37:50 4 93569 Therapeutic Exercise (1:1) completed Tati Castillo, PT [address], [place], [address], [facility] 09/24/2023 07:16:26 4 16463 Therapeutic Exercise (1:1) completed Tati Castillo, PT [address], [place], [address], [facility] 09/16/2023 10:21:29 4 83811 Therapeutic Exercise (1:1) completed Dyan Pandey, PLANT OPERATIONS COORDINATOR [address], [place], [address], [facility] 09/10/2023 11:50:45 4 10728 Therapeutic Exercise (1:1) completed Tati Castillo, PT [address], [place], [address], [facility] 09/03/2023 10:49:11 4 69224 Therapeutic Exercise (1:1) completed Tati Castillo, PT [address], [place], [address], [facility] 08/26/2023 23:38:08 4 82243 Therapeutic Exercise (1:1) completed Tati Castillo, PT [address], [place], [address], [facility] 08/19/2023 10:37:12 4 29814 Therapeutic Exercise (1:1) completed Tati Castillo, PT [address], [place], [address], [facility] 08/13/2023 09:50:35 4 50200 Therapeutic Exercise (1:1) completed Tati Castillo, PT [address], [place], [address], [facility] 08/09/2023 14:50:16 4 94756: Moderate complexity PT eval completed Tati Castillo, PT [address], [place], [address], [facility] 08/09/2023 14:50:23 4 G8417 BMI Above Upper Parameters, F/U Documented completed Tati Castillo, PT [address], [place], [address], [facility] 08/09/2023 08:29:09 4 G8427 Current Medication Documented completed Tati Castillo, PT [address], [place], [address], [facility] 08/09/2023 08:28:57 Imaging Results None recorded. Procedure Notes None recorded. Medical Equipment None Reported. Allergies Allergen ID Allergen Name Allergen Category Reaction Reaction Severity Criticality Documentation Date Start Date Code Code System Note Provider Name and Address Organization Details Recorded Time 58389 Shellfish (substanc e) food,medi cation Not available Not available Not available 07/29/20232022 15329 9006 SNOMED Not Available [facility] 11:24:33 Medications Name Sig Start Date Stop [...] Updated DateTime 07/30/2024 162.56 cm 42.1 kg/m2 793057.13 g Jaymie Ortiz, PT [address], [place], [address], [place] - [facility] 07/30/2024 12:41:37 Social History Question Answer Notes LastModified by Organizat ion Details LastModified Time Tobacco Smoking Status Never Smoker DEEJAY wang [place] - [facility] 10/14/2023 14:10:46 What Is Your Level Of [...] Response Allergies/Hayfever N Coronary Artery Disease N Anxiety/Depression N Breathing or lung disorders N Emphysema N Nerve Disorders N Thyroid Problems N COPD N Pacemaker N Anemia N Kidney/Bladder Problems N Vascular Disease N Heart Trouble N Heart Attack (AR) N Gastrointestinal Disease N Cholesterol N Diabetes N Autoimmune disease N Inflammatory Joint disease N Bleeding Disorder N Orthotics N Arthritis Y Seizures/Epilepsy N [...] SNOMED-CT Code Diagnosis ICD10 Code Diagnosis Note [id number] Darryl Hou MD [facility] [address] [place] [address] 07/30/2024 08:53:18 07/30/2024 10:05:00 Osteoarthritis of knee [id number] M17.12 Health Concerns Section Related Observation LastModified by Organization Detai ls LastModified Time None Recorded Concern Status LastModified by Organization Details LastModified Time None Recorded Payers Encounter Date Sequence Insurance Name Policy Number Policy Paez Covered Member ID Paez Member ID Guarantor Name 07/30/2024 1 [place] [employer] Silvio Vasquez [id number] Silvio Vasquez 07/30/2024 2 [place] [id number] Silvio Vasquez [id number] Silvio Vasquez Notes Date Note Type [...] HEP. 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 Functional limitations include restricted knee ROM, difficulty ambulating community distances, and pain navigating stairs. Jaymie Ortiz, PT [address] [facility] [address], [place], [address], [facility] - [facility] 07/30/2024 12:44:57
--- OUTSIDE RECORDS SUMMARY | 2024-08-13 10:56 | XMS_ITS | Continuity of Care Document ---
Author Organization [facility] Address [address] [place] [address] Care Team Providers Care Structural Worker Name Role Phone TOSHIA HOWE Referring Provider [phone] Assessment Encounter Date Assessment Date Assessment LastModified by Organization Details LastModified Time 08/10/2024 08/10/2024 PRIMARY DIAGNOSI S: Osteoarthritis of [...] on 08/14/2024. CONTACTS: His Minnie pope at [phone]. Prescriptions given at the time of history and physical today include Celebrex. He will require prescription for aspirin, pantoprazole, Colace, pain medication, Zofran and cefadroxil at the time of discharge. [email or web address] Not available 08/11/2024 14:58:42 Plan of Treatment Reminders Order Date Submit Date Provider Last Modified By Organization Details Last Modified Time Details Appointments SURGERY @ [facility] 2024 07:30A M Darryl [...] available PT FOLLOW-UP 2024 10:00A M Dyan Pandey TECHNICAL RECRUITER Not available Not available Not available PT FOLLOW-UP 2024 01:00P M Jaymie Ortiz, PT Not available Not available Not available PT FOLLOW-UP 2024 11:00A Samia Pandey, TECHNICAL RECRUITER Not available Not available Not available PT FOLLOW-UP 2024 11:00A M Jaymie Ortiz, PT Not available Not available Not available PT FOLLOW-UP 2024 11:00A M Jaymie Dickersond, PT Not available Not available Not available PT FOLLOW-UP 2024 11:00A M Dyan Katherin, TECHNICAL RECRUITER Not available Not available Not available PT FOLLOW-UP 2024 11:30A M Dyan Katherin, TECHNICAL RECRUITER Not available Not available Not available RECHECK 15 2024 10:45A M Darryl Hou MD Not available Not available Not available PT FOLLOW-UP 2024 10:30A M Dyan Katherin, TECHNICAL RECRUITER Not available Not available Not available PT FOLLOW-UP 2024 11:00A M Jaymie Ortiz, PT Not available Not available Not available PT FOLLOW-UP 2024 11:00A M Dyan Katherin, TECHNICAL RECRUITER Not available Not available Not available PT FOLLOW-UP 2024 11:00A M Dyan Katherin, TECHNICAL RECRUITER Not available Not available Not available PT FOLLOW-UP 2024 11:00A M Dyan Katherin, TECHNICAL RECRUITER Not available Not available Not available PT FOLLOW-UP 2024 11:00A M Dyan Katherin, TECHNICAL RECRUITER Not available Not available Not available Lab None recorded. Referral None recorded. Procedures None recorded. Surgeries None recorded. Imaging None recorded. Medication Orders Celebrex 200 mg capsule 2024 025 [email or web address] [id number], [address] [place], [address], 08/11/2024 14:58:41 Patient TargetsNo targets recorded. Patient InstructionsNo instructions recorded. Reason for Referral None Reported. Procedures Surgical History Date Name Laterality Status Provider Name and Address Organization Details Recorded Time 5 57336: Low complexity PT Eval completed Jaymie Ortiz, PT [address], [place], [address], [place] [facility] 07/30/2024 12:41:14 5 G8417 BMI Above Upper Parameters, F/U Documented completed Jaymie Ortiz, PT [address], [place], [address], [facility] 07/30/2024 12:41:51 5 G8427 Current Medication Documented completed Jaymie Ortiz, PT [address], [place], [address], [facility] 07/30/2024 12:41:48 4 Sports Knee 4&1 completed Brent Caballero PA-C [address], [place], [address], [facility] 04/16/2024 09:58:49 4 Sports Knee Asp & Inj completed Brent Caballero PA-C [address], [place], [address], [facility] 01/16/2024 11:38:37 4 Sports Knee 4&1 completed Brent Caballero PA-C [address], [place], [address], [facility] 10/14/2023 08:00:33 4 25060 Therapeutic Exercise (1:1) completed Tati Castillo, PT [address], [place], [address], [facility] 10/01/2023 13:37:50 4 25702 Therapeutic Exercise (1:1) completed Tati Castillo, PT [address], [place], [address], [facility] 09/24/2023 07:16:26 4 43914 Therapeutic Exercise (1:1) completed Tati Castillo, PT [address], [place], [address], [facility] 09/16/2023 10:21:29 4 02711 Therapeutic Exercise (1:1) completed Dyan Pandey, TECHNICAL RECRUITER [address], [place], [address], [facility] 09/10/2023 11:50:45 4 38726 Therapeutic Exercise (1:1) completed Tati Castillo, PT [address], [place], [address], [facility] 09/03/2023 10:49:11 4 14083 Therapeutic Exercise (1:1) completed Tati Castillo, PT [address], [place], [address], [facility] 08/26/2023 23:38:08 4 43536 Therapeutic Exercise (1:1) completed Tati Castillo, PT [address], [place], [address], [facility] 08/19/2023 10:37:12 4 54229 Therapeutic Exercise (1:1) completed Tati Castillo, PT [address], [place], [address], [facility] 08/13/2023 09:50:35 4 33366 Therapeutic Exercise (1:1) completed Tati Castillo, PT [address], [place], [address], [facility] 08/09/2023 14:50:16 4 13057: Moderate complexity PT eval completed Tati Castillo, PT [address], [place], [address], [facility] 08/09/2023 14:50:23 4 G8417 BMI Above Upper Parameters, F/U Documented completed Tati Castillo, PT [address], [place], [address], [facility] 08/09/2023 08:29:09 4 G8427 Current Medication Documented completed Tati Castillo, PT [address], [place], [address], [facility] 08/09/2023 08:28:57 Imaging Results None recorded. Procedure Notes None recorded. Medical Equipment None Reported. Allergies Allergen ID Allergen Name Allergen Category Reaction Reaction Severity Criticality Documentation Date Start Date Code Code System Note Provider Name and Address Organization Details Recorded Time 73386 Shellfish (substanc e) food,medi cation Not available Not available Not available 07/29/20232022 67441 9006 SNOMED Not Available [facility] 11:24:33 Medications Name Sig Start Date Stop [...] Updated DateTime 08/10/2024 162.56 cm 42.7 kg/m2 511425.5 g IRIS VALIENTE [facility] 08/10/2024 11:31:40 Social History Question Answer Notes LastModified by Organizat ion Details LastModified Time Tobacco Smoking Status Never Smoker DEEJAY wang [place] [facility] 10/14/2023 [...] Disease N Heart Trouble N Heart Attack (DE) N Gastrointestinal Disease N Cholesterol N Diabetes [...] SNOMED-CT Code Diagnosis ICD10 Code Diagnosis Note [id number] MD ROSMERY Rogers [facility] [address] [place] [address] 07/30/2024 08:53:18 07/30/2024 10:05:00 Osteoarthritis of knee 279600458 M17.12 [id number] THERESE Connolly 2nd floor [address] [place] [address] 08/10/2024 11:23:42 08/11/2024 14:58:55 Osteoarthritis of left knee joint 8908823903 67722 M17.12 Health Concerns Section Related Observation LastModified by Organization Detai ls LastModified Time None Recorded Concern Status LastModified by Organization Details LastModified Time None Recorded Payers Encounter Date Sequence Insurance Name Policy Number Policy Paez Covered Member ID Paez Member ID Guarantor Name 08/10/2024 1 [place] [employer] Silvio Vasquez [id number] Silvio Vasquez 08/10/2024 2 [place] [id number] Silvio Vasquez [id number] Silvio Vasquez
== END 2024-08-13 10:16 | disposition home or self-care (01) ==
LOC: HO.HUSH 09:48
PROVIDERS: PCP Internal Medicine Medical Oncology; Visit Provider Nurse Practitioner Family
DX: E29.1 Testicular hypofunction (principal); Z13.9 Encounter for screening, unspecified
CPT/HCPCS: 99214; G2211

== ENCOUNTER → 2024-08-13 09:47 | Outpatient (BNVA) | payer MEDICARE, SELFPAY | PROVIDERS: PCP Internal Medicine Medical Oncology; Visit Provider Nurse Practitioner Family | DX: E29.1 Testicular hypofunction (principal) | CPT/HCPCS: 81003; 99212 ==

== ENCOUNTER 2025-01-04 09:57 | Outpatient (REF) | payer MEDICARE, SELFPAY ==
--- NOTE | ~2025-01-04 | CT_ITS ---
CLINICAL HISTORY: R91.8 - Other nonspecific abnormal finding of lung field CT chest without contrast Comparison: CT/SR - CT CHEST WITHOUT IV CONTRAST - 01/17/24 07:32 EDT Findings: The heart is normal size. The visualized thyroid and mediastinum are unremarkable. Stable 4.5 mm para fissural nodule of the right middle lobe series 4, image 96. 2 mm right lower lobe nodule image 94. The upper abdomen is unremarkable. No acute fractures. IMPRESSION: Stable pulmonary nodules. CT chest follow-up in 1 year as indicated. Fleischner Society 2017 Guidelines for incidentally detected indeterminate nodules in persons 35 years of age or older. Single Solid Nodules: 5 mm or smaller nodules need no follow-up in low risk, and [address] follow-up is optional in high risk patients. 6-8 mm nodules have optional [address] follow-up in low risk, and 6-[address] follow-up followed by 18-[address] follow-up if no change in high risk patients. 9 mm or larger nodules should consider CT, PET/CT, or biopsy at 3 months regardless of patient risk. Multiple Solid Nodules: 5 mm or smaller nodules need no follow-up in low risk, and [address] follow-up is optional in high risk patients. 6-8 mm nodules need 3-[address] follow-up followed by an optional 18-[address] follow-up regardless of patient risk. 9 mm or larger nodules should consider 3-[address] follow-up. For low risk 18-24 month follow-up is optional, whereas for high risk it is needed. Single Ground Glass Nodules: 5 mm or smaller nodules need no followup 6 mm and larger nodules need CT at 6-12 months to confirm persistence, then CT every 2 years until 5 years Single Subsolid Nodules: 5 mm or smaller nodules need no followup 6 mm and larger nodules need CT at 3-6 months to confirm persistence. If no change and solid component /T/lt;6 mm, then CT every year until 5 years Multiple Ground Glass or Subsolid Nodules: 5 mm or smaller nodules need CT at 3-6 months. If stable, optional CT at 2 and 4 years. 6 mm or larger nodules need CT at 3-6 months. Subsequent management based on most suspicious nodule This document has been electronically signed by: Estella Lee MD on 01/04/2025 13:18:24
--- OUTSIDE RECORDS SUMMARY | 2025-01-04 10:31 | XMS_ITS | Patient Health Record ---
Author Organization [facility] Address [address] [place] [address] Care Team Providers Care Service Delivery Management Consultant Name Role Phone Kevin Goel MD Primary Care Provider Unavailab Kevin Rose Unavailable [phone] Reason For Referral No Information Immunizations Vaccine Route Administration Date Status Comme nts Influenza Unknown 03/27/2020 Administered Problems Problem Type SNOMED Code ICD Code Onset Dates Problem Status W/U Status Risk Notes Problem Encounter for screening for malignant neoplasm of colon (Z12.11) Active confirmed Problem History of adenomatous polyp of colon (003169735) History of adenomatous polyp of colon (Z86.010) Active confirmed Problem Personal history of colonic polyps (Z86.010) Active confirmed Problem Encounter for other preprocedural examination (Z01.818) Active confirmed Problem Preprocedural examination (060291150704044) Preprocedural examination (Z01.818) Active confirmed Plan Of Treatment Pending Test Test Name Order Date Pathology 08/26/2020 Future Test Test Name Order Date COLONOSCOPY 02/25/2015 COLONOSCOPY 06/30/2020 Insurance Providers Payer Name Payer Address Payer Phone Subscriber Number Group Number Insured Name Patient Relationship to Insured Coverage Start Date Coverage End Date [facility] [employer] [address] [place] [address] [id number] GATO AVILA Self - patient is the insured Medical (General) History Medical History History ICD Code Screening colonoscopy 8-31-2 009-1 tubular adenoma removed--also noted to have mild sigmoid diverticulosis and small internal hemorrhoids Denies MT,DM,CVA,Lung disease,renal dise ase COVID infection 04/2020. Had neg. COVID test 05/28/2020 Colonoscopy 04/2015 with a small tubular adenoma Surgical History Surgery Date(Month/Year) oral surgery vasectomy eye surgery
--- OUTSIDE RECORDS SUMMARY | 2025-01-04 10:31 | XMS_ITS | Clinical Summary ---
Author Organization [facility] Address [address] [place] [address] Phone Care Team Providers Care Natural Resource Technician Name Role Phone Kevin Goel MD Primary Care Provider [phone] Social History Tobacco Use Types Packs/Day Years Used Date Smoking Tobacco: Never Assessed Education Answer Date Recorded Are you interested in more education? Not on belkis e 09/22/2022 Are you concerned about learning? Not on file 09/22/2022 No 09/22/2022 No 09/22/2022 Digital Access Answer Date Recorded No 10/21/2022 No 10/21/2022 No 10/21/2022 Reliable internet access at home? Not on file 10/21/2022 Device with a working camera? Not on file Sex and Gender Information Value Date Recorded Sex Assigned at Not on file Legal Sex Male 9:55 AM EDT Gender Identity Not on file Sexual Orientation Not on file Plan of Treatment Health Maintenance Due Date Last Done Comments Adult Td,Tdap Booster 1955 LIPID PANEL 1955 DEPRESSION SCREENING 1967 SMOKING Hx and SMOKELESS TOB ACCO SCREENING 1968 HEPATITIS C SCREENING 1973 COLOGUARD 2000 COLONOSCOPY 2000 COLORECTAL CANCER SCREENING 2000 FIT TEST 2000 FOBT 2000 SIGMOIDOSCOPY 2000 VIRTUAL COLONOSCOPY 2000 PNEUMOCOCCAL VACCINES (50+ y ears) (1 of 1 - PCV) 2005 ZOSTER VACCINES (1 of 2) 2005 COVID-19 VACCINE ( - 2023-2 5 season) 2024 RSV VACCINE (1 - 1-dose 75+ series) 2030 HEPATITIS A VACCINES Aged Out No long er eligible based on patient's age to complete this topic HIB VACCINES Aged Out No longer eligi ble based on patient's age to complete this topic MENINGOCOCCAL VACCINES (ACWY) Aged Out No longer eligible based on patient's age to complete this topic MENINGOCOCCAL VACCINES (B) Aged Out N o longer eligible based on patient's age to complete this topic Medical Devices Not on file Insurance [employer] MED[employer] SUPPLEMENT MEDICARE PART A & B [employer] MEDEX SUPPLEMENT MEDICARE PART A & B [employer] MEDEX SUPPLEMENT MEDICARE PART A & B [employer] MEDEX SUPPLEMENT MEDICARE PART A & B [email or web address] MEDEX SUPPLEMENT MEDICARE PART A & B [employer] MEDEX SUPPLEMENT MEDICARE PART A & B [employer] MEDEX SUPPLEMENT MEDICARE PART A & B [employer] MEDEX SUPPLEMENT MEDICARE PART A & B [employer] MEDEX SUPPLEMENT MEDICARE PART A & B Care Teams Natural Resource Technician Relationship Specialty Start Date End Date Kevin Goel MD [address] [place] [id number] PCP - General Medical Oncology 12/20/21 Additional Source Comments The information contained in this document represents components of the legal health record. It is not the complete legal health record.[facility]
--- OUTSIDE RECORDS SUMMARY | 2025-01-04 10:32 | XMS_ITS | Patient Health Record ---
Author [facility] Address [address] [place] [address] Care Team Providers Care Mobile Plant Operators Name Role Phone Kevin Goel MD Primary Care Provider Unavailab Rainer Turner Unavailable [phone] Kevin Goel MD Unavailable Unavailable Allergies Allergen (clinical drug ingredient) Drug/Non Drug Allergy documented on EMR Reaction Allergy Type Onset Date Status shellfish,claims,s callups (uncoded) diarrhea/stomach nausea Allergy Active povidone-iodine Betadine diarrhea/nausea Drug Allergy Active Reason For Referral No Information Medications Medication SIG (Take, Route, Frequency, Duration) Notes Start Date End Date Status Advil 200 MG 1 tablet with food o r milk as needed Orally prn Active Social History Tobacco Use: Social History Observation Description Date Details (start date - stop date) Never Smoker NA - NA Tobacco Use/Smoking Question Answer Notes Are you a: nonsmoker Additional Findings: Tobacco Non-User Current no n-smoker Alcohol Screen Question Answer Notes Did you have a drink containing alcohol in the p ast year? Yes Points 0 Interpretation Negative Tobacco use other than smoking: Question Answer Notes Are you an other tobacco user? No Problems Problem Type SNOMED Code ICD Code Onset Dates Problem Status W/U Status Risk Notes Problem Acquired hallux valgus (93366469) Hallux valgus (acquired), left foot (M20.12) Active confirmed Problem Acquired hallux valgus (12676940) Hallux valgus (acquired), right foot (M20.11) Active confirmed Problem Acquired hammer toe of right foot (8552131046174 105) Other hammer toe(s) (acquired), right foot (M20.41) Active confirmed Problem Acquired hammer toe of left foot (8437631745996 103) Other hammer toe(s) (acquired), left foot (M20.42) Active confirmed Plan Of Treatment Pending Test Test Name Order Date X ray : Foot, left 3V 03/30/2020 Insurance Providers Payer Name Payer Address Payer Phone Subscriber Number Group Number Insured Name Patient Relationship to Insured Coverage Start Date Coverage End Date [facility] [address] [place] [address] [id number] Silvio Vasquez Self - patient is the insured Medical (General) History Medical History History ICD Code Back,Hip,and Knee pain Cataracts Surgical History Surgery Date(Month/Year) cataract surgery right eye 2018
== END 2025-01-04 09:58 | disposition home or self-care (01) ==
LOC: HO.CT 09:57
PROVIDERS: PCP Internal Medicine Medical Oncology; Visit Provider Nurse Practitioner Family
DX: R91.8 Other nonspecific abnormal finding of lung field (principal)
CPT/HCPCS: 71250

== ENCOUNTER → 2025-01-04 09:59 | Outpatient (BNV) | payer MEDICARE, SELFPAY | PROVIDERS: PCP Internal Medicine Medical Oncology; Visit Provider Nuclear Medicine | DX: R91.8 Other nonspecific abnormal finding of lung field (principal) | CPT/HCPCS: 71250 ==